=== PATIENT | male | born 1965 | race Two or more races ===

== ENCOUNTER 2020-02-07 15:23 | Inpatient (IN) | payer OTHER ==
[~2020-02-07] VITALS: Ht 185.4 cm; Wt 135.0 kg
[2020-02-07] MEDS ORDERED: PANTOPRAZOLE 40 MG/10 ML VIAL INJ IV STA (15:36)
[2020-02-07] MEDS ORDERED: SODIUM CHLORIDE 0.9% 1,000 ML IVB ONE (15:36)
[2020-02-07] MEDS ORDERED: MORPHINE SULFATE 4 MG/ML SYR/VIAL IV ONE (15:45)
[2020-02-07] MEDS ORDERED: ONDANSETRON HCL 4 MG/2 ML VIAL IV ONE (15:45)
[2020-02-07 16:23] LABS: Hemoglobin 13.2 g/dL (13.5-17.5)
[2020-02-07 16:24] LABS: Hematocrit 39.8 % (41.0-53.0); Mean Corpuscular Hemoglobin 28.8 pg (28.0-32.0); Mean Corpuscular Hgb Conc. 33.2 g/dL (32.0-36.0); Mean Corpuscular Volume 86.8 fL (80.0-100.0); Platelet Count (auto) 618 10^3/uL (140-450); Red Blood Cells 4.58 10^6/uL (4.5-5.90); Red Cell Distribution Width 13.7 % (11.8-14.3); White Blood Cell 12.8 10^3/uL (4.4-10.8)
[2020-02-07 16:29] LABS: Band Neutrophils % (manual) 0; Basophils % (manual) 0 (0.0-2.0); Blast Cells 0; Metamyelocytes % 0; Myelocytes % 0; Promyelocytes % 0; Reactive Lymphocytes 0
[2020-02-07 16:42] LABS: Albumin 3.1 g/dL (3.4-5.0); Calcium 8.8 mg/dL (8.5-10.1); Potassium 3.7 mmol/L (3.5-5.1)
[2020-02-07 16:46] LABS: BUN/Creatinine Ratio 12.2; Bilirubin, Total 0.8 mg/dL (0.2-1.0); Total Protein 7.7 g/dL (6.4-8.2)
[2020-02-07 17:28] LABS: Lymphocytes % (manual) 14 (10.0-50.0); Monocytes % (manual) 4 (0-12)
[2020-02-07 17:29] LABS: Eosinophils % (manual) 2 (0-7)
[2020-02-07] MEDS ORDERED: ALBUTEROL SULF 2.5 MG/0.5ML(0.5%) NEB SOLN NEB PRN (22:00)
[2020-02-07 22:23] VITALS: BP 117/78
[2020-02-07] MEDS: VANCOMYCIN 1GM/250ML 250 ML IV SCH (22:49)
--- NOTE | 2020-02-07 22:55 | NUR ---
MS admit from [facility] admitted to tele/MS. Patient oriented to JENNIFER SPARROW, primary RN, unit, room, bed, and unit policies regarding patient care and visiting hours. Patient accompanied to unit and room with two guards via wheelchair. Patient transferred from wheelchair to bed with strong and steady gait. Patient is alert and oriented x4. Patient denies shortness of breath or cough at this time. Patient placed on 1L NC, SPO2: 97%, no signs/symptoms of distress noted or verbalized at this time. Patient is complaining of non-radiating sharp pain to the left side of his abdomen (pain scale 7/10), will medicate patient as ordered by MD. Patient reports the onset of his pain began approximately 3 months ago. Patient denies nausea at this time. Instructed on plan of care and to call for assistance as needed, patient verbalized understanding. All questions and concerns addressed. Bed is locked in lowest position, side rails x 2 are up, call light is within reach, and guards are at the bedside.
[2020-02-07 23:00] VITALS: BP 112/82
[2020-02-07 23:40] VITALS: BP 112/82
[2020-02-07] MEDS: MORPHINE SULFATE 4 MG/ML SYR/VIAL IV PRN (23:45)
--- NOTE | 2020-02-07 23:45 | NUR ---
Abdominal Pain Patient is complaining of non-radiating sharp pain to the left side of his abdomen (pain scale 7/10). Patient has been medicated for pain as ordered by MD (see eMAR).
--- NOTE | 2020-02-08 00:15 | NUR ---
Pain Reassessment Patient is laying in bed with even and unlabored respirations. Patient rates his pain to the left side of his abdomen as a 4/10. No sign/symptoms of distress noted at this time.
[2020-02-08] MEDS ORDERED: ALBUAER3 IN (00:32)
[2020-02-08] MEDS ORDERED: TIOTCAP IN (00:32)
--- NOTE | 2020-02-08 00:45 | NUR ---
MRSA swab collected and sent to lab via bullet.
[2020-02-08] MEDS ORDERED: IPRATROPIUM BROM 0.5 MG/2.5ML INH SOL NEB PRN (02:00)
[2020-02-08 05:30] VITALS: BP 102/72
[2020-02-08] MEDS: ALBUTEROL SULF HFA 90MCG INH 200DOSE IN SCH ×2 (06:00→14:24)
--- NOTE | 2020-02-08 06:02 | NUR ---
Urinalysis Collected urine sample for urinalysis and sent to lab via bullet.
[2020-02-08 06:12] LABS: Urine Bacteria NONE SEEN /hpf (None Seen); Urine Blood Negative /uL (Negative); Urine Specific Gravity 1.006 (1.001-1.035); Urine WBC 3 /hpf (0 - 3)
--- NOTE | 2020-02-08 06:19 | NUR ---
NO INHALER AT BEDSIDE, MDI NOT GIVEN TO PT AT THIS TIME, PT ON 2L NC WITH SPO2 96%, HR 69, RR 15 WITH NO RESPIRATORY DISTRESS NOTED. GUARDS AT BEDSIDE. PT MADE AWARE TX WILL CONTINUE AT 1400.
[2020-02-08] MEDS: MORPHINE SULFATE 4 MG/ML SYR/VIAL IV PRN ×2 (06:36→14:36)
--- NOTE | 2020-02-08 07:19 | NUR ---
Closing Shift Note Endorsed patient care to Tata WONG.
--- NOTE | 2020-02-08 07:30 | NUR ---
Opening Shift Note Assumed care of patient, awake and alert. No S/S of distress/SOB or pain. Instructed on POC and to call for assist PRN, will continue to monitor for changes Q1hr and PRN. Fall precautions in place per safety protocol. Guards at bedside.
[2020-02-08 08:00] VITALS: BP 119/83
[2020-02-08] MEDS ORDERED: ENOXAPARIN SOD 40 MG/0.4 ML SYRINGE SC ONE (10:00)
[2020-02-08] MEDS: VANCOMYCIN 1GM/250ML 250 ML IV SCH ×2 (10:01→22:08)
[2020-02-08] MEDS: PANTOPRAZOLE 40 MG TAB PO SCH (10:01)
[2020-02-08 12:00] VITALS: BP 118/86
--- NOTE | 2020-02-08 12:54 | NUR ---
Covid Results Patient's covid results are negative. Patient will be transferred to room 293 A with MARVIN Bhatia. Report endorsed.
--- NOTE | 2020-02-08 13:21 | NUR ---
RECEIVED REPORT FROM MARVIN BAH. ASSUMED CARE OF PATIENT. NO S/S OF SOB/DISTRESS NOTED. BED SET TO LOWEST POSITION/LOCKED, BEDSIDE RAIL UP X2. CALL LIGHT WITHIN REACH. INSTRUCTED PATIENT TO CALL FOR ASSISTANCE. PATIENT VERBALIZED UNDERSTANDING. WILL CONTINUE TO MONITOR Q1HR AND PRN.
--- NOTE | 2020-02-08 13:24 | NUR ---
Patient transferred to room 293A. No distress, sob, or pain noted at time of departure.
--- NOTE | 2020-02-08 14:24 | NUR ---
INHALER GIVEN WITH NO ADVERSE RX, PT ON RA WITH SPO2 94%, HR 78, RR 15, WITH CLEAR DIMINISHED. WILL CONTINUE TO MONITOR PT. INHALER AT BEDSIDE.
[2020-02-08] MEDS ORDERED: IOHEXOL 300 MG/ML 100ML BOTTLE IJ ONE (16:50)
[2020-02-08 16:58] VITALS: BP 122/71
[2020-02-08] MEDS: Ensure HIGH Protein Chocolate 8oz Bottle PO SCH (18:00)
[2020-02-08 18:31] LABS: INR 1.13 (0.9-1.15); Partial Thromboplastin Time 28.2 sec (23.64-32.05)
[2020-02-08 22:00] VITALS: BP 123/84
[2020-02-08] MEDS ORDERED: ALBUTEROL SULF HFA 90MCG INH 200DOSE IN SCH (22:00)
[2020-02-08] MEDS: BUDESONIDE (INHALATION) 0.5 MG/2 ML NEB NEB SCH (22:35)
[2020-02-08] MEDS: ALBUTEROL SULF 2.5 MG/0.5ML(0.5%) NEB SOLN NEB SCH (22:35)
[2020-02-08] MEDS: IPRATROPIUM BROM 0.5 MG/2.5ML INH SOL NEB SCH (22:35)
[2020-02-08] MEDS: TEMAZEPAM 15 MG CAP PO PRN (23:50)
[2020-02-09 04:57] VITALS: BP 113/79
[2020-02-09] MEDS: MORPHINE SULFATE 4 MG/ML SYR/VIAL IV PRN ×3 (05:06→17:35)
[2020-02-09] MEDS: ALBUTEROL SULF 2.5 MG/0.5ML(0.5%) NEB SOLN NEB SCH ×3 (06:54→21:35)
[2020-02-09] MEDS: BUDESONIDE (INHALATION) 0.5 MG/2 ML NEB NEB SCH ×2 (06:54→21:35)
[2020-02-09] MEDS: IPRATROPIUM BROM 0.5 MG/2.5ML INH SOL NEB SCH ×3 (06:54→21:35)
[2020-02-09 07:34] LABS: Calcium 8.6 mg/dL (8.5-10.1); Potassium 3.8 mmol/L (3.5-5.1)
[2020-02-09 07:36] LABS: BUN/Creatinine Ratio 12.1
[2020-02-09] MEDS: Ensure HIGH Protein Chocolate 8oz Bottle PO SCH ×3 (08:11→17:34)
[2020-02-09 09:33] VITALS: BP 137/75
[2020-02-09] MEDS: VANCOMYCIN 1GM/250ML 250 ML IV SCH ×2 (09:58→17:34)
[2020-02-09] MEDS: PANTOPRAZOLE 40 MG TAB PO SCH (09:58)
[2020-02-09] MEDS: ONDANSETRON HCL 4 MG/2 ML VIAL IV PRN ×2 (11:25→17:35)
[2020-02-09 13:00] VITALS: BP 126/77
[2020-02-09 17:01] VITALS: BP 96/61
--- NOTE | 2020-02-09 19:35 | NUR ---
Opening Shift Note Assumed care of patient, awake and alert. No S/S of distress/SOB or pain. Instructed on POC and to call for assist PRN, will continue to monitor for changes Q1hr and PRN.
--- NOTE | 2020-02-09 21:35 | NUR ---
Respiratory note: SCHEDULED MED NEB TX GIVEN AND TOLERATED WELL. HR 102, RR 16, SPO2 87% ON ROOM AIR. PLACED PT ON 2L NC.
[2020-02-09 22:24] VITALS: BP 110/83
[2020-02-09] MEDS: HYDROcodone-ACET 10/325MG TAB PO PRN (22:24)
[2020-02-09] MEDS: TEMAZEPAM 15 MG CAP PO PRN (22:25)
[2020-02-10] MEDS: VANCOMYCIN 1GM/250ML 250 ML IV SCH ×3 (02:08→18:18)
[2020-02-10 05:00] VITALS: BP 111/69
[2020-02-10] MEDS: IPRATROPIUM BROM 0.5 MG/2.5ML INH SOL NEB SCH ×3 (05:57→22:26)
[2020-02-10] MEDS: ALBUTEROL SULF 2.5 MG/0.5ML(0.5%) NEB SOLN NEB SCH ×3 (05:57→22:26)
[2020-02-10] MEDS: BUDESONIDE (INHALATION) 0.5 MG/2 ML NEB NEB SCH ×2 (05:57→22:26)
[2020-02-10 06:27] LABS: Potassium 3.9 mmol/L (3.5-5.1)
[2020-02-10 06:34] LABS: BUN/Creatinine Ratio 13.4; Calcium 8.5 mg/dL (8.5-10.1)
[2020-02-10] MEDS: Ensure HIGH Protein Chocolate 8oz Bottle PO SCH ×3 (08:00→18:00)
[2020-02-10 08:59] VITALS: BP 107/70
[2020-02-10] MEDS ORDERED: GOLYTELY 4L KIT PO ONE (09:00)
[2020-02-10] MEDS: PANTOPRAZOLE 40 MG TAB PO SCH (09:40)
[2020-02-10] MEDS: HYDROcodone-ACET 10/325MG TAB PO PRN ×3 (09:41→22:26)
[2020-02-10 11:27] VITALS: BP 106/68
[2020-02-10 12:44] VITALS: BP 115/78
[2020-02-10 17:24] VITALS: BP 118/81
--- NOTE | 2020-02-10 19:00 | NUR ---
OPENING NOTE Patient is A&O X's 4 with no s/s of distress and reports no pain. Educated patient on POC and to use call light when in need of assistance. Patient verbalized understanding. Bed is in lowest/locked position with side rails up X's 2 and call light is within reach of patient. Guards are present at bedside. Will continue care.
[2020-02-10 22:19] VITALS: BP 118/77
[2020-02-10] MEDS: TEMAZEPAM 15 MG CAP PO PRN (22:26)
--- NOTE | 2020-02-10 23:26 | NUR ---
PAIN REASSESSMENT Patient is resting in bed with eyes closed. No s/s of distress or discomfort seen.
--- NOTE | 2020-02-11 | NUR ---
PATIENT NPO Patient is NPO for procedure. Patient aware and verbalized understanding.
[2020-02-11] MEDS: VANCOMYCIN 1GM/250ML 250 ML IV SCH ×3 (01:34→17:39)
[2020-02-11 05:20] VITALS: BP 109/84
[2020-02-11 05:21] VITALS: BP 109/84
[2020-02-11] MEDS ORDERED: GOLYTELY 4L KIT PO ONE ×3 (06:00→11:45)
[2020-02-11] MEDS: HYDROcodone-ACET 10/325MG TAB PO PRN (06:34)
--- NOTE | 2020-02-11 06:49 | NUR ---
golytely patient instructed on finishing the golytely solution. Patient verbalized understanding. Patient reporting that he is having many bowel movements this morning and that it is almost clear in color now. Will give report to day shift RN.
[2020-02-11 06:59] LABS: Basophils # (auto) 0.1 10 ^3/uL (0-0.2); Lymphocytes # (auto) 1.4 10 ^3/uL (0.4-5.4); Mean Corpuscular Volume 88.2 fL (80.0-100.0); White Blood Cell 11.3 10^3/uL (4.4-10.8)
[2020-02-11 07:01] LABS: Basophils % (auto) 0.9 % (0.0-2.0); Eosinophils # (auto) 0.6 10 ^3/uL (0-0.8); Eosinophils % (auto) 5.1 % (0.0-7.0); Hemoglobin 13.3 g/dL (13.5-17.5); Lymphocytes % (auto) 12.1 % (10.0-50.0); Mean Corpuscular Hemoglobin 28.5 pg (28.0-32.0); Mean Corpuscular Hgb Conc. 32.3 g/dL (32.0-36.0); Neutrophils # (auto) 8.3 10 ^3/uL (1.6-8.6); Neutrophils % (auto) 72.9 % (37.0-80.0); Nucleated Red Blood Cells % 0.2 %; Platelet Count (auto) 658 10^3/uL (140-450); Red Blood Cells 4.66 10^6/uL (4.5-5.90); Red Cell Distribution Width 14.3 % (11.8-14.3)
--- NOTE | 2020-02-11 07:15 | NUR ---
OPENING SHIFT NOTE Assumed care of patient from nightclub manager RN. Guards at bedside, cuffs noted to bilateral lower extremities, no signs of skin breakdown or circulatory issues. Patient is alert and oriented x4, patient complaining of abdominal pain. Pain medication already given, patient was offered heat/ice packs and patient refused. Abdomen is distended, firm, tenderness noted. Patient was updated on the plan of care and he verbalized understanding. Bed is locked, in the lowest position, side rails up x2 and call light is in reach. Patient was encouraged to call for assistance as needed.
[2020-02-11] MEDS: ALBUTEROL SULF 2.5 MG/0.5ML(0.5%) NEB SOLN NEB SCH ×4 (07:21→22:27)
[2020-02-11] MEDS: IPRATROPIUM BROM 0.5 MG/2.5ML INH SOL NEB SCH ×4 (07:21→22:27)
--- NOTE | 2020-02-11 07:35 | NUR ---
ALEX COMPLETED Patient reports his first bowel movement was this morning around 0600, solid.
[2020-02-11] MEDS: Ensure HIGH Protein Chocolate 8oz Bottle PO SCH ×3 (08:00→17:40)
--- NOTE | 2020-02-11 08:26 | NUR ---
PATIENT COMPLAINING OF N/V Patient and guard state that the patient vomited, unwitnessed by this RN, amount unknown. Patient complaining of nausea. Will give Zofran as ordered.
[2020-02-11] MEDS: ONDANSETRON HCL 4 MG/2 ML VIAL IV PRN (08:46)
[2020-02-11 09:00] VITALS: BP 117/78
[2020-02-11] MEDS: PANTOPRAZOLE 40 MG TAB PO SCH (09:44)
[2020-02-11] MEDS ORDERED: NALOXONE HCL 0.4 MG/ML VIAL ONE (10:09)
[2020-02-11] MEDS ORDERED: FLUMAZENIL 0.1 MG/ML INJ 10ML MDV IV ONE (10:09)
[2020-02-11] MEDS ORDERED: SODIUM CHLORIDE LOCK 0 ML ONE (10:09)
[2020-02-11] MEDS ORDERED: LIDOCAINE VISCOUS 2% 15ML UD ONE (10:09)
[2020-02-11] MEDS ORDERED: diphenhdrAMINE HCL 50 MG/1 ML VL ONE (10:10)
[2020-02-11] MEDS ORDERED: MIDAZOLAM HCL 5 MG/ML-1ML VIAL ONE (10:10)
[2020-02-11] MEDS ORDERED: fentaNYL CITRATE 100 MCG/2 ML VL ONE (10:10)
--- NOTE | 2020-02-11 10:32 | NUR ---
IV INFILTRATION Antibiotic infusion stopped. erythema noted to the right forearm. Pharmacy called, ice pack to affected area and IV removed per protocol, pressure dressing applied, patient tolerated well.
--- NOTE | 2020-02-11 11:30 | NUR ---
IV insertion IV access obtained, via clean sterile technique by inserting 22 gauge catheter at Left forearm after 4 attempts. IV secured properly. No trauma to site. Patient tolerated well.
[2020-02-11] MEDS ORDERED: MORPHINE SULFATE 4 MG/ML SYR/VIAL IV PRN (11:45)
--- NOTE | 2020-02-11 11:56 | NUR ---
AVERY PAGED Regarding patient needing another round of golytely. message left with service, awaiting call back.
[2020-02-11] MEDS: MORPHINE SULFATE 4 MG/ML SYR/VIAL IV PRN ×3 (11:58→22:24)
--- NOTE | 2020-02-11 12:06 | NUR ---
CALL FROM AVERY updated on patient status, per MD patient to drink golytely 3L during the day and 1L at night, reschedule procedure for tomorrow 02/12/20 at 0830. Will inform OR.
[2020-02-11 12:29] LABS: Hepatitis B Surface Antibody Negative
[2020-02-11 13:00] VITALS: BP 119/85
[2020-02-11] MEDS: BUDESONIDE (INHALATION) 0.5 MG/2 ML NEB NEB SCH ×2 (15:02→22:27)
[2020-02-11 17:00] VITALS: BP 125/78
[2020-02-11 17:37] LABS: Hepatitis B Surface Antigen Negative (Negative)
[2020-02-11 17:38] LABS: Hepatitis A Ab IgM Negative; Hepatitis C Antibody Negative (Negative)
[2020-02-11 17:40] LABS: Hepatitis B Core IgM Negative; Hepatitis B Core Total AB Negative
--- NOTE | 2020-02-11 19:00 | NUR ---
OPENING NOTE Received report from day shift RN. Patient is A&O X's 4 with no s/s of distress. Educated patient on POC and to use call light when in need of assistance. Patient verbalized understanding. Patient to be NPO at midnight for procedure in the morning. Educated patient that he needs to drink 1L of the golytely. Bed is in lowest/locked position with side rails up X's 2 and call light is within reach of patient. Guards are present at bedside. Will continue care. Patient took shower at this time and linen on bed was changed.
[2020-02-11 22:00] VITALS: BP 131/72
[2020-02-11] MEDS: TEMAZEPAM 15 MG CAP PO PRN (22:25)
--- NOTE | 2020-02-11 23:00 | NUR ---
PAIN REASSESSMENT patient resting in bed with no s/s of distress or discomfort. Will continue care.
[2020-02-12] MEDS: VANCOMYCIN 1GM/250ML 250 ML IV SCH ×3 (01:34→18:19)
[2020-02-12] MEDS: MORPHINE SULFATE 4 MG/ML SYR/VIAL IV PRN ×2 (04:32→22:14)
--- NOTE | 2020-02-12 04:43 | NUR ---
NURSING NOTE Patient reported having a few BM over the night. Patient reports that stool is still not clear. Encouraged patient to keep drinking the Golytely. Patient verbalized understanding and said "I have been trying to drink as much of it as I can. "I drank about 1L last night." Will continue care and patient aware of needing to have more BM in order to be able to have the colonoscopy done.
[2020-02-12 04:56] VITALS: BP 109/76
[2020-02-12] MEDS: ONDANSETRON HCL 4 MG/2 ML VIAL IV PRN (06:07)
--- NOTE | 2020-02-12 06:12 | NUR ---
NOTE Patient reports that his stools are not formed. Stools are like yellow liquid with very little particles in it. Patient reports "it is clear enough to see bottom of toilet." Patient has only a little bit of Golytely left, about 200 ml or less. Patient consumed almost all of it during the night as it was ordered. Encouraged patient to finish the rest. Patient is currently drinking it. Will continue care.
[2020-02-12 06:20] LABS: Potassium 3.8 mmol/L (3.5-5.1)
[2020-02-12 06:27] LABS: BUN/Creatinine Ratio 11.3; Calcium 8.7 mg/dL (8.5-10.1)
[2020-02-12] MEDS: BUDESONIDE (INHALATION) 0.5 MG/2 ML NEB NEB SCH ×2 (07:06→22:01)
[2020-02-12] MEDS: IPRATROPIUM BROM 0.5 MG/2.5ML INH SOL NEB SCH ×3 (07:06→22:02)
[2020-02-12] MEDS: ALBUTEROL SULF 2.5 MG/0.5ML(0.5%) NEB SOLN NEB SCH ×3 (07:06→22:02)
--- NOTE | 2020-02-12 07:13 | NUR ---
END OF SHIFT Golytely was completely finished early this morning, around 0630. Patient has had 3+ BM this morning. BM is liquid and yellow in color. Report given to day shift RN.
[2020-02-12 07:38] LABS: INR 1.14 (0.9-1.15)
[2020-02-12 08:00] VITALS: BP 115/72
[2020-02-12] MEDS: Ensure HIGH Protein Chocolate 8oz Bottle PO SCH ×3 (08:00→18:19)
[2020-02-12] MEDS ORDERED: NALOXONE HCL 0.4 MG/ML VIAL ONE (08:15)
[2020-02-12] MEDS ORDERED: SODIUM CHLORIDE LOCK 10 ML ONE (08:15)
[2020-02-12] MEDS ORDERED: diphenhdrAMINE HCL 50 MG/1 ML VL ONE (08:15)
[2020-02-12] MEDS ORDERED: FLUMAZENIL 0.1 MG/ML INJ 10ML MDV IV ONE (08:15)
[2020-02-12] MEDS: MIDAZOLAM HCL 5 MG/ML-1ML VIAL ONE ×4 (08:57→09:07)
[2020-02-12] MEDS: fentaNYL CITRATE 100 MCG/2 ML VL ONE ×3 (08:57→09:04)
[2020-02-12] MEDS ORDERED: MIDAZOLAM HCL 5 MG/ML-1ML VIAL ONE (09:14)
[2020-02-12] MEDS ORDERED: fentaNYL CITRATE 100 MCG/2 ML VL ONE (09:14)
[2020-02-12] MEDS: PANTOPRAZOLE 40 MG TAB PO SCH (10:28)
[2020-02-12] MEDS: HYDROcodone-ACET 10/325MG TAB PO PRN ×2 (10:29→18:20)
[2020-02-12 12:49] VITALS: BP 109/70
[2020-02-12 16:46] VITALS: BP 107/77
--- NOTE | 2020-02-12 19:00 | NUR ---
OPENING NOTE Received report from day shift RN. Patient is A&O X's 4 with no s/s of distress and reports no pain at this time. Educated patient on POC and to use call light when in need of assistance. Patient verbalized understanding. Patient is aware he is NPO at midnight for procedure in the morning. Bed is in lowest/locked position with side rails up X's 2 and call light is within reach of patient. Guards are present at bedside. Will continue care.
[2020-02-12 20:18] LABS: Hepatitis A Total Antibody Positive
[2020-02-12 22:00] VITALS: BP 105/72
[2020-02-12] MEDS: TEMAZEPAM 15 MG CAP PO PRN (22:14)
--- NOTE | 2020-02-12 22:49 | NUR ---
PAIN REASSESSMENT Patient laying in bed resting. No s/s of discomfort noted
[2020-02-13] VITALS (7 sets, daily range): BP systolic 100–143; BP diastolic 66–89
[2020-02-13] MEDS: VANCOMYCIN 1GM/250ML 250 ML IV SCH ×3 (02:25→18:14)
--- NOTE | 2020-02-13 02:26 | NUR ---
IV insertion IV access obtained, via clean sterile technique by inserting 22 gauge catheter at left forearm. IV secured properly. No trauma to site. Patient tolerated well.
--- NOTE | 2020-02-13 02:27 | NUR ---
IV removal 22G IV to left forearm DC'd with clean sterile technique, catheter fully intact. Pressure dressing applied to site. Patient tolerated well. Will insert new IV.
[2020-02-13] MEDS: Ensure HIGH Protein Chocolate 8oz Bottle PO SCH ×3 (07:16→18:00)
[2020-02-13] MEDS ORDERED: MIDAZOLAM HCL 1MG/1ML-2 ML VIAL IV ONE (07:45)
[2020-02-13] MEDS ORDERED: fentaNYL CITRATE 100 MCG/2 ML VL IV ONE (07:45)
[2020-02-13] MEDS: ALBUTEROL SULF 2.5 MG/0.5ML(0.5%) NEB SOLN NEB SCH ×3 (07:50→21:30)
[2020-02-13] MEDS: BUDESONIDE (INHALATION) 0.5 MG/2 ML NEB NEB SCH ×2 (07:50→21:30)
[2020-02-13] MEDS: IPRATROPIUM BROM 0.5 MG/2.5ML INH SOL NEB SCH ×3 (07:50→21:30)
[2020-02-13] MEDS: MORPHINE SULFATE 4 MG/ML SYR/VIAL IV PRN ×3 (08:22→21:13)
[2020-02-13] MEDS: ONDANSETRON HCL 4 MG/2 ML VIAL IV PRN ×3 (08:22→21:12)
[2020-02-13] MEDS: PANTOPRAZOLE 40 MG TAB PO SCH (10:00)
[2020-02-13] MEDS ORDERED: LIDOCAINE 2%HCL (LOCAL ANESTH.) INJ 20ML MDV ONE (12:45)
[2020-02-13] MEDS: HYDROcodone-ACET 10/325MG TAB PO PRN (18:15)
--- NOTE | 2020-02-13 19:05 | NUR ---
OPENING SHIFT NOTE: ASSUMED CARE OF PATIENT. PATIENT IS AWAKE, ALERT AND ORIENTED X 4. NO S/S OF DISTRESS OR SOB, RESPIRATIONS ARE EVEN AND UNLABORED, PATIENT COMPLAINS OF PAIN 7/10 IN UPPER RIGHT ABDOMEN, WILL MEDICATE FOR PAIN. BED IS LOW, LOCKED, TWO SIDE RAILS RAISED, AND CALL DIAL WITHIN REACH, GUARDS AT THE BEDSIDE FOR SAFETY. INSTRUCTED PATIENT ON POC AND ENCOURAGED HIM TO CALL FOR ASSISTANCE, PATIENT VERBALIZED UNDERSTANDING. WILL CONTINUE TO MONITOR FOR CHANGES Q 1HR AND PRN.
--- NOTE | 2020-02-13 19:15 | NUR ---
DR. YUEN AT THE BEDSIDE.
[2020-02-13] MEDS: TEMAZEPAM 15 MG CAP PO PRN (21:23)
--- NOTE | 2020-02-13 21:25 | NUR ---
PATIENT STATES HE NO LONGER WANTS ANY IV'S OR IV MEDICATIONS AND WOULD LIKE A BREAK FROM NEEDLES FOR THE NIGHT. PATIENT ALSO REQUESTED THAT HIS BREATHING TREATMENTS BE CANCELLED, WILL CALL RESPIRATORY AND WILL HOLD IV MEDICATIONS.
--- NOTE | 2020-02-13 21:27 | NUR ---
IV REMOVAL: RIGHT FOREARM IV REMOVED, CATHETER TIP INTACT AND PRESSURE DRESSING APPLIED. PATIENT TOLERATED WELL.
--- NOTE | 2020-02-13 21:30 | NUR ---
Respiratory note: SCHEDULED MED NEB TX NOT GIVEN PER PATIENT REQUEST. RN PAGED RT TO NOTIFY
[2020-02-13] MEDS: Ensure HIGH Protein Vanilla 8oz Bottle PO SCH (22:00)
[2020-02-14] MEDS: HYDROcodone-ACET 10/325MG TAB PO PRN (03:22)
--- NOTE | 2020-02-14 04:22 | NUR ---
PATIENT'S TEMP 101.3, COOLING MEASURES INITIATED, WILL RE-CHECK AND CONTINUE TO MONITOR FOR CHANGES.
[2020-02-14 04:30] VITALS: BP_SYST 126; BP_SYST 132; BP_DIAS 75; BP_DIAS 85
--- NOTE | 2020-02-14 05:39 | NUR ---
PATIENT'S TEMP IS NOW 99.1. WILL CONTINUE TO MONITOR.
[2020-02-14 05:59] LABS: Basophils # (auto) 0 10 ^3/uL (0-0.2); Eosinophils # (auto) 0.1 10 ^3/uL (0-0.8); Hemoglobin 11.6 g/dL (13.5-17.5); Lymphocytes # (auto) 0.8 10 ^3/uL (0.4-5.4); White Blood Cell 10.5 10^3/uL (4.4-10.8)
[2020-02-14 06:00] LABS: Basophils % (auto) 0.4 % (0.0-2.0); Eosinophils % (auto) 1.1 % (0.0-7.0); Hematocrit 34.8 % (41.0-53.0); Lymphocytes % (auto) 7.6 % (10.0-50.0); Mean Corpuscular Hemoglobin 28.9 pg (28.0-32.0); Mean Corpuscular Hgb Conc. 33.4 g/dL (32.0-36.0); Mean Corpuscular Volume 86.3 fL (80.0-100.0); Monocytes # (auto) 0.9 10 ^3/uL (0-1.3); Neutrophils # (auto) 8.6 10 ^3/uL (1.6-8.6); Neutrophils % (auto) 81.9 % (37.0-80.0); Platelet Count (auto) 566 10^3/uL (140-450); Red Blood Cells 4.03 10^6/uL (4.5-5.90); Red Cell Distribution Width 13.8 % (11.8-14.3)
[2020-02-14] MEDS: Ensure HIGH Protein Vanilla 8oz Bottle PO SCH ×4 (07:00→23:37)
[2020-02-14] MEDS: BUDESONIDE (INHALATION) 0.5 MG/2 ML NEB NEB SCH ×2 (07:24→22:31)
[2020-02-14] MEDS: ALBUTEROL SULF 2.5 MG/0.5ML(0.5%) NEB SOLN NEB SCH ×3 (07:24→22:31)
[2020-02-14] MEDS: IPRATROPIUM BROM 0.5 MG/2.5ML INH SOL NEB SCH ×3 (07:24→22:31)
[2020-02-14] MEDS ORDERED: IOHEXOL 300 MG/ML 100ML BOTTLE IJ ONE (07:38)
[2020-02-14] MEDS: Ensure HIGH Protein Chocolate 8oz Bottle PO SCH (08:00)
--- NOTE | 2020-02-14 08:00 | NUR ---
IV insertion IV access obtained, via clean sterile technique by inserting 20 gauge catheter at left wrist after 1 attempt. IV secured properly. No trauma to site. Patient tolerated well. NOTE:
[2020-02-14] MEDS: MORPHINE SULFATE 4 MG/ML SYR/VIAL IV PRN ×4 (08:08→21:41)
[2020-02-14] MEDS: ONDANSETRON HCL 4 MG/2 ML VIAL IV PRN ×4 (08:08→21:41)
--- NOTE | 2020-02-14 08:15 | NUR ---
Patient taken down for CT.
[2020-02-14 09:00] VITALS: BP 104/69
[2020-02-14] MEDS: PANTOPRAZOLE 40 MG TAB PO SCH (09:01)
--- NOTE | 2020-02-14 12:45 | NUR ---
MIDLINE REFUSED Explained to patient the need for midline placement. Pt states that he just had an IV placed to left arm and does not wished to be poked again unless his current IV "goes bad". Explained to patient the benefits and importance of IV access from Midline, and he states that if he needs another IV he will let his primary nurse know to call for midline.
[2020-02-14 13:00] VITALS: BP 101/66
[2020-02-14] MEDS ORDERED: TEMAZEPAM 15 MG CAP PO PRN (13:00)
[2020-02-14 17:19] VITALS: BP 101/60
--- NOTE | 2020-02-14 19:45 | NUR ---
Opening Shift Note Received report and assumed care of patient. Patient is awake and alert. No signs or symptoms of distress noted. Instructed patient on plan of care and to call for assistance as needed. Guards at bedside. Will continue to monitor.
--- NOTE | 2020-02-14 20:32 | NUR ---
Dr. Ervin, new orders Dr. Ervin called for orders to keep patient NPO after midnight. New order for IV fluids normal saline at 75ml/hr. Orders read back and verified. Will carry out and continue to monitor.
[2020-02-14] MEDS: SODIUM CHLORIDE 0.9% 1,000 ML IV SCH (21:51)
[2020-02-14 22:00] VITALS: BP 114/76
[2020-02-15 05:00] VITALS: BP 126/78
[2020-02-15] MEDS: HYDROcodone-ACET 10/325MG TAB PO PRN ×2 (05:20→20:47)
[2020-02-15] MEDS: Ensure HIGH Protein Vanilla 8oz Bottle PO SCH ×2 (06:00→12:00)
[2020-02-15] MEDS: IPRATROPIUM BROM 0.5 MG/2.5ML INH SOL NEB SCH ×3 (07:03→22:00)
[2020-02-15] MEDS: BUDESONIDE (INHALATION) 0.5 MG/2 ML NEB NEB SCH ×2 (07:03→22:00)
[2020-02-15] MEDS: ALBUTEROL SULF 2.5 MG/0.5ML(0.5%) NEB SOLN NEB SCH ×3 (07:03→22:00)
[2020-02-15] MEDS ORDERED: BUPIVACAINE 0.25% INJ 50ML VIAL ONE (07:09)
[2020-02-15] MEDS ORDERED: LIDOCAINE 1% HCL (LOCAL ANESTH.) INJ 20ML MDV ONE (07:09)
--- NOTE | 2020-02-15 08:21 | NUR ---
Patient left to OR.
[2020-02-15 08:58] VITALS: BP 107/70
[2020-02-15] MEDS ORDERED: fentaNYL CITRATE 100 MCG/2 ML VL ONE ×2 (09:53→12:16)
[2020-02-15] MEDS ORDERED: cefOXitin 2GM/100ML 100 ML IV ONE (09:53)
[2020-02-15] MEDS ORDERED: HYDROmorphone HCL 2 MG/ML VL ONE ×3 (09:53→14:52)
[2020-02-15] MEDS ORDERED: MIDAZOLAM HCL 1MG/1ML-2 ML VIAL ONE (09:54)
[2020-02-15] MEDS ORDERED: fentaNYL CITRATE 5 ML ONE (09:54)
[2020-02-15] MEDS: PANTOPRAZOLE 40 MG TAB PO SCH (10:00)
[2020-02-15] MEDS ORDERED: ROCURONIUM 10MG/ML 10ML VIAL IV ONE (10:19)
[2020-02-15] MEDS: SODIUM CHLORIDE 0.9% 1,000 ML IV SCH (10:20)
[2020-02-15] MEDS ORDERED: PHENYLEPHRINE HCL 10 MG/ML VL ONE (13:22)
[2020-02-15] MEDS ORDERED: ACETAMINOPHEN 325 MG TAB PO PRN (13:45)
--- NOTE | 2020-02-15 14:00 | NUR ---
Respiratory note: Unable to administered scheduled 1400 medneb tx, pt is in OR for procedure.
[2020-02-15] MEDS: HYDROmorphone HCL 2 MG/ML VL IV PRN ×2 (14:52→15:09)
[2020-02-15] MEDS ORDERED: KETOROLAC TROMETH 15 mg/ml 1ML VL IV ONE (15:00)
[2020-02-15] MEDS ORDERED: ONDANSETRON HCL 4 MG/2 ML VIAL IV PRN (15:00)
[2020-02-15] MEDS ORDERED: LABETALOL HCL 5 MG/ML 4ML SYRINGE IV PRN (15:00)
[2020-02-15] MEDS ORDERED: MORPHINE SULFATE 4 MG/ML SYR/VIAL IV PRN (15:00)
[2020-02-15] MEDS ORDERED: MIDAZOLAM HCL 1MG/1ML-2 ML VIAL IV PRN (15:00)
[2020-02-15] MEDS ORDERED: ePHEDrine SULFATE 50 MG/ML AMP IV PRN (15:00)
--- NOTE | 2020-02-15 16:29 | NUR ---
Patient came back to the floor. Patient has midline incision, dressing clean, dry intact. NG to the right nare connected to LIS. DOTTIE drain to the right side, draining properly with sanguineous. Colostomy on the left. Patient on Oxymizer 6 L,o2 sat 100 %, no respiratory distress noted. Pemberton in place draining clear yellow urine. Patient c/o of pain 8/10 , just received pain meds from OR. Placed a call light within reach. Will continue to monitor.
[2020-02-15] MEDS: D5W/SOD CHL 0.45%/KCL 20MEQ 1,000 ML IV SCH (16:36)
[2020-02-15 16:48] VITALS: BP 129/83
--- NOTE | 2020-02-15 17:06 | NUR ---
Verification of the order Dr. Carine colunga, spoke to Awaiting to call back. Addendum: 02/15/20 at 1822 by JANESSA ROQUE RN Edward PALOMINO
[2020-02-15] MEDS: MORPHINE SULF INJ 2 MG/ML SYRINGE 1ML IV PRN ×2 (17:22→21:34)
--- NOTE | 2020-02-15 18:14 | NUR ---
Verification of the order Dr. Carine colunga again, spoke to Awaiting to call back. Addendum: 02/15/20 at 1823 by JANESSA ROQUE RN Edward YOUNG
--- NOTE | 2020-02-15 18:23 | NUR ---
Verification of order Spoke Dr. Ervin , received a new order to remove NG and continue with clear liquid diet. Noted and carried it out.
--- NOTE | 2020-02-15 19:20 | NUR ---
Empty DOTTIE drain of 50 ml serosanguineous.
--- NOTE | 2020-02-15 19:50 | NUR ---
PATIENT IS AOX4 ON BEDREST. HE HAS A COLOSTOMY WITH BRIGHT RED STOMA AND A DOTTIE DRAIN BOTH CURRENTLY WITH NO DRAINAGE NOTED. PATIENT STATES 10/10 PAIN AND WILL MEDICATE APPROPRIATELY. HE IS ON A CONTINUOUS PULSE OXIMETRY ON 8L OXYMIZER SATTING AT 95%+. BED IS LOCKED IN LOWEST POSITION WITH SIDE RAILS UP X2. GUARDS ARE PRESENT BEDSIDE. WILL CONTINUE TO MONITOR.
[2020-02-15] MEDS: GABAPENTIN 300 MG CAP PO SCH (21:33)
[2020-02-15] MEDS: CELECOXIB 100 MG CAP PO SCH (21:34)
[2020-02-15 22:00] VITALS: BP 118/71
[2020-02-16] MEDS: HYDROcodone-ACET 10/325MG TAB PO PRN ×2 (00:21→05:13)
[2020-02-16] MEDS: MORPHINE SULF INJ 2 MG/ML SYRINGE 1ML IV PRN ×2 (01:24→06:44)
[2020-02-16] MEDS: D5W/SOD CHL 0.45%/KCL 20MEQ 1,000 ML IV SCH ×2 (04:20→16:25)
[2020-02-16 05:00] VITALS: BP 125/89
[2020-02-16 05:27] LABS: Basophils # (auto) 0.2 10 ^3/uL (0-0.2); Basophils % (auto) 1.4 % (0.0-2.0); Eosinophils # (auto) 0 10 ^3/uL (0-0.8); Hemoglobin 11.5 g/dL (13.5-17.5); Lymphocytes # (auto) 0.7 10 ^3/uL (0.4-5.4); Mean Corpuscular Hemoglobin 28.3 pg (28.0-32.0); Mean Corpuscular Hgb Conc. 32.3 g/dL (32.0-36.0); Monocytes # (auto) 1.1 10 ^3/uL (0-1.3); Neutrophils % (auto) 84.8 % (37.0-80.0)
[2020-02-16 05:30] LABS: Hematocrit 35.4 % (41.0-53.0); Mean Corpuscular Volume 87.6 fL (80.0-100.0); Monocytes % (auto) 8.8 % (0.0-12.0); Neutrophils # (auto) 11.1 10 ^3/uL (1.6-8.6); Platelet Count (auto) 660 10^3/uL (140-450); Red Blood Cells 4.04 10^6/uL (4.5-5.90); Red Cell Distribution Width 13.9 % (11.8-14.3); White Blood Cell 13.1 10^3/uL (4.4-10.8)
[2020-02-16 05:42] LABS: BUN/Creatinine Ratio 13.2; Calcium 8.7 mg/dL (8.5-10.1); Magnesium 1.8 mg/dL (1.6-2.6); Potassium 4.5 mmol/L (3.5-5.1)
[2020-02-16] MEDS: IPRATROPIUM BROM 0.5 MG/2.5ML INH SOL NEB SCH ×3 (05:54→22:35)
[2020-02-16] MEDS: ALBUTEROL SULF 2.5 MG/0.5ML(0.5%) NEB SOLN NEB SCH ×3 (05:54→22:35)
[2020-02-16] MEDS: BUDESONIDE (INHALATION) 0.5 MG/2 ML NEB NEB SCH ×2 (05:54→22:35)
[2020-02-16] MEDS ORDERED: IOHEXOL 300 MG/ML 100ML BOTTLE IJ ONE (08:16)
--- NOTE | 2020-02-16 08:25 | NUR ---
Dr. Walker at bedside exam patient and made aware of pt abdomen distended. Per Dr. Patton patient does not need CT right now , can do it later when patient feel comfortable.
[2020-02-16 08:49] VITALS: BP 117/79
[2020-02-16] MEDS: HYDROmorphone HCL 2 MG/ML VL IV PRN ×4 (08:57→17:19)
[2020-02-16] MEDS: ONDANSETRON HCL 4 MG/2 ML VIAL IV PRN (08:57)
[2020-02-16] MEDS: GABAPENTIN 300 MG CAP PO SCH ×2 (08:58→21:45)
[2020-02-16] MEDS: ENOXAPARIN SOD 40 MG/0.4 ML SYRINGE SC SCH (08:58)
[2020-02-16] MEDS: CELECOXIB 100 MG CAP PO SCH ×2 (08:58→21:45)
[2020-02-16] MEDS: PANTOPRAZOLE 40 MG/10 ML VIAL INJ IV SCH (08:58)
[2020-02-16] MEDS: chlorproMAZINE HCL 25 MG/1 ML AMP IM PRN ×2 (09:06→17:19)
--- NOTE | 2020-02-16 09:24 | NUR ---
Wasted 1 amp of Thorazine, pharmacist notified.
[2020-02-16 12:41] VITALS: BP 120/75
[2020-02-16 15:37] LABS: Magnesium 2.1 mg/dL (1.6-2.6); Phosphorus 3.8 mg/dL (2.5-4.90)
[2020-02-16 15:41] LABS: Pre Albumin 4.6 mg/dL (20.0-40.0)
[2020-02-16] MEDS ORDERED: PPN PER PHARMACY 0 ML IV SCH (16:00)
[2020-02-16 16:25] VITALS: BP 120/75
--- NOTE | 2020-02-16 16:52 | NUR ---
MIDLINE placement Patient/Patient significant other educated on need for MIDLINE placement. All risks and benefits explained and all questions and concerns addressed prior to procedure. Noted past medical history and allergies with no contraindications. INR and Plt counts within acceptable range. 4 fr MIDLINE inserted via left basilic vein using [employer] US and Tip Location System. Sterile technique with maximum barrier precautions utilized. Blood return obtained from the single lumen and it flushed easily with NS using proper technique. MIDLINE secured with Stat-lock; biodisc and occlusive dressing applied. Less than 5ml EBL noted during procedure. MIDLINE 20cm internally w/ 0cm externally. *Baseline Arm Circumference 28cm at 1cm above insertion site. MIDLINE lot # [id number]. Note:
--- NOTE | 2020-02-16 16:53 | NUR ---
OK to use MIDLINE Kassie Hinds notified now OK to use MIDLINE.
[2020-02-16 17:00] VITALS: BP 143/83
--- NOTE | 2020-02-16 18:26 | NUR ---
Empty DOTTIE drain of 200 ml serosanguineous.
--- NOTE | 2020-02-16 19:59 | NUR ---
IV insertion IV access obtained, via clean sterile technique by inserting 20 gauge catheter at left forearm after 1 attempt. IV secured properly. No trauma to site. Patient tolerated procedure well. 20 ml of serosanguineous fluid emptied from bennie drain.
[2020-02-16] MEDS ORDERED: AMINO ACID INFUSION IN D5W 1,000 ML IV ONE (20:00)
[2020-02-16 22:00] VITALS: BP 108/71
--- NOTE | 2020-02-16 23:20 | NUR ---
EMPTIED 200 ML OF SEROSANGUINEOUS FLUID FROM DOTTIE DRAIN. MILKED DOTTIE DRAIN TUBING AND REMOVED LARGE CLOT. WILL CONTINUE TO MONITOR.
[2020-02-17] MEDS: ACCU-CHEK COMFORT CURVE STRIP VI SCH ×4 (00:23→16:56)
[2020-02-17] MEDS: D5W/SOD CHL 0.45%/KCL 20MEQ 1,000 ML IV SCH ×2 (00:24→19:05)
[2020-02-17 04:18] VITALS: BP 124/79
--- NOTE | 2020-02-17 05:50 | NUR ---
EMPTIED 50 ML OF SEROSANGENOUS FLUID FROM DOTTIE DRAIN.
[2020-02-17] MEDS: InsuLIN REG 1unit/0.01ml Soln (100units/ml) SC SCH ×4 (06:00→16:56)
[2020-02-17 06:26] LABS: Albumin 2.1 g/dL (3.4-5.0); Calcium 8.2 mg/dL (8.5-10.1); Magnesium 1.7 mg/dL (1.6-2.6); Potassium 4.1 mmol/L (3.5-5.1)
[2020-02-17 06:28] LABS: Bilirubin, Total 0.4 mg/dL (0.2-1.0); Total Protein 6.4 g/dL (6.4-8.2)
--- NOTE | 2020-02-17 06:52 | NUR ---
NOTIFIED PHARMACY TO SEND FLAGYL SINCE THERE ARE NONE AVAILABLE ON THE UNIT.
[2020-02-17] MEDS: BUDESONIDE (INHALATION) 0.5 MG/2 ML NEB NEB SCH ×2 (06:58→22:28)
[2020-02-17] MEDS: ALBUTEROL SULF 2.5 MG/0.5ML(0.5%) NEB SOLN NEB SCH ×3 (06:58→22:28)
[2020-02-17] MEDS: IPRATROPIUM BROM 0.5 MG/2.5ML INH SOL NEB SCH ×3 (06:58→22:28)
[2020-02-17 09:00] VITALS: BP 114/80
[2020-02-17] MEDS: GABAPENTIN 300 MG CAP PO SCH ×2 (09:46→21:28)
[2020-02-17] MEDS: ENOXAPARIN SOD 40 MG/0.4 ML SYRINGE SC SCH (09:46)
[2020-02-17] MEDS: PANTOPRAZOLE 40 MG/10 ML VIAL INJ IV SCH (09:46)
[2020-02-17] MEDS: CELECOXIB 100 MG CAP PO SCH ×2 (09:46→21:28)
--- NOTE | 2020-02-17 10:30 | NUR ---
Attempted to insert NG, patient feel very uncomfortable and non cooperate well. Will try again later.
[2020-02-17] MEDS: ONDANSETRON HCL 4 MG/2 ML VIAL IV PRN (10:57)
[2020-02-17] MEDS: HYDROmorphone HCL 2 MG/ML VL IV PRN ×3 (10:57→20:51)
--- NOTE | 2020-02-17 12:05 | NUR ---
Attempted NG again with 18 Fr, patient cannot tolerated , Spoke to Dr. Ervin stated ok to use 16 Fr. Noted and carried it out.
[2020-02-17 13:00] VITALS: BP 129/87
--- NOTE | 2020-02-17 13:44 | NUR ---
Attempted NG again with 16 Fr, patient cannot tolerated. Will try later.
--- NOTE | 2020-02-17 14:12 | NUR ---
Dr. Ervin notified regarding patient cannot tolerated with NG, and refused at this time.
--- NOTE | 2020-02-17 14:58 | NUR ---
Nutrition Assessment Notes Please refer to link for full assessment notes. Est Energy needs: kcals (23-25 kcal/kgBW) Est Protein needs: 70-87 gms/day (0.8-1.0 gm/kgBW) Will continue to monitor and reassess prn. Addendum: 02/17/20 at [address] Amended: Links added.
[2020-02-17 17:00] VITALS: BP 153/88
--- NOTE | 2020-02-17 18:41 | NUR ---
Empty DOTTIE drain of 200 ml serosanguineous.
--- NOTE | 2020-02-17 19:33 | NUR ---
Spoke with patient regarding at a later time to tonight attempting to try an NG tube insertion. Patient adamantly refused. Educated patient on benefits of placement but still refused. Emptied 75ml from bennie drain.
[2020-02-17] MEDS ORDERED: PPN PER PHARMACY IV NR ×9 (20:00)
[2020-02-17 22:00] VITALS: BP 149/95
[2020-02-18] MEDS: HYDROmorphone HCL 2 MG/ML VL IV PRN ×7 (02:34→20:47)
[2020-02-18 05:00] VITALS: BP 118/84
[2020-02-18] MEDS: InsuLIN REG 1unit/0.01ml Soln (100units/ml) SC SCH ×5 (06:00→23:59)
[2020-02-18] MEDS: ACCU-CHEK COMFORT CURVE STRIP VI SCH ×5 (06:16→23:59)
[2020-02-18] MEDS: D5W/SOD CHL 0.45%/KCL 20MEQ 1,000 ML IV SCH (06:17)
[2020-02-18 06:25] LABS: Albumin 2.1 g/dL (3.4-5.0); Calcium 8.1 mg/dL (8.5-10.1); Magnesium 2.2 mg/dL (1.6-2.6); Potassium 4.1 mmol/L (3.5-5.1)
[2020-02-18 06:30] LABS: BUN/Creatinine Ratio 16.4; Bilirubin, Total 0.4 mg/dL (0.2-1.0); Phosphorus 3.1 mg/dL (2.5-4.90); Total Protein 6.7 g/dL (6.4-8.2)
[2020-02-18] MEDS: IPRATROPIUM BROM 0.5 MG/2.5ML INH SOL NEB SCH ×4 (06:33→22:24)
[2020-02-18] MEDS: BUDESONIDE (INHALATION) 0.5 MG/2 ML NEB NEB SCH ×3 (06:33→22:24)
[2020-02-18] MEDS: ALBUTEROL SULF 2.5 MG/0.5ML(0.5%) NEB SOLN NEB SCH ×4 (06:33→22:24)
[2020-02-18 06:45] LABS: Basophils # (auto) 0 10 ^3/uL (0-0.2); Basophils % (auto) 0.6 % (0.0-2.0); Eosinophils # (auto) 0.1 10 ^3/uL (0-0.8); Eosinophils % (auto) 0.6 % (0.0-7.0); Hematocrit 37.3 % (41.0-53.0); Hemoglobin 12.3 g/dL (13.5-17.5); Lymphocytes # (auto) 0.6 10 ^3/uL (0.4-5.4); Lymphocytes % (auto) 7.5 % (10.0-50.0); Mean Corpuscular Hemoglobin 28.3 pg (28.0-32.0); Mean Corpuscular Hgb Conc. 33.1 g/dL (32.0-36.0); Mean Corpuscular Volume 85.5 fL (80.0-100.0); Monocytes # (auto) 1.1 10 ^3/uL (0-1.3); Monocytes % (auto) 12.4 % (0.0-12.0); Neutrophils # (auto) 6.7 10 ^3/uL (1.6-8.6); Neutrophils % (auto) 78.9 % (37.0-80.0); Nucleated Red Blood Cells % 0.1 %; Platelet Count (auto) 560 10^3/uL (140-450); Red Blood Cells 4.37 10^6/uL (4.5-5.90); Red Cell Distribution Width 14.4 % (11.8-14.3); White Blood Cell 8.5 10^3/uL (4.4-10.8)
--- NOTE | 2020-02-18 07:43 | NUR ---
Opening Note Assumed pt care from LUIS ANTONIO RN. Pt is a/ox4 with no s/s of distress or SOB. Pt is currently sitting upright in bed with mild c/o abdominal pain 5/10; discussed next available pain medication. Discussed POC with pt; pending Portacath insertion; pt aware. No NG tube at this time; multiple previous attempts made and pt refusing at this time. DOTTIE drain is present to pt's R side, serous-sanguinous drainage noted. TPN is currently running at 56mL/hr. Pemberton is present and draining to gravity. Safety measures maintained with call light within reach, bed in lowest position, and side rails up. Will continue to monitor.
[2020-02-18 08:00] VITALS: BP 129/89
[2020-02-18] MEDS: CELECOXIB 100 MG CAP PO SCH (08:47)
[2020-02-18] MEDS: ONDANSETRON HCL 4 MG/2 ML VIAL IV PRN ×2 (08:47→17:45)
[2020-02-18] MEDS: GABAPENTIN 300 MG CAP PO SCH (08:47)
[2020-02-18] MEDS: PANTOPRAZOLE 40 MG/10 ML VIAL INJ IV SCH (08:47)
[2020-02-18] MEDS: ENOXAPARIN SOD 40 MG/0.4 ML SYRINGE SC SCH (08:48)
--- NOTE | 2020-02-18 10:00 | NUR ---
OR Update Called to inquire possible roselyn-cath placement. Per staff, pt is currently not on the scheduled. She stated she would call if anything changes. Will continue to monitor.
[2020-02-18 12:00] VITALS: BP 128/85
[2020-02-18] MEDS: chlorproMAZINE HCL 25 MG/1 ML AMP IM PRN ×2 (12:28→20:53)
--- NOTE | 2020-02-18 15:12 | NUR ---
DOTTIE Drain 95mL drained from DOTTIE drain. Serous-sanguinous drainage present.
[2020-02-18 17:00] VITALS: BP 119/82
--- NOTE | 2020-02-18 17:40 | NUR ---
PPN PPN has been d/c'ed. Will continue pt's PPN rate until existing bag is complete then d/c; per pharmacy protocol. Will endorse to NOC RN the POC.
--- NOTE | 2020-02-18 19:25 | NUR ---
Opening Shift Note Assumed care of patient, awake and alert x4. No S/S of distress/SOB. Complaints of pain to the abdomen, pain management options discussed. Colostomy to the LUQ, stoma is beefy red, bennie drain in place to the RUQ, incision to the medial abdomen is well approximated and the staple line is intact. Aspiration precautions are in place, HOB is greater than 30 degrees. Pemberton is in place and hung below the bladder draining light beckie/cloudy urine. Guards are bedside for safety. Call light is within reach, side rails up x2, fall precautions are in place. Instructed on POC and to call for assist PRN, will continue to monitor for changes Q1hr and PRN.
[2020-02-18] MEDS ORDERED: PPN PER PHARMACY IV NR ×9 (20:00)
--- NOTE | 2020-02-18 20:47 | NUR ---
PAIN AND NAUSEA/HICCUPS Patient complained of 8/0-10 pain to the lower left abdomen and nausea with dry heaving and hiccups. Dilaudid and Thorazine given as ordered. Will reassess.
--- NOTE | 2020-02-18 21:10 | NUR ---
60ml of serosanguineous removed from bennie drain.
--- NOTE | 2020-02-18 21:17 | NUR ---
PAIN AND NAUSEA REASSESSMENT Patient states his pain is now a 6/0-10. Pain level is tolerable between 5 and 6/0-10. The nausea has gone away for now. Patient states he is comfortable as can be, will continue to monitor.
[2020-02-18 22:00] VITALS: BP 124/86
[2020-02-19] MEDS: HYDROmorphone HCL 2 MG/ML VL IV PRN ×6 (00:56→22:40)
--- NOTE | 2020-02-19 01:35 | NUR ---
Respiratory note: PT REFUSED SCHEDULE [place] TX AT 2224. NO SOB OR DISTRESS NOTED.
[2020-02-19] MEDS: ONDANSETRON HCL 4 MG/2 ML VIAL IV PRN ×2 (04:10→15:54)
--- NOTE | 2020-02-19 04:10 | NUR ---
PAIN AND NAUSEA Patient complained of 9/0-10 pain to the lower left abdomen and nausea with dry heaving. Dilaudid and Zofran given as ordered. Will reassess.
--- NOTE | 2020-02-19 04:32 | NUR ---
Emptied 130 mL of serosanguineous fluid from the bennie drain.
--- NOTE | 2020-02-19 04:40 | NUR ---
PAIN AND NAUSEA REASSESSMENT Patient states his pain is now a 7/0-10. "The pain is okay, but when I can have it next, bring it, and the nausea has gone away for now." Patient states he is comfortable as can be, will continue to monitor.
[2020-02-19 05:00] VITALS: BP 99/68
[2020-02-19] MEDS: InsuLIN REG 1unit/0.01ml Soln (100units/ml) SC SCH ×3 (05:22→18:00)
[2020-02-19] MEDS: ACCU-CHEK COMFORT CURVE STRIP VI SCH ×3 (05:22→18:15)
--- NOTE | 2020-02-19 05:34 | NUR ---
PAIN Patient complained of pain to the abdomen that is 6/0-10 in nature, Dilaudid given as ordered. Will reassess.
--- NOTE | 2020-02-19 06:12 | NUR ---
Colostomy bag changed. Colostomy bag removed and the area cleaned with soap and warm water, the area prepped with skin prep, and a new colostomy bag placed over stoma and secured to site. Stoma was beefy red in appearance, minimal reddish/brown drainage noted in colostomy bag. Patient tolerated well.
[2020-02-19] MEDS: IPRATROPIUM BROM 0.5 MG/2.5ML INH SOL NEB SCH ×3 (06:21→22:38)
[2020-02-19] MEDS: BUDESONIDE (INHALATION) 0.5 MG/2 ML NEB NEB SCH ×2 (06:21→22:39)
[2020-02-19] MEDS: ALBUTEROL SULF 2.5 MG/0.5ML(0.5%) NEB SOLN NEB SCH ×3 (06:21→22:38)
--- NOTE | 2020-02-19 06:45 | NUR ---
Emptied 65 mL of serosanguineous fluid from the bennie drain.
--- NOTE | 2020-02-19 06:56 | NUR ---
Patient is resting in bed, states he is comfortable enough to try and sleep. No S/S of distress, SOB , or pain. Call light is within reach. Guards are at bedside for safety. Will endorse care to dayshift MARVIN Manuel.
--- NOTE | 2020-02-19 08:00 | NUR ---
RECEIVED PATIENT ALERT AND ORIENTED X4, NOT IN DISTRESS, WHEEZING LS IN BILATERAL LUNG LOBED, RR=18, SAT=96%, DEEP BREATHING AND COUGHING ENCOURAGED, DEMONSTRATED WELL, HEART R=100, DENIED CHEST PAIN OR SOB AT THIS MOMENT, KEEP NPO ORDERED, ABDOMEN DISTENDED WITH HYPO ACTIVE BS, LAST BM=02/16/20 REPORTED, MID ABDOMINAL INCISION STAPLED, DRY AND INTACT, LYNN CATH IN PLACE AND PATENT, DRAINING CLOUDY YELLOW URIN, SKIN INTACT WARM TO TOUCH, RADIAL AND PEDAL PULSES PALPABLE, CAP REFILL<3 SECONDS, RESTING ON BED, HEAD OF BED ELEVATED, BED ON LOW POSITION, RAILS UP X2, CALL LIGHT ON REACH, PENDING PORT CATH INSERTION ORDERED, WILL CONTINUE MONITORING.
[2020-02-19] MEDS ORDERED: LORazepam 2MG/ML-1ML VIAL IV PRN (09:00)
[2020-02-19] MEDS ORDERED: TPN PER PHARMACY 0 ML IV SCH (09:00)
[2020-02-19 09:07] VITALS: BP 112/74
[2020-02-19] MEDS: PANTOPRAZOLE 40 MG/10 ML VIAL INJ IV SCH ×3 (09:46→22:00)
[2020-02-19] MEDS: ENOXAPARIN SOD 40 MG/0.4 ML SYRINGE SC SCH (09:47)
--- NOTE | 2020-02-19 10:00 | NUR ---
NGT INSERTION EDUCATION PROVIDED, VERBALIZED UNDERSTANDING AND AGREED FOR NGT INSERTION, ATIVAN IV X1 WAS GIVEN ORDERED, ATTEMPTED TO INSERT NGT, REFUSED TO COOPERATE AND BECAME COMBATIVE, REFUSE THE NGT, RESTING ON BED, SECURITY AT BED SIDE, WILL CONTINUE MONITORING.
[2020-02-19 10:04] LABS: Albumin 2.2 g/dL (3.4-5.0); Calcium 8.9 mg/dL (8.5-10.1); Magnesium 2.3 mg/dL (1.6-2.6); Potassium 4.4 mmol/L (3.5-5.1)
[2020-02-19 10:08] LABS: BUN/Creatinine Ratio 30.3; Bilirubin, Total 0.5 mg/dL (0.2-1.0); Phosphorus 3.4 mg/dL (2.5-4.90); Total Protein 6.6 g/dL (6.4-8.2)
[2020-02-19 13:00] VITALS: BP 118/92
[2020-02-19 16:25] VITALS: BP 119/78
--- NOTE | 2020-02-19 19:05 | NUR ---
OPENING NOTE- NOC SHIFT PATIENT IS IN BED, BED IS LOCKED AT LOWEST POSITION, BED RAILS UP X2 AND HEAD OF BED IS UP >30 DEGREES. BEDSIDE TABLE WITHIN REACH, CALL LIGHT WITHIN REACH. PATIENT IS AN INMATE; TWO GUARDS AT BEDSIDE; SHACKLES TO BILATERAL ANKLES ANCHORED TO BED RAILS. NO REDNESS AT ANKLES. PROVIDED PATIENT WITH CLEAN GOWN AND CLEAN LINENS. WILL CONTINUE TO MONITOR Q1H AND PRN. PATIENT COMPLAINING OF ABDOMINAL PAIN AND NAUSEA; WILL PROVIDE MEDICATION PER MD ORDERS.
--- NOTE | 2020-02-19 19:30 | NUR ---
PATIENT IS REFUSING NG TUBE PLACEMENT PATIENT STATES THAT HE WANTS TO BE SEDATED BECAUSE HE CANNOT TOLERATE DISCOMFORT AND PAIN WHEN NG TUBE IS BEING PLACED. EXPLAINED TO PATIENT THAT THIS PROCEDURE DID NOT REQUIRE SEDATION AND INSISTS FOR SEDATION; WILL ENDORSE TO DAY SHIFT RN TO FOLLOW UP WITH MD IN THE MORNING. PATIENT HAS APPROX 80 MLS OF DARK GREEN EMESIS IN CUP. PATIENT REPORTS UNRELIEVED ABDOMINAL PAIN 9/10; WILL ADMINISTER PAIN MEDICATION PER MD ORDERS.
--- NOTE | 2020-02-19 19:30 | NUR ---
REEDUCATE THE IMPORTANCE OF NGT, CONTINUE TO REFUSE NGT INSERTION, RESTING ON BED, NOT IN DISTRESS, REPORT WAS GIVEN TO THE FORESTRY TECHNICIAN RN.
[2020-02-19] MEDS: PPN PER PHARMACY IV NR ×9 (20:06)
--- NOTE | 2020-02-19 20:27 | NUR ---
Emptied 85 mL of serosanguineous fluid from bennie drain.
[2020-02-19 22:00] VITALS: BP 123/85
--- NOTE | 2020-02-19 22:39 | NUR ---
Respiratory note: AT BEDSIDE FOR MED DEXTER LIU.
--- NOTE | 2020-02-19 22:52 | NUR ---
Respiratory note: POST MED NEB TX PT COMPLAINING HE FEELS LIKE HE IS CHOCKING. PT SPEAKING IN FULL SENTENCES. PT STATES ITS BECAUSE OF WHAT HE KEEPS COUGHING UP. PT COLLECTING WHAT LOOKS LIKE BILE THAT HE IS COUGHING OUT IN STYROFOAM CUP. PT EXPLAINED HE NEED THAT NG TUBE THAT HE KEEPS REFUSING, PER PT HE FEELS TRAUMATIZED DUE TO PREVIOUS RNS THAT HAVE ATTEMPTED TRIED ABOUT 7 TIMES AND MESSED UP HIS THROAT. HE ALSO STATED THAT DR. FERNANDEZ WAS ABLE TO DO IT WITH NO PROBLEM BEFORE.
--- NOTE | 2020-02-19 22:55 | NUR ---
Respiratory note: COMMUNICATED CONVERSATION I HAD WITH PT TO MARVIN LOYOLA.
--- NOTE | 2020-02-19 23:56 | NUR ---
PATIENT REPORTS THAT HE COUGHED AND FELT IF HIS ABDOMINAL SURGICAL SITE OPENED. AUDI ARE INTACT AND WILL APPROXIMATED. CLEANED SITE WITH WOUND HUMAN RESOURCES HR GENERALIST USING STERILE GAUZE AND PAT DRIED. USING CLEAR TEGADERM TO COVER SURGICAL SITE. WILL ENDORSE FOLLOW UP WITH MD TO DAY SHIFT RN.
--- NOTE | 2020-02-20 00:04 | NUR ---
PATIENT CONTINUES TO REFUSE NG TUBE. EDUCATION PROVIDED TO PATIENT REGARDING IMPORTANCE OF NG TUBE AND PATIENT IS AWARE THAT MD DE LUNA ORDERED THE NG TUBE.
[2020-02-20] MEDS: ACCU-CHEK COMFORT CURVE STRIP VI SCH ×4 (00:54→18:00)
[2020-02-20] MEDS: ONDANSETRON HCL 4 MG/2 ML VIAL IV PRN ×2 (00:55→13:18)
[2020-02-20] MEDS: HYDROmorphone HCL 2 MG/ML VL IV PRN ×7 (00:55→22:18)
[2020-02-20] MEDS: InsuLIN REG 1unit/0.01ml Soln (100units/ml) SC SCH ×4 (05:46→18:00)
[2020-02-20 06:00] VITALS: BP 136/96
[2020-02-20] MEDS: BUDESONIDE (INHALATION) 0.5 MG/2 ML NEB NEB SCH ×2 (06:41→22:49)
[2020-02-20] MEDS: IPRATROPIUM BROM 0.5 MG/2.5ML INH SOL NEB SCH ×3 (06:42→22:49)
[2020-02-20] MEDS: ALBUTEROL SULF 2.5 MG/0.5ML(0.5%) NEB SOLN NEB SCH ×3 (06:42→22:49)
[2020-02-20 07:09] LABS: Albumin 2.2 g/dL (3.4-5.0); Magnesium 2.2 mg/dL (1.6-2.6); Potassium 4.1 mmol/L (3.5-5.1)
[2020-02-20 07:16] LABS: BUN/Creatinine Ratio 39.1; Bilirubin, Total 0.6 mg/dL (0.2-1.0); Calcium 8.5 mg/dL (8.5-10.1); Phosphorus 3.5 mg/dL (2.5-4.90); Total Protein 6.6 g/dL (6.4-8.2)
--- NOTE | 2020-02-20 07:25 | NUR ---
CLOSING NOTE- NOC SHIFT ENDORSED PATIENT CARE TO DAY SHIFT NURSE EDINSON RN. PATIENT IS IN BED, COMPLAINS OF ABDOMINAL PAIN. PATIENT CONTINUES TO REFUSE NG TUBE; EDUCATED PROVIDED REGARDING RISKS; PATIENT STATES THAT HE UNDERSTANDS BUT THAT HE WANTS DR FERNANDEZ TO INSERT THE NGT. ENDORSED FOLLOW UP WITH DR FERNANDEZ TO DAY SHIFT RN. DR YUEN IS AWARE THAT PATIENT IS REFUSING NG TUBE PER DR YUEN'S NOTES. 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
[2020-02-20 08:00] VITALS: BP 131/68
--- NOTE | 2020-02-20 08:00 | NUR ---
RECEIVED PATIENT ALERT AND ORIENTED X4, NOT IN DISTRESS, WHEEZING LS IN BILATERAL LUNG LOBED, RR=18, SAT=95%, DEEP BREATHING AND COUGHING ENCOURAGED, verbalized understanding, HEART R=98, DENIED CHEST PAIN OR SOB AT THIS MOMENT, KEEP NPO ORDERED, ABDOMEN DISTENDED WITH HYPO ACTIVE BS, LAST BM=02/16/20 REPORTED, MID ABDOMINAL INCISION STAPLED, DRY AND INTACT, DOTTIE IN PLACE AND PATENT, DRAINING SEROSANGUINEOUS DRAIN AND 95 CC OUT PUT NOTED, LYNN CATH IN PLACE AND PATENT, DRAINING CLOUDY BLOOD TINGED YELLOW URINE, GENERAL SKIN INTACT WARM TO TOUCH, RADIAL AND PEDAL PULSES PALPABLE, CAP REFILL<3 SECONDS, RESTING ON BED, HEAD OF BED ELEVATED, BED ON LOW POSITION, RAILS UP X2, CALL LIGHT ON REACH, PENDING NGT INSERTION ORDERED, WILL CONTINUE MONITORING.
[2020-02-20] MEDS ORDERED: LORazepam 2MG/ML-1ML VIAL IV PRN (08:45)
[2020-02-20] MEDS: ENOXAPARIN SOD 40 MG/0.4 ML SYRINGE SC SCH (09:00)
[2020-02-20] MEDS: PANTOPRAZOLE 40 MG/10 ML VIAL INJ IV SCH ×2 (09:00→22:18)
--- NOTE | 2020-02-20 09:30 | NUR ---
14 FR NGT WAS INSERTED, TOLERATED WELL, PENDING CHEST X RAY FOR NGT PLACEMENT VERIFICATION, WILL CONTINUE MONITORING.
--- NOTE | 2020-02-20 11:37 | NUR ---
THICK CONSISTENT GREEN EMESIS OUT PUT FROM NGT SUCTION NOTED.
[2020-02-20 12:00] VITALS: BP 129/93
--- NOTE | 2020-02-20 12:30 | NUR ---
FULL BED BATH AND COMPLEAT BELKIS CHANGE WAS PROVIDED, OUT OF BED TO THE CHAIR AND BACK TO THE BED, TOLERATED WELL, 900 CC OF GREEN EMESIS NOTED, RESTING ON BED WILL CONTINUE MONITORING.
--- NOTE | 2020-02-20 14:00 | NUR ---
Respiratory note: PT REFUSED SCHEDULE [place] TX. PT DID NOT WANT TO WAKE UP. NO SOB OR DISTRESS NOTED. RN NOTIFY.
--- NOTE | 2020-02-20 15:26 | NUR ---
Nutrition Followup Notes (new PN) Wt: 86.6 kg Pt sleeping with guards by bedside. per records pt s/p colostomy. pt is currently on clear liq diet and initiated on PN support @ 54 ml/hr providing 748 kcals and 60 gm protein 508 NCP. pt with inadequate PN support as it meets 34-37% kcals and 68-85% proteins Est Energy needs: 1298-2535 kcals (23-25 kcal/kgBW),Est Protein needs: 70-87 gms/day (0.8-1.0 gm/kgBW). Will continue to monitor and reassess prn. LABS: BUN 25 H, ALB 2.2 L, PREALB 4.6 L, TG 173 H GI: pt has no BM reported constipated per RN doc BS: 19 low risk incision at site of sx per RN doc PES: Altered nutrition related lab values r/t current chronic medical condition aeb elev BUN severe hypoalb Comments Will continue to closely monitor pertinent labs, PO intake and skin status prn. Will followup in 3-5 days 1) ) advance PN support to meet > 75% of needs. 2) Gradually advance pt to oral diet when medically feasible and as tolerated 4) Continue current plan of care
[2020-02-20 16:53] VITALS: BP 142/75
--- NOTE | 2020-02-20 19:20 | NUR ---
OPENING NOTE- NOC SHIFT PATIENT IS INMATE, TWO GUARDS AT BEDSIDE. PATIENT IS IN BED, BED IS LOCKED AT LOWEST AND HEAD OF BED IS UP >45 DEGREES FOR SAFETY PRECAUTIONS. BEDSIDE TABLE WITHIN REACH. CALL LIGHT WITHIN REACH. PATIENT HAS NG TUBE DRAINING PROPERLY. PATIENT HAS DOTTIE DRAIN POST ABDOMINAL SURGERY, DOTTIE IS DRAINING SEROSANGUINEOUS FLUID. DISCUSSED POC WITH PATIENT AND INSTRUCTED PATIENT TO CALL PRN; PATIENT VERBALIZED UNDERSTANDING; WILL CONTINUE TO MONITOR Q1H AND PRN. SHACKLES TO BILATERAL ANKLES ANCHORED TO BED; NO REDNESS TO ANKLES.
--- NOTE | 2020-02-20 19:28 | NUR ---
DR YUEN CALLED. WAS UPDATED WITH PATIENT CONDITION.
--- NOTE | 2020-02-20 19:40 | NUR ---
RESTING ON BED, NGT SUCTION 2ND CANISTER FULL OF 900CC GREEN EMESIS NOTED, CANISTER REMOVED AND REPLACED WITH NEW, NOT IN DISTRESS, REPORT WAS GIVEN TO THE TOE SEWER RN.
[2020-02-20] MEDS ORDERED: PPN PER PHARMACY IV NR ×10 (20:00)
--- NOTE | 2020-02-20 20:30 | NUR ---
COMPLETE BED LINEN CHANGE AND GOWN CHANGE.
[2020-02-20 22:06] VITALS: BP 147/83
--- NOTE | 2020-02-20 22:30 | NUR ---
NG SUCTION CANISTER EMPTIED AT 750 MLS DARK GREEN FLUID
[2020-02-21] MEDS: ONDANSETRON HCL 4 MG/2 ML VIAL IV PRN ×2 (00:38→20:35)
[2020-02-21] MEDS: ACCU-CHEK COMFORT CURVE STRIP VI SCH ×5 (00:38→23:31)
[2020-02-21] MEDS: HYDROmorphone HCL 2 MG/ML VL IV PRN ×9 (00:38→23:33)
--- NOTE | 2020-02-21 04:52 | NUR ---
ROUNDS PATIENT COMPLAINS OF PAIN 4-6/10 PROVIDED EXTRA PILLOWS AND REPOSITIONED PATIENT
[2020-02-21 05:00] VITALS: BP 134/88
[2020-02-21] MEDS: InsuLIN REG 1unit/0.01ml Soln (100units/ml) SC SCH ×5 (05:13→23:31)
[2020-02-21 05:53] LABS: Albumin 2.1 g/dL (3.4-5.0); Calcium 8.2 mg/dL (8.5-10.1); Magnesium 2.1 mg/dL (1.6-2.6); Potassium 3.7 mmol/L (3.5-5.1)
[2020-02-21 05:57] LABS: Bilirubin, Total 0.5 mg/dL (0.2-1.0); Total Protein 6.5 g/dL (6.4-8.2)
--- NOTE | 2020-02-21 06:07 | NUR ---
NG CANISTER EMPTIED AT 600 MLS. DARK GREEN FLUID.
[2020-02-21] MEDS: ALBUTEROL SULF 2.5 MG/0.5ML(0.5%) NEB SOLN NEB SCH ×3 (07:07→22:50)
[2020-02-21] MEDS: BUDESONIDE (INHALATION) 0.5 MG/2 ML NEB NEB SCH ×2 (07:07→22:51)
[2020-02-21] MEDS: IPRATROPIUM BROM 0.5 MG/2.5ML INH SOL NEB SCH ×3 (07:07→22:50)
--- NOTE | 2020-02-21 07:18 | NUR ---
DOTTIE DRAIN EMPTIED 75 MLS OF CLEAR YELLOW FLUID, NO CLOTS.
[2020-02-21 08:00] VITALS: BP 126/85
--- NOTE | 2020-02-21 08:00 | NUR ---
Morning note Patient resting in bed with even and unlabored respirations, no distress noted. Instructed patient on POC, fall precautions and to call for assistance as needed. Patient verbalized understanding. Fall precautions in place with call light within reach. NGT present and connected to suction per MD order.
--- NOTE | 2020-02-21 08:30 | NUR ---
IV removed IV removed to the [facility] due to redness and leaking. IV removed with clean technique, catheter intact. Dressing applied. Patient tolerated well. No trauma to site.
[2020-02-21] MEDS: PPN PER PHARMACY IV NR ×9 (09:38)
[2020-02-21] MEDS: ENOXAPARIN SOD 40 MG/0.4 ML SYRINGE SC SCH (09:50)
[2020-02-21] MEDS: PANTOPRAZOLE 40 MG/10 ML VIAL INJ IV SCH ×2 (09:50→23:27)
--- NOTE | 2020-02-21 10:02 | NUR ---
DOTTIE drain output - 50 ml serosanguineous
[2020-02-21] MEDS: chlorproMAZINE HCL 25 MG/1 ML AMP IM PRN ×3 (11:04→23:32)
--- NOTE | 2020-02-21 11:05 | NUR ---
Patient has hiccups - Thorazine administered per MD order. patient tolerated well. No trauma noted to site.
--- NOTE | 2020-02-21 11:45 | NUR ---
IV started 20G IV started with clean technique to the RFA. IV secured and IV education provided. Patient verbalized understanding.
--- NOTE | 2020-02-21 11:48 | NUR ---
Partial bed bath performed; fournier catheter care performed Patient tolerated well. Z-guard applied to scrotum due to redness. Patient able to turn self independently. Bed returned to lowest locked position with call light within reach. security guard at bedside.
[2020-02-21 12:00] VITALS: BP 142/64
--- NOTE | 2020-02-21 14:01 | NUR ---
Discussed POC with Dr. Wilson Informed MD that patient has c/o ear aches in both ears and that patient's left outer ear is red. MD verbalized understanding. MD to review medications. Informed MD of patient's incision with redness noted. MD verbalized understanding. Continue to monitor.
[2020-02-21] MEDS: cefTRIAXone 1GM/50ML D5W 50 ML IV SCH (16:20)
--- NOTE | 2020-02-21 16:20 | NUR ---
Patient resting in bed with eyes closed respirations even and unlabored, no distress noted. Call light within reach.
[2020-02-21 16:43] VITALS: BP 119/78
--- NOTE | 2020-02-21 17:31 | NUR ---
DOTTIE drain output - 70 ml serosanguineous
--- NOTE | 2020-02-21 17:54 | NUR ---
Incision cleansed Dressing soiled and partially removed. Incision has 20 eliz present. Skin surrounding incision has mild redness noted. MD aware. Serosanguineous drainage emptied. No odor noted. Incision is approximated. Patient has a very distended abdomen that is adding stress to the eliz. [place] are intact. Incision cleansed with wound cleanser. Dressing applied. Will contact Dr. Ervin (surgeon) to notify MD of incision appearance.
--- NOTE | 2020-02-21 17:56 | NUR ---
Called Dr. Ervin's answering service to notify MD of incision appearance. Message left.
--- NOTE | 2020-02-21 18:15 | NUR ---
Patient has c/o hiccups - Thorazine IM administered per MD order Patient tolerated well.
--- NOTE | 2020-02-21 18:44 | NUR ---
Closing note Patient resting in bed with even and unlabored respirations, no distress noted. NGT to LIS per MD order; draining green bile. DOTTIE drain to suction. Dressing to abdomen is clean, dry and intact. Abdomen has moderate distention. Colostomy bag present. TPN being administered per MD order. Patient able to turn self independently in bed. Guards at bedside. Fall precautions in place with call light within reach.
--- NOTE | 2020-02-21 19:18 | NUR ---
POC discussed with Dr. Arcadio YOUNG aware of patient's incision status. NGT to be on LCS per MD.
--- NOTE | 2020-02-21 19:30 | NUR ---
Care endorsed to MARVIN Justice.
--- NOTE | 2020-02-21 19:30 | NUR ---
Opening Shift Note Assumed care of patient, awake and alert. No S/S of distress/SOB or pain. Instructed on POC and to call for assist PRN, will continue to monitor for changes Q1hr and PRN. NG tube in place attached to low continuous suction. DOTTIE drain in place. Colostomy in place. Pemberton catheter in place. Side rails up x2. Bed locked in lowest position. Call light within reach. Hand cuffs on left wrist and bilateral ankles. 2 guards at bedside.
[2020-02-21] MEDS ORDERED: PPN PER PHARMACY IV NR ×19 (20:00)
[2020-02-21 21:30] VITALS: BP 121/81
--- NOTE | 2020-02-21 22:48 | NUR ---
RT NOTE PT WAS SEEN BY RT FOR HHN TX. PT TOLERATES WELL VIA MASK. NO ADVERSE REACTION NOTED. PT IS ON BEDSIDE POX. CONT ORDERED Addendum: 02/21/20 at 2253 by Darlene Grant RT Amended: Links added.
[2020-02-22] VITALS (7 sets, daily range): BP systolic 115–121; BP diastolic 63–90
[2020-02-22] MEDS: HYDROmorphone HCL 2 MG/ML VL IV PRN ×6 (02:02→23:57)
[2020-02-22] MEDS: InsuLIN REG 1unit/0.01ml Soln (100units/ml) SC SCH ×3 (06:00→18:00)
[2020-02-22] MEDS: ALBUTEROL SULF 2.5 MG/0.5ML(0.5%) NEB SOLN NEB SCH ×3 (06:25→21:44)
[2020-02-22] MEDS: IPRATROPIUM BROM 0.5 MG/2.5ML INH SOL NEB SCH ×3 (06:25→21:44)
[2020-02-22] MEDS: BUDESONIDE (INHALATION) 0.5 MG/2 ML NEB NEB SCH ×2 (06:25→21:44)
[2020-02-22] MEDS: chlorproMAZINE HCL 25 MG/1 ML AMP IM PRN ×2 (06:41→23:58)
[2020-02-22] MEDS: ACCU-CHEK COMFORT CURVE STRIP VI SCH ×3 (06:41→18:08)
[2020-02-22 07:27] LABS: Magnesium 2.3 mg/dL (1.6-2.6); Potassium 3.9 mmol/L (3.5-5.1)
[2020-02-22 07:30] LABS: BUN/Creatinine Ratio 28.3; Bilirubin, Total 0.6 mg/dL (0.2-1.0); Phosphorus 3.2 mg/dL (2.5-4.90); Total Protein 6.4 g/dL (6.4-8.2)
--- NOTE | 2020-02-22 07:35 | NUR ---
Opening Shift Note Assumed care of patient, resting in bed with eyes closed. No S/S of distress/SOB or pain. Continuous pulse ox in place patient O2 sat is 97% on 2L/min NC. NG tube in place and is set to low continuous suction, DOTTIE drain noted to right lower abdomen, fournier is patent/draining hung below bladder. Guards are present at bedside, bed is set in lowest locked position with side rails up x 2 for safety and call light is within reach. Will continue to monitor for changes Q1hr and PRN.
[2020-02-22] MEDS ORDERED: OMNIPAQUE ORAL SOLN 500ml 12mg/ml PO ONE (07:44)
[2020-02-22] MEDS: cefTRIAXone 1GM/50ML D5W 50 ML IV SCH (09:11)
[2020-02-22] MEDS ORDERED: IOHEXOL 300 MG/ML 100ML BOTTLE IJ ONE (09:48)
--- NOTE | 2020-02-22 10:02 | NUR ---
Patient off unit Taken down to radiology for CT. IV sites flushed prior and are intact/patent. No distress noted upon departure.
--- NOTE | 2020-02-22 10:30 | NUR ---
Patient returned to unit Placed on low continuous suction to NG tube, continuous pulse ox in place patient O2 sat is 98% on 2L/min NC. Will continue to monitor.
[2020-02-22] MEDS: ENOXAPARIN SOD 40 MG/0.4 ML SYRINGE SC SCH (10:39)
[2020-02-22] MEDS: PANTOPRAZOLE 40 MG/10 ML VIAL INJ IV SCH ×2 (10:39→21:36)
[2020-02-22] MEDS: ONDANSETRON HCL 4 MG/2 ML VIAL IV PRN ×2 (12:41→21:36)
--- NOTE | 2020-02-22 14:01 | NUR ---
Patient off unit Taken down to pre-op for procedure, IV sites flushed prior to departure and are intact/patent. No distress noted upon departure. Care endorsed to MARVIN Mario.
[2020-02-22] MEDS ORDERED: SUCCINYLCHOLINE CHLORIDE 20 MG/ML 10ML VIAL IV ONE (14:04)
[2020-02-22 14:05] LABS: Eosinophils # (auto) 0.2 10 ^3/uL (0-0.8)
[2020-02-22 14:06] LABS: Basophils # (auto) 0.1 10 ^3/uL (0-0.2); Basophils % (auto) 1.1 % (0.0-2.0); Eosinophils % (auto) 1.5 % (0.0-7.0); Hematocrit 35.6 % (41.0-53.0); Hemoglobin 11.1 g/dL (13.5-17.5); Lymphocytes % (auto) 7.3 % (10.0-50.0); Mean Corpuscular Hgb Conc. 31.3 g/dL (32.0-36.0); Mean Corpuscular Volume 86.1 fL (80.0-100.0); Monocytes # (auto) 1.3 10 ^3/uL (0-1.3); Monocytes % (auto) 8.9 % (0.0-12.0); Neutrophils # (auto) 11.6 10 ^3/uL (1.6-8.6); Neutrophils % (auto) 81.2 % (37.0-80.0); Platelet Count (auto) 729 10^3/uL (140-450); Red Blood Cells 4.13 10^6/uL (4.5-5.90); Red Cell Distribution Width 13.9 % (11.8-14.3); White Blood Cell 14.2 10^3/uL (4.4-10.8)
[2020-02-22] MEDS ORDERED: cefOXitin 2GM/100ML 100 ML IV ONE (14:10)
[2020-02-22] MEDS ORDERED: MIDAZOLAM HCL 1MG/1ML-2 ML VIAL ONE (14:11)
[2020-02-22] MEDS ORDERED: SODIUM CHLORIDE LOCK 10 ML ONE (14:11)
[2020-02-22] MEDS ORDERED: ROCURONIUM 10MG/ML 10ML VIAL IV ONE (14:11)
[2020-02-22] MEDS ORDERED: fentaNYL CITRATE 100 MCG/2 ML VL ONE (14:11)
[2020-02-22] MEDS ORDERED: ONDANSETRON HCL 4 MG/2 ML VIAL ONE (14:11)
[2020-02-22] MEDS ORDERED: PROPOFOL 10 MG/ML 20 ML IV ONE (14:11)
[2020-02-22 14:20] LABS: INR 1.14 (0.9-1.15); Partial Thromboplastin Time 30.5 sec (23.64-32.05)
[2020-02-22] MEDS ORDERED: MEPERIDINE HCL (50 MG/ML) 1 ML VIAL ONE (14:24)
--- NOTE | 2020-02-22 14:30 | NUR ---
Respiratory note: SCHEDULED MED NEB TX NOT GIVEN. PT AT A PROCEDURE.
[2020-02-22] MEDS ORDERED: NEOSTIGMINE 1 MG/ML INJ (10mg/10ML VIAL) ONE (15:10)
[2020-02-22] MEDS ORDERED: GLYCOPYRROLATE 0.2 MG/ML 1ML VIAL ONE (15:20)
[2020-02-22] MEDS ORDERED: ePHEDrine SULFATE 50 MG/ML AMP IV PRN (16:15)
[2020-02-22] MEDS ORDERED: LABETALOL HCL 5 MG/ML 4ML SYRINGE IV PRN (16:15)
[2020-02-22] MEDS ORDERED: ONDANSETRON HCL 4 MG/2 ML VIAL IV PRN (16:15)
[2020-02-22] MEDS ORDERED: MORPHINE SULFATE 4 MG/ML SYR/VIAL IV PRN (16:15)
[2020-02-22] MEDS ORDERED: MIDAZOLAM HCL 1MG/1ML-2 ML VIAL IV PRN (16:15)
[2020-02-22] MEDS ORDERED: HYDROmorphone HCL 2 MG/ML VL IV PRN (16:15)
--- NOTE | 2020-02-22 17:13 | NUR ---
Patient returned to floor from PACU Patient is currently on 3L/min NC, continuous pulse ox monitor reads 93%. Patient is arousable and able to answer questions. Noted medial anterior abdominal incision covered with abdominal pad, pad has minimal pink drainage, colostomy in place. NG tube is currently on continuous suction. Patient's breaths are even and unlabored, will continue to monitor patient.
--- NOTE | 2020-02-22 17:20 | NUR ---
PT RETURNED FROM OR. ON CONT POX SAT 93% HR 103 CONT POX AT BEDSIDE.
--- NOTE | 2020-02-22 19:30 | NUR ---
Opening Shift Note Assumed care of patient, awake and alert x4. Patient denies pain or shortness of breath at this time. Patient is on continuous pulse ox, oxygen saturation at this time is 95% via 3LNC. No sign/symptoms of distress noted or verbalized at this time. Incentive spirometer noted at the bedside. Educated patient on how to use the incentive spirometer and frequency, patient verbalized understanding and returned demonstration. Patient able to raise marker to 1500ml, patient tolerated well. Instructed on plan of care and to call for assistance as needed, patient verbalized understanding. Bed is locked in lowest position, side rails x 2 are up, call light is within reach, and bed alarm is on.
--- NOTE | 2020-02-22 19:30 | NUR ---
Care endorsed to NOC RN
--- NOTE | 2020-02-22 19:37 | NUR ---
Urine culture sent to lab
[2020-02-22] MEDS ORDERED: PPN PER PHARMACY IV NR ×10 (20:00)
--- NOTE | 2020-02-22 20:50 | NUR ---
NG Tube Placement Upon assessment, NG tube was noted to be in the right nare at approximately 38-39 inches. Upon auscultating NG tube no air was heard over the stomach and no gastric contents were aspirated from the NG tube. This RN then advanced NG tube to 65 inches and upon auscultation, air was heard over the stomach and gastric contents were aspirated. Second RN Pal verified and confirmed placement via auscultation. NG tube attached to 100mm continuous HG suction as ordered by MD Ervin.
[2020-02-23] MEDS: ACCU-CHEK COMFORT CURVE STRIP VI SCH ×5 (00:13→23:25)
[2020-02-23] MEDS: InsuLIN REG 1unit/0.01ml Soln (100units/ml) SC SCH ×5 (00:14→23:25)
[2020-02-23] MEDS: HYDROmorphone HCL 2 MG/ML VL IV PRN ×7 (02:57→22:44)
--- NOTE | 2020-02-23 02:57 | NUR ---
Administered Dilaudid 0.5 mg IV to patient for pain 8 out of 10 in his general abdomen. I am covering RN for lunch break.
[2020-02-23 05:00] VITALS: BP 111/78
[2020-02-23] MEDS: ONDANSETRON HCL 4 MG/2 ML VIAL IV PRN ×2 (05:36→20:13)
[2020-02-23] MEDS: chlorproMAZINE HCL 25 MG/1 ML AMP IM PRN ×3 (05:48→21:28)
[2020-02-23] MEDS: ALBUTEROL SULF 2.5 MG/0.5ML(0.5%) NEB SOLN NEB SCH ×3 (06:03→22:29)
[2020-02-23] MEDS: BUDESONIDE (INHALATION) 0.5 MG/2 ML NEB NEB SCH ×2 (06:03→22:29)
[2020-02-23] MEDS: IPRATROPIUM BROM 0.5 MG/2.5ML INH SOL NEB SCH ×3 (06:03→22:29)
--- NOTE | 2020-02-23 06:58 | NUR ---
DOTTIE DRAIN OUTPUT DOTTIE drain output: 15ml of serosanguineous fluid.
--- NOTE | 2020-02-23 06:58 | NUR ---
NGT TUBE OUTPUT NGT tube output: 150ml of dark green/brownish fluid.
--- NOTE | 2020-02-23 06:59 | NUR ---
Colostomy Output No colostomy output noted.
--- NOTE | 2020-02-23 07:35 | NUR ---
CLOSING SHIFT NOTE Endorsed patient care to day shift RN.
--- NOTE | 2020-02-23 07:40 | NUR ---
IV removal IV DC'd to right forearm due to leaking. IV DC'D with clean sterile technique, catheter fully intact. Pressure dressing applied to site. Patient tolerated well.
[2020-02-23 09:17] LABS: Albumin 1.8 g/dL (3.4-5.0); BUN/Creatinine Ratio 27.4; Calcium 7.9 mg/dL (8.5-10.1); Magnesium 2.2 mg/dL (1.6-2.6); Potassium 4.3 mmol/L (3.5-5.1)
[2020-02-23 09:18] VITALS: BP 121/82
[2020-02-23 09:19] LABS: Bilirubin, Total 0.7 mg/dL (0.2-1.0); Phosphorus 2.9 mg/dL (2.5-4.90); Total Protein 6.2 g/dL (6.4-8.2)
--- NOTE | 2020-02-23 09:30 | NUR ---
was at bedside - Dr. Ervin POC discussed with this RN.
--- NOTE | 2020-02-23 09:31 | NUR ---
RE: increased suction Dr. Ervin increased LCS to 150.
[2020-02-23] MEDS: PANTOPRAZOLE 40 MG/10 ML VIAL INJ IV SCH ×2 (09:38→21:29)
[2020-02-23] MEDS: ENOXAPARIN SOD 40 MG/0.4 ML SYRINGE SC SCH (09:39)
--- NOTE | 2020-02-23 10:58 | NUR ---
at bedside - Dr. Wilson POC discussed with this RN. Antibiotic administration discussed with . to review POC and place orders as needed.
[2020-02-23 12:51] VITALS: BP 112/71
--- NOTE | 2020-02-23 15:33 | NUR ---
Patient resting in bed with eyes closed Respirations even and unlabored, no distress noted. Fall precautions in place with call light within reach.
--- NOTE | 2020-02-23 16:13 | NUR ---
Nutrition Followup Notes (new PN) Wt: 94.1 kg Pt awake with guards by bedside. per records pt s/p colostomy. pt is currently NPO and initiated on PN support @ 85 ml/hr providing 1172 kcals and 90 gm protein, 812 NCP. Pt with inadequate energy intake as it meets 54% to 59% est. caloric needs. Protein intake from PN support is adequate aeb 103% to 129% protein needs. Est Energy needs: 6194-4890 kcals (23-25 kcal/kgBW),Est Protein needs: 70-87 gms/day (0.8-1.0 gm/kgBW). Will continue to monitor and reassess prn. LABS: Gluc 130 H, Alb 1.8 L GI: pt with colostomy per RN doc BS: 20 low risk incision at site of sx per RN doc PES: Altered nutrition related lab values r/t current chronic medical condition aeb elev BUN severe hypoalb Comments Will continue to closely monitor pertinent labs, PO intake and skin status prn. Will followup in 3-5 days 1) ) advance PN support to meet > 75% of needs. 2) Gradually advance pt to oral diet when medically feasible and as tolerated 4) Continue current plan of care
[2020-02-23 16:34] VITALS: BP 110/69
--- NOTE | 2020-02-23 18:38 | NUR ---
Closing note Patient resting in bed with even and unlabored respirations, no distress noted. NGT to LCS per MD order; draining green bile. DOTTIE drain to suction. Dressing to abdomen is clean, dry and intact. No new drainage during this RN's shift. Colostomy bag present. No output noted. TPN being administered per MD order. Patient able to turn self independently in bed. Guards at bedside. Fall precautions in place with call light within reach.
--- NOTE | 2020-02-23 18:45 | NUR ---
DOTTIE drain output - 15ml serous; no output from colostomy
--- NOTE | 2020-02-23 18:56 | NUR ---
Care endorsed to MARVIN Martinez.
--- NOTE | 2020-02-23 19:40 | NUR ---
Opening Shift Note Assumed care of patient, awake and alert x4. Patient is complaining of pain to medial abdomen (pain scale 8/10), will medicate patient as ordered by MD. Patient denies shortness of breath at this time. Patient is on continuous pulse ox, oxygen saturation at this time is 98% via 3LNC. No sign/symptoms of distress noted or verbalized at this time. Incentive spirometer noted at the bedside. Educated patient on how to use the incentive spirometer and frequency, patient verbalized understanding and returned demonstration. Patient able to raise marker to 1500ml, patient tolerated well. Patient noted to have NGT tube to right nare at 63in, attached to 150mmHG continuous suction, as ordered by MD. Placement verified via auscultation, air heard over stomach and gastric contents were aspirated. Instructed on plan of care and to call for assistance as needed, patient verbalized understanding. Bed is locked in lowest position, side rails x 2 are up, head of the bed is greater than 45 degrees, call light is within reach, and bed alarm is on.
[2020-02-23] MEDS ORDERED: PPN PER PHARMACY IV NR ×11 (20:00)
[2020-02-23 22:00] VITALS: BP 102/69
[2020-02-24] MEDS: HYDROmorphone HCL 2 MG/ML VL IV PRN ×7 (00:44→23:30)
[2020-02-24] MEDS: chlorproMAZINE HCL 25 MG/1 ML AMP IM PRN (05:00)
[2020-02-24] MEDS: DEXTROSE (50%) 50ML SYRG IV SCH (05:10)
--- NOTE | 2020-02-24 05:10 | NUR ---
Low Blood Sugar Patient's blood sugar was found to be 47. Upon rechecking blood sugar a second time it was found to be 42. PPN was stopped at this time. Patient was alert and oriented x4. Patient denied headache or dizziness at this time. Patient was complaining of feeling cold. Patient was given dextrose 50% (see eMAR) and upon re-checking blood sugar at 0510 it was found to be 92. Patient is still alert and oriented x4. Patient denies headache or dizziness. Patient states he feels better.
--- NOTE | 2020-02-24 05:18 | NUR ---
Dr. Wilson Paged RE: Low Blood Sugar Dr. Wilson paged regarding low blood sugar. Awaiting call back.
[2020-02-24 05:34] VITALS: BP 118/80
[2020-02-24] MEDS: InsuLIN REG 1unit/0.01ml Soln (100units/ml) SC SCH ×4 (05:36→23:55)
[2020-02-24] MEDS: ACCU-CHEK COMFORT CURVE STRIP VI SCH ×4 (05:36→23:55)
[2020-02-24] MEDS: IPRATROPIUM BROM 0.5 MG/2.5ML INH SOL NEB SCH ×3 (06:01→22:20)
[2020-02-24] MEDS: ALBUTEROL SULF 2.5 MG/0.5ML(0.5%) NEB SOLN NEB SCH ×3 (06:01→22:20)
[2020-02-24] MEDS: BUDESONIDE (INHALATION) 0.5 MG/2 ML NEB NEB SCH ×2 (06:02→22:20)
--- NOTE | 2020-02-24 06:26 | NUR ---
Dr. Wilson Re-paged RE: Low Blood Sugar/Elevated Heart Rate Dr. Wilson re-paged regarding low blood sugar/elevated heart rate. Awaiting call back.
--- NOTE | 2020-02-24 06:30 | NUR ---
Dr. Wilson Returned Call Notified Dr. Wilson that patient's blood sugar was found to be 47 this morning and that this RN administered Dextrose 50% which raised patient's blood sugar to 92. Dr. Wilson was notified that this RN stopped the PPN at the time the blood sugar was found to be 47. Dr. Wilson was also made aware that patient's respiration rate this morning was noted to be 40, heart rate is in the 120s, and oxygen saturation in the low 90s. Orders received from Dr. Wilson to resume PPN and Dr. Wilson stated "I will check on him later." Will resume PPN as ordered by .
--- NOTE | 2020-02-24 07:00 | NUR ---
NGT TUBE OUTPUT NGT tube output: 150ml of dark green fluid.
--- NOTE | 2020-02-24 07:00 | NUR ---
Colostomy Output No colostomy output noted.
--- NOTE | 2020-02-24 07:00 | NUR ---
DOTTIE DRAIN OUTPUT DOTTIE drain output: 15ml of serous fluid.
--- NOTE | 2020-02-24 07:10 | NUR ---
CLOSING SHIFT NOTE Endorsed patient care to Dayanna WONG. Patient is sitting in high fowlers position, oxygen saturation at this time is 94% on 4L NC.
[2020-02-24 08:31] VITALS: BP 114/66
[2020-02-24 09:33] LABS: Albumin 1.9 g/dL (3.4-5.0); Magnesium 1.8 mg/dL (1.6-2.6); Potassium 4.2 mmol/L (3.5-5.1)
[2020-02-24 09:38] LABS: Bilirubin, Total 0.7 mg/dL (0.2-1.0); Phosphorus 2.6 mg/dL (2.5-4.90); Pre Albumin 7.5 mg/dL (20.0-40.0); Total Protein 6.6 g/dL (6.4-8.2)
--- NOTE | 2020-02-24 10:13 | NUR ---
MD was at bedside - Dr. Steve LOWE discussed with the patient and this RN. VS and antibiotic therapy discussed. MD to place orders.
--- NOTE | 2020-02-24 10:20 | NUR ---
was at bedside - Dr. Ervin
[2020-02-24] MEDS ORDERED: cefTRIAXone 1GM/50ML D5W 50 ML IV ONE (10:30)
[2020-02-24] MEDS: ENOXAPARIN SOD 40 MG/0.4 ML SYRINGE SC SCH (10:31)
[2020-02-24] MEDS: PANTOPRAZOLE 40 MG/10 ML VIAL INJ IV SCH ×2 (10:31→21:51)
--- NOTE | 2020-02-24 10:50 | NUR ---
IV started 20g IV started to the RFA with clean technique. IV secured and IV education provided. Patient verbalized understanding. Bed returned to lowest position and call light within reach.
--- NOTE | 2020-02-24 11:07 | NUR ---
Called pharmacy RE: TPN/POC glucose per request of Dr. Wilson Pharmacy verified that they review POC glucose results when dosing TPN.
[2020-02-24 13:00] VITALS: BP 107/69
--- NOTE | 2020-02-24 15:14 | NUR ---
Patient resting in bed with eyes closed Respirations even and unlabored, no distress noted. Call light within reach.
--- NOTE | 2020-02-24 15:52 | NUR ---
NGT re-secured Patient tolerated well.
--- NOTE | 2020-02-24 16:45 | NUR ---
Cleaned midline incision & DOTTIE drain incision Cleaned with wound cleanser and patted dry with sterile gauze. Redness noted around DOTTIE drain insertion point and midline incision. MD aware. Patient tolerated well.
[2020-02-24 17:00] VITALS: BP 111/75
--- NOTE | 2020-02-24 18:33 | NUR ---
DOTTIE drain output - 110 ml serosanguineous DOTTIE bulb closed suction.
--- NOTE | 2020-02-24 18:34 | NUR ---
No output from colostomy.
--- NOTE | 2020-02-24 18:44 | NUR ---
Closing note Patient resting in bed with even and unlabored respirations, no distress noted. NGT to LCS per MD order; draining green bile. DOTTIE drain to suction. Abdomen incision is clean, dry and intact. Colostomy bag present. No output noted. TPN being administered per MD order. Patient able to turn self independently in bed. Patient reports he has been turning and repositioning throughout the shift. Education provided throughout the shift on pressure ulcer prevention. Patient verbalized understanding. Patient has reported using the IS throughout the shift. IS education provided throughout the shift. Patient verbalized understanding. Guards at bedside. Fall precautions in place with call light within reach.
--- NOTE | 2020-02-24 19:27 | NUR ---
Care endorsed to MARVIN Blanca.
[2020-02-24] MEDS ORDERED: PPN PER PHARMACY IV NR ×10 (20:00)
--- NOTE | 2020-02-24 20:10 | NUR ---
open note assumed care of pt, upon entering room pt awake, alert and oriented x4. pt has guards at bedside. pt on 4L NC no distress noted or expressed. pt updated on plan of care. pt has fournier catheter in place, secured, below the waist, draining clear yellow. pt also has tpn via midline, DOTTIE drain that is empty at the moment and NGT to right nare connected to low intermittent suction. bed locked, low and 2x rails up. incentive spirometer at bedside, this nurse encouraged its hourly use. call light in reach, encouraged to call nurse as needed. this nurse to round q1hr and prn. Addendum: 02/24/20 at 2032 by LOW CANTU RN RN correction; suction is set to continuous at 150mmhg per MD order.
[2020-02-24 23:54] VITALS: BP 111/75
[2020-02-25] MEDS: ONDANSETRON HCL 4 MG/2 ML VIAL IV PRN (03:44)
[2020-02-25] MEDS: HYDROmorphone HCL 2 MG/ML VL IV PRN ×7 (03:44→20:22)
[2020-02-25 05:21] VITALS: BP 112/76
[2020-02-25] MEDS: InsuLIN REG 1unit/0.01ml Soln (100units/ml) SC SCH ×4 (06:30→23:25)
--- NOTE | 2020-02-25 06:34 | NUR ---
DOTTIE. NGT. 75ML serous fluid emptied from bulb. 150ml drained from this shift in suction canister.
[2020-02-25] MEDS: ACCU-CHEK COMFORT CURVE STRIP VI SCH ×4 (06:42→23:25)
[2020-02-25] MEDS: IPRATROPIUM BROM 0.5 MG/2.5ML INH SOL NEB SCH ×3 (07:05→22:13)
[2020-02-25] MEDS: BUDESONIDE (INHALATION) 0.5 MG/2 ML NEB NEB SCH ×2 (07:05→22:13)
[2020-02-25] MEDS: ALBUTEROL SULF 2.5 MG/0.5ML(0.5%) NEB SOLN NEB SCH ×3 (07:05→22:13)
--- NOTE | 2020-02-25 07:30 | NUR ---
Opening Shift Note Assuming care of patient at this time. Patient is awake and alert. Patient is complaining of pain 8/10 to his abdomen. Bed is locked and lowered with side rails up x2. Instructed patient on the plan of care for today and to call for assistance as needed. Call light within reach. Will continue to round hourly and as needed.
[2020-02-25 09:00] VITALS: BP 117/95
--- NOTE | 2020-02-25 09:28 | NUR ---
Pain Patient is complaining of pain 8/10 to his abdominal area. Will medicate with dilaudid according to doctor's orders.
--- NOTE | 2020-02-25 09:58 | NUR ---
Pain Reassessment Patient's pain is still 8/10. Patient resting in bed.
[2020-02-25] MEDS: cefTRIAXone 1GM/50ML D5W 50 ML IV SCH (10:49)
[2020-02-25] MEDS: PANTOPRAZOLE 40 MG/10 ML VIAL INJ IV SCH ×2 (10:49→21:13)
[2020-02-25] MEDS: ENOXAPARIN SOD 40 MG/0.4 ML SYRINGE SC SCH (10:50)
[2020-02-25 10:55] LABS: Albumin 1.9 g/dL (3.4-5.0); Magnesium 2.1 mg/dL (1.6-2.6); Potassium 3.9 mmol/L (3.5-5.1)
[2020-02-25 10:59] LABS: BUN/Creatinine Ratio 30.8; Bilirubin, Total 0.9 mg/dL (0.2-1.0); Phosphorus 3.3 mg/dL (2.5-4.90); Total Protein 6.7 g/dL (6.4-8.2)
--- NOTE | 2020-02-25 11:30 | NUR ---
IV removal IV DC'd with sterile technique after infiltration, catheter fully intact. Pressure dressing applied to site.
--- NOTE | 2020-02-25 12:28 | NUR ---
IV refusal Patient is refusing IV insertion at this time. Patient is "tired of being poked." Will continue to use midline access for PPN administration, however, IV antibiotics will not be able to be administered at this time.
--- NOTE | 2020-02-25 12:43 | NUR ---
Pain Patient is complaining of pain 8/10 to his abdominal area. Will medicate with dilaudid according to doctor's orders.
[2020-02-25 13:00] VITALS: BP 132/94
--- NOTE | 2020-02-25 13:03 | NUR ---
Pain Reassessment Patient's pain is still 8/10. Patient resting in bed.
--- NOTE | 2020-02-25 14:11 | NUR ---
Nutrition Followup Notes (new PN) Wt: 94.2 kg Pt with respiratory team, unable to speak with pt. Pt is on TPN at 91 mLs/hr which provides 1340 kcal, and 90g pro, 980 NCP. TPN provides 62-67% of estimated energy needs and 103-129% of protein needs. Est Energy needs: 4000-3185 kcals (23-25 kcal/kgBW),Est Protein needs: 70-87 gms/day (0.8-1.0 gm/kgBW). Will continue to monitor and reassess prn. LABS: Alb 1.9 L GI: pt with colostomy per RN doc BS: 18 moderate risk, incision at site of sx per RN doc PES: Partially resolved: Altered nutrition related lab values r/t current chronic medical condition aeb elev BUN severe hypoalb Comments Will continue to closely monitor pertinent labs, NPO status and skin status prn. Will followup in 3-5 days 1) ) advance PN support to meet > 75% of needs. 2) Gradually advance pt to oral diet when medically feasible and as tolerated 4) Continue current plan of care
--- NOTE | 2020-02-25 15:48 | NUR ---
Leaking of Incision Spoke with Dr. Ervin regarding patient's incision. Dr. Ervin made aware of patient's incision leaking. Per Dr. Ervin cover with gauze.
--- NOTE | 2020-02-25 15:56 | NUR ---
Patient's incision Covered patient's leaking incision at this time. Educated patient to inform RN if covering becomes saturated. No distress noted at this time.
--- NOTE | 2020-02-25 16:28 | NUR ---
Pain Patient is complaining of pain 8/10 to his abdominal area. Will medicate with dilaudid according to doctor's orders.
--- NOTE | 2020-02-25 16:58 | NUR ---
Pain Reassessment Patient's pain is still 8/10. Patient resting in bed.
[2020-02-25 17:00] VITALS: BP 111/74
[2020-02-25] MEDS: DEXTROSE (50%) 50ML SYRG IV SCH (17:32)
--- NOTE | 2020-02-25 18:27 | NUR ---
Opening Shift Note Assuming care of patient at this time. Patient is awake and alert. Patient is complaining of pain 05/26 to his abdomen. Bed is locked and lowered with side rails up x2. Instructed patient on the plan of care for today and to call for assistance as needed. Call light within reach. Will continue to round hourly and as needed. Addendum: 02/25/20 at 1954 by HOSSEIN MANNING RN RN note intended for [id number]
--- NOTE | 2020-02-25 18:30 | NUR ---
No output from colostomy.
--- NOTE | 2020-02-25 18:32 | NUR ---
DOTTIE Drainage 30 mL of serous fluid drained from DOTTIE drain at this time.
--- NOTE | 2020-02-25 18:32 | NUR ---
Suction Canister 75 mL in NG tube suction canister.
--- NOTE | 2020-02-25 18:40 | NUR ---
Pain Patient is complaining of pain 9/10 to his abdominal area. Will medicate with dilaudid according to doctor's orders.
--- NOTE | 2020-02-25 19:40 | NUR ---
Opening Shift Note Assumed care of patient, awake and alert. Fall and safety precautions in place. Call light within reach and able to use. No S/S of distress/SOB. Instructed on POC and to call for assist PRN, patient verbalized understanding and in agreement. Will continue to monitor for changes Q1hr and PRN.
--- NOTE | 2020-02-25 19:54 | NUR ---
Closing Shift Note Patient resting in bed. No distress noted. Report given. Will endorse care to the media aid RN.
[2020-02-25] MEDS ORDERED: PPN PER PHARMACY IV NR ×11 (20:00)
[2020-02-25] MEDS: chlorproMAZINE HCL 25 MG/1 ML AMP IM PRN (20:48)
[2020-02-25 21:47] VITALS: BP 111/74
--- NOTE | 2020-02-25 22:17 | NUR ---
Respiratory note: AT BEDSIDE FOR MED NEB TX BS ARE CLEAR T/O. POX [id number] ON 2LPM NC, HR IN 110S. GUARDS AT BEDSIDE. WILL CONTINUE TO MONITOR NEEDED.
[2020-02-26] MEDS: HYDROmorphone HCL 2 MG/ML VL IV PRN ×10 (02:09→22:19)
[2020-02-26 04:41] VITALS: BP 111/74
[2020-02-26 04:52] VITALS: BP 101/72
[2020-02-26] MEDS: InsuLIN REG 1unit/0.01ml Soln (100units/ml) SC SCH ×4 (06:00→23:24)
[2020-02-26] MEDS: ACCU-CHEK COMFORT CURVE STRIP VI SCH ×4 (06:02→23:24)
[2020-02-26] MEDS: ONDANSETRON HCL 4 MG/2 ML VIAL IV PRN (06:03)
[2020-02-26] MEDS: ALBUTEROL SULF 2.5 MG/0.5ML(0.5%) NEB SOLN NEB SCH ×3 (06:07→21:54)
[2020-02-26] MEDS: IPRATROPIUM BROM 0.5 MG/2.5ML INH SOL NEB SCH ×3 (06:07→21:54)
[2020-02-26] MEDS: BUDESONIDE (INHALATION) 0.5 MG/2 ML NEB NEB SCH ×2 (06:10→21:54)
--- NOTE | 2020-02-26 07:30 | NUR ---
Opening Shift Note Assuming care of patient at this time. Patient is awake and alert. Patient is complaining of pain 8/10 to his abdomen. Will medicate according to doctor's orders. Bed is locked and lowered with side rails up x2. Instructed patient on the plan of care for today and to call for assistance as needed. Call light within reach. Will continue to round hourly and as needed.
[2020-02-26 09:06] VITALS: BP 135/76
[2020-02-26] MEDS: PANTOPRAZOLE 40 MG/10 ML VIAL INJ IV SCH ×2 (09:16→22:18)
[2020-02-26] MEDS: ENOXAPARIN SOD 40 MG/0.4 ML SYRINGE SC SCH (09:17)
--- NOTE | 2020-02-26 09:17 | NUR ---
Pain Patient is complaining of pain 9/10 to his abdominal area. Will medicate with dilaudid according to doctor's orders.
--- NOTE | 2020-02-26 09:47 | NUR ---
Pain Reassessment Patient's pain is still 8/10. Patient resting in bed.
[2020-02-26 11:38] LABS: Calcium 8.2 mg/dL (8.5-10.1); Magnesium 2.1 mg/dL (1.6-2.6); Phosphorus 3.1 mg/dL (2.5-4.90); Potassium 4.4 mmol/L (3.5-5.1)
--- NOTE | 2020-02-26 11:39 | NUR ---
Pain Patient is complaining of pain 8/10 to his abdominal area. Will medicate with dilaudid according to doctor's orders.
[2020-02-26 11:46] LABS: BUN/Creatinine Ratio 30.6; Bilirubin, Total 1.1 mg/dL (0.2-1.0); Total Protein 6.7 g/dL (6.4-8.2)
--- NOTE | 2020-02-26 12:09 | NUR ---
Pain Reassessment Patient's pain is still 8/10. Patient resting in bed.
[2020-02-26] MEDS: cefTRIAXone 1GM/50ML D5W 50 ML IV SCH (12:43)
[2020-02-26 12:50] VITALS: BP 116/77
--- NOTE | 2020-02-26 13:40 | NUR ---
Dr. Steve Wilson at bedside. Dr. Wilson made aware of patient's leaking incision. Opened up dressing.
--- NOTE | 2020-02-26 14:23 | NUR ---
Pain Patient is complaining of pain 8/10 to his abdominal area. Will medicate with dilaudid according to doctor's orders.
--- NOTE | 2020-02-26 14:53 | NUR ---
Pain Reassessment Patient's pain is still 8/10. Patient resting in bed.
[2020-02-26 16:24] VITALS: BP 115/76
--- NOTE | 2020-02-26 17:29 | NUR ---
Pain Patient is complaining of pain 8/10 to his abdominal area. Will medicate with dilaudid according to doctor's orders.
--- NOTE | 2020-02-26 17:59 | NUR ---
Pain Reassessment Patient's pain is still 8/10. Patient resting in bed.
--- NOTE | 2020-02-26 19:15 | NUR ---
Closing Shift Note Patient resting in bed. Patient is complaining of pain 05/26. Pain medication not due at this time. Report given. Will endorse care to the material handler 2nd shift RN.
[2020-02-26] MEDS ORDERED: PPN PER PHARMACY IV NR ×11 (20:00)
--- NOTE | 2020-02-26 21:00 | NUR ---
ABDOMINAL INCISION HAS SOME YELLOW AND SEROUS DISCHARGES COMING OUT WITH MILD REDNESS ON THE SITE. MD IS AWARE PER AM RN.
[2020-02-26 21:55] VITALS: BP 122/78
--- NOTE | 2020-02-26 22:30 | NUR ---
DRESSING CHANGE DONE ON THE ABDOMEN, ASEPTICALLY. KEPT DRY AND INTACT
[2020-02-27] MEDS: HYDROmorphone HCL 2 MG/ML VL IV PRN ×6 (01:52→20:44)
[2020-02-27 05:30] VITALS: BP 135/78
[2020-02-27] MEDS: InsuLIN REG 1unit/0.01ml Soln (100units/ml) SC SCH ×3 (06:00→18:00)
[2020-02-27 06:03] LABS: Albumin 1.7 g/dL (3.4-5.0); Calcium 7.8 mg/dL (8.5-10.1); Magnesium 1.8 mg/dL (1.6-2.6); Potassium 4.2 mmol/L (3.5-5.1)
[2020-02-27 06:06] LABS: BUN/Creatinine Ratio 31.8; Phosphorus 2.8 mg/dL (2.5-4.90); Total Protein 6.1 g/dL (6.4-8.2)
[2020-02-27] MEDS: ACCU-CHEK COMFORT CURVE STRIP VI SCH ×3 (06:08→18:00)
[2020-02-27] MEDS: ALBUTEROL SULF 2.5 MG/0.5ML(0.5%) NEB SOLN NEB SCH ×3 (06:38→22:19)
[2020-02-27] MEDS: BUDESONIDE (INHALATION) 0.5 MG/2 ML NEB NEB SCH ×2 (06:38→22:19)
[2020-02-27] MEDS: IPRATROPIUM BROM 0.5 MG/2.5ML INH SOL NEB SCH ×3 (06:38→22:19)
--- NOTE | 2020-02-27 07:35 | NUR ---
RECEIVED PATIENT FROM OUTGOING NOC SHIFT RN, AWAKE, ALERT AND ORIENTED X4. REPORT 10/10 PAIN ON ABDOMEN, NO SOB OR S/S, APPEARS RESTLESS DUE TO PAIN. PLAN OF CARE DISCUSSED. BED IN LOWEST AND LOCKED POSITION. ENCOURAGED TO CALL FOR ASSISTANCE PRN. WILL CONTINUE TO MONITOR Q1HR AND PRN. DOTTIE DRAIN NOTED, COLOSTOMY BACK IN PLACE, WILL CHANGE DURING SHIFT. PPN RUNNING AT 101MLS/HR.
[2020-02-27 08:00] VITALS: BP 124/62
[2020-02-27] MEDS: cefTRIAXone 1GM/50ML D5W 50 ML IV SCH (08:03)
[2020-02-27] MEDS: ONDANSETRON HCL 4 MG/2 ML VIAL IV PRN ×2 (08:03→15:09)
[2020-02-27] MEDS ORDERED: KETOROLAC TROMETH 30 MG/ML 1ML VIAL IV ONE (08:15)
[2020-02-27 09:00] VITALS: BP 124/62
[2020-02-27] MEDS: PANTOPRAZOLE 40 MG/10 ML VIAL INJ IV SCH ×2 (09:30→22:22)
[2020-02-27] MEDS: ENOXAPARIN SOD 40 MG/0.4 ML SYRINGE SC SCH (09:31)
[2020-02-27 13:00] VITALS: BP 111/71
[2020-02-27] MEDS: PIPERACILLIN-TAZOB 3.375GM 100 ML IV SCH ×3 (13:13→23:52)
--- NOTE | 2020-02-27 14:48 | NUR ---
Nutrition Followup Notes Wt: 92.8 kg Pt with respiratory team, unable to speak with pt. Pt is on TPN at 101 mLs/hr which provides 1508 kcal, and 90g pro, 1148 NCP. TPN provides 69-75% of estimated energy needs and 103-129% of protein needs. Est Energy needs: 6539-5986 kcals (23-25 kcal/kgBW),Est Protein needs: 70-87 gms/day (0.8-1.0 gm/kgBW). Will continue to monitor and reassess prn. LABS: Alb 1.7 L, CA 7.8 L GI: pt with colostomy per RN doc BS: 16 moderate risk, incision at site of sx per RN doc PES: Partially resolved: Altered nutrition related lab values r/t current chronic medical condition aeb elev BUN severe hypoalb Comments Will continue to closely monitor pertinent labs, NPO status and skin status prn. Will followup in 3-5 days 1) ) advance PN support to meet > 75% of needs. 2) Gradually advance pt to oral diet when medically feasible and as tolerated 4) Continue current plan of car
[2020-02-27] MEDS: KETOROLAC TROMETH 30 MG/ML 1ML VIAL IV SCH ×3 (16:59→23:52)
[2020-02-27 17:00] VITALS: BP 124/77
--- NOTE | 2020-02-27 18:30 | NUR ---
BLOOD SUGAR WAS 59, PATIENT ON PPN. WILL CONTINUE TO MONITOR.
--- NOTE | 2020-02-27 18:55 | NUR ---
COLOSTOMY DRESSING CHANGE DONE.
[2020-02-27] MEDS ORDERED: PPN PER PHARMACY IV NR ×10 (20:00)
--- NOTE | 2020-02-27 20:44 | NUR ---
Pain Medication Administration Patient complaining of abdominal pain 06/26. Administered pain medication per MD order. Will reassess pain level and will continue to monitor.
--- NOTE | 2020-02-27 21:14 | NUR ---
Pain Level Reassessment Patient pain level reassessed to 9/10. Offered patient nonpharmacological interventions. Patient requested blanket. Explained pain medications to patient, will continue to monitor.
[2020-02-27 21:36] VITALS: BP 112/73
[2020-02-27] MEDS: LORazepam 2MG/ML-1ML VIAL IV PRN (22:22)
--- NOTE | 2020-02-27 23:52 | NUR ---
Patient complaining of abdominal pain 05/26. Educated patient regarding pain medication. Patient requesting administration of Toradol 15mg IV. Will administer pain medication and will continue to monitor.
[2020-02-28] MEDS: ACCU-CHEK COMFORT CURVE STRIP VI SCH ×4 (00:09→18:00)
--- NOTE | 2020-02-28 00:52 | NUR ---
Pain Level Reassessment Patient asleep at this time. No signs or symptoms of distress noted. Will continue to monitor.
[2020-02-28] MEDS: HYDROmorphone HCL 2 MG/ML VL IV PRN ×7 (03:54→22:21)
--- NOTE | 2020-02-28 04:30 | NUR ---
Paged Dr. Ervin Attempted to reach Dr. Ervin, no response. Will retry and will continue to monitor.
[2020-02-28 05:13] VITALS: BP 134/55
[2020-02-28] MEDS: KETOROLAC TROMETH 30 MG/ML 1ML VIAL IV SCH ×3 (05:33→18:00)
--- NOTE | 2020-02-28 05:33 | NUR ---
Pain Medication Administration Patient complaining of abdominal pain 06/26. Pain medication for severe pain level not due for administration. Reeducated patient regarding pain medications. Patient requesting at this time for Toradol 15mg IV to be administered. Will reassess pain level and will continue to monitor.
[2020-02-28] MEDS: PIPERACILLIN-TAZOB 3.375GM 100 ML IV SCH ×3 (05:51→17:59)
[2020-02-28] MEDS: InsuLIN REG 1unit/0.01ml Soln (100units/ml) SC SCH ×4 (05:52→18:00)
--- NOTE | 2020-02-28 06:00 | NUR ---
Paged Dr. Ervin Paged Dr. Ervin, unable to reach. Will continue to monitor.
[2020-02-28 06:25] LABS: Basophils # (auto) 0.1 10 ^3/uL (0-0.2); Basophils % (auto) 0.3 % (0.0-2.0); Eosinophils # (auto) 0.1 10 ^3/uL (0-0.8); Eosinophils % (auto) 0.8 % (0.0-7.0); Hematocrit 29.8 % (41.0-53.0); Hemoglobin 9.8 g/dL (13.5-17.5); Lymphocytes # (auto) 0.7 10 ^3/uL (0.4-5.4); Lymphocytes % (auto) 3.9 % (10.0-50.0); Mean Corpuscular Hemoglobin 27.8 pg (28.0-32.0); Mean Corpuscular Volume 84.1 fL (80.0-100.0); Monocytes % (auto) 6.1 % (0.0-12.0); Neutrophils # (auto) 15.3 10 ^3/uL (1.6-8.6); Neutrophils % (auto) 88.9 % (37.0-80.0); Platelet Count (auto) 617 10^3/uL (140-450); Red Blood Cells 3.54 10^6/uL (4.5-5.90); Red Cell Distribution Width 14.1 % (11.8-14.3); White Blood Cell 17.2 10^3/uL (4.4-10.8)
[2020-02-28] MEDS: BUDESONIDE (INHALATION) 0.5 MG/2 ML NEB NEB SCH ×2 (06:25→22:02)
[2020-02-28] MEDS: IPRATROPIUM BROM 0.5 MG/2.5ML INH SOL NEB SCH ×3 (06:25→22:01)
[2020-02-28] MEDS: ALBUTEROL SULF 2.5 MG/0.5ML(0.5%) NEB SOLN NEB SCH ×3 (06:25→22:01)
--- NOTE | 2020-02-28 06:33 | NUR ---
Pain Level Reassessment Patient pain level reassessed to 9/10. Offered patient nonpharmacological interventions. Pain requesting pain medication, will administer pain medication per MD order and will continue to monitor.
--- NOTE | 2020-02-28 06:34 | NUR ---
Pain Medication Administration Patient pain level 9/10. Will administer pain medication per MD order. Will continue to monitor.
[2020-02-28 06:45] LABS: Albumin 1.7 g/dL (3.4-5.0); Calcium 7.7 mg/dL (8.5-10.1); Potassium 4.1 mmol/L (3.5-5.1)
[2020-02-28 06:48] LABS: BUN/Creatinine Ratio 25.8; Bilirubin, Total 1.4 mg/dL (0.2-1.0); Phosphorus 3.1 mg/dL (2.5-4.90); Total Protein 6.1 g/dL (6.4-8.2)
--- NOTE | 2020-02-28 06:50 | NUR ---
DOTTIE Drain, Colostomy, NG Tube, Abdomen Patient abdomen still distended, incision site leaking minimal amounts of serosanguineous fluid. Patient NG tube output approximately 20ml. Placement verified by auscultation. DOTTIE drain output: 50ml serosanguineous fluid. No output for colostomy. Paged Dr. Ervin, unable to reach, will continue to monitor and endorse to AM nurse.
--- NOTE | 2020-02-28 07:45 | NUR ---
Opening Shift Note Assumed care of patient, asleep but easily aroused. No S/S of distress/SOB or pain. Right hand chained to bed and both ankles chained together. Midline incision to abdomen intact but small amount of serosanguineous drainage noted on bed linen, DOTTIE drain to right abdomen seen and colostomy bag to left abdomen. Will follow up with instructions on POC and to call for assist PRN, will continue to monitor for changes Q1hr and PRN. Guards at bedside for safety.
[2020-02-28 09:28] VITALS: BP 99/66
[2020-02-28] MEDS: PANTOPRAZOLE 40 MG/10 ML VIAL INJ IV SCH ×2 (10:15→21:44)
[2020-02-28] MEDS: ENOXAPARIN SOD 40 MG/0.4 ML SYRINGE SC SCH (10:15)
--- NOTE | 2020-02-28 10:15 | NUR ---
Pain Complaint Patient complaining of pain to abdomen at 9/10. Medicated as ordered with Dilaudid 0.5mg IV. Will reassess pain level as per protocol.
--- NOTE | 2020-02-28 12:07 | NUR ---
Pain Toradol 15mg administered to patient for pain level 6/10. Will reassess as per policy.
[2020-02-28 12:52] VITALS: BP 106/68
--- NOTE | 2020-02-28 14:14 | NUR ---
Pain Complaint Patient complaining of pain to midline incision site at 9/10. Medicated as ordered with Dilaudid 0.5mg IV. Will reassess pain level.
[2020-02-28 16:24] VITALS: BP 101/68
--- NOTE | 2020-02-28 16:55 | NUR ---
Pain Complaint Patient complaining of pain to abdomen at 9/10. Medicated as ordered with Dilaudid 0.5mg IV. Will reassess pain level as per protocol.
--- NOTE | 2020-02-28 18:00 | NUR ---
Pain Toradol 15mg IV administered as ordered for pain level 6/10.
[2020-02-28 18:02] VITALS: BP 101/68
--- NOTE | 2020-02-28 18:35 | NUR ---
NGT NGT on 150mm continuous suction. 30mls greenish looking drainage on shift.
--- NOTE | 2020-02-28 18:35 | NUR ---
DOTTEI Drain Emptied 20mls of serous drainage.
--- NOTE | 2020-02-28 19:30 | NUR ---
Opening shift note Assumed care of patient. Patient A&Ox4, respirations even and non-labored with no s/s of distress. Discussed POC with patient who verbalized understanding. Noted 300 ml of dark green fluid in suction canister which was set at 150 continuous suction. Pemberton patent and draining 200 mL of beckie colored urine. Brodie drain empty. Colostomy CDI. Bed lowered/locked with 2 side rails up. Patient in right wrist/ankle cuffs with 2 guards bedside. Call light within reach. Will continue to monitor.
[2020-02-28] MEDS ORDERED: PPN PER PHARMACY IV NR ×10 (20:00)
--- NOTE | 2020-02-28 20:00 | NUR ---
Pain Patient c/o 8/10 abdominal pain. Administered Dilauded 0.5 mg per EMAR. Will continue to monitor.
--- NOTE | 2020-02-28 20:35 | NUR ---
Pain reassessed Patient resting with eyes closed, respirations even and non-labored with no s/s of distress. Will continue to monitor.
--- NOTE | 2020-02-28 22:01 | NUR ---
RT NOTE PT WAS SEEN BY RT FOR HHN TX. PT TOLERATES WELL VIA MASK. NO ADVERSE REACTION NOTED. THERE ARE 2 GUARDS AT BEDSIDE NOTED. PT IS HANDCUFFED TO THE BED. CONT ORDERED Addendum: 02/28/20 at 2209 by Darlene Grant RT Amended: Links added.
--- NOTE | 2020-02-28 22:13 | NUR ---
MARVIN CHAMBERLAIN PT COMPLAINING OF PAIN AND REQUESTING MEDICATION. MARVIN GALVEZ NOTIFIED.
--- NOTE | 2020-02-28 22:25 | NUR ---
Pain Patient c/o abdominal pain 05/26. Administered 0.5 mg Dilaudid per EMAR. Will continue to monitor.
[2020-02-28 22:30] VITALS: BP 119/86
--- NOTE | 2020-02-28 22:51 | NUR ---
Pain reassessed Patient resting with eyes closed, no SOB or s/s of distress. Will continue to monitor.
--- NOTE | 2020-02-29 00:10 | NUR ---
Right upper IV infiltrated Removed infiltrated right upper arm IV. Attempted to place IV in left forearm twice unsuccessfully. Endorsed to day shift nurse.
[2020-02-29] MEDS: PIPERACILLIN-TAZOB 3.375GM 100 ML IV SCH ×4 (00:17→18:06)
[2020-02-29] MEDS: HYDROmorphone HCL 2 MG/ML VL IV PRN ×7 (00:26→20:41)
[2020-02-29] MEDS: ACCU-CHEK COMFORT CURVE STRIP VI SCH ×4 (00:36→17:41)
--- NOTE | 2020-02-29 02:36 | NUR ---
Pain Patient c/o 8/10 abdominal pain. Administered Dilaudid per EMAR. Will continue to monitor.
--- NOTE | 2020-02-29 03:10 | NUR ---
Pain reassessed Patient sleeping but restless. Patient in and out of sleep stating that he is having a hard time not feeling anxious. Will continue to monitor.
[2020-02-29] MEDS: LORazepam 2MG/ML-1ML VIAL IV PRN (04:13)
--- NOTE | 2020-02-29 04:15 | NUR ---
Pain/anxiety reassessed Patient c/o of agitation, 9/10 abdominal pain and anxiety. Administered Ativan 2 mg per EMAR. Will continue to monitor.
--- NOTE | 2020-02-29 04:20 | NUR ---
Patient temperature 100.9 Applied ice packs under arms and removed bed blanket. Will continue to monitor.
--- NOTE | 2020-02-29 04:20 | NUR ---
PICC line dressing changed PICC line dressing/statlock changed using sterile technique. Underlying skin pink with no signs of infection or drainage. Patient tolerated well.
[2020-02-29 05:27] VITALS: BP 135/81
--- NOTE | 2020-02-29 05:30 | NUR ---
Patient temperature 102 Will attempt to notify
[2020-02-29] MEDS: InsuLIN REG 1unit/0.01ml Soln (100units/ml) SC SCH ×4 (06:00→17:41)
--- NOTE | 2020-02-29 06:11 | NUR ---
Call placed to Dr. Wilson Call placed to Dr. Wilson regarding patient temperature. Call received by call service legal receptionist Julio Cesar.
[2020-02-29] MEDS: ALBUTEROL SULF 2.5 MG/0.5ML(0.5%) NEB SOLN NEB SCH ×3 (06:21→22:08)
[2020-02-29] MEDS: BUDESONIDE (INHALATION) 0.5 MG/2 ML NEB NEB SCH ×2 (06:21→22:08)
[2020-02-29] MEDS: IPRATROPIUM BROM 0.5 MG/2.5ML INH SOL NEB SCH ×3 (06:21→22:08)
--- NOTE | 2020-02-29 07:15 | NUR ---
Closing shift note Patient resting with eyes closed, no s/s of SOB or distress. Endorsed care to primary care MARVIN Caba.
[2020-02-29] MEDS ORDERED: HYDROmorphone HCL 2 MG/ML VL IV PRN (07:30)
--- NOTE | 2020-02-29 07:40 | NUR ---
Opening Shift Note: Assumed care of patient, awake and alert. No S/S of distress/SOB. Patient states pain 10/10 in abdomen. Bed in lowest locked position, side rails up x 2, call light within reach. Guards at bedside. Instructed on POC and to call for assist PRN, will continue to monitor for changes Q1hr and PRN.
--- NOTE | 2020-02-29 07:50 | NUR ---
Paged Dr. Shahid regarding temperature of 100.8, possible PICC placement, and pain medications. Awaiting call back.
--- NOTE | 2020-02-29 08:07 | NUR ---
Dr. Shahid called back. New orders received, read back and verified.
[2020-02-29 08:35] VITALS: BP 126/65
--- NOTE | 2020-02-29 09:00 | NUR ---
Temperature at this time is 100.8 cooling measures applied
[2020-02-29 09:01] LABS: Eosinophils # (auto) 0.1 10 ^3/uL (0-0.8); Hemoglobin 10.5 g/dL (13.5-17.5); Monocytes # (auto) 1.2 10 ^3/uL (0-1.3); White Blood Cell 15.5 10^3/uL (4.4-10.8)
[2020-02-29 09:02] LABS: Basophils # (auto) 0.1 10 ^3/uL (0-0.2); Basophils % (auto) 0.6 % (0.0-2.0); Eosinophils % (auto) 0.4 % (0.0-7.0); Hematocrit 32.7 % (41.0-53.0); Lymphocytes # (auto) 0.9 10 ^3/uL (0.4-5.4); Lymphocytes % (auto) 5.9 % (10.0-50.0); Mean Corpuscular Hemoglobin 27.2 pg (28.0-32.0); Mean Corpuscular Hgb Conc. 32.1 g/dL (32.0-36.0); Mean Corpuscular Volume 84.7 fL (80.0-100.0); Monocytes % (auto) 7.6 % (0.0-12.0); Neutrophils # (auto) 13.2 10 ^3/uL (1.6-8.6); Neutrophils % (auto) 85.5 % (37.0-80.0); Nucleated Red Blood Cells % 0.1 %; Platelet Count (auto) 586 10^3/uL (140-450); Red Blood Cells 3.86 10^6/uL (4.5-5.90); Red Cell Distribution Width 14.5 % (11.8-14.3)
[2020-02-29 09:16] LABS: Albumin 1.9 g/dL (3.4-5.0); Calcium 7.8 mg/dL (8.5-10.1); Magnesium 2.1 mg/dL (1.6-2.6); Potassium 4.3 mmol/L (3.5-5.1)
[2020-02-29 09:22] LABS: BUN/Creatinine Ratio 21.3; Bilirubin, Total 1.4 mg/dL (0.2-1.0); Pre Albumin 6.8 mg/dL (20.0-40.0)
[2020-02-29] MEDS: PANTOPRAZOLE 40 MG/10 ML VIAL INJ IV SCH ×2 (10:40→22:02)
[2020-02-29] MEDS: ENOXAPARIN SOD 40 MG/0.4 ML SYRINGE SC SCH (10:41)
[2020-02-29 10:54] LABS: INR 1.26 (0.9-1.15); Partial Thromboplastin Time 29.7 sec (23.64-32.05)
--- NOTE | 2020-02-29 11:00 | NUR ---
PICC LINE CONSENT SIGNED BY PATIENT AND DOCTOR.
[2020-02-29 13:00] VITALS: BP 138/71
--- NOTE | 2020-02-29 14:19 | NUR ---
Respiratory note: UNABLE TO ADMINISTER MEDNEB ALEXA RN AT BEDSIDE FOR PICC LINE INSERTION AT THIS TIME. PT DENIES SOB, NO S/S OF RESPIRATORY DISTRESS NOTED.
--- NOTE | 2020-02-29 14:54 | NUR ---
Nutrition Followup Notes Wt: 92.8 kg Pt sleeping with guards by bedside. Pt is on TPN at 100 mLs/hr which provides 1528 kcal, and 95g pro, 1148 NCP. TPN provides 70-76% of estimated energy needs and 103-129% of protein needs. Est Energy needs: 6613-7278 kcals (23-25 kcal/kgBW),Est Protein needs: 70-87 gms/day (0.8-1.0 gm/kgBW). Will continue to monitor and reassess prn. LABS: ALB 1.9 L, TG 154 H, CA 7.8 L, CYNTHIA 1.4 H GI: pt with colostomy per RN doc BS: 16 moderate risk, incision at site of sx per RN doc PES: Partially resolved: Altered nutrition related lab values r/t current chronic medical condition aeb elev BUN severe hypoalb Comments Will continue to closely monitor pertinent labs, NPO status and skin status prn. Will followup in 3-5 days 1) ) advance PN support to meet > 75% of needs. 2) Gradually advance pt to oral diet when medically feasible and as tolerated 4) Continue current plan of car
[2020-02-29] MEDS ORDERED: LIDOCAINE 1% (LOCAL ANESTH.) PF 5ml SDV ID ONE (15:30)
--- NOTE | 2020-02-29 15:32 | NUR ---
PICC line placement Patient educated on need for PICC line placement. All risks and benefits explained and all questions and concerns addressed prior to procedure. Noted past medical history and allergies with no contraindications. INR and Plt counts within acceptable range. 5fr PICC line inserted via R BASILIC vein using [employer] US and Tip Location System. Sterile technique with maximum barrier precautions utilized. Blood return obtained from each of the lumens and each flushed easily with NS using proper technique. PICC secured with Stat-lock; biodisc and occlusive dressing applied. Stat portable chest x-ray obtained for PICC tip placement. *Baseline Arm Circumference 32CM. EXTERNAL LENGTH 0CM. INTERNAL LENGTH 41CM. PICC lot # [id number]. Note:
--- NOTE | 2020-02-29 15:38 | NUR ---
OK to use PICC line Xray completed. OK to use PICC line. PRIMARY RN NOTIFIED.
--- NOTE | 2020-02-29 16:57 | NUR ---
Patient temp at this time is 101. Patient offered cooling measures and acetaminophen suppository at this time. Patient refused cooling measures and acetaminophen this time. Patient educated on risk. Patient accepted cooling measures at this time.
[2020-02-29 17:00] VITALS: BP 113/70
[2020-02-29] MEDS ORDERED: ALBUTEROL SULF 2.5 MG/0.5ML(0.5%) NEB SOLN NEB SCH (18:00)
[2020-02-29] MEDS: ACETAMINOPHEN 650 MG RECT SUPP PR PRN (18:07)
--- NOTE | 2020-02-29 18:07 | NUR ---
PATIENT EDUCATED ON NEED FOR ACETAMINOPHEN AT THIS TIME PATIENT AGREED. WILL CONTINUE TO MONITOR.
--- NOTE | 2020-02-29 19:23 | NUR ---
CLOSING NOTE: PATIENT RESTING IN BED. ENDORSED CARE TO NOC RN
--- NOTE | 2020-02-29 19:30 | NUR ---
Opening Shift Note Assumed care of patient, awake and alert. Patient has NGT to LCS as ordered by MD. NGT at 65 to right nares. Dressing to midline incision. DOTTIE X1. Pemberton flowing freely to gravity. Instructed on POC and to call for assist PRN, will continue to monitor for changes Q1hr and PRN.
[2020-02-29] MEDS ORDERED: PPN PER PHARMACY IV NR ×9 (20:00)
[2020-02-29 22:00] VITALS: BP 122/79
[2020-02-29] MEDS: SODIUM CHLOR 0.9% PF (SALINE LOCK) 10ML VIAL/SYR IV SCH (22:03)
--- NOTE | 2020-02-29 22:30 | NUR ---
Patient's heart rate sustaining at 180. Patient checked, vital signs taken Temp-98.0; FS=391/77 HR-180; RR=24;O2 sat=88%; Patient denies any symptoms. grease packer made aware. 12 lead EKG taken resulted to SVT 186. Accucheck taken, result is 88. Patient closely monitored. Crash cart taken to bedside.
--- NOTE | 2020-02-29 22:40 | NUR ---
Code assist called. Dr. Hein, supervisor inspection and testing Sheryl,RN, ICU drophammer operator Eleonora, and the rest of code assist team at bedside promptly. Dr. Wilson paged. Close monitoring continued.
[2020-02-29] MEDS ORDERED: METOPROLOL TARTRATE 1MG/1ML-5ML VIAL IV ONE (22:41)
[2020-02-29] MEDS ORDERED: HYDROmorphone HCL 2 MG/ML VL ONE (22:48)
--- NOTE | 2020-02-29 22:50 | NUR ---
Dr. Wilson called back, orders noted in addition to code assist team taking care of patient at bedside. Patient will be closely monitored.
[2020-02-29] MEDS ORDERED: HYDROmorphone HCL 2 MG/ML VL IV ONE (23:00)
[2020-02-29] MEDS ORDERED: METOPROLOL TARTRATE 1MG/1ML-5ML VIAL IV SCH ×2 (23:00)
[2020-03-01] MEDS: PIPERACILLIN-TAZOB 3.375GM 100 ML IV SCH ×5 (00:42→23:45)
[2020-03-01] MEDS: ACCU-CHEK COMFORT CURVE STRIP VI SCH ×5 (00:46→23:52)
[2020-03-01] MEDS: HYDROmorphone HCL 2 MG/ML VL IV PRN ×9 (00:54→20:05)
[2020-03-01 05:00] VITALS: BP 131/80
[2020-03-01] MEDS: METOPROLOL TARTRATE 1MG/1ML-5ML VIAL IV PRN (05:37)
[2020-03-01] MEDS: InsuLIN REG 1unit/0.01ml Soln (100units/ml) SC SCH ×5 (06:00→23:53)
[2020-03-01 06:04] LABS: Albumin 1.6 g/dL (3.4-5.0); Magnesium 2.2 mg/dL (1.6-2.6); Potassium 3.7 mmol/L (3.5-5.1)
[2020-03-01 06:08] LABS: BUN/Creatinine Ratio 28.1; Bilirubin, Total 0.9 mg/dL (0.2-1.0); Phosphorus 2.8 mg/dL (2.5-4.90); Total Protein 6.4 g/dL (6.4-8.2)
[2020-03-01] MEDS: IPRATROPIUM BROM 0.5 MG/2.5ML INH SOL NEB SCH ×3 (06:28→22:05)
[2020-03-01] MEDS: ALBUTEROL SULF 2.5 MG/0.5ML(0.5%) NEB SOLN NEB SCH ×3 (06:28→22:05)
[2020-03-01] MEDS: BUDESONIDE (INHALATION) 0.5 MG/2 ML NEB NEB SCH ×2 (06:28→22:05)
--- NOTE | 2020-03-01 07:30 | NUR ---
Patient had been closely monitored. Dressing to surgical incision changed, NGT still at continuous suction with 90cc output. DOTTIE drain output at 20 cc. Telemetry reading at sinus tachycardia 105. Patient verbalizing he is feeling better compared to the beginning of shift. Report given to MARVIN Villasenor.
--- NOTE | 2020-03-01 07:45 | NUR ---
Opening Shift Note Assumed care of patient, awake and alert. No S/S of distress or /SOB . Instructed on POC and to call for assist PRN, will continue to monitor for changes Q1hr and PRN. Instructed the patient on the plan of care for pain management.
[2020-03-01 08:00] VITALS: BP 119/68
[2020-03-01 09:00] VITALS: BP 119/68
[2020-03-01] MEDS: ENOXAPARIN SOD 40 MG/0.4 ML SYRINGE SC SCH (09:29)
[2020-03-01] MEDS: PANTOPRAZOLE 40 MG/10 ML VIAL INJ IV SCH ×2 (09:29→21:27)
--- NOTE | 2020-03-01 09:30 | NUR ---
RECEIVED A CALL FROM [facility], + BLOOD CULTURES ([facility]) REPORTED/ DR FERNANDEZ PAGED AND MESSAGE LEFT AT ANSWERING SERVICE.
[2020-03-01] MEDS: SODIUM CHLOR 0.9% PF (SALINE LOCK) 10ML VIAL/SYR IV SCH ×2 (10:00→22:00)
[2020-03-01 13:00] VITALS: BP 102/69
[2020-03-01 17:00] VITALS: BP 112/66
[2020-03-01] MEDS: FLUCONAZOLE 200MG/100ML 100 ML IV SCH (17:18)
--- NOTE | 2020-03-01 18:50 | NUR ---
PATIENT HAD 50 ML OF GREEN GASTRIC DRAINAGE. AND 5 ML OUT OF DOTTIE
[2020-03-01] MEDS ORDERED: TPN PER PHARMACY IV NR ×19 (20:00)
[2020-03-01] MEDS: LORazepam 2MG/ML-1ML VIAL IV PRN (21:27)
[2020-03-01] MEDS: ACETAMINOPHEN 650 MG RECT SUPP PR PRN (21:49)
[2020-03-01 21:51] VITALS: BP 124/67
[2020-03-02] MEDS: HYDROmorphone HCL 2 MG/ML VL IV PRN ×10 (01:42→22:06)
[2020-03-02 04:56] VITALS: BP 117/70
[2020-03-02] MEDS: PIPERACILLIN-TAZOB 3.375GM 100 ML IV SCH ×4 (05:47→23:20)
[2020-03-02] MEDS: InsuLIN REG 1unit/0.01ml Soln (100units/ml) SC SCH ×4 (06:00→23:30)
[2020-03-02] MEDS: ACCU-CHEK COMFORT CURVE STRIP VI SCH ×4 (06:00→23:32)
[2020-03-02 06:07] LABS: Albumin 1.6 g/dL (3.4-5.0); Calcium 7.3 mg/dL (8.5-10.1); Magnesium 2.1 mg/dL (1.6-2.6); Potassium 3.7 mmol/L (3.5-5.1)
[2020-03-02 06:09] LABS: BUN/Creatinine Ratio 23.1; Bilirubin, Total 0.9 mg/dL (0.2-1.0); Phosphorus 2.7 mg/dL (2.5-4.90)
[2020-03-02] MEDS: IPRATROPIUM BROM 0.5 MG/2.5ML INH SOL NEB SCH ×3 (06:47→22:21)
[2020-03-02] MEDS: BUDESONIDE (INHALATION) 0.5 MG/2 ML NEB NEB SCH ×2 (06:48→22:21)
[2020-03-02] MEDS: ALBUTEROL SULF 2.5 MG/0.5ML(0.5%) NEB SOLN NEB SCH ×3 (06:48→22:21)
--- NOTE | 2020-03-02 07:15 | NUR ---
Opening Shift Note: Assumed care of patient, awake and alert. No S/S of distress/SOB. Patient states pain level 8/10. Patient educated on pain medication and timing. Bed in lowest locked position, side rails up x 2, call light within reach. Guards at bedside. Patient instructed on POC and to call for assist PRN, will continue to monitor for changes Q1hr and PRN.
--- NOTE | 2020-03-02 07:28 | NUR ---
Drainage Output The patient had an output of 150ml green bile fluid from the NG tube suction and another 10ml serous fluid from the DOTTIE drain during the night. Will continue to monitor.
[2020-03-02 09:00] VITALS: BP 100/57
[2020-03-02] MEDS ORDERED: GASTROGRAFIN 120 ML SOL ONE (09:03)
[2020-03-02] MEDS: PANTOPRAZOLE 40 MG/10 ML VIAL INJ IV SCH ×2 (10:34→21:36)
[2020-03-02] MEDS: SODIUM CHLOR 0.9% PF (SALINE LOCK) 10ML VIAL/SYR IV SCH ×2 (10:34→21:36)
[2020-03-02] MEDS: FLUCONAZOLE 200MG/100ML 100 ML IV SCH (10:34)
[2020-03-02] MEDS: ENOXAPARIN SOD 40 MG/0.4 ML SYRINGE SC SCH (10:35)
--- NOTE | 2020-03-02 11:51 | NUR ---
Nutrition Followup Notes Wt: 90 kg Pt is alert and oriented during rounds. Reports wanting to be on po diet, advised when medically feasible per MD will advance diet. Pt is on TPN at 76 mls/hr which provides 1800 kcal and 95g of protein, 1420 NCP. This provides 90% of energy needs and >100% of protein needs Est Energy needs: 6320-9937 kcals (23-25 kcal/kgBW),Est Protein needs: 70-87 gms/day (0.8-1.0 gm/kgBW). Will continue to monitor and reassess prn. LABS: Creat 0.52L, Ca 7.3L, Alb 1.6L GI: pt with colostomy per RN doc, gastric drainage 250 ml 03/02 BS: 16 moderate risk, incision at site of sx per RN doc PES: Partially resolved: Altered nutrition related lab values r/t current chronic medical condition aeb elev BUN severe hypoalb Comments Will continue to closely monitor pertinent labs, NPO status and skin status prn. Will followup in 2-3 days 1) ) Continue PN support to meet > 75% of needs. 2) Gradually advance pt to oral diet when medically feasible and as tolerated 3) Continue current plan of care
[2020-03-02 13:18] VITALS: BP 128/79
--- NOTE | 2020-03-02 14:32 | NUR ---
PT EDUCATED ABOUT KEEPING HIS OXYGEN ON. PT CONTINUOUSLY TAKES OFF NASAL CANNULA AND FOUND SPO2 TO BE 84% ON ROOM AIR.
[2020-03-02 17:00] VITALS: BP 118/71
--- NOTE | 2020-03-02 17:34 | NUR ---
ORDERS RECEIVED FROM DR. YUEN TO REMOVE STAPES FROM ABDOMINAL INCISIONS. DUE TO SWELLING AND REDNESS AROUND INCISION, AND STATED PAIN FROM THE PATIENT, TWO AUDI WERE REMOVED. CHARGE NURSE NOTIFIED. HEAD WRESTLING COACH NOTIFIED AND ASSESSED INCISION WITH THIS NURSE. PER HEAD WRESTLING COACH ROGELIO "REMOVE TWO AT A TIME AND CONTINUE TO MONITOR." WILL NOTIFY DR. YUEN.
--- NOTE | 2020-03-02 18:01 | NUR ---
UNABLE TO REACH DR. YUEN AT THIS TIME. WILL CONTINUE TO MONITOR.
--- NOTE | 2020-03-02 18:27 | NUR ---
INCISION CLEANED, TWO MORE AUDI REMOVED AT THIS TIME. WILL CONTINUE TO MONITOR.
--- NOTE | 2020-03-02 18:32 | NUR ---
DRAIN OUTPUT NG TUBE OUT PUT OF 120ML DOTTIE DRAIN OUTPUT OF 60 ML YELLOW BILE.
--- NOTE | 2020-03-02 19:39 | NUR ---
CLOSING NOTE: ATTEMPTED TO REMOVE MORE AUDI BUT PATIENT STATED "STOP DOING THIS, JUST LEAVE IT AND LET IT ROT. I DON'T WANT YOU TO TAKE ANYMORE." EDUCATED PATIENT ON NEED TO REMOVE AUDI AND DOCTORS ORDERS. PATIENT STATED HE WOULD ALLOW MORE REMOVED AFTER PAIN MEDICATIONS. CARE ENDORSED TO NOC RN
--- NOTE | 2020-03-02 19:45 | NUR ---
ASSUMED CARE, PT. AWAKE, GUARDS AT BEDSIDE, NGT TO HIS FUNCTIONING WELL, NO SOB.
[2020-03-02] MEDS ORDERED: TPN PER PHARMACY IV NR ×9 (20:00)
[2020-03-02 21:35] VITALS: BP 111/79
--- NOTE | 2020-03-02 22:00 | NUR ---
PT. REFUSED TO REMOVED AUDI AT THIS TIME.
[2020-03-03] VITALS (7 sets, daily range): BP systolic 86–129; BP diastolic 40–80
[2020-03-03] MEDS: HYDROmorphone HCL 2 MG/ML VL IV PRN ×8 (00:08→17:31)
--- NOTE | 2020-03-03 03:22 | NUR ---
pt. c/o abdominal pain, 07/26, pain med given iv as ordered.
--- NOTE | 2020-03-03 03:52 | NUR ---
re- assessed pt. pain, pain relieved at this time.
--- NOTE | 2020-03-03 04:00 | NUR ---
pt. still refusing to remove eliz. dressing changed on abdominal incision.
[2020-03-03] MEDS: InsuLIN REG 1unit/0.01ml Soln (100units/ml) SC SCH ×4 (05:19→23:10)
[2020-03-03] MEDS: ACCU-CHEK COMFORT CURVE STRIP VI SCH ×4 (05:19→23:09)
[2020-03-03] MEDS: PIPERACILLIN-TAZOB 3.375GM 100 ML IV SCH ×4 (05:21→23:09)
[2020-03-03] MEDS: ALBUTEROL SULF 2.5 MG/0.5ML(0.5%) NEB SOLN NEB SCH ×3 (06:41→21:38)
[2020-03-03] MEDS: IPRATROPIUM BROM 0.5 MG/2.5ML INH SOL NEB SCH ×3 (06:41→21:38)
[2020-03-03] MEDS: BUDESONIDE (INHALATION) 0.5 MG/2 ML NEB NEB SCH ×2 (06:41→21:38)
--- NOTE | 2020-03-03 06:57 | NUR ---
Respiratory note: PATIENT FOUND WITH NASAL CANNULA REMOVED AND ON R/A WITH SPO2 AT 88%. HE WAS EDUCATED ON THE IMPORTANCE OF KEEPING HIS CANNULA IN AND EXPLAINED COMPLICATIONS IF HE CONTINUED TO REFUSE THERAPY. PATIENT CONTINUED TO REFUSE O2 THERAPY AT THIS TIME.
[2020-03-03 07:29] LABS: Albumin 1.7 g/dL (3.4-5.0); BUN/Creatinine Ratio 31.4; Calcium 7.7 mg/dL (8.5-10.1); Magnesium 2.2 mg/dL (1.6-2.6); Phosphorus 3.1 mg/dL (2.5-4.90); Total Protein 6.3 g/dL (6.4-8.2)
[2020-03-03] MEDS: PANTOPRAZOLE 40 MG/10 ML VIAL INJ IV SCH ×2 (09:53→21:18)
[2020-03-03] MEDS: FLUCONAZOLE 200MG/100ML 100 ML IV SCH (09:53)
[2020-03-03] MEDS: SODIUM CHLOR 0.9% PF (SALINE LOCK) 10ML VIAL/SYR IV SCH ×2 (09:53→21:19)
[2020-03-03] MEDS: ENOXAPARIN SOD 40 MG/0.4 ML SYRINGE SC SCH (09:54)
--- NOTE | 2020-03-03 12:42 | NUR ---
WOUND CARE: DONE, CLEANED INCISION SITE AND AROUND DOTTIE DRAIN. CHANGED NG TUBE CLAMP IT IS AT 30CM. DRAINING TO HIGH CONTINUOUS AT 150
--- NOTE | 2020-03-03 12:45 | NUR ---
PT REFUSING TO LET ME REMOVE AUDI AT THIS TIME. EDUCATED PATIENT OF THE IMPORTANCE OF REMOVING AUDI. PATIENT VERBALIZED UNDERSTANDING.
--- NOTE | 2020-03-03 12:46 | NUR ---
BOWEL SOUNDS REASSESSED BOWL SOUNDS. PATIENT HAS HYPOACTIVE BOWEL SOUNDS IN RUQ, LUQ, AND LLQ. RLQ PATIENT HAS NORMOL BOWEL SOUNDS.
--- NOTE | 2020-03-03 12:49 | NUR ---
WILL CONTINUE TO TRY TO GET AUDI OUT DUE TO REDNESS.
[2020-03-03] MEDS ORDERED: HYDROmorphone HCL 2 MG/ML VL IV PRN (13:15)
--- NOTE | 2020-03-03 13:30 | NUR ---
REMOVED 9 AUDI FROM PATIENTS ABDOMEN. 1 REMAINING STAPLE WILL REMOVE LATER.
[2020-03-03] MEDS ORDERED: MICAFUNGIN SODIUM 100 MG in SODIUM CHL 0.9% 100 ML IV ONE (15:00)
--- NOTE | 2020-03-03 17:35 | NUR ---
REMOVED LAST STAPLE REMAINING. PATIENT TOLERATED WELL NO SIGNS OF DISTRESS NOTED.
--- NOTE | 2020-03-03 18:20 | NUR ---
MEASURED PATIENTS ABDOMEN TO MONITOR FOR CHANGES. PATIENTS ABDOMEN AT TOP OF INCISION JUST BELOW UMBILICUS IS 41.5 INCHES
--- NOTE | 2020-03-03 19:08 | NUR ---
bennie drainage amount 40 ml
--- NOTE | 2020-03-03 19:09 | NUR ---
350 ml drainage from ng tube dark green bile
[2020-03-03] MEDS ORDERED: TPN PER PHARMACY IV NR ×9 (20:00)
[2020-03-03] MEDS: LORazepam 2MG/ML-1ML VIAL IV PRN (20:53)
--- NOTE | 2020-03-03 21:48 | NUR ---
Respiratory note: AT BEDSIDE FOR MED DEXTER LIU.
[2020-03-04] MEDS: HYDROmorphone HCL 2 MG/ML VL IV PRN ×7 (02:35→22:25)
[2020-03-04 05:00] VITALS: BP 119/40
[2020-03-04] MEDS: PIPERACILLIN-TAZOB 3.375GM 100 ML IV SCH ×3 (05:37→18:52)
[2020-03-04] MEDS: IPRATROPIUM BROM 0.5 MG/2.5ML INH SOL NEB SCH ×3 (05:40→22:05)
[2020-03-04] MEDS: BUDESONIDE (INHALATION) 0.5 MG/2 ML NEB NEB SCH ×2 (05:40→22:05)
[2020-03-04] MEDS: ALBUTEROL SULF 2.5 MG/0.5ML(0.5%) NEB SOLN NEB SCH ×3 (05:40→22:05)
[2020-03-04] MEDS: InsuLIN REG 1unit/0.01ml Soln (100units/ml) SC SCH ×3 (05:52→18:00)
[2020-03-04] MEDS: ACCU-CHEK COMFORT CURVE STRIP VI SCH ×3 (05:52→18:00)
--- NOTE | 2020-03-04 06:20 | NUR ---
25Ml of dark green fluid from NGT.
--- NOTE | 2020-03-04 06:23 | NUR ---
50ml of light green fluid drained from DOTTIE. Bulb recompressed and capped.
[2020-03-04 06:33] LABS: Basophils # (auto) 0.1 10 ^3/uL (0-0.2); Eosinophils # (auto) 0.3 10 ^3/uL (0-0.8); Mean Corpuscular Volume 84.9 fL (80.0-100.0); Neutrophils # (auto) 8.8 10 ^3/uL (1.6-8.6)
[2020-03-04 06:36] LABS: Eosinophils % (auto) 2.8 % (0.0-7.0); Hematocrit 26.5 % (41.0-53.0); Hemoglobin 8.4 g/dL (13.5-17.5); Lymphocytes # (auto) 1.3 10 ^3/uL (0.4-5.4); Lymphocytes % (auto) 11.2 % (10.0-50.0); Mean Corpuscular Hemoglobin 26.8 pg (28.0-32.0); Mean Corpuscular Hgb Conc. 31.6 g/dL (32.0-36.0); Monocytes # (auto) 1.2 10 ^3/uL (0-1.3); Monocytes % (auto) 10.2 % (0.0-12.0); Neutrophils % (auto) 74.8 % (37.0-80.0); Platelet Count (auto) 458 10^3/uL (140-450); Red Blood Cells 3.12 10^6/uL (4.5-5.90); Red Cell Distribution Width 14.3 % (11.8-14.3); White Blood Cell 11.8 10^3/uL (4.4-10.8)
[2020-03-04 07:10] LABS: Albumin 1.6 g/dL (3.4-5.0); BUN/Creatinine Ratio 24.5; Bilirubin, Total 1.2 mg/dL (0.2-1.0); Calcium 7.5 mg/dL (8.5-10.1); Magnesium 2.1 mg/dL (1.6-2.6); Phosphorus 2.7 mg/dL (2.5-4.90); Total Protein 6.1 g/dL (6.4-8.2)
--- NOTE | 2020-03-04 07:15 | NUR ---
Assumed care. Patient resting in bed AOx4. No s/s of distress noted at this time, Patient reports pain 10/10. Will medicate per doctors orders when patient is do. Patient updated on POC and to call for assistance as needed. Will continue care.
[2020-03-04 08:38] VITALS: BP 129/64
[2020-03-04] MEDS: SODIUM CHLOR 0.9% PF (SALINE LOCK) 10ML VIAL/SYR IV SCH ×2 (09:31→21:59)
[2020-03-04] MEDS: ENOXAPARIN SOD 40 MG/0.4 ML SYRINGE SC SCH (09:32)
[2020-03-04] MEDS: PANTOPRAZOLE 40 MG/10 ML VIAL INJ IV SCH ×2 (09:32→21:52)
[2020-03-04] MEDS: MICAFUNGIN SODIUM 100 MG in SODIUM CHL 0.9% 100 ML IV SCH (09:32)
--- NOTE | 2020-03-04 09:47 | NUR ---
Wound care Abdominal incision dressing removed after moderate serous drainage noted. Wound cleansed and new dressing applied. Patient tolerated well.
--- NOTE | 2020-03-04 12:36 | NUR ---
Nutrition Followup Notes Wt: 92.6 kg Pt resting with guards at bedside during rounds. Pt is on TPN at 89 mls/hr which provides 2280 kcal and 105g of protein, 1860 NCP. This provides 100% of energy needs and 100% of protein needs Est Energy needs: 7633-5322 kcals (23-25 kcal/kgBW), Est Protein needs: 74-93 gms/day (0.8-1.0 gm/kgBW). Will continue to monitor and reassess prn. LABS: Creat 0.49L, Ca 7.3L, Alb 1.6L, Gluc 11H GI: 03/04 RN doc reports 800 ml stool total BS: 16 moderate risk, incision at site of sx per RN doc PES: Partially resolved: Altered nutrition related lab values r/t current chronic medical condition aeb elev BUN severe hypoalb Comments Will continue to closely monitor pertinent labs, NPO status and skin status prn. Will followup in 2-3 days 1) ) Continue PN support to meet > 75% of needs. 2) Gradually advance pt to oral diet when medically feasible and as tolerated 3) Continue current plan of care
[2020-03-04 12:47] VITALS: BP 160/89
--- NOTE | 2020-03-04 15:00 | NUR ---
Wound care Abdominal incision dressing changed after patient removed. Wound was found to be opened to air and patient stated he removed it because it was "gross". Patient also stated that his dressing had not been changed in two days. Patient was reminded that wound care was performed in the am and a new dressing was applied. Wound was cleansed and new dressing applied. Patient tolerated well.
[2020-03-04 17:00] VITALS: BP 131/58
[2020-03-04] MEDS ORDERED: TPN PER PHARMACY IV NR ×10 (20:00)
[2020-03-04] MEDS ORDERED: DIGOXIN (250MCG/ML) 2 ML AMPULE IV ONE (21:15)
[2020-03-04] MEDS: LORazepam 2MG/ML-1ML VIAL IV PRN (21:59)
[2020-03-04 22:00] VITALS: BP 122/74
[2020-03-05] MEDS: PIPERACILLIN-TAZOB 3.375GM 100 ML IV SCH ×4 (00:46→18:20)
[2020-03-05] MEDS: HYDROmorphone HCL 2 MG/ML VL IV PRN ×9 (02:54→23:28)
[2020-03-05] MEDS: ACETAMINOPHEN 650 MG RECT SUPP PR PRN ×2 (04:47→07:54)
[2020-03-05 05:00] VITALS: BP 130/88
[2020-03-05] MEDS: InsuLIN REG 1unit/0.01ml Soln (100units/ml) SC SCH ×4 (06:00→18:00)
[2020-03-05] MEDS: ACCU-CHEK COMFORT CURVE STRIP VI SCH ×4 (06:05→18:20)
[2020-03-05] MEDS: ALBUTEROL SULF 2.5 MG/0.5ML(0.5%) NEB SOLN NEB SCH ×3 (06:35→22:08)
[2020-03-05] MEDS: BUDESONIDE (INHALATION) 0.5 MG/2 ML NEB NEB SCH ×2 (06:36→22:08)
[2020-03-05] MEDS: IPRATROPIUM BROM 0.5 MG/2.5ML INH SOL NEB SCH ×3 (06:36→22:08)
[2020-03-05 08:40] LABS: Hematocrit 28.6 % (41.0-53.0); White Blood Cell 11.2 10^3/uL (4.4-10.8)
[2020-03-05 08:42] LABS: Hemoglobin 9.2 g/dL (13.5-17.5); Mean Corpuscular Hemoglobin 27.2 pg (28.0-32.0); Mean Corpuscular Hgb Conc. 32.2 g/dL (32.0-36.0); Mean Corpuscular Volume 84.4 fL (80.0-100.0); Platelet Count (auto) 519 10^3/uL (140-450); Red Blood Cells 3.39 10^6/uL (4.5-5.90); Red Cell Distribution Width 14.8 % (11.8-14.3)
[2020-03-05 08:44] LABS: Band Neutrophils % (manual) 0; Basophils % (manual) 0 (0.0-2.0); Blast Cells 0; Metamyelocytes % 0; Myelocytes % 0; Promyelocytes % 0; Reactive Lymphocytes 0
[2020-03-05 09:00] VITALS: BP 121/65
[2020-03-05 09:06] LABS: Eosinophils % (manual) 1 (0-7); Lymphocytes % (manual) 12 (10.0-50.0); Monocytes % (manual) 6 (0-12)
[2020-03-05 09:13] LABS: Alanine Aminotransferase 36 U/L (16-61); Alkaline Phosphatase 187 U/L (45-117); Anion Gap 4 (5-15); Aspartate Aminotransferase 52 U/L (15-37); BUN/Creatinine Ratio 21.1; Blood Urea Nitrogen 12 mg/dL (7-18); Carbon Dioxide 27 mmol/L (21-32); Chloride 102 mmol/L (98-107); GFR African American 193 mL/min; GFR Non-African American 160 mL/min; Glucose 112 mg/dL (74-106); Sodium 133 mmol/L (136-145)
[2020-03-05 09:14] LABS: Albumin 1.7 g/dL (3.4-5.0); Bilirubin, Total 1.3 mg/dL (0.2-1.0); Calcium 8.1 mg/dL (8.5-10.1); Magnesium 2.1 mg/dL (1.6-2.6); Phosphorus 3.8 mg/dL (2.5-4.90); Total Protein 6.5 g/dL (6.4-8.2)
[2020-03-05] MEDS: DIGOXIN (250MCG/ML) 2 ML AMPULE IV SCH (09:19)
[2020-03-05] MEDS: PANTOPRAZOLE 40 MG/10 ML VIAL INJ IV SCH ×2 (09:19→21:38)
[2020-03-05] MEDS: MICAFUNGIN SODIUM 100 MG in SODIUM CHL 0.9% 100 ML IV SCH (09:20)
[2020-03-05] MEDS: ENOXAPARIN SOD 40 MG/0.4 ML SYRINGE SC SCH (09:20)
--- NOTE | 2020-03-05 09:30 | NUR ---
Wound care Abdominal incision dressing removed after moderate serous drainage noted. Wound cleansed and new dressing applied. DOTTIE drain surrounding cleansed and new dressing applied. Patient tolerated well.
[2020-03-05] MEDS: SODIUM CHLOR 0.9% PF (SALINE LOCK) 10ML VIAL/SYR IV SCH ×2 (10:00→21:39)
[2020-03-05 16:39] VITALS: BP 126/75
--- NOTE | 2020-03-05 19:19 | NUR ---
DOTTIE DRAIN 25 ML REMOVED
[2020-03-05 19:28] VITALS: BP 126/75
[2020-03-05] MEDS ORDERED: TPN PER PHARMACY IV NR ×9 (20:00)
[2020-03-05 22:00] VITALS: BP 118/74
--- NOTE | 2020-03-06 01:42 | NUR ---
Pt's HR increased to 130s, 140s, climbing to 150s rapidly. This RN responded to pt's room to find him breathing rapidly and pointing to his NG tube. Light green mucus coming from nose mouth area. Pt coughed and requesting 'rag'. Pt spitting into water container. Wash cloth obtained and given to pt. Pt able to talk and stated suddenly felt as if NG broke and scratched his throat. NG tube noted to have come out to 24. This ball holder NG to 28 as prev at change of shift and prev day. Unable to push air to check for placement. Now calling nylon winder For Dr. Wilson. Initially on hold, call now answered and being paged.
--- NOTE | 2020-03-06 01:55 | NUR ---
Pt stated, "It feels better now." Dilaudid now given for pain of 9/10 in abd and L perimeter of face.
[2020-03-06] MEDS: HYDROmorphone HCL 2 MG/ML VL IV PRN ×11 (02:00→23:41)
--- NOTE | 2020-03-06 04:19 | NUR ---
Pt resting with eyes shut but awake as HAND RIGGER just took VS. NG cont to drain opague green fluid. Abd cont distended. Pt states pain is still in same area and same type. Dilaudid given. BS cont active.
[2020-03-06 05:00] VITALS: BP 102/62
--- NOTE | 2020-03-06 05:21 | NUR ---
Paging Dr. Wilson as no return call received. Answering service to re-page Dr. Wilson. Called the office of Dr. Arline Ervin as directed by the combat systems operator mine warfare, left message for call back.
[2020-03-06] MEDS: ACCU-CHEK COMFORT CURVE STRIP VI SCH ×5 (06:00→23:53)
[2020-03-06] MEDS: InsuLIN REG 1unit/0.01ml Soln (100units/ml) SC SCH ×5 (06:00→23:54)
[2020-03-06 06:24] LABS: Albumin 1.7 g/dL (3.4-5.0); Calcium 8.1 mg/dL (8.5-10.1); Magnesium 2.1 mg/dL (1.6-2.6); Potassium 3.9 mmol/L (3.5-5.1)
[2020-03-06 06:28] LABS: Bilirubin, Total 1.2 mg/dL (0.2-1.0); Phosphorus 2.6 mg/dL (2.5-4.90); Pre Albumin 5.3 mg/dL (20.0-40.0); Total Protein 6.5 g/dL (6.4-8.2)
[2020-03-06] MEDS: IPRATROPIUM BROM 0.5 MG/2.5ML INH SOL NEB SCH ×4 (06:29→18:38)
[2020-03-06] MEDS: BUDESONIDE (INHALATION) 0.5 MG/2 ML NEB NEB SCH ×2 (06:29→18:38)
[2020-03-06] MEDS: ALBUTEROL SULF 2.5 MG/0.5ML(0.5%) NEB SOLN NEB SCH ×4 (06:29→18:38)
[2020-03-06] MEDS: PIPERACILLIN-TAZOB 3.375GM 100 ML IV SCH ×4 (06:46→20:00)
--- NOTE | 2020-03-06 07:05 | NUR ---
Chest, abd x-rays done; no answer from Dr. Ervin. Endorsing to day RN.
[2020-03-06 08:00] VITALS: BP 94/64
[2020-03-06] MEDS: ACETAMINOPHEN 650 MG RECT SUPP PR PRN (08:55)
[2020-03-06 08:59] VITALS: BP 94/64
[2020-03-06] MEDS: SODIUM CHLOR 0.9% PF (SALINE LOCK) 10ML VIAL/SYR IV SCH ×2 (10:00→22:11)
[2020-03-06] MEDS: DIGOXIN (250MCG/ML) 2 ML AMPULE IV SCH (10:30)
[2020-03-06] MEDS: ENOXAPARIN SOD 40 MG/0.4 ML SYRINGE SC SCH (10:30)
[2020-03-06] MEDS: PANTOPRAZOLE 40 MG/10 ML VIAL INJ IV SCH ×2 (10:30→21:34)
[2020-03-06] MEDS: MICAFUNGIN SODIUM 100 MG in SODIUM CHL 0.9% 100 ML IV SCH (10:31)
--- NOTE | 2020-03-06 10:46 | NUR ---
Nutrition Followup Notes Wt: 89.2 kg Pt has no new complaints. Pt reports would like to eat when he can. Pt is on TPN at 95 mls/hr which provides 2340 kcal and 120g of protein, 1860 NCP. This provides 100% of energy needs and 100% of protein needs Est Energy needs: 2242-1387 kcals (23-25 kcal/kgBW), Est Protein needs: 74-93 gms/day (0.8-1.0 gm/kgBW). Will continue to monitor and reassess prn. LABS: Creat 0.60L, Ca 8.1L, Alb 1.7L GI: 03/04 RN doc reports 800 ml stool total BS: 15 moderate risk, incision at site of sx per RN doc PES: Partially resolved: Altered nutrition related lab values r/t current chronic medical condition aeb elev BUN severe hypoalb Comments Will continue to closely monitor pertinent labs, NPO status and skin status prn. Will followup in 2-3 days 1) ) Continue PN support to meet > 75% of needs. 2) Gradually advance pt to oral diet when medically feasible and as tolerated 3) Continue current plan of care
--- NOTE | 2020-03-06 12:55 | NUR ---
NG Tube Displaced Received a call from Radiology this morning that the patient's NG Tube was in the wrong location. The CXR showed it to be in the thorax. Attempted several times today to re-adjust the NG tube but the patient refused, doesn't want me to touch it. I explained his situation and why he need to have the NG tube working properly. He still refused to have anyone touch his NG Tube. Will notify the doctor. Will continue to monitor.
[2020-03-06 13:00] VITALS: BP 111/67
--- NOTE | 2020-03-06 14:32 | NUR ---
PT REFUSED MED NEB AT THIS TIME, PT ON 2L NC WITH A SPO2 97%, HR 91, RR 22, WITH CLEAR BS. PT SAYS HE IS IN PAIN DUE TO NGT PLACEMENT AND WILL SKIP THIS MED NEB. NO DISTRESS NOTED. WILL CONTINUE TO MONITOR PT.
[2020-03-06 17:00] VITALS: BP 123/75
[2020-03-06] MEDS: VANCOMYCIN 1GM/250ML 250 ML IV SCH (18:10)
[2020-03-06] MEDS ORDERED: VANCOMYCIN PER PHARMACY 0 MG IV SCH (18:15)
[2020-03-06] MEDS ORDERED: ALBUTEROL SULF 2.5 MG/0.5ML(0.5%) NEB SOLN ONE (18:35)
[2020-03-06] MEDS ORDERED: BUDESONIDE (INHALATION) 0.5 MG/2 ML NEB ONE (18:35)
[2020-03-06] MEDS ORDERED: IPRATROPIUM BROM 0.5 MG/2.5ML INH SOL ONE (18:35)
--- NOTE | 2020-03-06 19:20 | NUR ---
Opening Shift Note Assumed care of patient after receiving report from MARVIN Tristan. Patient awake and alert with no S/S of distress/SOB or pain. Call light within reach with bed in lowest position x2 side rails. Instructed on POC and to call for assist PRN, will continue to monitor for changes Q1hr and PRN.
--- NOTE | 2020-03-06 19:45 | NUR ---
NG Tube Re-inserted The patient's NG Tube was re-inserted today around 1600hrs. The patient refused it several times today but after I explained to him Dr. Wilson said he can't refuse, he accepted it. NG Tube placed to 58cm, clamped and secured. Restarted wall suction at Low continuous suction at 80mm Hg. Will continue to monitor.
[2020-03-06] MEDS ORDERED: TPN PER PHARMACY IV NR ×9 (20:00)
[2020-03-06 22:00] VITALS: BP 120/86
[2020-03-06] MEDS: LORazepam 2MG/ML-1ML VIAL IV PRN (22:06)
[2020-03-07] MEDS: PIPERACILLIN-TAZOB 3.375GM 100 ML IV SCH ×4 (02:08→20:28)
[2020-03-07] MEDS: HYDROmorphone HCL 2 MG/ML VL IV PRN ×10 (02:09→22:59)
[2020-03-07 05:00] VITALS: BP 119/77
[2020-03-07 05:12] LABS: Basophils # (auto) 0.1 10 ^3/uL (0-0.2); Lymphocytes # (auto) 1.3 10 ^3/uL (0.4-5.4); Monocytes # (auto) 1.1 10 ^3/uL (0-1.3); Neutrophils # (auto) 7.3 10 ^3/uL (1.6-8.6)
[2020-03-07 05:13] LABS: Eosinophils # (auto) 0.4 10 ^3/uL (0-0.8); Eosinophils % (auto) 3.5 % (0.0-7.0); Hematocrit 27.7 % (41.0-53.0); Hemoglobin 8.8 g/dL (13.5-17.5); Lymphocytes % (auto) 12.6 % (10.0-50.0); Mean Corpuscular Hemoglobin 31.8 pg (28.0-32.0); Mean Corpuscular Hgb Conc. 31.7 g/dL (32.0-36.0); Mean Corpuscular Volume 100.4 fL (80.0-100.0); Monocytes % (auto) 10.7 % (0.0-12.0); Neutrophils % (auto) 72.2 % (37.0-80.0); Platelet Count (auto) 509 10^3/uL (140-450); Red Blood Cells 2.75 10^6/uL (4.5-5.90); Red Cell Distribution Width 15.9 % (11.8-14.3)
[2020-03-07] MEDS: InsuLIN REG 1unit/0.01ml Soln (100units/ml) SC SCH ×3 (06:00→18:00)
[2020-03-07] MEDS: VANCOMYCIN 1GM/250ML 250 ML IV SCH ×2 (06:11→18:27)
[2020-03-07] MEDS: ACCU-CHEK COMFORT CURVE STRIP VI SCH ×3 (06:11→18:27)
[2020-03-07] MEDS: ALBUTEROL SULF 2.5 MG/0.5ML(0.5%) NEB SOLN NEB SCH ×3 (07:15→22:00)
[2020-03-07] MEDS: IPRATROPIUM BROM 0.5 MG/2.5ML INH SOL NEB SCH ×3 (07:15→22:00)
[2020-03-07] MEDS: BUDESONIDE (INHALATION) 0.5 MG/2 ML NEB NEB SCH ×2 (07:16→22:00)
[2020-03-07 08:00] VITALS: BP 122/77
[2020-03-07 08:04] LABS: Blood Urea Nitrogen 11 mg/dL (7-18)
[2020-03-07 08:08] LABS: Alanine Aminotransferase 35 U/L (16-61); Aspartate Aminotransferase 58 U/L (15-37)
--- NOTE | 2020-03-07 08:10 | NUR ---
Opening Shift Note Assumed care of patient, awake and alert. No S/S of distress/SOB. Instructed on POC and to call for assist PRN, will continue to monitor for changes Q1hr and PRN. Bed locked in lowest position with two side rails up and call light in reach. NG tube to suction 400ml in canister. Patient medicated for pain 8/10 in abdominal area. DOTTIE drain no drainage noted to measure. Offered to reposition patient and patient refused.
[2020-03-07 08:11] LABS: Alkaline Phosphatase 189 U/L (45-117); Anion Gap 9 (5-15); BUN/Creatinine Ratio 18.3; Carbon Dioxide 24 mmol/L (21-32); Chloride 102 mmol/L (98-107); GFR African American 182 mL/min; GFR Non-African American 150 mL/min; Glucose 82 mg/dL (74-106); Potassium 3.8 mmol/L (3.5-5.1); Sodium 135 mmol/L (136-145)
[2020-03-07 08:12] LABS: Albumin 1.7 g/dL (3.4-5.0); Bilirubin, Total 1.3 mg/dL (0.2-1.0); Calcium 7.9 mg/dL (8.5-10.1); Magnesium 2.3 mg/dL (1.6-2.6); Phosphorus 2.8 mg/dL (2.5-4.90)
[2020-03-07 09:11] VITALS: BP 122/77
[2020-03-07] MEDS: SODIUM CHLOR 0.9% PF (SALINE LOCK) 10ML VIAL/SYR IV SCH ×2 (10:27→22:59)
[2020-03-07] MEDS: ENOXAPARIN SOD 40 MG/0.4 ML SYRINGE SC SCH (10:27)
[2020-03-07] MEDS: PANTOPRAZOLE 40 MG/10 ML VIAL INJ IV SCH ×2 (10:27→22:57)
[2020-03-07] MEDS: DIGOXIN (250MCG/ML) 2 ML AMPULE IV SCH (10:29)
[2020-03-07] MEDS: MICAFUNGIN SODIUM 100 MG in SODIUM CHL 0.9% 100 ML IV SCH (10:29)
[2020-03-07 13:00] VITALS: BP 126/77
--- NOTE | 2020-03-07 15:30 | NUR ---
PATIENT COMPLAINS OF NG TUBE MOVING AND TAPE COMING OFF. PER PROTOCOL CHEST X RAY TAKEN AND NG TUBE IN PLACE. NG TUBE RE TAPED AND SECURED, SUCTION ON.
[2020-03-07 16:47] VITALS: BP 121/58
--- NOTE | 2020-03-07 17:00 | NUR ---
DOTTIE DRAIN OUT PUT ONLY 5 ML TOTAL
--- NOTE | 2020-03-07 17:30 | NUR ---
DOTTIE DRAIN OUT PER PATIENT DOTTIE DRAIN JUST FELL OUT. CHARGE NURSE GINO AND MYSELF ASSESSED THE SITE NO DRAINAGE NOTED. DRESSED WITH TEGADERM AND GAUZE. DR FERNANDEZ AWARE.
[2020-03-07] MEDS ORDERED: TPN PER PHARMACY IV NR ×9 (20:00)
--- NOTE | 2020-03-07 20:26 | NUR ---
Opening Shift Note Assumed care of patient after receiving report from MARVIN Villasenor. Patient awake and alert. No S/S of distress/SOB or pain. Call light within reach, bed in lowest position, HOB >30 degrees, x2 side rails. Instructed on POC and to call for assist PRN, will continue to monitor for changes Q1hr and PRN.
[2020-03-07 22:00] VITALS: BP 131/86
--- NOTE | 2020-03-07 22:20 | NUR ---
Temp RN was notified that patient had an elevated temperature of 101. Cooling measures taken first with patients covers were removed with only thin sheet covering groin/thigh area for modesty and ice packs placed under arms and cool rag applied to forehead. Reassessed temperature now reading 98.7. Will continue to monitor.
--- NOTE | 2020-03-07 22:40 | NUR ---
Positive blood culture Received call from lab with positive blood culture anaerobic bottle, gram positive cocci in chains. Elsy Wilson MD, awaiting call back.
--- NOTE | 2020-03-07 23:09 | NUR ---
Paged Steve Wilson MD paged for abnormal blood culture: positive blood culture anaerobic bottle - Gram positive cocci in chains. Reviewed current antibiotics with MD, patient currently on Zosyn and Vancomycin. MD stated to continue with current medications/antibiotics, Vancomycin will cover it. Will continue to monitor.
--- NOTE | 2020-03-08 00:40 | NUR ---
Care endorsed to LUIS ANTONIO Piedra RN.
--- NOTE | 2020-03-08 00:50 | NUR ---
REPORT RECEIVED ON PATIENT FROM LEONARDO WONG AT [id number]
[2020-03-08] MEDS: PIPERACILLIN-TAZOB 3.375GM 100 ML IV SCH ×4 (01:31→20:00)
[2020-03-08] MEDS: LORazepam 2MG/ML-1ML VIAL IV PRN ×2 (01:31→22:59)
[2020-03-08] MEDS: HYDROmorphone HCL 2 MG/ML VL IV PRN ×10 (01:31→22:09)
[2020-03-08] MEDS: ONDANSETRON HCL 4 MG/2 ML VIAL IV PRN (04:36)
[2020-03-08 05:00] VITALS: BP 106/73
[2020-03-08 05:34] LABS: Eosinophils # (auto) 0.3 10 ^3/uL (0-0.8)
[2020-03-08 05:37] LABS: Basophils # (auto) 0.2 10 ^3/uL (0-0.2); Basophils % (auto) 1.4 % (0.0-2.0); Eosinophils % (auto) 2.7 % (0.0-7.0); Hematocrit 27.6 % (41.0-53.0); Hemoglobin 8.9 g/dL (13.5-17.5); Lymphocytes # (auto) 1.3 10 ^3/uL (0.4-5.4); Lymphocytes % (auto) 11.3 % (10.0-50.0); Mean Corpuscular Hemoglobin 27.2 pg (28.0-32.0); Mean Corpuscular Hgb Conc. 32.2 g/dL (32.0-36.0); Mean Corpuscular Volume 84.5 fL (80.0-100.0); Monocytes # (auto) 1.4 10 ^3/uL (0-1.3); Neutrophils # (auto) 8.4 10 ^3/uL (1.6-8.6); Neutrophils % (auto) 72.6 % (37.0-80.0); Nucleated Red Blood Cells % 0.1 %; Platelet Count (auto) 591 10^3/uL (140-450); Red Blood Cells 3.26 10^6/uL (4.5-5.90); Red Cell Distribution Width 14.7 % (11.8-14.3); White Blood Cell 11.6 10^3/uL (4.4-10.8)
[2020-03-08] MEDS: ACCU-CHEK COMFORT CURVE STRIP VI SCH ×4 (05:53→17:37)
[2020-03-08] MEDS: InsuLIN REG 1unit/0.01ml Soln (100units/ml) SC SCH ×4 (05:55→17:37)
[2020-03-08 05:56] LABS: Potassium 3.6 mmol/L (3.5-5.1)
[2020-03-08 06:02] LABS: Albumin 1.6 g/dL (3.4-5.0); Bilirubin, Total 1.2 mg/dL (0.2-1.0); Calcium 7.6 mg/dL (8.5-10.1); Magnesium 2.2 mg/dL (1.6-2.6); Phosphorus 2.9 mg/dL (2.5-4.90); Total Protein 6.6 g/dL (6.4-8.2)
[2020-03-08] MEDS: ALBUTEROL SULF 2.5 MG/0.5ML(0.5%) NEB SOLN NEB SCH ×3 (06:10→22:20)
[2020-03-08] MEDS: IPRATROPIUM BROM 0.5 MG/2.5ML INH SOL NEB SCH ×3 (06:10→22:20)
[2020-03-08] MEDS: BUDESONIDE (INHALATION) 0.5 MG/2 ML NEB NEB SCH ×2 (06:10→22:20)
[2020-03-08] MEDS: VANCOMYCIN 1GM/250ML 250 ML IV SCH (06:18)
--- NOTE | 2020-03-08 07:07 | NUR ---
COLOSTOMY BAG HAS MINIMAL OUTPUT. NGT DRAINAGE. 30ML GREENISH LIQUID.
--- NOTE | 2020-03-08 07:53 | NUR ---
OPENING SHIFT NOTE: PATIENT RESTING IN BED, A/OX4. RESPIRATIONS EVEN AND UNLABORED. NGT CONNECTED TO SUCTION, DRESSING ON NOSE REINFORCED. NGT SET AT 50CM. LYNN HUNG BELOW BLADDER, FREE OF KINKS, COLOSTOMY INTACT, MINIMAL OUTPUT. DRESSING TO ABDOMEN CDI. CALL LIGHT WITHIN REACH. GUARDS AT BEDSIDE. WILL CONTINUE TO MONITOR.
[2020-03-08 09:00] VITALS: BP 117/61
[2020-03-08] MEDS: MICAFUNGIN SODIUM 100 MG in SODIUM CHL 0.9% 100 ML IV SCH (10:45)
[2020-03-08] MEDS: DIGOXIN (250MCG/ML) 2 ML AMPULE IV SCH (10:45)
[2020-03-08] MEDS: PANTOPRAZOLE 40 MG/10 ML VIAL INJ IV SCH ×2 (10:46→22:09)
[2020-03-08] MEDS: ENOXAPARIN SOD 40 MG/0.4 ML SYRINGE SC SCH (10:46)
[2020-03-08] MEDS: SODIUM CHLOR 0.9% PF (SALINE LOCK) 10ML VIAL/SYR IV SCH ×2 (10:46→22:10)
[2020-03-08] MEDS ORDERED: VANCOMYCIN 1GM/250ML 250 ML IV SCH ×2 (11:15→18:00)
[2020-03-08] MEDS ORDERED: PIPERACILLIN-TAZOB 3.375GM 100 ML IV SCH (11:15)
--- NOTE | 2020-03-08 11:45 | NUR ---
DOTTIE DRAIN SITE: OPEN WOUND NOTED. PHOTO OBTAINED OF DOTTIE DRAIN SITE PER PATIENT "IT FELL OUT YESTERDAY." WOUND CLEANSED WITH NS, AND COVERED IN DRY GAUZE.
[2020-03-08 12:53] VITALS: BP 111/62
--- NOTE | 2020-03-08 13:10 | NUR ---
NG TUBE ADVANCED FROM 50 TO 56 PER RECOMMENDATION FROM ABDOMINAL X RAY.
[2020-03-08 17:00] VITALS: BP 126/69
--- NOTE | 2020-03-08 19:15 | NUR ---
CARE ENDORSED TO SHARMAINE WONG.
--- NOTE | 2020-03-08 19:20 | NUR ---
Opening Shift Note Assumed care of patient, awake and alert. No S/S of distress/SOB. The patient c/o 9/10 abdominal pain and requested pain medication. Will treat with PRN pain medication. Instructed on POC and to call for assist PRN, will continue to monitor for changes Q1hr and PRN.
[2020-03-08] MEDS ORDERED: TPN PER PHARMACY IV NR ×9 (20:00)
[2020-03-08 20:35] VITALS: BP 126/69
[2020-03-08 22:00] VITALS: BP 128/77
[2020-03-09] MEDS: PIPERACILLIN-TAZOB 3.375GM 100 ML IV SCH ×4 (02:00→20:00)
--- NOTE | 2020-03-09 02:00 | NUR ---
PICC LINE DRESSING CHANGED Patient tolerated dressing change well.
[2020-03-09] MEDS: HYDROmorphone HCL 2 MG/ML VL IV PRN ×12 (02:01→23:50)
[2020-03-09 05:00] VITALS: BP 109/60
[2020-03-09] MEDS: IPRATROPIUM BROM 0.5 MG/2.5ML INH SOL NEB SCH ×3 (05:40→22:18)
[2020-03-09] MEDS: ALBUTEROL SULF 2.5 MG/0.5ML(0.5%) NEB SOLN NEB SCH ×3 (05:40→22:18)
[2020-03-09] MEDS: BUDESONIDE (INHALATION) 0.5 MG/2 ML NEB NEB SCH ×2 (05:40→22:18)
[2020-03-09] MEDS: InsuLIN REG 1unit/0.01ml Soln (100units/ml) SC SCH ×4 (06:00→17:40)
[2020-03-09] MEDS: ACCU-CHEK COMFORT CURVE STRIP VI SCH ×4 (06:00→17:40)
[2020-03-09] MEDS: VANCOMYCIN 1GM/250ML 250 ML IV SCH (06:00)
[2020-03-09 06:33] LABS: Potassium 4.1 mmol/L (3.5-5.1)
[2020-03-09 06:47] LABS: Albumin 1.6 g/dL (3.4-5.0); Bilirubin, Total 1.2 mg/dL (0.2-1.0); Calcium 7.7 mg/dL (8.5-10.1); Magnesium 2.2 mg/dL (1.6-2.6); Phosphorus 3.1 mg/dL (2.5-4.90)
--- NOTE | 2020-03-09 07:20 | NUR ---
opening shift note Assumed care of patient from NOC MARVIN Valle. Patein is AOX4, no s/s of distress or sob noted. Bed is in lowest locked position, side rails up x2, and call light within reach, guard at bedside. Hand cuff noted on left hand and foot. Updated patient on plan of care, patient verbalized understanding. I will continue to monitor Q1HR and PRN.
[2020-03-09 08:33] VITALS: BP 99/70
[2020-03-09] MEDS ORDERED: MAGNESIUM CITRATE SOLUTION 300 ML BTL PO ONE (08:45)
[2020-03-09] MEDS: ENOXAPARIN SOD 40 MG/0.4 ML SYRINGE SC SCH (10:05)
[2020-03-09] MEDS: PANTOPRAZOLE 40 MG/10 ML VIAL INJ IV SCH ×2 (10:05→22:00)
[2020-03-09] MEDS: DIGOXIN (250MCG/ML) 2 ML AMPULE IV SCH (10:08)
[2020-03-09] MEDS: SODIUM CHLOR 0.9% PF (SALINE LOCK) 10ML VIAL/SYR IV SCH ×2 (10:09→22:00)
[2020-03-09] MEDS: MICAFUNGIN SODIUM 100 MG in SODIUM CHL 0.9% 100 ML IV SCH (11:47)
--- NOTE | 2020-03-09 11:47 | NUR ---
Nutrition Followup Notes Wt: 86.3 kg Pt allowed ice chips and gum for comfort. Pt is on TPN at 95 mls/hr which provides 2340 kcal and 120g of protein, 1860 NCP. This provides 100% of energy needs and 100% of protein needs Est Energy needs: 0247-0016 kcals (23-25 kcal/kgBW), Est Protein needs: 74-93 gms/day (0.8-1.0 gm/kgBW). Will continue to monitor and reassess prn. LABS: Creat 0.61L, Alb 1.6L, Ca 7.7L, Glu 137H GI: 03/07 RN doc reports 100 ml stool total BS: 18 moderate risk, incision at site of sx per RN doc PES: Partially resolved: Altered nutrition related lab values r/t current chronic medical condition aeb elev BUN severe hypoalb Comments Will continue to closely monitor pertinent labs, NPO status and skin status prn. Will followup in 2-3 days 1) ) Continue PN support to meet > 75% of needs. 2) Gradually advance pt to oral diet when medically feasible and as tolerated 3) Continue current plan of care
--- NOTE | 2020-03-09 12:40 | NUR ---
Cooling measures applied Patient noted to have a fever of 99.0. Ice packs applied bilaterally to axilla. I will continue to monitor Q1HR and PRN.
[2020-03-09 12:43] VITALS: BP 119/68
--- NOTE | 2020-03-09 16:00 | NUR ---
Midline Dressing Changed Midline dressing change done with a sterile technique. Cleansed with chloraprep. Stat lock, and bio-patch as available. Occlusive dressing applied. Patient tolerated procedure well.
[2020-03-09 16:38] VITALS: BP 110/66
[2020-03-09] MEDS: ONDANSETRON HCL 4 MG/2 ML VIAL IV PRN (16:48)
--- NOTE | 2020-03-09 19:00 | NUR ---
End of shift note Endorsed care to NOC MARVIN Valle. No s/s of distress noted at this time.
--- NOTE | 2020-03-09 19:15 | NUR ---
Opening Shift Note Assumed care of patient, awake and alert. No S/S of distress/SOB. Patient reports severe abdominal pain which he rates as a 9/10. Patient requested pain medication. Will treat with PRN Dilaudid. Guards are at bedside. Bed is locked in lowest position with the call light within reach. Instructed on POC and to call for assist PRN, will continue to monitor for changes Q1hr and PRN.
[2020-03-09] MEDS ORDERED: TPN PER PHARMACY IV NR ×8 (20:00)
[2020-03-09 22:00] VITALS: BP 111/69
[2020-03-10] MEDS: HYDROmorphone HCL 2 MG/ML VL IV PRN ×11 (01:15→23:46)
[2020-03-10] MEDS: PIPERACILLIN-TAZOB 3.375GM 100 ML IV SCH ×4 (02:00→20:28)
--- NOTE | 2020-03-10 04:05 | NUR ---
PATIENT"S HEART RATE ELEVATED TO THE 130s. MIGUELINA ADMINISTER PRN METOPROLOL AND REASSESS.
[2020-03-10] MEDS: METOPROLOL TARTRATE 1MG/1ML-5ML VIAL IV PRN (04:12)
[2020-03-10 05:00] VITALS: BP 107/67
--- NOTE | 2020-03-10 05:00 | NUR ---
REASSESSMENT The patient's heart rate has improved to the low 100s. Will continue to monitor the patient's status.
[2020-03-10] MEDS: ACCU-CHEK COMFORT CURVE STRIP VI SCH ×4 (06:00→18:13)
[2020-03-10] MEDS: InsuLIN REG 1unit/0.01ml Soln (100units/ml) SC SCH ×4 (06:00→18:00)
[2020-03-10] MEDS: IPRATROPIUM BROM 0.5 MG/2.5ML INH SOL NEB SCH ×3 (06:24→22:34)
[2020-03-10] MEDS: ALBUTEROL SULF 2.5 MG/0.5ML(0.5%) NEB SOLN NEB SCH ×3 (06:24→22:34)
[2020-03-10] MEDS: BUDESONIDE (INHALATION) 0.5 MG/2 ML NEB NEB SCH ×2 (06:25→22:34)
[2020-03-10 06:57] LABS: Basophils # (auto) 0.1 10 ^3/uL (0-0.2); Eosinophils # (auto) 0.2 10 ^3/uL (0-0.8); Hemoglobin 8.4 g/dL (13.5-17.5); Lymphocytes # (auto) 1.3 10 ^3/uL (0.4-5.4); Neutrophils # (auto) 7.5 10 ^3/uL (1.6-8.6); Nucleated Red Blood Cells % 0.1 %
[2020-03-10 07:02] LABS: Basophils % (auto) 0.6 % (0.0-2.0); Eosinophils % (auto) 1.6 % (0.0-7.0); Hematocrit 27.4 % (41.0-53.0); Lymphocytes % (auto) 12.4 % (10.0-50.0); Mean Corpuscular Hemoglobin 32.4 pg (28.0-32.0); Mean Corpuscular Hgb Conc. 30.8 g/dL (32.0-36.0); Mean Corpuscular Volume 105.3 fL (80.0-100.0); Monocytes # (auto) 1.1 10 ^3/uL (0-1.3); Monocytes % (auto) 10.7 % (0.0-12.0); Neutrophils % (auto) 74.7 % (37.0-80.0); Platelet Count (auto) 514 10^3/uL (140-450); White Blood Cell 10.1 10^3/uL (4.4-10.8)
[2020-03-10 07:52] VITALS: BP 128/75
[2020-03-10 08:00] VITALS: BP 128/75
--- NOTE | 2020-03-10 08:00 | NUR ---
Opening Shift Note Assumed care of patient, awake and alert. No S/S of distress/SOB or pain . Instructed on POC and to call for assist PRN. Bed at lowest locked position and call light within reach. Will continue to monitor for changes Q1hr and PRN. Addendum: 03/10/20 at 0913 by Kathryn Lira RN *guards at bedside, for safety.
--- NOTE | 2020-03-10 08:20 | NUR ---
Patient c/o pain, rates it 07/26, no s/s of distress/sob noted. Will medicate per MD orders. Addendum: 03/10/20 at 1422 by Kathryn Lira RN * patient is comfortably sleeping, no s/s of distress/sob noted/stated.
[2020-03-10] MEDS: ENOXAPARIN SOD 40 MG/0.4 ML SYRINGE SC SCH (08:38)
[2020-03-10] MEDS: PANTOPRAZOLE 40 MG/10 ML VIAL INJ IV SCH ×2 (08:38→21:40)
[2020-03-10] MEDS: DIGOXIN (250MCG/ML) 2 ML AMPULE IV SCH (08:39)
[2020-03-10] MEDS: SODIUM CHLOR 0.9% PF (SALINE LOCK) 10ML VIAL/SYR IV SCH ×2 (08:39→21:41)
[2020-03-10 10:11] LABS: Total Protein 7.3 g/dL (6.4-8.2)
[2020-03-10 10:22] LABS: Potassium 4.3 mmol/L (3.5-5.1)
[2020-03-10 10:23] LABS: Albumin 1.7 g/dL (3.4-5.0); Calcium 7.8 mg/dL (8.5-10.1); Magnesium 2.4 mg/dL (1.6-2.6); Phosphorus 2.8 mg/dL (2.5-4.90)
[2020-03-10] MEDS: ACETAMINOPHEN 650 MG RECT SUPP PR PRN (11:10)
[2020-03-10] MEDS: MICAFUNGIN SODIUM 100 MG in SODIUM CHL 0.9% 100 ML IV SCH (11:31)
[2020-03-10 13:57] VITALS: BP 127/67
--- NOTE | 2020-03-10 14:00 | NUR ---
Patient c/o abdominal pain, rates it 03/26. Medicated per MD order. Will continue to monitor PRN. Addendum: 03/10/20 at 1857 by Kathryn Lira RN *[phone], PATIENT COMFORTABLY RESTING IN BED.
--- NOTE | 2020-03-10 14:40 | NUR ---
NGT patients NG tube to the right nare is at 38cm, advanced it to 58cm. Patient tolerated well. chest X-ray ordered. Awaiting results. Addendum: 03/10/20 at 1640 by Kathryn Lira RN Chest X-ray recommends tube advancement by 5cm . NG tube advanced to 63cm.
[2020-03-10 17:05] VITALS: BP 107/52
--- NOTE | 2020-03-10 18:00 | NUR ---
DRESSING CHANGE TO MID-ABDOMEN. PATIENT TOLERATED WELL.
[2020-03-10] MEDS: VANCOMYCIN 1GM/250ML 250 ML IV SCH ×2 (18:53)
--- NOTE | 2020-03-10 18:55 | NUR ---
PATIENT C/O PAIN IN THE ABDOMEN, RATES IT 6/10, MEDICATED PER MD ORDERS.
--- NOTE | 2020-03-10 19:15 | NUR ---
PATIENT IS COMFORTABLY RESTING IN BED, NO S/S OF DISTRESS/SOB NOTED. NG TUBE TO RIGHT NARE INTACT AT 65CM. BED AT LOWEST LOCKED POSITION AND CALL LIGHT WITHIN REACH. GUARDS AT BEDSIDE. CARE ENDORSED TO LUIS ANTONIO PATTERSON RN.
--- NOTE | 2020-03-10 19:28 | NUR ---
Opening Shift Note Assumed care of patient after receiving report from MARVIN Millan. Patient awake and alert. No S/S of distress/SOB or pain. Call light within reach, bed in lowest position x2 side rails, and HOB >30 degrees. Instructed on POC and to call for assist PRN, will continue to monitor for changes Q1hr and PRN.
[2020-03-10] MEDS ORDERED: TPN PER PHARMACY IV NR ×10 (20:00)
[2020-03-10 22:20] VITALS: BP 132/86
[2020-03-11] MEDS: ACETAMINOPHEN 650 MG RECT SUPP PR PRN (00:14)
[2020-03-11] MEDS: ACCU-CHEK COMFORT CURVE STRIP VI SCH ×5 (00:29→23:59)
--- NOTE | 2020-03-11 00:35 | NUR ---
NGT Patient stated that he had fallen asleep and pulled on tubing and the NG tube came out some. NG tube was advanced and bowel sounds were verified with second RN. NG tube taped and in place at 52 cm. Will continue to monitor.
[2020-03-11] MEDS: PIPERACILLIN-TAZOB 3.375GM 100 ML IV SCH ×4 (02:00→20:29)
[2020-03-11] MEDS: HYDROmorphone HCL 2 MG/ML VL IV PRN ×9 (02:01→22:40)
[2020-03-11 05:32] VITALS: BP 119/76
[2020-03-11] MEDS: InsuLIN REG 1unit/0.01ml Soln (100units/ml) SC SCH ×5 (06:00→23:59)
[2020-03-11] MEDS: BUDESONIDE (INHALATION) 0.5 MG/2 ML NEB NEB SCH ×2 (06:02→22:26)
[2020-03-11] MEDS: IPRATROPIUM BROM 0.5 MG/2.5ML INH SOL NEB SCH ×3 (06:02→22:26)
[2020-03-11] MEDS: ALBUTEROL SULF 2.5 MG/0.5ML(0.5%) NEB SOLN NEB SCH ×3 (06:02→22:26)
[2020-03-11 06:44] LABS: Mean Corpuscular Hemoglobin 30.2 pg (28.0-32.0); Mean Corpuscular Hgb Conc. 29.8 g/dL (32.0-36.0); Mean Corpuscular Volume 101.3 fL (80.0-100.0); Platelet Count (auto) 543 10^3/uL (140-450); Red Blood Cells 2.66 10^6/uL (4.5-5.90); White Blood Cell 10.4 10^3/uL (4.4-10.8)
[2020-03-11 06:52] LABS: Basophils % (manual) 0 (0.0-2.0); Blast Cells 0; Metamyelocytes % 0; Myelocytes % 0; Promyelocytes % 0
--- NOTE | 2020-03-11 07:30 | NUR ---
Opening Shift Note Report received and assumed care of patient, asleep.awakened for verbal stimuli,No S/S of distress/SOB,no c/o pain. Guards at bedside. Bed is locked in lowest position with the call light within reach. Instructed on POC and to call for assist PRN, will continue to monitor for changes Q1hr and PRN.
[2020-03-11 09:00] VITALS: BP 127/86
--- NOTE | 2020-03-11 09:05 | NUR ---
MD VISIT DR. FERNANDEZ HERE TO SEE AND EXAMINED PATIENT,AWARE OF FEVER LAS NOC.RECEIVED ORDER O PROVIDE PATIENT WITH IS AND GAT OOB UP N CHAIR FOR LONGER TIME TOLERATED.
--- NOTE | 2020-03-11 09:15 | NUR ---
C/O PAIN SCALE OF 8/10,INCISIONAL PAIN,REQUEST FOR PAIN MEDICATION ,MEDICATED WITH DILAUDID 1 MG IV ,SEE eMAR
[2020-03-11 09:19] LABS: Band Neutrophils % (manual) 6; Eosinophils % (manual) 2 (0-7); Lymphocytes % (manual) 14 (10.0-50.0); Monocytes % (manual) 6 (0-12); Reactive Lymphocytes 1
[2020-03-11 09:34] LABS: Alkaline Phosphatase 218 U/L (45-117); Anion Gap 7 (5-15); BUN/Creatinine Ratio 22.6; Blood Urea Nitrogen 12 mg/dL (7-18); Carbon Dioxide 25 mmol/L (21-32); Chloride 103 mmol/L (98-107); GFR African American 210 mL/min; GFR Non-African American 174 mL/min; Glucose 117 mg/dL (74-106); Potassium 3.7 mmol/L (3.5-5.1); Sodium 135 mmol/L (136-145)
[2020-03-11 09:35] LABS: Alanine Aminotransferase 47 U/L (16-61); Albumin 1.5 g/dL (3.4-5.0); Aspartate Aminotransferase 73 U/L (15-37); Bilirubin, Total 0.8 mg/dL (0.2-1.0); Calcium 7.6 mg/dL (8.5-10.1); Magnesium 2.2 mg/dL (1.6-2.6); Phosphorus 2.3 mg/dL (2.5-4.90); Total Protein 6.5 g/dL (6.4-8.2)
[2020-03-11] MEDS ORDERED: SODIUM PHOSPHATES 20 MEQ in SODIUM CHL 0.9% 100 ML IV ONE (11:00)
[2020-03-11] MEDS: ENOXAPARIN SOD 40 MG/0.4 ML SYRINGE SC SCH (11:04)
[2020-03-11] MEDS: PANTOPRAZOLE 40 MG/10 ML VIAL INJ IV SCH ×2 (11:04→22:00)
[2020-03-11] MEDS: DIGOXIN (250MCG/ML) 2 ML AMPULE IV SCH (11:07)
[2020-03-11] MEDS: MICAFUNGIN SODIUM 100 MG in SODIUM CHL 0.9% 100 ML IV SCH ×2 (11:09→11:38)
[2020-03-11] MEDS: SODIUM CHLOR 0.9% PF (SALINE LOCK) 10ML VIAL/SYR IV SCH ×2 (11:16→22:00)
--- NOTE | 2020-03-11 11:37 | NUR ---
C/O INCISIONAL ABDOMINAL PAIN SCALE 9/10.MEDICATED WITH DILAUDID 0.5 MG IVP SEE eMAR FOR DETAILS
[2020-03-11 13:00] VITALS: BP 131/74
[2020-03-11] MEDS: VANCOMYCIN 1GM/250ML 250 ML IV SCH (13:00)
--- NOTE | 2020-03-11 14:03 | NUR ---
Nutrition Followup Notes Wt: 86.3 kg Pt allowed ice chips and gum for comfort. Pt is on TPN at 96 mls/hr which provides 2240 kcal and 120g of protein, 1760 NCP. This provides 95-103% of energy needs and 129-123% of protein needs Est Energy needs: 9855-3061 kcals (23-25 kcal/kgBW), Est Protein needs: 74-93 gms/day (0.8-1.0 gm/kgBW). Will continue to monitor and reassess prn. LABS: CA 7.8 L, ALB 1.7 L. GI: 03/07 RN doc reports 100 ml stool total BS: 17 moderate risk, incision at site of sx per RN doc PES: Partially resolved: Altered nutrition related lab values r/t current chronic medical condition aeb elev BUN severe hypoalb Comments Will continue to closely monitor pertinent labs, NPO status and skin status prn. Will followup in 2-3 days 1) ) Continue PN support to meet > 75% of needs. 2) Gradually advance pt to oral diet when medically feasible and as tolerated 3) Continue current plan of care
--- NOTE | 2020-03-11 14:50 | NUR ---
C/O INCISIONAL ABDOMINAL PAIN SCALE 9/10.MEDICATED WITH DILAUDID 1 MG IVP SEE eMAR FOR DETAILS
--- NOTE | 2020-03-11 14:54 | NUR ---
MD VISIT DR. Frankie YUEN HERE TO SEE AND EXAMINED PATIENT,RECEIVED ORDERS, SEE ORDERS WRITTEN
--- NOTE | 2020-03-11 14:55 | NUR ---
NGT CLAMPED PATIENT INSTRUCTED TO CALL RN IF FEELING ANY NAUSEA OR VOMITING,VERBALIZED UNDERSTANDING
[2020-03-11 17:00] VITALS: BP 124/72
--- NOTE | 2020-03-11 17:24 | NUR ---
C/O INCISIONAL ABDOMINAL PAIN SCALE 9/10.MEDICATED WITH DILAUDID 0.5 MG IVP SEE eMAR FOR DETAILS
--- NOTE | 2020-03-11 18:02 | NUR ---
COLOSTOMY BAG EMPTIED (SOFT PASTY STOOL)
--- NOTE | 2020-03-11 19:15 | NUR ---
STATUS UNCHANGED,NO DISTRESS NO DISCOMFORT,REPORT GIVEN TO INCOMING NOC SHIFT RN
[2020-03-11] MEDS ORDERED: TPN PER PHARMACY IV NR ×10 (20:00)
[2020-03-11 21:24] VITALS: BP 149/81
[2020-03-11] MEDS: LORazepam 2MG/ML-1ML VIAL IV PRN (22:40)
--- NOTE | 2020-03-11 23:31 | NUR ---
1900. REPORT OBTAINED FROM OUTGOING MARVIN ENFF. 1999. PATIENT ASSESSMENT DONE. PATIENT MET LYING SUPINE IN BED WITH HEAD ELEVATED TO 45 DEGREES.STATED HS PAIN WAS COMING BACK.RAPD HEART RATE NOTED. PATIENT WAS FEBRILE. CE PACK APPLED TO BOTH ARMPITA AND BENEATH THE NECK. ABDOMINAL DRESSNG CLEAR AND DRY. COLOSTOMY BAG IN PLACE WITH NO LEAKAGES. MINIMAL CONTENT.
[2020-03-12] MEDS: VANCOMYCIN 1GM/250ML 250 ML IV SCH ×2 (00:46→13:15)
[2020-03-12] MEDS: PIPERACILLIN-TAZOB 3.375GM 100 ML IV SCH ×4 (01:33→19:33)
[2020-03-12 01:59] VITALS: BP 149/81
[2020-03-12] MEDS: HYDROmorphone HCL 2 MG/ML VL IV PRN ×8 (04:19→21:43)
[2020-03-12 05:07] VITALS: BP 136/83
[2020-03-12] MEDS: InsuLIN REG 1unit/0.01ml Soln (100units/ml) SC SCH ×3 (05:57→18:00)
[2020-03-12] MEDS: ACCU-CHEK COMFORT CURVE STRIP VI SCH ×3 (05:58→18:32)
[2020-03-12 06:29] LABS: Albumin 1.7 g/dL (3.4-5.0); Magnesium 2.1 mg/dL (1.6-2.6); Potassium 3.9 mmol/L (3.5-5.1)
[2020-03-12 06:34] LABS: BUN/Creatinine Ratio 21.7; Bilirubin, Total 1.7 mg/dL (0.2-1.0); Phosphorus 2.4 mg/dL (2.5-4.90)
[2020-03-12] MEDS: BUDESONIDE (INHALATION) 0.5 MG/2 ML NEB NEB SCH ×2 (06:47→21:40)
[2020-03-12] MEDS: ALBUTEROL SULF 2.5 MG/0.5ML(0.5%) NEB SOLN NEB SCH ×3 (06:47→21:40)
[2020-03-12] MEDS: IPRATROPIUM BROM 0.5 MG/2.5ML INH SOL NEB SCH ×3 (06:47→21:40)
[2020-03-12] MEDS ORDERED: HYDROmorphone HCL 2 MG/ML VL IV STA (07:57)
--- NOTE | 2020-03-12 07:58 | NUR ---
OPENING SHIFT NOTE Assumed care of patient. PT is awake and alert. No S/S of distress/SOB. Guards at bedside. Bed is in low and locked position. Call light within reach. Instructed on POC and to call for assist PRN, will continue to monitor for changes Q1hr and PRN.
[2020-03-12 09:06] VITALS: BP 120/78
[2020-03-12] MEDS: ENOXAPARIN SOD 40 MG/0.4 ML SYRINGE SC SCH (09:34)
[2020-03-12] MEDS: PANTOPRAZOLE 40 MG/10 ML VIAL INJ IV SCH ×2 (09:34→21:43)
[2020-03-12] MEDS: DIGOXIN (250MCG/ML) 2 ML AMPULE IV SCH (09:36)
[2020-03-12] MEDS: SODIUM CHLOR 0.9% PF (SALINE LOCK) 10ML VIAL/SYR IV SCH ×2 (09:36→21:43)
[2020-03-12 13:00] VITALS: BP 127/79
[2020-03-12 16:42] VITALS: BP 128/86
--- NOTE | 2020-03-12 18:19 | NUR ---
WOUND CARE AND COLOSTOMY CARE PERFORMED. Addendum: 03/12/20 at 1906 by ALIDA CLARK RN AUDI REMOVED FROM ABDOMINAL INCISION X2. PT TOLERATED WELL.
[2020-03-12] MEDS ORDERED: TPN PER PHARMACY IV NR ×9 (20:00)
[2020-03-12] MEDS: LORazepam 2MG/ML-1ML VIAL IV PRN (21:43)
[2020-03-12 22:00] VITALS: BP 145/82
[2020-03-13] MEDS: VANCOMYCIN 1GM/250ML 250 ML IV SCH ×3 (00:40→21:00)
[2020-03-13] MEDS: PIPERACILLIN-TAZOB 3.375GM 100 ML IV SCH (01:57)
[2020-03-13] MEDS: HYDROmorphone HCL 2 MG/ML VL IV PRN ×8 (02:00→21:06)
--- NOTE | 2020-03-13 02:14 | NUR ---
0200. MEDICATED FOR PAIN.
[2020-03-13 05:00] VITALS: BP 154/90
[2020-03-13 05:48] LABS: Basophils # (auto) 0.1 10 ^3/uL (0-0.2); Basophils % (auto) 0.8 % (0.0-2.0); Eosinophils # (auto) 0.3 10 ^3/uL (0-0.8); Monocytes # (auto) 1.2 10 ^3/uL (0-1.3); Neutrophils # (auto) 10.2 10 ^3/uL (1.6-8.6); Nucleated Red Blood Cells % 0.1 %; Red Cell Distribution Width 14.9 % (11.8-14.3)
[2020-03-13 05:49] LABS: Eosinophils % (auto) 2.2 % (0.0-7.0); Hematocrit 28.3 % (41.0-53.0); Lymphocytes # (auto) 1.1 10 ^3/uL (0.4-5.4); Lymphocytes % (auto) 8.7 % (10.0-50.0); Mean Corpuscular Hemoglobin 26.4 pg (28.0-32.0); Mean Corpuscular Hgb Conc. 31.7 g/dL (32.0-36.0); Mean Corpuscular Volume 83.4 fL (80.0-100.0); Monocytes % (auto) 9.6 % (0.0-12.0); Neutrophils % (auto) 78.7 % (37.0-80.0); Platelet Count (auto) 721 10^3/uL (140-450); Red Blood Cells 3.39 10^6/uL (4.5-5.90)
[2020-03-13] MEDS: InsuLIN REG 1unit/0.01ml Soln (100units/ml) SC SCH ×4 (05:59→18:00)
[2020-03-13] MEDS: ACCU-CHEK COMFORT CURVE STRIP VI SCH ×4 (05:59→18:26)
[2020-03-13 06:11] LABS: Albumin 1.7 g/dL (3.4-5.0); BUN/Creatinine Ratio 20.3; Bilirubin, Total 2.2 mg/dL (0.2-1.0); Calcium 8.1 mg/dL (8.5-10.1); Magnesium 1.9 mg/dL (1.6-2.6); Phosphorus 2.9 mg/dL (2.5-4.90); Total Protein 7.4 g/dL (6.4-8.2)
[2020-03-13] MEDS: BUDESONIDE (INHALATION) 0.5 MG/2 ML NEB NEB SCH ×2 (07:19→21:51)
[2020-03-13] MEDS: IPRATROPIUM BROM 0.5 MG/2.5ML INH SOL NEB SCH ×3 (07:19→21:51)
[2020-03-13] MEDS: ALBUTEROL SULF 2.5 MG/0.5ML(0.5%) NEB SOLN NEB SCH ×3 (07:19→21:51)
--- NOTE | 2020-03-13 07:30 | NUR ---
Opening Shift Note Assumed care of patient, awake and alert and oriented x4. No S/S of distress/SOB, reports pain 6/10, will medicate as ordered. Instructed on POC and to call for assist PRN, call light within reach, able to demonstrate how to call for assistance, guards at bedside, PICC to BEHZAD, site patent and benign, infusing TPN as ordered, no swelling noted, ML to ANNA patent and benign, noted incentive spintometer at beside and encouraged patient to use Q1HR and WA, pt verbalized understanding, will continue to monitor for changes Q1hr and PRN.
[2020-03-13 08:00] VITALS: BP 124/80
--- NOTE | 2020-03-13 09:35 | NUR ---
SURGEON AT BEDSIDE DR YUEN AT BESIDE, DISCUSSING POC WITH PT, NG CURRENTLY CLAMPED, STATES TO CONT AND KEEP NG CLAMPED, UNTIL PT CAN TOLERATE DIET, CURRENTLY ON CLEAR LIQUID, NO C/O N/V, CONT CARE
[2020-03-13 09:45] VITALS: BP 124/80
[2020-03-13] MEDS: ENOXAPARIN SOD 40 MG/0.4 ML SYRINGE SC SCH (10:00)
[2020-03-13] MEDS: DIGOXIN (250MCG/ML) 2 ML AMPULE IV SCH (10:00)
[2020-03-13] MEDS: SODIUM CHLOR 0.9% PF (SALINE LOCK) 10ML VIAL/SYR IV SCH ×2 (10:00→22:00)
[2020-03-13] MEDS: FLUCONAZOLE 200MG/100ML 100 ML IV SCH ×2 (10:00→11:52)
[2020-03-13] MEDS: PANTOPRAZOLE 40 MG/10 ML VIAL INJ IV SCH ×2 (10:00→22:00)
--- NOTE | 2020-03-13 11:33 | NUR ---
Nutrition Followup Notes Wt: 88.6 kg Pt diet advanced to clear liquids. Pt po is inadequate per RN doc of 25%, 25% and 50% intakes of CL. Pt is still receiving nutrition through TPN at 96 mls/hr which provides 2240 kcal and 120g of protein, 1760 NCP. This provides 95-103% of energy needs and 129-123% of protein needs Est Energy needs: 9170-5247 kcals (23-25 kcal/kgBW), Est Protein needs: 74-93 gms/day (0.8-1.0 gm/kgBW). Will continue to monitor and reassess prn. LABS: Creat 0.59L, Ca 8.1L, Alb 1.7L, Gluc 129H GI: 03/07 RN doc reports 100 ml stool total BS: 20 low risk, incision at site of sx per RN doc PES: Partially resolved: Altered nutrition related lab values r/t current chronic medical condition aeb elev BUN severe hypoalb Comments Will continue to closely monitor pertinent labs, NPO status and skin status prn. Will followup in 2-3 days 1) ) Continue PN support to meet > 75% of needs while pt diet advances 2) Gradually advance pt to oral diet when medically feasible and as tolerated 3) Continue current plan of care
--- NOTE | 2020-03-13 11:45 | NUR ---
PHYSICAL THERAPY AT BEDSIDE
[2020-03-13 12:36] VITALS: BP 133/81
--- NOTE | 2020-03-13 14:20 | NUR ---
DRESSING CHANGE DRESSING REMOVED, NOTED PURULENT DRAINAGE TO UPPER INCISION SITE, SITE REDDENED, IRRIGATED WITH ND AND STERILE GAUZE, PT MEDICATED PRIOR, PT TOLERATED WELL, CONT CARE
[2020-03-13] MEDS: ONDANSETRON HCL 4 MG/2 ML VIAL IV PRN (14:25)
[2020-03-13 16:56] VITALS: BP 100/76
[2020-03-13] MEDS ORDERED: TPN PER PHARMACY IV NR ×9 (20:00)
--- NOTE | 2020-03-13 21:54 | NUR ---
RT NOTE PT WAS SEEN BY RT FOR HHN TX. PT TOLERATES WELL VIA MOUTHPIECE. NO ADVERSE REACTION NOTED. CONT ORDERED Addendum: 03/13/20 at 2155 by Darlene Grant RT Amended: Links added.
[2020-03-13 22:00] VITALS: BP 122/78
[2020-03-13] MEDS: LORazepam 2MG/ML-1ML VIAL IV PRN (23:01)
[2020-03-14] MEDS: HYDROmorphone HCL 2 MG/ML VL IV PRN ×10 (00:50→22:00)
[2020-03-14 05:00] VITALS: BP 137/79
[2020-03-14] MEDS: VANCOMYCIN 1GM/250ML 250 ML IV SCH ×3 (05:00→19:15)
[2020-03-14 05:43] LABS: Albumin 1.5 g/dL (3.4-5.0); Calcium 7.7 mg/dL (8.5-10.1); Magnesium 2.1 mg/dL (1.6-2.6)
[2020-03-14 05:47] LABS: Phosphorus 3.5 mg/dL (2.5-4.90); Total Protein 6.6 g/dL (6.4-8.2)
[2020-03-14] MEDS: InsuLIN REG 1unit/0.01ml Soln (100units/ml) SC SCH ×4 (05:54→18:00)
[2020-03-14] MEDS: ACCU-CHEK COMFORT CURVE STRIP VI SCH ×4 (05:54→18:14)
[2020-03-14] MEDS: BUDESONIDE (INHALATION) 0.5 MG/2 ML NEB NEB SCH ×2 (07:15→22:35)
[2020-03-14] MEDS: ALBUTEROL SULF 2.5 MG/0.5ML(0.5%) NEB SOLN NEB SCH ×3 (07:15→22:35)
[2020-03-14] MEDS: IPRATROPIUM BROM 0.5 MG/2.5ML INH SOL NEB SCH ×3 (07:15→22:34)
--- NOTE | 2020-03-14 07:25 | NUR ---
Opening Shift Note Assumed care of patient. No S/S of distress/SOB or pain reported at this time, currently sleeping, breathing even and unlabored, easily awakened via verbal stimuli. Instructed on POC and to call for assist PRN, call light within reach, able to demonstrate how to call for assistance, guards at bedside, PICC to BEHZAD, site patent and benign, infusing TPN as ordered, no swelling noted, ML to ANNA patent and benign, NG tube to right nare, currently clamped as ordered by Dr Ervin, noted incentive spintometer at beside and encouraged patient to use Q1HR and WA, pt verbalized understanding, will continue to monitor for changes Q1hr and PRN.
[2020-03-14 08:00] VITALS: BP 115/59
[2020-03-14 09:00] VITALS: BP 115/59
[2020-03-14] MEDS: SODIUM CHLOR 0.9% PF (SALINE LOCK) 10ML VIAL/SYR IV SCH ×2 (10:00→22:45)
[2020-03-14] MEDS: FLUCONAZOLE 200MG/100ML 100 ML IV SCH ×2 (10:42→12:19)
[2020-03-14] MEDS: PANTOPRAZOLE 40 MG/10 ML VIAL INJ IV SCH ×2 (10:42→22:00)
[2020-03-14] MEDS: DIGOXIN (250MCG/ML) 2 ML AMPULE IV SCH (10:42)
[2020-03-14] MEDS: ENOXAPARIN SOD 40 MG/0.4 ML SYRINGE SC SCH (10:43)
[2020-03-14 13:00] VITALS: BP 120/78
[2020-03-14] MEDS: ONDANSETRON HCL 4 MG/2 ML VIAL IV PRN (13:50)
--- NOTE | 2020-03-14 15:59 | NUR ---
PAGED DR FERNANDEZ PAGELinnette TO REMOVE LYNN CATHETER, PT ABLE TO DEMONSTRATE BLE STRENGTH AND USE OF A URINAL, CONT CARE
--- NOTE | 2020-03-14 16:34 | NUR ---
Fournier catheter dc'd Order to discontinue fournier catheter. Fournier dc'd with clean technique following deflation of balloon. Patient tolerated well with no complaints of pain. Continue care.
[2020-03-14 17:00] VITALS: BP 129/73
--- NOTE | 2020-03-14 17:05 | NUR ---
DC NG TUBE TO RIGHT NARE AFTER ORDER RECEIVED PT INFORMED PRIOR, PT TOLERATED WELL, HOB>30, ASPIRATION PRECAUTIONS AT ALL TIMES, CONT CARE
[2020-03-14] MEDS: chlorproMAZINE HCL 25 MG/1 ML AMP IM PRN (19:15)
[2020-03-14] MEDS ORDERED: TPN PER PHARMACY IV NR ×9 (20:00)
[2020-03-14] MEDS: METOPROLOL TARTRATE 1MG/1ML-5ML VIAL IV PRN (20:47)
[2020-03-14 22:00] VITALS: BP 104/73
[2020-03-14] MEDS: ACETAMINOPHEN 650 MG RECT SUPP PR PRN (22:00)
--- NOTE | 2020-03-14 22:00 | NUR ---
ELEVATED TEMPERATURE The patient has an elevated temp of 100.5 F. Will treat with cooling measures and PRN Tylenol.
--- NOTE | 2020-03-14 23:05 | NUR ---
TEMPERATURE REEVALUATION The patient's temperature has improved to 99.1 F. Will continue to monitor the patient's temperature.
--- NOTE | 2020-03-15 | NUR ---
PICC LINE DRESSING CHANGE The patient's PICC line dressing has been changed. Patient tolerated it well.
[2020-03-15] MEDS: ACCU-CHEK COMFORT CURVE STRIP VI SCH ×4 (00:38→17:50)
[2020-03-15 01:29] VITALS: BP 104/73
[2020-03-15] MEDS: VANCOMYCIN 1GM/250ML 250 ML IV SCH ×3 (02:00→16:56)
[2020-03-15] MEDS: HYDROmorphone HCL 2 MG/ML VL IV PRN ×6 (03:46→10:58)
[2020-03-15 05:30] VITALS: BP 120/67
[2020-03-15] MEDS: BUDESONIDE (INHALATION) 0.5 MG/2 ML NEB NEB SCH ×2 (05:57→22:43)
[2020-03-15] MEDS: IPRATROPIUM BROM 0.5 MG/2.5ML INH SOL NEB SCH ×3 (05:57→22:43)
[2020-03-15] MEDS: ALBUTEROL SULF 2.5 MG/0.5ML(0.5%) NEB SOLN NEB SCH ×3 (05:57→22:43)
[2020-03-15] MEDS: InsuLIN REG 1unit/0.01ml Soln (100units/ml) SC SCH ×4 (06:00→17:51)
[2020-03-15 07:05] LABS: Albumin 1.6 g/dL (3.4-5.0); Bilirubin, Total 0.9 mg/dL (0.2-1.0); Calcium 7.9 mg/dL (8.5-10.1); Magnesium 2.1 mg/dL (1.6-2.6); Phosphorus 3.1 mg/dL (2.5-4.90); Total Protein 7.1 g/dL (6.4-8.2)
--- NOTE | 2020-03-15 07:30 | NUR ---
Opening Shift Note Assuming care of patient at this time. Patient is awake and alert. Patient complains of pain, 06/26. Patient has recently been medicated for pain. Will medicate according to doctor's orders. Bed is locked and lowered with side rails up x2. Patient shows no signs or symptoms of distress or shortness of breath. Instructed patient on the plan of care for today and to call for assistance as needed. Call light within reach. Will continue to round hourly and as needed.
[2020-03-15 09:07] VITALS: BP 130/75
[2020-03-15] MEDS: PANTOPRAZOLE 40 MG/10 ML VIAL INJ IV SCH ×2 (10:57→22:03)
[2020-03-15] MEDS: ENOXAPARIN SOD 40 MG/0.4 ML SYRINGE SC SCH (10:58)
[2020-03-15] MEDS: DIGOXIN (250MCG/ML) 2 ML AMPULE IV SCH (10:59)
[2020-03-15] MEDS: FLUCONAZOLE 200MG/100ML 100 ML IV SCH ×2 (10:59→13:34)
[2020-03-15] MEDS: SODIUM CHLOR 0.9% PF (SALINE LOCK) 10ML VIAL/SYR IV SCH ×2 (11:05→22:11)
[2020-03-15] MEDS ORDERED: HYDROmorphone HCL 2 MG TAB PO PRN (11:30)
[2020-03-15] MEDS ORDERED: HYDROmorphone HCL 2 MG/ML VL IV PRN (11:30)
--- NOTE | 2020-03-15 11:34 | NUR ---
TPN Pharmacy Patient's TPN is to be discontinued per Dr. Ervin. Spoke with Balta in pharmacy. Will taper according to schedule given as follows: 70 ml/hr for 2 hours 50 ml/hr for 2 hours 25 ml/hr for 2 hours After the last schedule decrease. TPN will be stopped.
--- NOTE | 2020-03-15 11:37 | NUR ---
TPN tapered TPN tapered at this time to 70 mls/hr per pharmacist recommendation.
--- NOTE | 2020-03-15 12:04 | NUR ---
Patient refused PT. MARVIN Delgadillo was notified. Addendum: 03/15/20 at 1205 by SANDOR WINTERS PTT Amended: Links added.
[2020-03-15 12:49] VITALS: BP 122/87
[2020-03-15] MEDS: HYDROmorphone HCL 2 MG TAB PO PRN ×2 (13:34→17:51)
--- NOTE | 2020-03-15 13:40 | NUR ---
TPN tapered TPN tapered at this time to 50 mls/hr per pharmacist recommendation.
--- NOTE | 2020-03-15 14:41 | NUR ---
Nutrition Followup Notes Wt: 88.0 kg Pt diet advanced to regular diet tolerating well with fair PO of avg 65% x 4 per RN doc. Pt is still receiving nutrition through TPN at 96 mls/hr which provides 2240 kcal and 120g of protein, 1760 NCP. This provides 95-103% of energy needs and 129-123% of protein needs. per RN pt will be tapering off on PN support Est Energy needs: 9548-4330 kcals (23-25 kcal/kgBW), Est Protein needs: 74-93 gms/day (0.8-1.0 gm/kgBW). Will continue to monitor and reassess prn. LABS: GLU 108 H, CA 7.9 L, ALB 1.6 L. GI: 03/07 RN doc reports 100 ml stool total BS: 22 low risk, incision at site of sx per RN doc PES: Partially resolved: Altered nutrition related lab values r/t current chronic medical condition aeb elev BUN severe hypoalb Comments Will continue to closely monitor pertinent labs, NPO status and skin status prn. Will followup in 2-3 days 1) ) Taper off PN support as pt tolerates PO. 2) Continue current plan of care
--- NOTE | 2020-03-15 15:45 | NUR ---
TPN tapered TPN tapered at this time to 25 mls/hr per pharmacist recommendation.
[2020-03-15] MEDS ORDERED: VANCOMYCIN 1GM/250ML 250 ML IV SCH (17:07)
[2020-03-15 17:16] VITALS: BP 123/76
--- NOTE | 2020-03-15 17:45 | NUR ---
TPN tapered TPN tapered off at this time.
[2020-03-15] MEDS: LINEZOLID 600MG/300ML 300 ML IV SCH (18:15)
--- NOTE | 2020-03-15 19:35 | NUR ---
Closing Shift Note Patient resting in bed. No distress noted. Report given. Will endorse care to the hotel night auditor RN.
[2020-03-15] MEDS ORDERED: TPN PER PHARMACY IV NR ×8 (20:00)
[2020-03-15 22:00] VITALS: BP 131/78
[2020-03-15] MEDS: LORazepam 2MG/ML-1ML VIAL IV PRN (22:03)
[2020-03-15] MEDS: ACETAMINOPHEN 650 MG RECT SUPP PR PRN (23:38)
--- NOTE | 2020-03-16 01:22 | NUR ---
High Temperature The patient had a high temp this evening of 100.8. I reassessed the patient and his temperature was 101.1. Gave the patient a Tylenol suppository, recheck the temperature came down to 100.6. Will continue to ensure the temp is trending down.
--- NOTE | 2020-03-16 02:06 | NUR ---
Temperature Trending Down Assessed the patient's temperature again after receiving Tylenol for a temp of 101.1. The first recheck was 100.6 then an hour later the temp dropped to 99.3. Will continue to monitor.
[2020-03-16] MEDS: HYDROmorphone HCL 2 MG TAB PO PRN ×4 (04:27→20:45)
[2020-03-16 05:00] VITALS: BP 127/75
[2020-03-16] MEDS: LINEZOLID 600MG/300ML 300 ML IV SCH ×2 (05:43→18:18)
[2020-03-16] MEDS: ALBUTEROL SULF 2.5 MG/0.5ML(0.5%) NEB SOLN NEB SCH ×3 (06:23→23:04)
[2020-03-16] MEDS: IPRATROPIUM BROM 0.5 MG/2.5ML INH SOL NEB SCH ×3 (06:23→23:04)
[2020-03-16] MEDS: BUDESONIDE (INHALATION) 0.5 MG/2 ML NEB NEB SCH ×2 (06:23→23:04)
[2020-03-16 07:27] LABS: BUN/Creatinine Ratio 25.5
--- NOTE | 2020-03-16 07:30 | NUR ---
Opening Shift Note Assuming care of patient at this time. Patient is awake and alert. Patient states that pain has been better managed with the oral Dilaudid. Patient has recently been medicated for pain. Will medicate according to doctor's orders. Bed is locked and lowered with side rails up x2. Patient shows no signs or symptoms of distress or shortness of breath. Instructed patient on the plan of care for today and to call for assistance as needed. Call light within reach. Will continue to round hourly and as needed.
[2020-03-16 09:00] VITALS: BP 119/78
--- NOTE | 2020-03-16 09:45 | NUR ---
Dr. Ervin at bedside Dr. Ervin at bedside. wants patient to be ordered a gastrectomy diet, which would include small 6 meals a day will notify dietary.
--- NOTE | 2020-03-16 09:50 | NUR ---
Call to Dietary Call to dietary at this time. Left a message regarding patient getting 6 small meals a day.
[2020-03-16] MEDS: DIGOXIN 0.125 MG TAB PO SCH (10:01)
[2020-03-16] MEDS: ENOXAPARIN SOD 40 MG/0.4 ML SYRINGE SC SCH (10:02)
[2020-03-16] MEDS: FLUCONAZOLE 200MG/100ML 100 ML IV SCH ×2 (10:02→11:45)
[2020-03-16] MEDS: PANTOPRAZOLE 40 MG/10 ML VIAL INJ IV SCH ×2 (10:02→21:57)
[2020-03-16] MEDS: SODIUM CHLOR 0.9% PF (SALINE LOCK) 10ML VIAL/SYR IV SCH ×2 (10:05→22:02)
--- NOTE | 2020-03-16 10:59 | NUR ---
Spoke with Dietitian at [facility] Spoke with dietitian at this time, Jack. He is unaware if the kitchen still does 6 small meals. They will follow-up. However, if the kitchen is unable to accommodate the six small meals, then they will provide the 3 regular meals and 3 snacks in between meals.
--- NOTE | 2020-03-16 12:46 | NUR ---
PATIENT REFUSED PT. MARVIN CATALAN WAS NOTIFIED. Addendum: 03/16/20 at 1247 by SANDOR WINTERS PTT Amended: Links added.
[2020-03-16 14:22] VITALS: BP_SYST 124; BP_SYST 136; BP_DIAS 68; BP_DIAS 70
[2020-03-16] MEDS ORDERED: ACETAMINOPHEN 325 MG TAB PO PRN (16:00)
[2020-03-16 17:00] VITALS: BP 130/79
--- NOTE | 2020-03-16 19:26 | NUR ---
Closing Shift Note Patient resting in bed. No distress noted. Report given. Will endorse care to the mold shifter RN.
--- NOTE | 2020-03-16 19:35 | NUR ---
Opening Shift Note Assumed care of patient, awake and alert. Mid abdomen incision dry and intact. [employer] guards at bedside. Instructed on POC and to call for assist PRN, patient verbalized understanding. Safety precaution in place, call light within reach, will continue to monitor for changes Q1hr and PRN.
[2020-03-16] MEDS: LORazepam 2MG/ML-1ML VIAL IV PRN (21:57)
[2020-03-16 22:00] VITALS: BP 121/80
--- NOTE | 2020-03-16 23:04 | NUR ---
Respiratory note: AT BEDSIDE FOR MED DEXTER LIU.
[2020-03-17] MEDS: HYDROmorphone HCL 2 MG TAB PO PRN ×4 (02:12→20:32)
[2020-03-17 05:00] VITALS: BP 108/73
[2020-03-17] MEDS: LINEZOLID 600MG/300ML 300 ML IV SCH ×2 (05:48→18:03)
[2020-03-17] MEDS: HYDROmorphone HCL 2 MG/ML VL IV PRN (05:50)
[2020-03-17] MEDS: ALBUTEROL SULF 2.5 MG/0.5ML(0.5%) NEB SOLN NEB SCH ×3 (06:44→22:15)
[2020-03-17] MEDS: BUDESONIDE (INHALATION) 0.5 MG/2 ML NEB NEB SCH ×2 (06:44→22:15)
[2020-03-17] MEDS: IPRATROPIUM BROM 0.5 MG/2.5ML INH SOL NEB SCH ×3 (06:44→22:15)
[2020-03-17] MEDS: DIGOXIN 0.125 MG TAB PO SCH (09:06)
[2020-03-17] MEDS: ENOXAPARIN SOD 40 MG/0.4 ML SYRINGE SC SCH (09:06)
[2020-03-17] MEDS: FLUCONAZOLE 200MG/100ML 100 ML IV SCH ×2 (09:06→10:33)
[2020-03-17] MEDS: PANTOPRAZOLE 40 MG/10 ML VIAL INJ IV SCH ×2 (09:06→21:07)
[2020-03-17] MEDS: SODIUM CHLOR 0.9% PF (SALINE LOCK) 10ML VIAL/SYR IV SCH ×2 (09:07→21:07)
[2020-03-17 09:52] VITALS: BP 126/79
[2020-03-17 13:00] VITALS: BP 140/67
--- NOTE | 2020-03-17 15:48 | NUR ---
Nutrition Followup Notes Wt: 86.2 kg Pt with a regular diet tolerating well with fair PO of avg 69% x 4 per RN doc. Pt no longer receiving TPN nutrition support. Will continue to closely monitor pertinent labs, PO intake and skin status prn. Will followup in 3-5 days Est Energy needs: 3321-3060 kcals (23-25 kcal/kgBW), Est Protein needs: 74-93 gms/day (0.8-1.0 gm/kgBW). Will continue to monitor and reassess prn. LABS: NA 131 L, CL 97 L, POC GLU 107 H, CA 8.0 L, ALB 1.6 L, AST 93 H, ALT 68 H, ALK PHOS 355 H GI: Last BM noted on 03/16 per RN doc BS: 18 low risk, incision at site of sx per RN doc. Please refer to wound assessment report for full details. PES: Partially resolved: Altered nutrition related lab values r/t current chronic medical condition aeb elev BUN severe hypoalb Comments Will continue to closely monitor pertinent labs, NPO status and skin status prn. Will followup in -5 days 1) Taper off PN support as pt tolerates PO. (Resolved) 2) Continue current plan of care
[2020-03-17 16:56] VITALS: BP 116/66
--- NOTE | 2020-03-17 19:50 | NUR ---
Opening Shift Note Assumed care of patient, awake and alert. Mid abdomen incision dressing dry and intact. [employer] guards at bedside. Instructed on POC and to call for assist PRN, patient verbalized understanding. Safety precaution in place, call light within reach, will continue to monitor for changes Q1hr and PRN.
[2020-03-17] MEDS: LORazepam 2MG/ML-1ML VIAL IV PRN (21:07)
[2020-03-17 22:00] VITALS: BP 138/82
[2020-03-18] VITALS (7 sets, daily range): BP systolic 105–138; BP diastolic 56–82
[2020-03-18] MEDS: HYDROmorphone HCL 2 MG TAB PO PRN ×3 (01:43→18:02)
[2020-03-18] MEDS: BUDESONIDE (INHALATION) 0.5 MG/2 ML NEB NEB SCH ×2 (06:12→21:40)
[2020-03-18] MEDS: IPRATROPIUM BROM 0.5 MG/2.5ML INH SOL NEB SCH ×3 (06:12→21:40)
[2020-03-18] MEDS: ALBUTEROL SULF 2.5 MG/0.5ML(0.5%) NEB SOLN NEB SCH ×3 (06:12→21:40)
[2020-03-18] MEDS: LINEZOLID 600MG/300ML 300 ML IV SCH ×2 (06:42→18:01)
--- NOTE | 2020-03-18 08:34 | NUR ---
Patient resting in bed, when I asked the patient if he preferred his medications crushed up in apple sauce or just crushed to swallow (his previous preference) he stated "can't you just crush it up and put is through my IV",I told the patient "no we can't do that, that would possibly cause harm to you, you have to take it by mouth", patient was irritated but verbalized understanding and asked for medication to be put in applesauce after being crushed.
[2020-03-18] MEDS: FLUCONAZOLE 200MG/100ML 100 ML IV SCH ×2 (09:17→10:29)
[2020-03-18] MEDS: SODIUM CHLOR 0.9% PF (SALINE LOCK) 10ML VIAL/SYR IV SCH ×2 (09:18→21:28)
[2020-03-18] MEDS: ENOXAPARIN SOD 40 MG/0.4 ML SYRINGE SC SCH (09:18)
[2020-03-18] MEDS: PANTOPRAZOLE 40 MG/10 ML VIAL INJ IV SCH ×2 (09:18→21:27)
[2020-03-18] MEDS: DIGOXIN 0.125 MG TAB PO SCH (09:18)
--- NOTE | 2020-03-18 09:36 | NUR ---
patient had x1 episode thus far of coughing after trying to swallow scrambled eggs. Paged Steve for swallow eval.
--- NOTE | 2020-03-18 10:00 | NUR ---
Patient able to swallow medications after crushing and mixing with applesauce. After discussing the need for patient to eat small bites and the potential need for pureed or soft texture food patient expressed that he does not want his diet to change, and states if it is pureed then he will not eat it. Educated patient on taking small bites, using water in between bites, and chewing completely so that food will be easier to swallow. Patient states "my throat feels fine, there's nothing wrong with it".
--- NOTE | 2020-03-18 13:59 | NUR ---
Nutrition Followup Notes Wt: 84.5 kg Pt with a regular [employer] diet tolerating well, with fair appetite with ave PO intake of 56% over 4 meals per RN doc. Pt requested six small meals a day, with diet order submitted by MD for the same. Will continue to closely monitor pertinent labs, PO intake and skin status prn. NOTE: Will provide pt with dietary additions of a half sandwich rotation of turkey, roast beef or ham accompanied with applesauce, pudding and jello respectively to be served at 10 am, 2 pm and 8 pm. (These small meals will be provided in between the three regular meals provided daily. Will followup in 3-5 days Est Energy needs: 2747-1687 kcals (23-25 kcal/kgBW), Est Protein needs: 74-93 gms/day (0.8-1.0 gm/kgBW). Will continue to monitor and reassess prn. LABS: NA 131 L, CL 97 L, POC GLU 107 H, CA 8.0 L, ALB 1.6 L, AST 93 H, ALT 68 H, ALK PHOS 355 H GI: Pt wit colostomy, with last BM noted on 03/14 (200ml) per RN doc BS: 18 low risk, incision at site of sx per RN doc. Please refer to wound assessment report for full details. PES: Partially resolved: Altered nutrition related lab values r/t current chronic medical condition aeb elev BUN severe hypoalb Comments Will continue to closely monitor pertinent labs, NPO status and skin status prn. Will followup in 3-5 days 1) Taper off PN support as pt tolerates PO. (Resolved) 2) Provide pt with dietary additions of a half sandwich rotation of turkey, roast beef or ham accompanied with applesauce, pudding and jello respectively to be served at 10 am, 2 pm and 8 pm. (These small meals will be provided in between the three regular meals provided daily. 3) Continue current plan of care
--- NOTE | 2020-03-18 15:07 | NUR ---
Offered patient pain medications multiple times today, just offered to patient again, he states he is comfortable and declines medication.
--- NOTE | 2020-03-18 15:10 | NUR ---
PT at bedside to get patient up.
--- NOTE | 2020-03-18 15:17 | NUR ---
Patient was not able to ambulate with PT, he gave up after attempting to stand.
--- NOTE | 2020-03-18 15:38 | NUR ---
PATIENT ATTEMPTED TO DO PT BUT COULD NOT DO MORE THAN SIT AT EOB. PT STATED THAT THE PAIN WAS TOO BAD TO DO MORE THAN JUST SIT EOB. MARVIN TIAN WAS NOTIFIED. Addendum: 03/18/20 at 1539 by SANDOR WINTERS PTT Amended: Links added.
--- NOTE | 2020-03-18 18:11 | NUR ---
Patient medicated for pain, patient did not show s/s of distress or pain but verbalized 7/10 to abd. Patient stated the pain medication is doing a good job keeping him comfortable.
--- NOTE | 2020-03-18 18:13 | NUR ---
patient was able to swallow medications crushed in applesauce, no episodes of coughing since this AM.
[2020-03-18] MEDS: HYDROmorphone HCL 2 MG/ML VL IV PRN (23:15)
[2020-03-19 05:08] VITALS: BP 134/95
[2020-03-19] MEDS: LINEZOLID 600MG/300ML 300 ML IV SCH ×2 (05:16→17:41)
[2020-03-19] MEDS: HYDROmorphone HCL 2 MG/ML VL IV PRN ×3 (05:38→17:36)
--- NOTE | 2020-03-19 05:39 | NUR ---
PATIENT COMPLAINED OF ABDOMINAL PAIN 04/25. PREFERRED IV DILAUDID MORE THAN THE PO DILAUDID. EXPLAINED THAT IV DILAUDID IS ONLY FOR BREAKTHROUGH PAIN MED, BUT STILL INSISTED ON GETTING IV DILAUDID.
[2020-03-19 06:14] LABS: Hemoglobin 8.9 g/dL (13.5-17.5); Lymphocytes # (auto) 1.1 10 ^3/uL (0.4-5.4); Monocytes # (auto) 1.2 10 ^3/uL (0-1.3)
[2020-03-19 06:17] LABS: Basophils # (auto) 0.3 10 ^3/uL (0-0.2); Basophils % (auto) 1.5 % (0.0-2.0); Eosinophils # (auto) 0 10 ^3/uL (0-0.8); Eosinophils % (auto) 0.3 % (0.0-7.0); Hematocrit 27.9 % (41.0-53.0); Lymphocytes % (auto) 6.1 % (10.0-50.0); Mean Corpuscular Hemoglobin 26.9 pg (28.0-32.0); Mean Corpuscular Volume 84.1 fL (80.0-100.0); Monocytes % (auto) 6.4 % (0.0-12.0); Neutrophils # (auto) 15.4 10 ^3/uL (1.6-8.6); Neutrophils % (auto) 85.7 % (37.0-80.0); Platelet Count (auto) 723 10^3/uL (140-450); Red Blood Cells 3.32 10^6/uL (4.5-5.90); Red Cell Distribution Width 15.8 % (11.8-14.3); White Blood Cell 17.9 10^3/uL (4.4-10.8)
[2020-03-19] MEDS: IPRATROPIUM BROM 0.5 MG/2.5ML INH SOL NEB SCH ×3 (06:27→22:31)
[2020-03-19] MEDS: BUDESONIDE (INHALATION) 0.5 MG/2 ML NEB NEB SCH ×2 (06:27→22:31)
[2020-03-19] MEDS: ALBUTEROL SULF 2.5 MG/0.5ML(0.5%) NEB SOLN NEB SCH ×3 (06:27→22:31)
[2020-03-19 06:39] LABS: BUN/Creatinine Ratio 15.8; Calcium 7.8 mg/dL (8.5-10.1); Potassium 3.8 mmol/L (3.5-5.1)
--- NOTE | 2020-03-19 07:30 | NUR ---
OPENING NOTE RECEIVED REPORT FROM LUIS ANTONIO WONG. POC POSSIBLE IR/ THORACENTESIS R/T PLEURAL EFFUSION. Addendum: 03/19/20 at 1841 by YELITZA SANCHEZ RN RN STRIKE MESSAGE WRONG PATIENT.
--- NOTE | 2020-03-19 07:30 | NUR ---
OPENING NOTE RECEIVED REPORT FROM LUIS ANTONIO WONG. POC POSSIBLE PORT A CATH ON 03/24/2020.
[2020-03-19 08:00] VITALS: BP 113/84
[2020-03-19 09:10] VITALS: BP 113/84
--- NOTE | 2020-03-19 09:45 | NUR ---
CONSENTS CONSENTS SIGNED FOR IR THORACENTESIS. PATIENT AWARE AND EDUCATED FOR PROCEDURE. SPOKE WITH DANG IN IR. Addendum: 03/19/20 at 1839 by YELITZA SANCHEZ RN RN STRIKE THIS MESSAGE WRONG PATIENT.
[2020-03-19] MEDS: PANTOPRAZOLE 40 MG/10 ML VIAL INJ IV SCH ×2 (10:16→21:36)
[2020-03-19] MEDS: ENOXAPARIN SOD 40 MG/0.4 ML SYRINGE SC SCH (10:17)
[2020-03-19] MEDS: SODIUM CHLOR 0.9% PF (SALINE LOCK) 10ML VIAL/SYR IV SCH ×2 (10:18→21:36)
[2020-03-19] MEDS: DIGOXIN 0.125 MG TAB PO SCH (10:18)
[2020-03-19] MEDS: FLUCONAZOLE 200MG/100ML 100 ML IV SCH ×2 (10:19→12:14)
[2020-03-19] MEDS: HYDROmorphone HCL 2 MG TAB PO PRN ×2 (12:14→21:43)
[2020-03-19 13:00] VITALS: BP 132/92
[2020-03-19] MEDS: ONDANSETRON HCL 4 MG/2 ML VIAL IV PRN (13:00)
--- NOTE | 2020-03-19 14:50 | NUR ---
PAIN PATIENT HAS PAIN OF 8/10. NO PAIN MEDICATION ON BOARD. WILL CONTACT DR. FERNANDEZ FOR NEW ORDER.
--- NOTE | 2020-03-19 15:10 | NUR ---
PAIN MEDICATION DR JIM GUZMAN 10NORCO Q4HR/PRN FOR SEVERE PAIN. WILL CONTINUE TO MONITOR. Addendum: 03/19/20 at 1840 by YELITZA SANCHEZ RN RN STRIKE NOTE WRONG PATIENT. Addendum: 03/19/20 at 1840 by YELITZA SANCHEZ RN RN STRIKE MESSAGE WRONG PATIENT.
[2020-03-19 16:52] VITALS: BP 117/91
--- NOTE | 2020-03-19 19:30 | NUR ---
ASSUMED CARE, GUARDS AT BEDSIDE, NO C/ O PAIN, NO SOB.
[2020-03-19 22:00] VITALS: BP 133/94
[2020-03-20] VITALS (7 sets, daily range): BP systolic 101–130; BP diastolic 71–89
[2020-03-20] MEDS: HYDROmorphone HCL 2 MG/ML VL IV PRN ×6 (00:22→20:12)
[2020-03-20] MEDS: HYDROmorphone HCL 2 MG TAB PO PRN (04:36)
[2020-03-20] MEDS: LINEZOLID 600MG/300ML 300 ML IV SCH ×2 (05:00→17:50)
[2020-03-20] MEDS: IPRATROPIUM BROM 0.5 MG/2.5ML INH SOL NEB SCH ×3 (06:00→22:34)
[2020-03-20] MEDS: ALBUTEROL SULF 2.5 MG/0.5ML(0.5%) NEB SOLN NEB SCH ×3 (06:00→22:34)
--- NOTE | 2020-03-20 07:30 | NUR ---
OPENING NOTE RECEIVED REPORT FROM NOC RN. POC MONITOR PAIN MANAGEMENT, DIET, AND COMFORT MEASURES. WILL CONTINUE TO MONITOR.
[2020-03-20] MEDS: BUDESONIDE (INHALATION) 0.5 MG/2 ML NEB NEB SCH ×2 (09:35→22:34)
[2020-03-20] MEDS: FLUCONAZOLE 200MG/100ML 100 ML IV SCH ×2 (11:15→12:30)
[2020-03-20] MEDS: PANTOPRAZOLE 40 MG/10 ML VIAL INJ IV SCH (11:16)
[2020-03-20] MEDS: ENOXAPARIN SOD 40 MG/0.4 ML SYRINGE SC SCH (11:17)
[2020-03-20] MEDS: DIGOXIN 0.125 MG TAB PO SCH (11:17)
[2020-03-20] MEDS: SODIUM CHLOR 0.9% PF (SALINE LOCK) 10ML VIAL/SYR IV SCH ×2 (11:56→22:00)
--- NOTE | 2020-03-20 12:58 | NUR ---
COMMUNICATION SPOKE WITH DR. YUEN IN REGARDS TO WOUND CARE ORDERS. RECOMMENDED LEAVING OPEN TO AIR, IF NEEDED APPLY GAUZE FOR EXCESS DRAINAGE.
[2020-03-20] MEDS: ONDANSETRON HCL 4 MG/2 ML VIAL IV PRN ×2 (14:45→22:14)
--- NOTE | 2020-03-20 16:50 | NUR ---
SWALLOW EVALUATED. PATIENT HAS NATURAL TEETH, SOME MISSING. PATIENT ABLE TO FOLLOW DIRECTIONS. PATIENT ABLE TO TOLERATE PUREE DIET TEXTURE WITH THIN LIQUIDS WITH NO OVERT SIGNS OR SYMPTOMS OF ASPIRATION. PATIENT REPORTS FEELING LIKE THERE IS PHLEGM IN HIS THROAT AND THAT HE IS NOT HUNGRY BUT WANTS TO EAT. NURSING ADVISED AND ASKED TO CONSIDER AN APPETITE STIMULANT.
--- NOTE | 2020-03-20 20:00 | NUR ---
Opening Shift Note Assumed care of patient, awake and alert. No S/S of distress/SOB or pain. Instructed on POC and to call for assist PRN, will continue to monitor for changes Q1hr and PRN.Medial incision open to air, dry, no drainage noted, colostomy in the left side no output noted, patient said since 3 day.
--- NOTE | 2020-03-20 21:29 | NUR ---
Dr. Arcadio Joiner called and said he will place Portacath shannan. and NPO after midnight, and relayed the blood culture result.
[2020-03-20] MEDS ORDERED: MAGNESIUM CITRATE SOLUTION 300 ML BTL PO ONE (21:30)
--- NOTE | 2020-03-20 23:20 | NUR ---
Called charge nurse to made aware that patient is for portacath placement shannan.
[2020-03-21] MEDS: HYDROmorphone HCL 2 MG/ML VL IV PRN ×5 (00:14→16:25)
--- NOTE | 2020-03-21 02:00 | NUR ---
Left upper midline change the dressing.
[2020-03-21] MEDS: HYDROmorphone HCL 2 MG TAB PO PRN ×2 (02:45→20:10)
[2020-03-21 05:00] VITALS: BP 139/92
[2020-03-21] MEDS: LINEZOLID 600MG/300ML 300 ML IV SCH ×2 (05:31→18:00)
--- NOTE | 2020-03-21 06:48 | NUR ---
Vomited x 2 last night with greenish color after he drink the magnesium citrate at 2213, given the zofran 4mg.i.v.p. at 2214 before he drink the magnesium citrate .
[2020-03-21 07:28] LABS: INR 1.4 (0.9-1.15); Partial Thromboplastin Time 29.9 sec (23.64-32.05)
--- NOTE | 2020-03-21 07:28 | NUR ---
Report given to Mario Millan, patient is resting NPO maintained.
[2020-03-21] MEDS: IPRATROPIUM BROM 0.5 MG/2.5ML INH SOL NEB SCH ×3 (07:46→23:21)
[2020-03-21] MEDS: ALBUTEROL SULF 2.5 MG/0.5ML(0.5%) NEB SOLN NEB SCH ×3 (07:46→23:20)
[2020-03-21] MEDS: BUDESONIDE (INHALATION) 0.5 MG/2 ML NEB NEB SCH ×2 (07:47→23:21)
--- NOTE | 2020-03-21 07:50 | NUR ---
Opening Shift Note Assumed care of patient, awake and alert. No S/S of distress/SOB or pain. Instructed on POC and to call for assist PRN. Bed at lowest locked position and call light within reach. will continue to monitor for changes Q1hr and PRN. Guards at bedside for safety .
[2020-03-21 08:00] VITALS: BP 146/71
--- NOTE | 2020-03-21 08:35 | NUR ---
patient taken to pre-op. no s/s of distress noted/stated.
[2020-03-21] MEDS: SODIUM CHLOR 0.9% PF (SALINE LOCK) 10ML VIAL/SYR IV SCH ×2 (09:52→22:04)
[2020-03-21] MEDS: ENOXAPARIN SOD 40 MG/0.4 ML SYRINGE SC SCH (09:52)
[2020-03-21] MEDS: DIGOXIN 0.125 MG TAB PO SCH ×2 (10:00→11:37)
[2020-03-21] MEDS ORDERED: LIDOCAINE 1% HCL (LOCAL ANESTH.) INJ 20ML MDV ONE (10:50)
[2020-03-21] MEDS ORDERED: HEPARIN SODIUM (PORCINE) 5000 UNITS/ML 1ML VIAL ONE (10:50)
--- NOTE | 2020-03-21 11:08 | NUR ---
Patient back from Pre-op. Per Nida WONG, Dr. Ervin postponed the procedure.
[2020-03-21] MEDS: FLUCONAZOLE 200MG/100ML 100 ML IV SCH ×2 (11:36→13:01)
[2020-03-21 12:00] VITALS: BP 140/88
--- NOTE | 2020-03-21 12:14 | NUR ---
Nutrition Followup Notes Wt: 84.5 kg Pt was off the floor during rounds for procedure. Pt is also NPO for the procedure. Will adjust pt diet requirements once MD orders diet for pt Est Energy needs: 3222-1408 kcals (23-25 kcal/kgBW), Est Protein needs: 74-93 gms/day (0.8-1.0 gm/kgBW). Will continue to monitor and reassess prn. LABS: Creat 0.57L, Ca 7.8L, Alb 1.6L GI: 1 BM 6/ per RN doc BS: 15 mod risk, incision at site of sx per RN doc. Please refer to wound assessment report for full details. PES: Partially resolved: Altered nutrition related lab values r/t current chronic medical condition aeb elev BUN severe hypoalb Comments Will continue to closely monitor pertinent labs, NPO status and skin status prn. Will followup in 3-5 days 1) Taper off PN support as pt tolerates PO. (Resolved) 2) Depending on pt diet order will consider how to conduct pt meals 3) Continue current plan of care
[2020-03-21] MEDS: D5W/SOD CHL 0.45%/KCL 20MEQ 1,000 ML IV SCH ×2 (13:01→22:04)
--- NOTE | 2020-03-21 14:00 | NUR ---
Respiratory note: PT IS REFUSING [address]. HE HAS THE HICCUPS AND IS TIRED.
--- NOTE | 2020-03-21 14:58 | NUR ---
PATIENT REFUSED PT. MARVIN OLIVA WAS NOTIFIED. Addendum: 03/21/20 at 1459 by SANDOR WINTERS PTT Amended: Links added.
--- NOTE | 2020-03-21 16:07 | NUR ---
phoned Dr. Arcadio David regarding patients acute bowel series results. Awaiting call back.
--- NOTE | 2020-03-21 16:12 | NUR ---
paged Dr. Hartmann regarding pain medication. Awaiting call back.
[2020-03-21 16:47] VITALS: BP 123/74
--- NOTE | 2020-03-21 19:20 | NUR ---
opening note pt alert and oriented. respirations even nonlabored on room air. pt is inmate, and has [employer] guards at bedside. PICC line at right upper arm. colostomy to left abdomen. midline at upper left arm. bed in low locked position, call light within reach.
--- NOTE | 2020-03-21 19:22 | NUR ---
Care endorsed to NOC RN.
--- NOTE | 2020-03-21 19:50 | NUR ---
pain c/o abd pain, 07/26. pt will be medicated appropriately.
[2020-03-21 21:51] VITALS: BP 126/77
[2020-03-22] VITALS (7 sets, daily range): BP systolic 127–138; BP diastolic 59–84
--- NOTE | 2020-03-22 01:10 | NUR ---
pain c/o abd pain, 07/26. pt will be medicated appropriately.
[2020-03-22] MEDS: HYDROmorphone HCL 2 MG TAB PO PRN ×2 (01:23→06:03)
--- NOTE | 2020-03-22 05:54 | NUR ---
pain c/o abdominal pain, 07/26. pt will be medicated appropriately.
[2020-03-22] MEDS: ALBUTEROL SULF 2.5 MG/0.5ML(0.5%) NEB SOLN NEB SCH ×3 (06:00→22:13)
[2020-03-22] MEDS: IPRATROPIUM BROM 0.5 MG/2.5ML INH SOL NEB SCH ×3 (06:00→22:13)
[2020-03-22] MEDS: LINEZOLID 600MG/300ML 300 ML IV SCH ×2 (06:03→17:48)
--- NOTE | 2020-03-22 06:14 | NUR ---
Respiratory note: PT REFUSED MED NEB TX AND VITALS. PT IS VOMITING AT THIS TIME. NO RESPIRATORY DISTRESS NOTED. RN MADE AWARE OF PT REFUSAL.
[2020-03-22] MEDS: ONDANSETRON HCL 4 MG/2 ML VIAL IV PRN ×2 (06:15→20:38)
[2020-03-22] MEDS: D5W/SOD CHL 0.45%/KCL 20MEQ 1,000 ML IV SCH ×3 (07:15→20:00)
--- NOTE | 2020-03-22 07:38 | NUR ---
opening note Patient received from noc shift rn. Awake, alert and oriented x4. Respirations even, nonlabored on room air. PICC line at right upper arm and midline to Left upper arm. Colostomy to left abdomen, clean and intact. Bed in low and locked position, call light within reach. Patient is inmate, guards at bedside. Will continue to monitor q1hr and prn.
--- NOTE | 2020-03-22 07:40 | NUR ---
closing note pt resting in semi fowlers with HOB 30. respirations even and nonlabored on 2Lnc. bed in low locked position, call light within reach.
--- NOTE | 2020-03-22 07:45 | NUR ---
Patient currently off unit for CT. Will resume care upon return to unit
[2020-03-22] MEDS: HYDROmorphone HCL 2 MG/ML VL IV PRN ×5 (09:42→23:52)
[2020-03-22] MEDS: DIGOXIN 0.125 MG TAB PO SCH (09:43)
[2020-03-22] MEDS: SODIUM CHLOR 0.9% PF (SALINE LOCK) 10ML VIAL/SYR IV SCH ×2 (09:43→23:24)
[2020-03-22] MEDS: FLUCONAZOLE 200MG/100ML 100 ML IV SCH ×2 (09:43→11:41)
--- NOTE | 2020-03-22 10:20 | NUR ---
PATIENT REFUSED SCHEDULED DIGOXIN PO, PER PT. HE CANNOT TAKE PO MEDS DUE TO NAUSEA
[2020-03-22] MEDS ORDERED: LORazepam 2MG/ML-1ML VIAL IV PRN (11:30)
[2020-03-22] MEDS ORDERED: HYDROmorphone HCL 2 MG/ML VL IV PRN (11:30)
[2020-03-22] MEDS ORDERED: ACETAMINOPHEN 325 MG TAB PO PRN (11:45)
[2020-03-22] MEDS ORDERED: TPN PER PHARMACY 0 ML IV SCH (12:45)
[2020-03-22 13:31] LABS: Albumin 1.7 g/dL (3.4-5.0); Potassium 3.8 mmol/L (3.5-5.1)
[2020-03-22 13:34] LABS: Bilirubin, Total 0.9 mg/dL (0.2-1.0); Total Protein 6.5 g/dL (6.4-8.2)
[2020-03-22 13:43] LABS: Magnesium 1.9 mg/dL (1.6-2.6); Phosphorus 2.6 mg/dL (2.5-4.90)
[2020-03-22] MEDS ORDERED: D5W/SOD CHL 0.45%/KCL 20MEQ 1,000 ML IV SCH (16:00)
[2020-03-22] MEDS ORDERED: AMINO ACID INFUSION IN D5W 2,000 ML IV NR (20:00)
--- NOTE | 2020-03-22 22:00 | NUR ---
IV/PICC dressing Both dressings peeling during beginning of shift, both dressings changed by RN. C/D/I. Ports have brisk blood return, no s/s of infection at this time.
[2020-03-22] MEDS: BUDESONIDE (INHALATION) 0.5 MG/2 ML NEB NEB SCH (22:14)
--- NOTE | 2020-03-22 23:17 | NUR ---
Vomiting Pt nauseous and vomited during shift. Zofran given per dec. Pt continues to be nauseous and vomiting. Dr. Wilson paged. Per Dr. Wilson, give phenergan and if vomits again place NGT.
[2020-03-22] MEDS: PROMETHAZINE HCL 25 MG/ML 1ML IV PRN (23:52)
[2020-03-23] VITALS (8 sets, daily range): BP systolic 121–145; BP diastolic 67–85
[2020-03-23] MEDS: ACCU-CHEK COMFORT CURVE STRIP VI SCH ×4 (00:59→17:24)
--- NOTE | 2020-03-23 01:02 | NUR ---
low BS Pt's BS 57, Dr. Wilson notified. TPN running. Per Dr. Wilson monitor for now and adjust TPN tomorrow.
[2020-03-23] MEDS: HYDROmorphone HCL 2 MG/ML VL IV PRN ×5 (04:56→20:41)
[2020-03-23] MEDS: chlorproMAZINE HCL 25 MG/1 ML AMP IM PRN (04:57)
--- NOTE | 2020-03-23 05:17 | NUR ---
Emesis Pt had another emesis ~20cc. Dark green in color. Abdomen continues to be distended, firm, and tender. Thorazine given for n/v and hiccups. Per MD place NGT if pt vomits. Pt refused NGT. MD paged regarding situation.
[2020-03-23] MEDS: InsuLIN REG 1unit/0.01ml Soln (100units/ml) SC SCH ×4 (06:00→17:24)
[2020-03-23 06:28] LABS: Eosinophils # (auto) 0 10 ^3/uL (0-0.8); Eosinophils % (auto) 0.3 % (0.0-7.0); Hemoglobin 9.7 g/dL (13.5-17.5); Monocytes # (auto) 0.9 10 ^3/uL (0-1.3)
[2020-03-23 06:31] LABS: Basophils # (auto) 0.3 10 ^3/uL (0-0.2); Basophils % (auto) 1.5 % (0.0-2.0); Hematocrit 30.2 % (41.0-53.0); Lymphocytes % (auto) 5.6 % (10.0-50.0); Mean Corpuscular Hemoglobin 27.6 pg (28.0-32.0); Mean Corpuscular Hgb Conc. 32.3 g/dL (32.0-36.0); Mean Corpuscular Volume 85.6 fL (80.0-100.0); Neutrophils # (auto) 15.6 10 ^3/uL (1.6-8.6); Neutrophils % (auto) 87.6 % (37.0-80.0); Nucleated Red Blood Cells % 0.1 %; Platelet Count (auto) 637 10^3/uL (140-450); Red Blood Cells 3.53 10^6/uL (4.5-5.90); Red Cell Distribution Width 16.6 % (11.8-14.3); White Blood Cell 17.7 10^3/uL (4.4-10.8)
[2020-03-23] MEDS: ALBUTEROL SULF 2.5 MG/0.5ML(0.5%) NEB SOLN NEB SCH ×3 (06:39→21:35)
[2020-03-23] MEDS: IPRATROPIUM BROM 0.5 MG/2.5ML INH SOL NEB SCH ×3 (06:39→21:35)
[2020-03-23] MEDS: BUDESONIDE (INHALATION) 0.5 MG/2 ML NEB NEB SCH ×2 (06:39→21:35)
[2020-03-23] MEDS: LINEZOLID 600MG/300ML 300 ML IV SCH ×2 (06:39→17:23)
[2020-03-23 06:47] LABS: Albumin 1.7 g/dL (3.4-5.0); Calcium 8.1 mg/dL (8.5-10.1); Magnesium 1.9 mg/dL (1.6-2.6); Potassium 3.8 mmol/L (3.5-5.1)
[2020-03-23 06:54] LABS: BUN/Creatinine Ratio 19.7; Bilirubin, Total 0.9 mg/dL (0.2-1.0); Phosphorus 2.3 mg/dL (2.5-4.90); Pre Albumin 3.9 mg/dL (20.0-40.0); Total Protein 6.5 g/dL (6.4-8.2)
[2020-03-23] MEDS: D5W/SOD CHL 0.45%/KCL 20MEQ 1,000 ML IV SCH ×3 (07:07→20:00)
--- NOTE | 2020-03-23 07:22 | NUR ---
opening note Patient received from noc shift rn. Asleep at this time. Respirations even, nonlabored on room air. PICC line at right upper arm and midline to Left upper arm. Colostomy to left abdomen. Bed in low and locked position, call light within reach. Patient is inmate, guards at bedside. Will continue to monitor q1hr and prn.
[2020-03-23] MEDS: FLUCONAZOLE 200MG/100ML 100 ML IV SCH ×2 (10:32→11:53)
[2020-03-23] MEDS: PANTOPRAZOLE 40 MG/10 ML VIAL INJ IV SCH ×2 (10:33→23:12)
[2020-03-23] MEDS: SODIUM CHLOR 0.9% PF (SALINE LOCK) 10ML VIAL/SYR IV SCH ×2 (10:33→23:12)
--- NOTE | 2020-03-23 17:12 | NUR ---
PATIENT MEDICATED WITH DILAUDID 0.5MG PRN FOR 9/10 PAIN. WILL CONTINUE TO REASSESS AND PROVIDE COMFORT.
[2020-03-23] MEDS ORDERED: TPN PER PHARMACY IV NR ×8 (20:00)
--- NOTE | 2020-03-23 21:35 | NUR ---
Respiratory note: ALBUTEROL HELD DUE TO ELEVATED HR. MED NEB TX GIVEN WITH ATROVENT AND PULMICORT ONLY.
[2020-03-24] MEDS: HYDROmorphone HCL 2 MG/ML VL IV PRN ×7 (00:40→21:58)
[2020-03-24] MEDS: LINEZOLID 600MG/300ML 300 ML IV SCH ×2 (05:17→18:52)
[2020-03-24] MEDS: ACCU-CHEK COMFORT CURVE STRIP VI SCH ×4 (05:52→17:51)
[2020-03-24] MEDS: InsuLIN REG 1unit/0.01ml Soln (100units/ml) SC SCH ×4 (05:52→17:50)
[2020-03-24 06:22] LABS: Basophils # (auto) 0.1 10 ^3/uL (0-0.2); Basophils % (auto) 0.9 % (0.0-2.0); Eosinophils # (auto) 0.1 10 ^3/uL (0-0.8); Eosinophils % (auto) 0.4 % (0.0-7.0); Hemoglobin 9.7 g/dL (13.5-17.5); Lymphocytes # (auto) 1.3 10 ^3/uL (0.4-5.4); Lymphocytes % (auto) 8.7 % (10.0-50.0); Mean Corpuscular Hemoglobin 27.4 pg (28.0-32.0); Mean Corpuscular Hgb Conc. 31.4 g/dL (32.0-36.0); Monocytes # (auto) 0.9 10 ^3/uL (0-1.3); Monocytes % (auto) 6.1 % (0.0-12.0); Neutrophils # (auto) 12.8 10 ^3/uL (1.6-8.6); Neutrophils % (auto) 83.9 % (37.0-80.0); Platelet Count (auto) 678 10^3/uL (140-450); Red Blood Cells 3.56 10^6/uL (4.5-5.90); Red Cell Distribution Width 17.2 % (11.8-14.3); White Blood Cell 15.2 10^3/uL (4.4-10.8)
[2020-03-24 06:27] LABS: Albumin 1.7 g/dL (3.4-5.0); Calcium 8.1 mg/dL (8.5-10.1); Magnesium 1.8 mg/dL (1.6-2.6); Potassium 3.3 mmol/L (3.5-5.1)
[2020-03-24 06:31] LABS: BUN/Creatinine Ratio 15.9; Phosphorus 2.6 mg/dL (2.5-4.90); Total Protein 6.7 g/dL (6.4-8.2)
[2020-03-24] MEDS: ALBUTEROL SULF 2.5 MG/0.5ML(0.5%) NEB SOLN NEB SCH ×3 (06:41→22:43)
[2020-03-24] MEDS: BUDESONIDE (INHALATION) 0.5 MG/2 ML NEB NEB SCH ×2 (06:41→22:43)
[2020-03-24] MEDS: IPRATROPIUM BROM 0.5 MG/2.5ML INH SOL NEB SCH ×3 (06:41→22:43)
[2020-03-24 09:00] VITALS: BP 120/73
--- NOTE | 2020-03-24 09:00 | NUR ---
HR up to 200, patient has asymptomatic, denied any palpitation. Metoprolol 5 mg IV push given, HR down to 90- low 100s. Dr. Tano colunga. Spoke to Lalita. Awaiting to call back.
[2020-03-24] MEDS: PANTOPRAZOLE 40 MG/10 ML VIAL INJ IV SCH ×2 (09:07→22:10)
[2020-03-24] MEDS: METOPROLOL TARTRATE 1MG/1ML-5ML VIAL IV PRN (09:08)
[2020-03-24] MEDS: FLUCONAZOLE 200MG/100ML 100 ML IV SCH ×2 (09:10→11:49)
[2020-03-24] MEDS: SODIUM CHLOR 0.9% PF (SALINE LOCK) 10ML VIAL/SYR IV SCH ×2 (09:11→22:11)
[2020-03-24] MEDS: D5W/SOD CHL 0.45%/KCL 20MEQ 1,000 ML IV SCH (09:11)
--- NOTE | 2020-03-24 11:00 | NUR ---
Dr. Arboleda at bedside, made aware of HR up to 200.
[2020-03-24 13:00] VITALS: BP 162/71
[2020-03-24] MEDS: POTASSIUM CHL 20MEQ/100ML 100 ML IV SCH ×2 (13:38→16:44)
--- NOTE | 2020-03-24 14:41 | NUR ---
Nutrition Followup Notes Wt: 91.4 kg Pt was sleeping with guards by bedside. pt is currently NPO with PN support @ 62 ml/hr providing 1650 kcals and 70 gm [id number] NCP. pt with inadequate PN support as it meets 71-77% kcals and 74-94% proteins Est Energy needs: 0431-6866 kcals (23-25 kcal/kgBW), Est Protein needs: 74-93 gms/day (0.8-1.0 gm/kgBW). Will continue to monitor and reassess prn. LABS: CA 8.1 L, ALB 1.7 L, ANGY/LT 182/88 H GI: 1 BM 6/7 per RN doc BS: 14 mod risk, incision at site of sx per RN doc. Please refer to wound assessment report for full details. PES: Partially resolved: Altered nutrition related lab values r/t current chronic medical condition aeb elev BUN severe hypoalb Comments Will continue to closely monitor pertinent labs, NPO status, PN tolerance, and skin status prn. Will followup in 2-3 days 1) Advance PN support to meet > 75% of needs 2) advance diet as medically feasible 3) Continue current plan of care
[2020-03-24 17:00] VITALS: BP 144/77
[2020-03-24] MEDS: chlorproMAZINE HCL 25 MG/1 ML AMP IM PRN (18:17)
--- NOTE | 2020-03-24 19:25 | NUR ---
opening note inmate pt. A&Ox4. respirations even nonlabored on 2Lnc. POC discussed. two federal guards at bedside. bed in low locked position, call light within reach.
[2020-03-24] MEDS ORDERED: TPN PER PHARMACY IV NR ×9 (20:00)
--- NOTE | 2020-03-24 21:50 | NUR ---
pain c/o abdominal pain 10/10, will administer appropriate medication.
[2020-03-24 22:00] VITALS: BP 140/71
--- NOTE | 2020-03-25 | NUR ---
pain c/o abdominal pain 10/10, will administer appropriate medication.
[2020-03-25] MEDS: HYDROmorphone HCL 2 MG/ML VL IV PRN ×10 (00:07→22:48)
[2020-03-25] MEDS: ACCU-CHEK COMFORT CURVE STRIP VI SCH ×5 (00:13→23:12)
--- NOTE | 2020-03-25 02:10 | NUR ---
pain pain c/o abdominal pain 10/10, will administer appropriate medication.
--- NOTE | 2020-03-25 04:15 | NUR ---
pain pt c/o abdominal pain, 06/26. will administer ordered pain medication
[2020-03-25 05:00] VITALS: BP 139/78
[2020-03-25] MEDS: InsuLIN REG 1unit/0.01ml Soln (100units/ml) SC SCH ×5 (05:20→23:13)
[2020-03-25] MEDS: LINEZOLID 600MG/300ML 300 ML IV SCH ×2 (05:20→17:03)
[2020-03-25 06:15] LABS: Basophils # (auto) 0.1 10 ^3/uL (0-0.2); Basophils % (auto) 0.5 % (0.0-2.0); Eosinophils # (auto) 0.1 10 ^3/uL (0-0.8); Eosinophils % (auto) 0.8 % (0.0-7.0); Hematocrit 34.6 % (41.0-53.0); Hemoglobin 10.6 g/dL (13.5-17.5); Lymphocytes # (auto) 1.2 10 ^3/uL (0.4-5.4); Lymphocytes % (auto) 10.1 % (10.0-50.0); Mean Corpuscular Hemoglobin 27.7 pg (28.0-32.0); Mean Corpuscular Hgb Conc. 30.7 g/dL (32.0-36.0); Mean Corpuscular Volume 90.1 fL (80.0-100.0); Monocytes % (auto) 8.4 % (0.0-12.0); Neutrophils # (auto) 9.6 10 ^3/uL (1.6-8.6); Neutrophils % (auto) 80.2 % (37.0-80.0); Nucleated Red Blood Cells % 0.1 %; Platelet Count (auto) 458 10^3/uL (140-450); Red Blood Cells 3.84 10^6/uL (4.5-5.90)
[2020-03-25 06:28] LABS: Albumin 1.6 g/dL (3.4-5.0); Calcium 7.5 mg/dL (8.5-10.1); Magnesium 1.6 mg/dL (1.6-2.6); Potassium 3.8 mmol/L (3.5-5.1)
[2020-03-25 06:33] LABS: Phosphorus 2.4 mg/dL (2.5-4.90); Total Protein 6.5 g/dL (6.4-8.2)
[2020-03-25] MEDS: BUDESONIDE (INHALATION) 0.5 MG/2 ML NEB NEB SCH ×2 (06:40→22:46)
[2020-03-25] MEDS: ALBUTEROL SULF 2.5 MG/0.5ML(0.5%) NEB SOLN NEB SCH ×3 (06:40→22:46)
[2020-03-25] MEDS: IPRATROPIUM BROM 0.5 MG/2.5ML INH SOL NEB SCH ×3 (06:40→22:46)
--- NOTE | 2020-03-25 07:10 | NUR ---
closing note pt is A&Ox4, resting in semi fowlers with HOB at 30 degrees. respirations are even and nonlabored on 3Lnc. federal guards remain at bedside. bed in low locked position, call light within reach.
[2020-03-25] MEDS ORDERED: SODIUM PHOSPHATES 20 MEQ in SODIUM CHL 0.9% 100 ML IV ONE (08:30)
[2020-03-25 09:00] VITALS: BP_SYST 105; BP_SYST 133; BP_DIAS 66; BP_DIAS 70
[2020-03-25] MEDS: FLUCONAZOLE 200MG/100ML 100 ML IV SCH ×2 (10:54→12:09)
[2020-03-25] MEDS: PANTOPRAZOLE 40 MG/10 ML VIAL INJ IV SCH ×2 (10:54→22:47)
[2020-03-25] MEDS: SODIUM CHLOR 0.9% PF (SALINE LOCK) 10ML VIAL/SYR IV SCH ×2 (10:55→22:47)
--- NOTE | 2020-03-25 12:00 | NUR ---
Dr. Freedman at bedside stated patient can have 1 cup of ice per day.
[2020-03-25 13:00] VITALS: BP 150/82
[2020-03-25 17:00] VITALS: BP 112/75
--- NOTE | 2020-03-25 19:59 | NUR ---
pain c/o abdominal pain, 07/26. will administer ordered medication.
[2020-03-25] MEDS ORDERED: TPN PER PHARMACY IV NR ×9 (20:00)
--- NOTE | 2020-03-25 20:00 | NUR ---
pain pt c/o abdominal pain, 06/26. will administer ordered pain medication
[2020-03-25 22:02] VITALS: BP 120/79
--- NOTE | 2020-03-25 22:40 | NUR ---
pain pt c/o abdominal pain, 07/26. will administer ordered pain medication
--- NOTE | 2020-03-26 00:50 | NUR ---
pain pt c/o abdominal pain. will administer ordered pain medication
[2020-03-26] MEDS: HYDROmorphone HCL 2 MG/ML VL IV PRN ×8 (00:56→21:53)
--- NOTE | 2020-03-26 02:54 | NUR ---
pain pt c/o abdominal pain. will administer ordered pain medication
[2020-03-26 05:03] VITALS: BP 135/81
--- NOTE | 2020-03-26 05:18 | NUR ---
pain pt c/o abdominal pain, 06/26. will administer ordered pain medication
[2020-03-26] MEDS: LINEZOLID 600MG/300ML 300 ML IV SCH ×2 (05:24→18:41)
[2020-03-26] MEDS: InsuLIN REG 1unit/0.01ml Soln (100units/ml) SC SCH ×3 (06:00→18:00)
[2020-03-26 07:28] LABS: Albumin 1.5 g/dL (3.4-5.0); Calcium 7.3 mg/dL (8.5-10.1); Magnesium 1.6 mg/dL (1.6-2.6); Potassium 3.9 mmol/L (3.5-5.1)
[2020-03-26] MEDS: ACCU-CHEK COMFORT CURVE STRIP VI SCH ×3 (07:28→18:16)
[2020-03-26 07:31] LABS: BUN/Creatinine Ratio 17.8; Bilirubin, Total 0.8 mg/dL (0.2-1.0); Phosphorus 2.5 mg/dL (2.5-4.90); Total Protein 6.2 g/dL (6.4-8.2)
--- NOTE | 2020-03-26 07:35 | NUR ---
closing note pt resting in semi fowlers with HOB at 30 degrees. respirations even and nonlabored on 2lnc. bed in low locked position, call light within reach.
[2020-03-26] MEDS: IPRATROPIUM BROM 0.5 MG/2.5ML INH SOL NEB SCH ×3 (07:40→23:00)
[2020-03-26] MEDS: BUDESONIDE (INHALATION) 0.5 MG/2 ML NEB NEB SCH ×2 (07:40→23:01)
[2020-03-26] MEDS: ALBUTEROL SULF 2.5 MG/0.5ML(0.5%) NEB SOLN NEB SCH ×3 (07:40→23:01)
--- NOTE | 2020-03-26 07:40 | NUR ---
Opening Shift Note Assumed care of patient, awake and alert. No S/S of distress/SOB or pain. Instructed on POC and to call for assist PRN, will continue to monitor for changes Q1hr and PRN. Bed locked in lowest position with two side rails up and call light in reach.
[2020-03-26 08:00] VITALS: BP 146/63
[2020-03-26] MEDS ORDERED: GASTROGRAFIN 120 ML SOL ONE (08:15)
[2020-03-26 08:39] VITALS: BP 146/63
[2020-03-26] MEDS: SODIUM CHLOR 0.9% PF (SALINE LOCK) 10ML VIAL/SYR IV SCH ×2 (10:00→20:59)
[2020-03-26] MEDS ORDERED: SODIUM PHOSPHATES 20 MEQ in SODIUM CHL 0.9% 100 ML IV ONE (10:00)
[2020-03-26] MEDS: FLUCONAZOLE 200MG/100ML 100 ML IV SCH ×2 (10:47→12:13)
[2020-03-26] MEDS: PANTOPRAZOLE 40 MG/10 ML VIAL INJ IV SCH ×2 (10:47→20:59)
[2020-03-26] MEDS: PROMETHAZINE HCL 25 MG/ML 1ML IV PRN ×2 (10:58→18:42)
[2020-03-26 13:00] VITALS: BP 118/77
[2020-03-26] MEDS ORDERED: levoFLOXacin 750MG 150 ML IV ONE (15:00)
[2020-03-26 16:48] VITALS: BP 136/83
--- NOTE | 2020-03-26 16:50 | NUR ---
Nutrition Followup Notes Wt: 92.1 kg Pt was sleeping with guards by bedside. pt is currently NPO with PN support @ 73 ml/hr providing 1880 kcals and 80 gm protein, with 1560 NPCs. Pt with inadequate PN support as it meets 81-88% kcals of est energy needs PN support with adequate protein as it meets 86-108% of estimated protein needs. Est Energy needs: 4854-5243 kcals (23-25 kcal/kgBW), Est Protein needs: 74-93 gms/day (0.8-1.0 gm/kgBW). Will continue to monitor and reassess prn. LABS: CA 7.3 L, GLUC 116 H, ALB 1.5 L, AST/ALT 130/80 H GI: No BM noted today (03/26) per RN doc BS: 18 mod risk, incision at site of sx per RN doc. Please refer to wound assessment report for full details. PES: Partially resolved: Altered nutrition related lab values r/t current chronic medical condition aeb elev BUN severe hypoalb Comments Will continue to closely monitor pertinent labs, NPO status, PN tolerance, and skin status prn. Will followup in 2-3 days 1) Advance PN support to meet > 75% of needs 2) advance diet as medically feasible 3) Continue current plan of care
--- NOTE | 2020-03-26 19:00 | NUR ---
Opening Note Assumed care of patient, awake and alert. No S/S of distress/SOB or pain. Instructed on POC and to call for assist as needed, will continue to monitor
[2020-03-26] MEDS ORDERED: TPN PER PHARMACY IV NR ×11 (20:00)
--- NOTE | 2020-03-26 21:55 | NUR ---
Pain Patient complained of pain. Medication given as ordered.
[2020-03-26 22:00] VITALS: BP 130/79
--- NOTE | 2020-03-26 23:12 | NUR ---
Respiratory note: AT BEDSIDE FOR MED DEXTER LIU.
[2020-03-27] MEDS: ACCU-CHEK COMFORT CURVE STRIP VI SCH ×5 (00:41→23:55)
[2020-03-27] MEDS: HYDROmorphone HCL 2 MG/ML VL IV PRN ×8 (04:00→23:26)
[2020-03-27 05:00] VITALS: BP 127/88
[2020-03-27] MEDS: LINEZOLID 600MG/300ML 300 ML IV SCH ×2 (06:00→17:02)
[2020-03-27] MEDS: InsuLIN REG 1unit/0.01ml Soln (100units/ml) SC SCH ×5 (06:00→23:56)
[2020-03-27 06:17] LABS: Basophils # (auto) 0.1 10 ^3/uL (0-0.2); Basophils % (auto) 0.7 % (0.0-2.0); Eosinophils # (auto) 0.1 10 ^3/uL (0-0.8); Eosinophils % (auto) 0.6 % (0.0-7.0); Hematocrit 26.7 % (41.0-53.0); Hemoglobin 8.7 g/dL (13.5-17.5); Lymphocytes # (auto) 0.7 10 ^3/uL (0.4-5.4); Lymphocytes % (auto) 8.1 % (10.0-50.0); Mean Corpuscular Hemoglobin 28.2 pg (28.0-32.0); Mean Corpuscular Hgb Conc. 32.7 g/dL (32.0-36.0); Mean Corpuscular Volume 86.4 fL (80.0-100.0); Monocytes # (auto) 1.1 10 ^3/uL (0-1.3); Monocytes % (auto) 12.2 % (0.0-12.0); Neutrophils # (auto) 7.1 10 ^3/uL (1.6-8.6); Neutrophils % (auto) 78.4 % (37.0-80.0); Platelet Count (auto) 329 10^3/uL (140-450); Red Blood Cells 3.09 10^6/uL (4.5-5.90); White Blood Cell 9.1 10^3/uL (4.4-10.8)
[2020-03-27 06:42] LABS: Potassium 4.3 mmol/L (3.5-5.1)
[2020-03-27 06:51] LABS: Albumin 1.5 g/dL (3.4-5.0); Bilirubin, Total 0.9 mg/dL (0.2-1.0); Calcium 7.4 mg/dL (8.5-10.1); Magnesium 1.6 mg/dL (1.6-2.6); Phosphorus 2.7 mg/dL (2.5-4.90); Total Protein 6.2 g/dL (6.4-8.2)
[2020-03-27] MEDS: BUDESONIDE (INHALATION) 0.5 MG/2 ML NEB NEB SCH ×2 (07:34→22:35)
[2020-03-27] MEDS: ALBUTEROL SULF 2.5 MG/0.5ML(0.5%) NEB SOLN NEB SCH ×3 (07:34→22:35)
[2020-03-27] MEDS: IPRATROPIUM BROM 0.5 MG/2.5ML INH SOL NEB SCH ×3 (07:34→22:35)
[2020-03-27 08:00] VITALS: BP 139/81
[2020-03-27] MEDS: levoFLOXacin 750MG 150 ML IV SCH (08:37)
[2020-03-27 09:00] VITALS: BP 139/81
--- NOTE | 2020-03-27 09:40 | NUR ---
Pt declined PT tx. Addendum: 03/27/20 at 1528 by Garrett Hernandez PROPERTY INSURANCE AGENT Amended: Links added.
[2020-03-27] MEDS: FLUCONAZOLE 200MG/100ML 100 ML IV SCH ×2 (09:46→11:14)
[2020-03-27] MEDS: PANTOPRAZOLE 40 MG/10 ML VIAL INJ IV SCH ×2 (09:47→23:26)
[2020-03-27] MEDS: SODIUM CHLOR 0.9% PF (SALINE LOCK) 10ML VIAL/SYR IV SCH ×2 (10:22→23:26)
[2020-03-27 13:00] VITALS: BP 132/81
[2020-03-27] MEDS: ACETAMINOPHEN 325 MG TAB PO PRN (13:46)
[2020-03-27 17:13] VITALS: BP 125/75
[2020-03-27] MEDS ORDERED: TPN PER PHARMACY IV NR ×10 (20:00)
--- NOTE | 2020-03-27 20:45 | NUR ---
Pain Patient c/o 9/10 abdominal pain. Administered 0.5mg Dilaudid per EMAR. Will continue to monitor.
--- NOTE | 2020-03-27 21:15 | NUR ---
Pain reassessed Patient resting with eyes closed, no s/s of distress or SOB. Will continue to monitor.
[2020-03-27 22:28] VITALS: BP 149/80
--- NOTE | 2020-03-27 23:30 | NUR ---
Pain Patient c/o 9/10 abdominal pain. Administered 0.5 mg Dilaudid per EMAR. Will continue to monitor.
--- NOTE | 2020-03-28 00:15 | NUR ---
Pain reassessed Patient resting, no s/s of distress or SOB. Will continue to monitor.
--- NOTE | 2020-03-28 00:58 | NUR ---
Removed bilateral lower leg wraps per patient request Removed leg adhesive foam leg wrapping from both lower extremities per patient request, noted +3 pitting edema from assessment. Bilateral dorsal pulses +2. Patient tolerated well, stated that it felt "extremely better". Will continue to monitor.
[2020-03-28] MEDS: HYDROmorphone HCL 2 MG/ML VL IV PRN ×10 (01:45→22:44)
--- NOTE | 2020-03-28 02:45 | NUR ---
Telemetry called for elevated heart rate Patient HR 150 per telemetry. VS 143/96, HR 137, RR 30, T 98.1, 87%, pain 4/10. Increased Oxygen to 4L, saturation increased to 95%. Patient urinated 350 ml of clear beckie urine. Administered 5 mg Lopressor per EMAR for HR <120. HR decreased to 111. Will continue to monitor.
[2020-03-28] MEDS: METOPROLOL TARTRATE 1MG/1ML-5ML VIAL IV PRN (03:10)
--- NOTE | 2020-03-28 04:06 | NUR ---
Heart rate reassessed Patient resting with eyes closed, VS 93%, HR 109, BP 102/70, RR 24. Patient stated that he felt better and just wanted to go back to sleep. Will continue to monitor.
[2020-03-28] MEDS: ACETAMINOPHEN 325 MG TAB PO PRN (04:19)
--- NOTE | 2020-03-28 04:19 | NUR ---
Temperature 103.1 Administered Tylenol 650 mg per EMAR. Will continue to monitor.
--- NOTE | 2020-03-28 04:40 | NUR ---
Pain Patient c/o 05/26 pain. Administered Dilaudid 0.5 mg per EMAR. Will continue to monitor.
[2020-03-28 05:00] VITALS: BP 160/75
[2020-03-28 05:58] LABS: Basophils # (auto) 0 10 ^3/uL (0-0.2); Basophils % (auto) 0.5 % (0.0-2.0); Eosinophils # (auto) 0.1 10 ^3/uL (0-0.8); Hemoglobin 7.6 g/dL (13.5-17.5); Lymphocytes # (auto) 0.7 10 ^3/uL (0.4-5.4); Monocytes # (auto) 0.9 10 ^3/uL (0-1.3); Monocytes % (auto) 10.5 % (0.0-12.0); Neutrophils # (auto) 7.1 10 ^3/uL (1.6-8.6)
[2020-03-28] MEDS: InsuLIN REG 1unit/0.01ml Soln (100units/ml) SC SCH ×4 (06:00→20:16)
[2020-03-28 06:07] LABS: Eosinophils % (auto) 1.3 % (0.0-7.0); Hematocrit 24.9 % (41.0-53.0); Lymphocytes % (auto) 7.6 % (10.0-50.0); Mean Corpuscular Hemoglobin 28.4 pg (28.0-32.0); Mean Corpuscular Hgb Conc. 30.6 g/dL (32.0-36.0); Mean Corpuscular Volume 92.8 fL (80.0-100.0); Neutrophils % (auto) 80.1 % (37.0-80.0); Platelet Count (auto) 259 10^3/uL (140-450); Red Blood Cells 2.69 10^6/uL (4.5-5.90); White Blood Cell 8.8 10^3/uL (4.4-10.8)
[2020-03-28 06:38] LABS: Albumin 1.4 g/dL (3.4-5.0); BUN/Creatinine Ratio 19.2; Bilirubin, Total 0.8 mg/dL (0.2-1.0); Calcium 7.6 mg/dL (8.5-10.1); Phosphorus 2.6 mg/dL (2.5-4.90); Pre Albumin 3.4 mg/dL (20.0-40.0); Total Protein 6.5 g/dL (6.4-8.2)
[2020-03-28] MEDS: LINEZOLID 600MG/300ML 300 ML IV SCH ×2 (06:41→18:15)
[2020-03-28] MEDS: ACCU-CHEK COMFORT CURVE STRIP VI SCH ×4 (06:42→20:16)
[2020-03-28 06:56] LABS: Red Cell Distribution Width 21.4 % (11.8-14.3)
[2020-03-28] MEDS: ALBUTEROL SULF 2.5 MG/0.5ML(0.5%) NEB SOLN NEB SCH ×3 (07:00→22:08)
[2020-03-28] MEDS: BUDESONIDE (INHALATION) 0.5 MG/2 ML NEB NEB SCH ×2 (07:00→22:08)
[2020-03-28] MEDS: IPRATROPIUM BROM 0.5 MG/2.5ML INH SOL NEB SCH ×3 (07:00→22:08)
--- NOTE | 2020-03-28 07:17 | NUR ---
Opening Shift Note: Assumed care of patient, awake and alert. No S/S of distress/SOB. Bed in lowest locked position, side rails up x 2, call light within reach. Guards at bedside. Patient instructed on POC and to call for assist PRN, will continue to monitor for changes Q1hr and PRN.
[2020-03-28] MEDS: levoFLOXacin 750MG 150 ML IV SCH (08:26)
[2020-03-28 09:00] VITALS: BP 117/74
[2020-03-28] MEDS: FLUCONAZOLE 200MG/100ML 100 ML IV SCH ×2 (10:24→11:18)
[2020-03-28] MEDS: SODIUM CHLOR 0.9% PF (SALINE LOCK) 10ML VIAL/SYR IV SCH ×2 (10:25→22:00)
[2020-03-28] MEDS: PANTOPRAZOLE 40 MG/10 ML VIAL INJ IV SCH ×2 (10:25→20:02)
--- NOTE | 2020-03-28 10:26 | NUR ---
Patient out of bed with physical therapy.
[2020-03-28 12:44] VITALS: BP 119/89
--- NOTE | 2020-03-28 13:54 | NUR ---
DECREASED 02 TO 3LPM, SPO2 96%. Addendum: 03/28/20 at 1403 by Nanda Yee RT Amended: Links added.
--- NOTE | 2020-03-28 16:01 | NUR ---
Nutrition Followup Notes Wt: 89.7 kg Pt was being helped to his bed by medical personnel with guards by bedside. Pt is currently NPO with PN support @ 90 ml/hr providing 2300 kcals and 100 gm protein, with 1900 NPCs. Pt with adequate PN support as it meets 99-108% kcals of est energy needs PN support with adequate protein as it meets 108-135% of estimated protein needs. Pt with no distress per RN doc. Will continue to closely monitor pertinent labs, PO intake and skin status prn. Will followup in 2-3 days Est Energy needs: 6051-1293 kcals (23-25 kcal/kgBW), Est Protein needs: 74-93 gms/day (0.8-1.0 gm/kgBW). Will continue to monitor and reassess prn. LABS: NA 131 L, POC GLUC 114 H, ALB 1.4 L, AST/ALT 98/63 H GI: Pt with colostomy, BM noted on 03/28 per RN doc BS: 17 mod risk, incision at site of sx per RN doc. Please refer to wound assessment report for full details. PES: Partially resolved: Altered nutrition related lab values r/t current chronic medical condition aeb elev BUN severe hypoalb Comments Will continue to closely monitor pertinent labs, NPO status, PN tolerance, and skin status prn. Will followup in 2-3 days 1) Advance PN support to meet > 75% of needs 2) advance diet as medically feasible 3) Continue current plan of care
[2020-03-28 16:58] VITALS: BP 116/72
--- NOTE | 2020-03-28 18:45 | NUR ---
PICC LINE DRESSING CHANGED USING CLEAN STERILE TECHNIQUE. PATIENT TOLERATED WELL.
--- NOTE | 2020-03-28 18:52 | NUR ---
CLOSING NOTE: Patient resting in bed. No S/S of distress at this time. Care endorsed to NOC RN
--- NOTE | 2020-03-28 19:25 | NUR ---
Opening Shift Note Assumed care of patient. No S/S of distress/SOB or pain reported at this time, currently sleeping, breathing even and unlabored, easily awakened via verbal stimuli. Instructed on POC and to call for assist PRN, call light within reach, able to demonstrate how to call for assistance, guards at bedside, PICC to BEHZAD patent and benign, infusing TPN as ordered, no swelling noted, ML to ANNA patent and benign, noted incentive spintometer at beside and encouraged patient to use Q1HR and WA, pt verbalized understanding, currently on 3l via NC, will continue to monitor for changes Q1hr and PRN.
[2020-03-28 20:00] VITALS: BP 142/94
[2020-03-28] MEDS ORDERED: TPN PER PHARMACY IV NR ×10 (20:00)
[2020-03-28 21:00] VITALS: BP 142/94
[2020-03-29] VITALS (7 sets, daily range): BP systolic 114–140; BP diastolic 68–86
[2020-03-29] MEDS: HYDROmorphone HCL 2 MG/ML VL IV PRN ×9 (00:34→21:42)
--- NOTE | 2020-03-29 03:25 | NUR ---
PT CARE ENDORSED TO SYBIL WONG PT CURRENTLY AWAKE, AXOX4, NO DISTRESS NOTED AT THIS TIME, CALL LIGHT WITHIN REACH
--- NOTE | 2020-03-29 03:33 | NUR ---
Opening Shift Note: Assumed care of patient, awake and alert. No S/S of distress/SOB. Patient states pain in the abdomen. bed in lowest locked position, side rails up x 2, call light within reach. Guard at bedside. Patient instructed on POC and to call for assist PRN, will continue to monitor for changes Q1hr and PRN.
[2020-03-29] MEDS: InsuLIN REG 1unit/0.01ml Soln (100units/ml) SC SCH ×3 (06:00→17:40)
[2020-03-29] MEDS: ACCU-CHEK COMFORT CURVE STRIP VI SCH ×3 (06:00→17:40)
[2020-03-29] MEDS: LINEZOLID 600MG/300ML 300 ML IV SCH ×2 (06:43→17:32)
[2020-03-29] MEDS: BUDESONIDE (INHALATION) 0.5 MG/2 ML NEB NEB SCH ×2 (06:44→22:37)
[2020-03-29] MEDS: IPRATROPIUM BROM 0.5 MG/2.5ML INH SOL NEB SCH ×3 (06:44→22:37)
[2020-03-29] MEDS: ALBUTEROL SULF 2.5 MG/0.5ML(0.5%) NEB SOLN NEB SCH ×3 (06:44→22:37)
[2020-03-29] MEDS: levoFLOXacin 750MG 150 ML IV SCH (07:46)
[2020-03-29] MEDS: SODIUM CHLOR 0.9% PF (SALINE LOCK) 10ML VIAL/SYR IV SCH ×2 (10:02→23:26)
[2020-03-29] MEDS: PANTOPRAZOLE 40 MG/10 ML VIAL INJ IV SCH ×2 (10:02→21:41)
[2020-03-29] MEDS: FLUCONAZOLE 200MG/100ML 100 ML IV SCH ×2 (10:02→12:12)
[2020-03-29 10:07] LABS: Basophils # (auto) 0.1 10 ^3/uL (0-0.2); Eosinophils # (auto) 0.1 10 ^3/uL (0-0.8); Eosinophils % (auto) 1.3 % (0.0-7.0); Hematocrit 28.2 % (41.0-53.0); Hemoglobin 8.9 g/dL (13.5-17.5); Lymphocytes % (auto) 9.2 % (10.0-50.0); Mean Corpuscular Hemoglobin 27.8 pg (28.0-32.0); Mean Corpuscular Hgb Conc. 31.7 g/dL (32.0-36.0); Mean Corpuscular Volume 87.5 fL (80.0-100.0); Monocytes # (auto) 1.2 10 ^3/uL (0-1.3); Monocytes % (auto) 11.2 % (0.0-12.0); Neutrophils # (auto) 8.5 10 ^3/uL (1.6-8.6); Neutrophils % (auto) 77.3 % (37.0-80.0); Nucleated Red Blood Cells % 0.1 %; Platelet Count (auto) 330 10^3/uL (140-450); Red Blood Cells 3.22 10^6/uL (4.5-5.90); Red Cell Distribution Width 20.8 % (11.8-14.3)
[2020-03-29 10:29] LABS: Albumin 1.4 g/dL (3.4-5.0); Calcium 7.4 mg/dL (8.5-10.1)
[2020-03-29 10:34] LABS: BUN/Creatinine Ratio 20.5; Bilirubin, Total 0.7 mg/dL (0.2-1.0); Phosphorus 2.6 mg/dL (2.5-4.90); Total Protein 6.1 g/dL (6.4-8.2)
[2020-03-29] MEDS: PROMETHAZINE HCL 25 MG/ML 1ML IV PRN (17:53)
--- NOTE | 2020-03-29 18:52 | NUR ---
Closing note: Patient resting in bed. No S/S of distress or SOB at this time. Care endorsed to NOC RN.
--- NOTE | 2020-03-29 19:14 | NUR ---
Opening Shift Note: Assumed care of patient. Patient is awake, alert, and oriented X 4. No S/S of respiratory distress noted. No SOB reported. Respirations are regular and non-labored. Patient is on 3 LPM NC. PICC R Upper Arm is asymptomatic and patent running TPN. Bed in lowest locked position, side rails up x 2, call light within reach. Tele box matches to the monitor. Patient instructed on POC and to call for assistance as needed. Will continue to monitor for changes Q1hr and PRN.
[2020-03-29] MEDS ORDERED: TPN PER PHARMACY IV NR ×9 (20:00)
--- NOTE | 2020-03-29 20:05 | NUR ---
Blood glucose level was checked before starting TPN. 58 mg/Dl. Will recheck in 30 min after TPN starts running.
--- NOTE | 2020-03-29 20:45 | NUR ---
Blood glucose level rechecked. 78 mg/Dl. Will continue to monitor
[2020-03-30] MEDS: ACCU-CHEK COMFORT CURVE STRIP VI SCH ×4 (00:26→18:00)
[2020-03-30] MEDS: HYDROmorphone HCL 2 MG/ML VL IV PRN ×11 (00:26→22:46)
[2020-03-30 05:00] VITALS: BP 117/78
[2020-03-30] MEDS: LINEZOLID 600MG/300ML 300 ML IV SCH ×2 (05:48→18:41)
[2020-03-30] MEDS: InsuLIN REG 1unit/0.01ml Soln (100units/ml) SC SCH ×4 (05:55→18:00)
[2020-03-30] MEDS: IPRATROPIUM BROM 0.5 MG/2.5ML INH SOL NEB SCH ×3 (07:37→23:41)
[2020-03-30] MEDS: ALBUTEROL SULF 2.5 MG/0.5ML(0.5%) NEB SOLN NEB SCH ×3 (07:38→23:41)
[2020-03-30] MEDS: BUDESONIDE (INHALATION) 0.5 MG/2 ML NEB NEB SCH ×2 (07:38→23:41)
[2020-03-30] MEDS: levoFLOXacin 750MG 150 ML IV SCH (07:45)
[2020-03-30 08:52] VITALS: BP 137/81
[2020-03-30] MEDS: FLUCONAZOLE 200MG/100ML 100 ML IV SCH ×2 (10:07→12:00)
[2020-03-30] MEDS: PANTOPRAZOLE 40 MG/10 ML VIAL INJ IV SCH ×2 (10:07→21:46)
[2020-03-30] MEDS: SODIUM CHLOR 0.9% PF (SALINE LOCK) 10ML VIAL/SYR IV SCH ×2 (10:08→21:50)
[2020-03-30 11:39] LABS: Potassium 3.6 mmol/L (3.5-5.1)
[2020-03-30 11:48] LABS: Albumin 1.6 g/dL (3.4-5.0); Bilirubin, Total 0.8 mg/dL (0.2-1.0); Calcium 7.6 mg/dL (8.5-10.1); Magnesium 1.9 mg/dL (1.6-2.6); Phosphorus 2.9 mg/dL (2.5-4.90); Total Protein 6.7 g/dL (6.4-8.2)
[2020-03-30 13:28] VITALS: BP 135/88
--- NOTE | 2020-03-30 14:59 | NUR ---
Nutrition Followup Notes Wt: 90.2 kg Pt sleeping with guards by bedside. Pt is currently NPO with PN support @ 90 ml/hr providing 2300 kcals and 100 gm protein, with 1900 NPCs. Pt with adequate PN support as it meets 99-108% kcals of est energy needs PN support with adequate protein as it meets 108-135% of estimated protein needs. Pt with no distress per RN doc. Will continue to closely monitor pertinent labs, PO intake and skin status prn. Will followup in 2-3 days Est Energy needs: 4586-9340 kcals (23-25 kcal/kgBW), Est Protein needs: 74-93 gms/day (0.8-1.0 gm/kgBW). Will continue to monitor and reassess prn. LABS: CA 7.4 L, ALB 1.4 L GI: Pt with colostomy, BM noted on 03/28 per RN doc BS: 20 low risk, incision at site of sx per RN doc. Please refer to wound assessment report for full details. PES: Partially resolved: Altered nutrition related lab values r/t current chronic medical condition aeb elev BUN severe hypoalb Comments Will continue to closely monitor pertinent labs, NPO status, PN tolerance, and skin status prn. Will followup in 2-3 days 1) Advance PN support to meet > 75% of needs 2) advance diet as medically feasible 3) Continue current plan of care
--- NOTE | 2020-03-30 16:04 | NUR ---
PATIENT REFUSED PT. SAID HE ALREADY DID EXERCISES IN BED. Addendum: 03/30/20 at 1605 by SANDOR WINTERS PTT Amended: Links added.
[2020-03-30 17:21] VITALS: BP 125/73
--- NOTE | 2020-03-30 18:55 | NUR ---
CLOSING NOTE: Patient resting in bed. No S/S of SOB or distress at this time. Care endorsed to NOC RN.
--- NOTE | 2020-03-30 19:15 | NUR ---
Opening Shift Note: Assumed care of patient. Patient is awake, alert, and oriented X 4. No S/S of respiratory distress noted. No SOB reported. Respirations are regular and non-labored. PICC R Upper Arm is asymptomatic and patent running TPN and Zosyn. Colostomy bag intact. Bed in lowest locked position, side rails up x 2, call light within reach. Tele box matches to the monitor. Guards at bed side. Patient instructed on POC and to call for assistance as needed. Will continue to monitor for changes Q1hr and PRN.
[2020-03-30 20:00] VITALS: BP 138/92
[2020-03-30] MEDS ORDERED: TPN PER PHARMACY IV NR ×9 (20:00)
[2020-03-30 21:00] VITALS: BP 138/92
[2020-03-31] MEDS: HYDROmorphone HCL 2 MG/ML VL IV PRN ×11 (00:51→22:52)
[2020-03-31 05:00] VITALS: BP 134/79
[2020-03-31] MEDS: InsuLIN REG 1unit/0.01ml Soln (100units/ml) SC SCH ×4 (06:00→18:00)
[2020-03-31] MEDS: LINEZOLID 600MG/300ML 300 ML IV SCH ×2 (06:10→19:29)
[2020-03-31] MEDS: ACCU-CHEK COMFORT CURVE STRIP VI SCH ×4 (06:24→18:00)
[2020-03-31] MEDS: ALBUTEROL SULF 2.5 MG/0.5ML(0.5%) NEB SOLN NEB SCH ×3 (06:39→21:43)
[2020-03-31] MEDS: IPRATROPIUM BROM 0.5 MG/2.5ML INH SOL NEB SCH ×3 (06:40→21:43)
[2020-03-31 09:00] VITALS: BP 128/69
[2020-03-31] MEDS: levoFLOXacin 750MG 150 ML IV SCH (09:00)
--- NOTE | 2020-03-31 09:45 | NUR ---
Pt declined PT treatment, requested afternoon session. Will attempt again.
[2020-03-31 10:46] LABS: Basophils # (auto) 0.1 10 ^3/uL (0-0.2); Basophils % (auto) 1.2 % (0.0-2.0); Eosinophils # (auto) 0.1 10 ^3/uL (0-0.8); Eosinophils % (auto) 0.9 % (0.0-7.0); Hematocrit 28.4 % (41.0-53.0); Hemoglobin 9.1 g/dL (13.5-17.5); Lymphocytes # (auto) 0.8 10 ^3/uL (0.4-5.4); Lymphocytes % (auto) 8.2 % (10.0-50.0); Mean Corpuscular Hemoglobin 27.6 pg (28.0-32.0); Mean Corpuscular Volume 86.3 fL (80.0-100.0); Monocytes # (auto) 0.9 10 ^3/uL (0-1.3); Monocytes % (auto) 8.9 % (0.0-12.0); Neutrophils # (auto) 8.4 10 ^3/uL (1.6-8.6); Neutrophils % (auto) 80.8 % (37.0-80.0); Nucleated Red Blood Cells % 0.1 %; Platelet Count (auto) 441 10^3/uL (140-450); Red Blood Cells 3.29 10^6/uL (4.5-5.90); Red Cell Distribution Width 19.6 % (11.8-14.3); White Blood Cell 10.3 10^3/uL (4.4-10.8)
[2020-03-31 10:58] LABS: Albumin 1.6 g/dL (3.4-5.0); Calcium 7.5 mg/dL (8.5-10.1); Potassium 4.1 mmol/L (3.5-5.1)
[2020-03-31] MEDS: FLUCONAZOLE 200MG/100ML 100 ML IV SCH ×2 (11:08→12:51)
[2020-03-31] MEDS: PANTOPRAZOLE 40 MG/10 ML VIAL INJ IV SCH ×2 (11:08→20:05)
[2020-03-31 11:15] LABS: Bilirubin, Total 0.8 mg/dL (0.2-1.0); Phosphorus 2.7 mg/dL (2.5-4.90); Total Protein 6.8 g/dL (6.4-8.2)
[2020-03-31] MEDS: PROMETHAZINE HCL 25 MG/ML 1ML IV PRN ×2 (12:57→20:07)
[2020-03-31 13:00] VITALS: BP 143/90
[2020-03-31] MEDS: BUDESONIDE (INHALATION) 0.5 MG/2 ML NEB NEB SCH ×2 (14:31→21:43)
--- NOTE | 2020-03-31 14:58 | NUR ---
2nd attempt at PT treatment, pt refused.
[2020-03-31 16:46] VITALS: BP 124/80
[2020-03-31] MEDS ORDERED: TPN PER PHARMACY IV NR ×10 (20:00)
[2020-03-31 21:00] VITALS: BP 144/82
--- NOTE | 2020-03-31 22:05 | NUR ---
Called Dr. Cm Sidhu at this time. Notified that patients heart rate is 137 and sustaining. new orders received, read back and verified. Will carry out new orders.
[2020-03-31] MEDS ORDERED: METOPROLOL TARTRATE 1MG/1ML-5ML VIAL IV ONE (22:15)
[2020-03-31] MEDS ORDERED: METOPROLOL TARTRATE 1MG/1ML-5ML VIAL IV PRN (22:15)
[2020-03-31 23:13] LABS: Eosinophils # (auto) 0.2 10 ^3/uL (0-0.8); Monocytes # (auto) 1.2 10 ^3/uL (0-1.3); Nucleated Red Blood Cells % 0.1 %; Red Blood Cells 3.72 10^6/uL (4.5-5.90)
[2020-03-31 23:15] LABS: Basophils # (auto) 0.2 10 ^3/uL (0-0.2); Basophils % (auto) 1.3 % (0.0-2.0); Hematocrit 33.2 % (41.0-53.0); Hemoglobin 10.4 g/dL (13.5-17.5); Lymphocytes # (auto) 0.8 10 ^3/uL (0.4-5.4); Lymphocytes % (auto) 4.7 % (10.0-50.0); Mean Corpuscular Hemoglobin 27.8 pg (28.0-32.0); Mean Corpuscular Hgb Conc. 31.1 g/dL (32.0-36.0); Mean Corpuscular Volume 89.3 fL (80.0-100.0); Monocytes % (auto) 7.2 % (0.0-12.0); Neutrophils # (auto) 14.7 10 ^3/uL (1.6-8.6); Neutrophils % (auto) 85.8 % (37.0-80.0); Platelet Count (auto) 496 10^3/uL (140-450); White Blood Cell 17.2 10^3/uL (4.4-10.8)
[2020-04-01] MEDS: HYDROmorphone HCL 2 MG/ML VL IV PRN ×9 (00:59→21:13)
--- NOTE | 2020-04-01 03:23 | NUR ---
CLOSING NOTE: Patient resting in bed. No S/S of distress at this time. Care endorsed.
--- NOTE | 2020-04-01 04:00 | NUR ---
Opening Shift Note Assumed care of patient, asleep, even unlabored breaths. No S/S of distress/SOB or pain. Bed in lowest/locked position, bed rails up x2, call light within reach. Guards at bedside. Will continue to monitor for changes Q1hr and PRN.
[2020-04-01 04:30] VITALS: BP 114/72
[2020-04-01] MEDS: PROMETHAZINE HCL 25 MG/ML 1ML IV PRN ×2 (05:12→14:33)
[2020-04-01] MEDS: LINEZOLID 600MG/300ML 300 ML IV SCH ×2 (05:12→18:18)
[2020-04-01] MEDS: InsuLIN REG 1unit/0.01ml Soln (100units/ml) SC SCH ×4 (05:25→18:00)
[2020-04-01] MEDS: ACCU-CHEK COMFORT CURVE STRIP VI SCH ×4 (05:25→18:09)
[2020-04-01] MEDS: IPRATROPIUM BROM 0.5 MG/2.5ML INH SOL NEB SCH ×3 (06:40→22:14)
[2020-04-01] MEDS: BUDESONIDE (INHALATION) 0.5 MG/2 ML NEB NEB SCH ×2 (06:40→22:14)
[2020-04-01] MEDS: ALBUTEROL SULF 2.5 MG/0.5ML(0.5%) NEB SOLN NEB SCH ×3 (06:40→22:14)
[2020-04-01 06:50] LABS: Potassium 4.1 mmol/L (3.5-5.1)
[2020-04-01 07:02] LABS: Albumin 1.5 g/dL (3.4-5.0); BUN/Creatinine Ratio 26.1; Bilirubin, Total 0.8 mg/dL (0.2-1.0); Calcium 7.7 mg/dL (8.5-10.1); Magnesium 2.1 mg/dL (1.6-2.6); Phosphorus 2.7 mg/dL (2.5-4.90); Total Protein 6.3 g/dL (6.4-8.2)
[2020-04-01] MEDS: levoFLOXacin 750MG 150 ML IV SCH (07:44)
[2020-04-01 09:00] VITALS: BP 123/81
--- NOTE | 2020-04-01 10:00 | NUR ---
MD ROUNDS DR Cm CHAN AT BEDSIDE DISCUSSING POC WITH PATIENT. NEW ORDERS RECEIVED/ WILL CARRY OUT. WILL CONTINUE TO MONITOR
[2020-04-01] MEDS: FLUCONAZOLE 200MG/100ML 100 ML IV SCH ×2 (10:13→11:00)
[2020-04-01] MEDS: PANTOPRAZOLE 40 MG/10 ML VIAL INJ IV SCH ×2 (10:13→21:13)
[2020-04-01 12:56] VITALS: BP 122/80
[2020-04-01] MEDS: MEROPENEM 1GM IVPB 100 ML IV SCH ×2 (13:45→21:39)
--- NOTE | 2020-04-01 14:00 | NUR ---
PHYSICAL THERAPY PHYSICAL THERAPY WALKING PATIENT. PATIENT TOLERATED WELL HOWEVER C/O PAIN. WILL MEDICATE PER MD ORDERS
[2020-04-01 14:37] LABS: INR 1.41 (0.9-1.15)
[2020-04-01 17:00] VITALS: BP 117/84
--- NOTE | 2020-04-01 18:10 | NUR ---
LAB MIDLINE TIP SENT TO LAB PER MD ORDERS
[2020-04-01] MEDS ORDERED: LIDOCAINE 1% (LOCAL ANESTH.) PF 5ml SDV ID ONE (18:45)
--- NOTE | 2020-04-01 19:03 | NUR ---
PICC line placement Patient educated on need for PICC line placement. All risks and benefits explained and all questions and concerns addressed prior to procedure. Noted past medical history and allergies with no contraindications. INR and Plt counts within acceptable range. fr PICC line inserted via left brachial vein using [employer] US and Tip Location System. Sterile technique with maximum barrier precautions utilized. Blood return obtained from each of three lumens and each flushed easily with NS using proper technique. PICC secured with Stat-lock; biodisc and occlusive dressing applied. Stat portable chest x-ray obtained for PICC tip placement. *Baseline Arm Circumference 27cm. Internal length 37cm. External length 0cm. PICC lot #[id number].
--- NOTE | 2020-04-01 19:04 | NUR ---
Okay to use PICC line per Chuy CHIANG Xray completedand reviewed. Okay to use PICC line and primary RN notified.
--- NOTE | 2020-04-01 19:49 | NUR ---
Right upper arm picc line discontinued aseptic technique and send the picc line tip to lab. for C/S, patient tolerated well, put dry gauze and tape it.
[2020-04-01] MEDS: TPN PER PHARMACY IV NR ×9 (19:59)
[2020-04-01 20:43] VITALS: BP 117/84
[2020-04-01] MEDS: SODIUM CHLOR 0.9% PF (SALINE LOCK) 10ML VIAL/SYR IV SCH (21:13)
[2020-04-01 21:32] VITALS: BP 123/88
[2020-04-02] MEDS: HYDROmorphone HCL 2 MG/ML VL IV PRN ×7 (00:11→21:01)
[2020-04-02] MEDS: ACCU-CHEK COMFORT CURVE STRIP VI SCH ×4 (00:12→18:00)
[2020-04-02] MEDS: ACETAMINOPHEN 325 MG TAB PO PRN (03:55)
[2020-04-02 05:00] VITALS: BP 116/91
[2020-04-02] MEDS: MEROPENEM 1GM IVPB 100 ML IV SCH ×3 (05:13→21:00)
[2020-04-02] MEDS: InsuLIN REG 1unit/0.01ml Soln (100units/ml) SC SCH ×4 (05:21→18:00)
[2020-04-02] MEDS: LINEZOLID 600MG/300ML 300 ML IV SCH ×2 (05:41→18:09)
[2020-04-02] MEDS: IPRATROPIUM BROM 0.5 MG/2.5ML INH SOL NEB SCH ×3 (07:01→21:50)
[2020-04-02] MEDS: BUDESONIDE (INHALATION) 0.5 MG/2 ML NEB NEB SCH ×2 (07:01→21:50)
[2020-04-02] MEDS: ALBUTEROL SULF 2.5 MG/0.5ML(0.5%) NEB SOLN NEB SCH ×3 (07:01→21:50)
--- NOTE | 2020-04-02 07:21 | NUR ---
Report given to Mario Castro, patient is resting no distress.
--- NOTE | 2020-04-02 07:34 | NUR ---
DOCTOR GURVINDER AT BEDSIDE.
[2020-04-02 08:00] LABS: Potassium 3.4 mmol/L (3.5-5.1)
[2020-04-02 08:08] LABS: Albumin 1.5 g/dL (3.4-5.0); BUN/Creatinine Ratio 29.7; Bilirubin, Total 0.7 mg/dL (0.2-1.0); Calcium 7.5 mg/dL (8.5-10.1); Magnesium 2.2 mg/dL (1.6-2.6); Phosphorus 2.6 mg/dL (2.5-4.90); Total Protein 6.2 g/dL (6.4-8.2)
[2020-04-02 09:00] VITALS: BP 120/77
[2020-04-02] MEDS: SODIUM CHLOR 0.9% PF (SALINE LOCK) 10ML VIAL/SYR IV SCH ×2 (10:00→21:00)
[2020-04-02] MEDS: FLUCONAZOLE 200MG/100ML 100 ML IV SCH ×2 (10:11→11:32)
[2020-04-02] MEDS: PANTOPRAZOLE 40 MG/10 ML VIAL INJ IV SCH ×2 (10:11→21:00)
[2020-04-02] MEDS ORDERED: POTASSIUM CHL 20MEQ/100ML 100 ML IV ONE (11:30)
--- NOTE | 2020-04-02 11:31 | NUR ---
Assessment Patient is a 59-year old male who is alert and oriented. Informed patient he has the right to speak to a rn social services regarding medical conditions and concerns regarding his stay. Patient verbalize understanding. Addendum: 04/02/20 at 1132 by CHARLY LAURENT wrong age
--- NOTE | 2020-04-02 11:32 | NUR ---
Assessment Patient is a 54-year old male who is alert and oriented. Informed patient he has the right to speak to a geriatric social work professor regarding medical conditions and concerns regarding his stay.
[2020-04-02 12:45] VITALS: BP 136/67
--- NOTE | 2020-04-02 14:50 | NUR ---
PATIENT REFUSED PT. MARVIN ABEL WAS NOTIFIED. Addendum: 04/02/20 at 1450 by SANDOR WINTERS PTT Amended: Links added.
[2020-04-02 15:07] LABS: Basophils # (auto) 0.1 10 ^3/uL (0-0.2); Basophils % (auto) 0.6 % (0.0-2.0); Eosinophils # (auto) 0.2 10 ^3/uL (0-0.8); Eosinophils % (auto) 1.8 % (0.0-7.0); Hemoglobin 8.6 g/dL (13.5-17.5); Lymphocytes # (auto) 0.8 10 ^3/uL (0.4-5.4); Lymphocytes % (auto) 7.1 % (10.0-50.0); Mean Corpuscular Hemoglobin 27.5 pg (28.0-32.0); Mean Corpuscular Hgb Conc. 31.8 g/dL (32.0-36.0); Mean Corpuscular Volume 86.5 fL (80.0-100.0); Monocytes % (auto) 8.8 % (0.0-12.0); Neutrophils # (auto) 8.9 10 ^3/uL (1.6-8.6); Neutrophils % (auto) 81.7 % (37.0-80.0); Platelet Count (auto) 421 10^3/uL (140-450); Red Blood Cells 3.12 10^6/uL (4.5-5.90); White Blood Cell 10.9 10^3/uL (4.4-10.8)
[2020-04-02 15:10] LABS: Red Cell Distribution Width 21.2 % (11.8-14.3)
--- NOTE | 2020-04-02 15:14 | NUR ---
Nutrition Followup Notes Wt: 89.5 kg Pt sleeping with guards by bedside. Pt is currently NPO with PN support @ 92 ml/hr providing 2300 kcals and 100 gm protein, with 1900 NPCs. Pt with adequate PN support as it meets 99-108% kcals of est energy needs PN support with adequate protein as it meets 108-135% of estimated protein needs. Pt also with a Clear Liquid diet, appetite is good aeb 75% PO intake per RN doc. Pt with no distress per RN doc. Will continue to closely monitor pertinent labs, PO intake and skin status prn. Will followup in 3-5 days Est Energy needs: 5073-1544 kcals (23-25 kcal/kgBW), Est Protein needs: 74-93 gms/day (0.8-1.0 gm/kgBW). Will continue to monitor and reassess prn. LABS: CA 7.4 L, ALB 1.4 L GI: Pt with colostomy, BM noted on 03/28 per RN doc BS: 20 low risk, incision at site of sx per RN doc. Please refer to wound assessment report for full details. PES: Partially resolved: Altered nutrition related lab values r/t current chronic medical condition aeb elev BUN severe hypoalb Comments Will continue to closely monitor pertinent labs, NPO status, PN tolerance, and skin status prn. Will followup in 3-5 days 1) Advance PN support to meet > 75% of needs 2) advance diet as medically feasible 3) Continue current plan of care
--- NOTE | 2020-04-02 15:17 | NUR ---
Note New Lab values for 04/02 Followup: NA 133 L, POT 3.4 L, CA 7.5 L, ALB 1.5 L
--- NOTE | 2020-04-02 15:48 | NUR ---
Orders Spoke with Doctor Arcadio regarding patient requesting pain medication. New orders received,see emr for orders.
[2020-04-02 17:00] VITALS: BP 122/79
[2020-04-02] MEDS: PROMETHAZINE HCL 25 MG/ML 1ML IV PRN (17:00)
--- NOTE | 2020-04-02 19:20 | NUR ---
Opening Note Assumed care of patient, awake and alert. No S/S of distress/SOB. TPN bag was empty at the time of report, New bag was hanged, all procedures explained to patient. Instructed on POC and to call for assist as needed, will continue to monitor.
[2020-04-02] MEDS: TPN PER PHARMACY IV NR ×18 (19:53→20:11)
[2020-04-02 22:00] VITALS: BP 135/80
[2020-04-03] MEDS: ACCU-CHEK COMFORT CURVE STRIP VI SCH ×4 (00:25→18:00)
[2020-04-03] MEDS: HYDROmorphone HCL 2 MG/ML VL IV PRN ×6 (02:19→22:13)
[2020-04-03 05:00] VITALS: BP 127/83
[2020-04-03] MEDS: InsuLIN REG 1unit/0.01ml Soln (100units/ml) SC SCH ×4 (05:44→18:00)
[2020-04-03] MEDS: MEROPENEM 1GM IVPB 100 ML IV SCH ×3 (05:45→21:26)
[2020-04-03 05:59] LABS: Basophils # (auto) 0.1 10 ^3/uL (0-0.2); Eosinophils # (auto) 0.2 10 ^3/uL (0-0.8); Lymphocytes # (auto) 1.3 10 ^3/uL (0.4-5.4); Nucleated Red Blood Cells % 0.1 %
[2020-04-03 06:02] LABS: Basophils % (auto) 1.1 % (0.0-2.0); Eosinophils % (auto) 1.5 % (0.0-7.0); Hematocrit 27.6 % (41.0-53.0); Hemoglobin 8.7 g/dL (13.5-17.5); Lymphocytes % (auto) 10.9 % (10.0-50.0); Mean Corpuscular Hemoglobin 27.2 pg (28.0-32.0); Mean Corpuscular Hgb Conc. 31.4 g/dL (32.0-36.0); Mean Corpuscular Volume 86.6 fL (80.0-100.0); Monocytes # (auto) 1.1 10 ^3/uL (0-1.3); Monocytes % (auto) 8.8 % (0.0-12.0); Neutrophils # (auto) 9.4 10 ^3/uL (1.6-8.6); Neutrophils % (auto) 77.7 % (37.0-80.0); Platelet Count (auto) 512 10^3/uL (140-450); Red Blood Cells 3.19 10^6/uL (4.5-5.90); White Blood Cell 12.1 10^3/uL (4.4-10.8)
[2020-04-03] MEDS: IPRATROPIUM BROM 0.5 MG/2.5ML INH SOL NEB SCH ×3 (06:11→22:07)
[2020-04-03] MEDS: ALBUTEROL SULF 2.5 MG/0.5ML(0.5%) NEB SOLN NEB SCH ×3 (06:11→22:07)
[2020-04-03] MEDS: BUDESONIDE (INHALATION) 0.5 MG/2 ML NEB NEB SCH ×2 (06:11→22:07)
[2020-04-03 06:16] LABS: BUN/Creatinine Ratio 26.5; Calcium 7.5 mg/dL (8.5-10.1); Potassium 4.2 mmol/L (3.5-5.1)
[2020-04-03] MEDS: PROMETHAZINE HCL 25 MG/ML 1ML IV PRN ×2 (06:17→14:31)
[2020-04-03 06:23] LABS: Red Cell Distribution Width 20.8 % (11.8-14.3)
--- NOTE | 2020-04-03 06:54 | NUR ---
Patient resting in bed, unlabored breathing, was medicated for pain and nausea. Will cont to monitor.
--- NOTE | 2020-04-03 08:00 | NUR ---
Received pt resting in bed, call light within reach, pt reports abdominal pain 05/26, pt was given pain medication per nightclub manager nurse, will medicate pt as order,
--- NOTE | 2020-04-03 08:10 | NUR ---
Dr. Gilles Sidhu at bed side to see pt, doctor discussed the plan of care with pt.
[2020-04-03 09:00] VITALS: BP 123/71
[2020-04-03 10:11] LABS: Albumin 1.5 g/dL (3.4-5.0); Phosphorus 2.5 mg/dL (2.5-4.90)
[2020-04-03] MEDS: PANTOPRAZOLE 40 MG/10 ML VIAL INJ IV SCH ×2 (10:23→21:27)
--- NOTE | 2020-04-03 10:24 | NUR ---
Pain Pt reported general abdominal pain 06/26, pt requested pain medication, will administer pain medication as order, will continue to monitor pt.
[2020-04-03] MEDS: SODIUM CHLOR 0.9% PF (SALINE LOCK) 10ML VIAL/SYR IV SCH ×2 (10:25→21:27)
[2020-04-03] MEDS: FLUCONAZOLE 200MG/100ML 100 ML IV SCH ×2 (10:25→11:45)
--- NOTE | 2020-04-03 14:13 | NUR ---
Pain Pt reported general abdominal pain 06/26, pt requested pain medication, will administer pain medication as order, will continue to monitor pt.
--- NOTE | 2020-04-03 14:30 | NUR ---
PATIENT REFUSED PT. Addendum: 04/03/20 at 1431 by SANDOR WINTERS PTT Amended: Links added.
[2020-04-03 16:58] VITALS: BP 118/83
[2020-04-03] MEDS: ACETAMINOPHEN 325 MG TAB PO PRN (17:54)
--- NOTE | 2020-04-03 19:00 | NUR ---
Opening Note Assumed care of patient, awake and alert. No S/S of distress/SOB. Patient asked for pain medication, patient received pain med at 1800, patient was reminded of the time. Instructed on POC and to call for assist as needed, will continue to monitor.
--- NOTE | 2020-04-03 19:30 | NUR ---
Dr Ervin at bed side.
[2020-04-03] MEDS: TPN PER PHARMACY IV NR ×9 (19:56)
[2020-04-03] MEDS ORDERED: TPN PER PHARMACY IV NR ×9 (20:00)
[2020-04-03 22:00] VITALS: BP 121/91
[2020-04-04] MEDS: ACCU-CHEK COMFORT CURVE STRIP VI SCH ×4 (01:43→18:17)
[2020-04-04] MEDS: HYDROmorphone HCL 2 MG/ML VL IV PRN ×6 (02:39→21:23)
[2020-04-04 05:00] VITALS: BP 128/87
[2020-04-04] MEDS: MEROPENEM 1GM IVPB 100 ML IV SCH ×3 (05:35→21:23)
[2020-04-04] MEDS: InsuLIN REG 1unit/0.01ml Soln (100units/ml) SC SCH ×4 (05:36→18:00)
[2020-04-04 05:53] LABS: Albumin 1.5 g/dL (3.4-5.0); BUN/Creatinine Ratio 30.3; Bilirubin, Total 0.7 mg/dL (0.2-1.0); Calcium 7.6 mg/dL (8.5-10.1); Magnesium 1.9 mg/dL (1.6-2.6); Phosphorus 2.9 mg/dL (2.5-4.90); Total Protein 6.3 g/dL (6.4-8.2)
[2020-04-04] MEDS: ALBUTEROL SULF 2.5 MG/0.5ML(0.5%) NEB SOLN NEB SCH (07:02)
[2020-04-04] MEDS: IPRATROPIUM BROM 0.5 MG/2.5ML INH SOL NEB SCH (07:02)
[2020-04-04] MEDS: BUDESONIDE (INHALATION) 0.5 MG/2 ML NEB NEB SCH (07:02)
--- NOTE | 2020-04-04 07:30 | NUR ---
Opening Shift Note Assumed care of patient, awake and alert. No S/S of distress/SOB. Instructed on POC and to call for assist PRN, will continue to monitor for changes Q1hr and PRN. Guards present at bedside. Bed is set in lowest locked position with side rails up x 2 for safety and call light is within reach.
--- NOTE | 2020-04-04 08:45 | NUR ---
Elevated temperature Patient's temperature is 101.2. Cooling measures implemented, and patient medicated per orders. (see eMar). Will re-assess temperature and continue to monitor patient.
[2020-04-04] MEDS: ACETAMINOPHEN 325 MG TAB PO PRN (08:47)
[2020-04-04 09:00] VITALS: BP 122/83
[2020-04-04] MEDS: PANTOPRAZOLE 40 MG/10 ML VIAL INJ IV SCH ×2 (09:10→21:23)
[2020-04-04] MEDS: FLUCONAZOLE 200MG/100ML 100 ML IV SCH ×2 (09:11→11:24)
--- NOTE | 2020-04-04 09:47 | NUR ---
Temperature reassessment Patient temperature is now 98.7, cooling measures still in place. Will continue to monitor patient.
[2020-04-04] MEDS: SODIUM CHLOR 0.9% PF (SALINE LOCK) 10ML VIAL/SYR IV SCH ×2 (09:48→21:24)
[2020-04-04 13:00] VITALS: BP 125/94
[2020-04-04 17:00] VITALS: BP 134/87
[2020-04-04] MEDS: PROMETHAZINE HCL 25 MG/ML 1ML IV PRN (19:38)
[2020-04-04] MEDS ORDERED: TPN PER PHARMACY IV NR ×9 (20:00)
--- NOTE | 2020-04-04 20:00 | NUR ---
Opening note Patient resting in bed with even and unlabored respirations on 3 LPM NC, no distress noted. Instructed patient on POC, fall precautions, pressure injury prevention, and to call for assistance as needed. Patient verbalized understanding. Fall precautions in place with call light within reach. Handcuffs to the BLE and left wrist. Skin is intact under handcuffs. patient able to reposition self independently. IS at bedside. Instructed patient on MD's order for IS. Patient verbalized understanding. Guards at bedside.
[2020-04-04 22:07] VITALS: BP 132/88
[2020-04-05] VITALS (7 sets, daily range): BP systolic 119–143; BP diastolic 76–99
[2020-04-05] MEDS: ACCU-CHEK COMFORT CURVE STRIP VI SCH ×4 (01:24→18:05)
[2020-04-05] MEDS: InsuLIN REG 1unit/0.01ml Soln (100units/ml) SC SCH ×4 (01:29→18:00)
[2020-04-05] MEDS: HYDROmorphone HCL 2 MG/ML VL IV PRN ×6 (01:56→22:33)
--- NOTE | 2020-04-05 02:05 | NUR ---
RE: Ativan/Anxiety Patient reporting anxiety s/s. Patient states "I just find it hard to catch my breath. I'm feeling anxious. All I got on my mind is pending ." Patient requested anti-anxiety medication. Medication administered per MD order. Respirations are shallow, even and increased rate. Patient on 3 LPM NC. Call light within reach.
--- NOTE | 2020-04-05 03:53 | NUR ---
Patient resting in bed with eyes closed respirations even and unlabored, no distress noted. Call light within reach.
--- NOTE | 2020-04-05 04:44 | NUR ---
RE: temperature 100.1 Cooling measures applied.
[2020-04-05] MEDS: PROMETHAZINE HCL 25 MG/ML 1ML IV PRN (05:32)
[2020-04-05] MEDS: MEROPENEM 1GM IVPB 100 ML IV SCH ×3 (05:33→22:33)
--- NOTE | 2020-04-05 06:22 | NUR ---
Closing note Patient resting in bed with eyes closed; respirations even and unlabored, no distress noted. Fall precautions in place with call light within reach.
[2020-04-05 07:07] LABS: Albumin 1.5 g/dL (3.4-5.0); Calcium 7.3 mg/dL (8.5-10.1); Magnesium 1.8 mg/dL (1.6-2.6); Potassium 3.8 mmol/L (3.5-5.1)
[2020-04-05 07:09] LABS: BUN/Creatinine Ratio 27.8
[2020-04-05 07:12] LABS: Bilirubin, Total 0.7 mg/dL (0.2-1.0); Phosphorus 2.2 mg/dL (2.5-4.90); Total Protein 6.4 g/dL (6.4-8.2)
--- NOTE | 2020-04-05 07:22 | NUR ---
CARE ENDORSED TO COLTEN WONG
[2020-04-05] MEDS: PANTOPRAZOLE 40 MG/10 ML VIAL INJ IV SCH ×2 (09:23→22:33)
[2020-04-05] MEDS: FLUCONAZOLE 200MG/100ML 100 ML IV SCH ×2 (09:23→10:37)
[2020-04-05] MEDS: SODIUM CHLOR 0.9% PF (SALINE LOCK) 10ML VIAL/SYR IV SCH ×2 (10:00→22:23)
[2020-04-05] MEDS ORDERED: MAGNESIUM SULFATE 1GM/100ML 100 ML IV ONE (10:00)
[2020-04-05] MEDS ORDERED: SODIUM PHOSPHATES 20 MEQ in SODIUM CHL 0.9% 100 ML IV ONE (10:30)
[2020-04-05] MEDS ORDERED: PROMETHAZINE HCL 25 MG/ML 1ML IV PRN (11:00)
[2020-04-05] MEDS ORDERED: MAGNESIUM CITRATE SOLUTION 300 ML BTL PO ONE (11:15)
--- NOTE | 2020-04-05 11:40 | NUR ---
Nutrition Followup Notes Wt: 89.5 kg Pt sleeping with guards by bedside. Pt is currently NPO with PN support @ 91 ml/hr providing 2300 kcals and 100 gm protein, with 1900 NPCs. Pt with adequate PN support as it meets 99-108% kcals of est energy needs PN support with adequate protein as it meets 108-135% of estimated protein needs. Pt also with a Clear Liquid diet, pt po intake poor per RN doc aeb multiple 25% po intakes per MD note pt with no distress, pt refusing CLD d/t pt believes sugar is feeding cancer. Est Energy needs: 3999-8365 kcals (23-25 kcal/kgBW), Est Protein needs: 74-93 gms/day (0.8-1.0 gm/kgBW). Will continue to monitor and reassess prn. LABS: Creat 0.36L, Ca 7.3L, Alb 1.5L GI: Pt with colostomy, BM noted on 03/28 per RN doc BS: 18 low risk, incision at site of sx per RN doc. Please refer to wound assessment report for full details. PES: Partially resolved: Altered nutrition related lab values r/t current chronic medical condition aeb elev BUN severe hypoalb Comments Will continue to closely monitor pertinent labs, NPO status, PN tolerance, and skin status prn. Will followup in 3-5 days 1) Continue PN support to meet > 75% of needs 2) advance diet as medically feasible 3) Continue current plan of care
[2020-04-05] MEDS: ONDANSETRON HCL 4 MG/2 ML VIAL IV PRN (14:00)
[2020-04-05] MEDS ORDERED: LEVALBUTEROL HCL 1.25 MG/3 ML NEB NEB ONE (14:45)
[2020-04-05] MEDS: chlorproMAZINE HCL 25 MG/1 ML AMP IM PRN (18:29)
[2020-04-05 18:41] LABS: Pre Albumin 3.8 mg/dL (20.0-40.0)
[2020-04-05] MEDS: LEVALBUTEROL HCL 1.25 MG/3 ML NEB NEB SCH (19:15)
--- NOTE | 2020-04-05 19:30 | NUR ---
OPENING SHIFT NOTE Assumed care of patient who is A&O x4. currently on 3L NC with no s/s of distress. Reports 6/10 abdominal pain. Pain management options discussed. PICC in left upper arm is intact and patent. Unused lumens flushed with 10ml NS. Colostomy present in LLQ. Midline abdominal surgical scar noted. Patient is shackled to bed at left wrist and bilateral ankles. Guards are present at the bedside for supervision. Bed is in low locked position with side rails up x2. Call light is within reach and patient encouraged to call for assistance when needed.
[2020-04-05] MEDS ORDERED: TPN PER PHARMACY IV NR ×9 (20:00)
--- NOTE | 2020-04-05 21:30 | NUR ---
TEMPERATURE Oral temperature is 99.6. Cooling measures applied.
--- NOTE | 2020-04-05 22:30 | NUR ---
EDEMA 2+ pitting edema noted to left forearm. Patient denies pain to the area. Pulse is present and patient is able to move his arm/hand without difficulty. Patient has a triple lumen PICC in left upper arm currently infusing TPN. Dr. Sidhu notified. Awaiting call back.
[2020-04-05] MEDS: SERTRALINE HCL 50 MG TAB PO SCH (22:33)
--- NOTE | 2020-04-05 23:23 | NUR ---
received call from Dr. Sidhu, new orders received; read back and verified.
--- NOTE | 2020-04-05 23:24 | NUR ---
RADIOLOGY Contacted radiology regarding STAT order for venous doppler of LUE.
--- NOTE | 2020-04-05 23:28 | NUR ---
ULTRA SOUND Received call from ultrasound stating she will be up to perform the venous doppler in approximately 5 minutes. Patient made aware.
[2020-04-06] MEDS ORDERED: HEPARIN SODIUM (PORCINE) 5000 UNITS/ML 1ML VIAL IV ONE
--- NOTE | 2020-04-06 | NUR ---
LAB Contact lab to notify of STAT PT/PTT and CBC orders.
--- NOTE | 2020-04-06 00:07 | NUR ---
ULTRASOUND Notified by US that doppler study is positive for DVT in the Brachial and axillary veins. Heparin protocol orders initiated per Dr. Sidhu's orders.
[2020-04-06] MEDS: ACCU-CHEK COMFORT CURVE STRIP VI SCH ×4 (00:31→17:37)
[2020-04-06] MEDS: LEVALBUTEROL HCL 1.25 MG/3 ML NEB NEB SCH ×4 (00:44→18:46)
--- NOTE | 2020-04-06 01:00 | NUR ---
LAB Contacted lab regarding results. Was informed that blood had been drawn and results are pending.
--- NOTE | 2020-04-06 01:45 | NUR ---
LAB contact lab to inquire about lab values. Requested they be given over the phone, as PT/PTT and CBC has not yet populated. Was told someone will call me back.
--- NOTE | 2020-04-06 01:50 | NUR ---
LAB Lab in room to draw STAT PT/PTT and CBC.
--- NOTE | 2020-04-06 01:52 | NUR ---
LAB Received call from lab stating there was a "mix up with the pt/ptt" and another patient was drawn. Informed that print binding and finishing worker will be in to draw now. Machine Molder visualized in room at 0150.
[2020-04-06 02:06] LABS: Basophils % (auto) 1.1 % (0.0-2.0); Eosinophils # (auto) 0.1 10 ^3/uL (0-0.8); Hemoglobin 9.2 g/dL (13.5-17.5); Lymphocytes # (auto) 1.3 10 ^3/uL (0.4-5.4)
[2020-04-06 02:08] LABS: Basophils # (auto) 0.1 10 ^3/uL (0-0.2); Eosinophils % (auto) 0.5 % (0.0-7.0); Hematocrit 28.6 % (41.0-53.0); Lymphocytes % (auto) 9.8 % (10.0-50.0); Mean Corpuscular Hemoglobin 27.6 pg (28.0-32.0); Mean Corpuscular Hgb Conc. 32.2 g/dL (32.0-36.0); Mean Corpuscular Volume 85.9 fL (80.0-100.0); Monocytes # (auto) 1.3 10 ^3/uL (0-1.3); Monocytes % (auto) 9.7 % (0.0-12.0); Neutrophils # (auto) 10.5 10 ^3/uL (1.6-8.6); Neutrophils % (auto) 78.9 % (37.0-80.0); Nucleated Red Blood Cells % 0.1 %; Platelet Count (auto) 671 10^3/uL (140-450); Red Blood Cells 3.33 10^6/uL (4.5-5.90); White Blood Cell 13.3 10^3/uL (4.4-10.8)
[2020-04-06 02:09] LABS: Red Cell Distribution Width 21.3 % (11.8-14.3)
[2020-04-06] MEDS: METOPROLOL TARTRATE 1MG/1ML-5ML VIAL IV PRN (02:09)
[2020-04-06] MEDS: HYDROmorphone HCL 2 MG/ML VL IV PRN ×6 (02:15→21:55)
[2020-04-06] MEDS: HEPARIN DRIP/D5W 100UNITS/ML 250 ML IV SCH ×2 (02:16→10:48)
[2020-04-06 02:22] LABS: INR 1.32 (0.9-1.15); Partial Thromboplastin Time 47.6 sec (23.64-32.05)
[2020-04-06] MEDS: ONDANSETRON HCL 4 MG/2 ML VIAL IV PRN ×2 (04:20→15:29)
[2020-04-06 05:29] VITALS: BP 130/83
[2020-04-06] MEDS: InsuLIN REG 1unit/0.01ml Soln (100units/ml) SC SCH ×4 (06:00→17:37)
[2020-04-06] MEDS: MEROPENEM 1GM IVPB 100 ML IV SCH ×3 (06:36→21:54)
[2020-04-06 09:00] VITALS: BP 130/81
--- NOTE | 2020-04-06 09:00 | NUR ---
INFORMED DOCTOR ALPA PATIENTS LEFT ARM IS POSITIVE FOR DVT. PER MD YUEN D/C PATIENTS PICC LINE ONCE PATIENT RECEIVES NEW PICC LIKE IN RIGHT ARM.
[2020-04-06] MEDS ORDERED: OMNIPAQUE ORAL SOLN 500ml 12mg/ml PO ONE (09:24)
[2020-04-06] MEDS: PANTOPRAZOLE 40 MG/10 ML VIAL INJ IV SCH ×2 (09:37→21:54)
[2020-04-06] MEDS: FLUCONAZOLE 200MG/100ML 100 ML IV SCH ×2 (09:37→11:25)
[2020-04-06] MEDS: PROMETHAZINE HCL 25 MG/ML 1ML IV PRN ×2 (09:37→19:57)
[2020-04-06] MEDS: SERTRALINE HCL 50 MG TAB PO SCH ×2 (09:38→21:54)
[2020-04-06] MEDS: SODIUM CHLOR 0.9% PF (SALINE LOCK) 10ML VIAL/SYR IV SCH ×2 (09:38→21:54)
[2020-04-06 10:01] LABS: Albumin 1.5 g/dL (3.4-5.0); BUN/Creatinine Ratio 33.3; Calcium 7.5 mg/dL (8.5-10.1); Magnesium 1.9 mg/dL (1.6-2.6); Potassium 3.8 mmol/L (3.5-5.1)
[2020-04-06 10:02] LABS: INR 1.35 (0.9-1.15); Partial Thromboplastin Time 44.8 sec (23.64-32.05)
[2020-04-06 10:09] LABS: Bilirubin, Total 1.1 mg/dL (0.2-1.0); Phosphorus 2.4 mg/dL (2.5-4.90); Total Protein 6.5 g/dL (6.4-8.2)
[2020-04-06] MEDS ORDERED: IOHEXOL 300 MG/ML 100ML BOTTLE IJ ONE (12:55)
[2020-04-06 13:00] VITALS: BP 130/90
[2020-04-06] MEDS ORDERED: SODIUM PHOSPHATES 20 MEQ in SODIUM CHL 0.9% 100 ML IV ONE (13:00)
[2020-04-06 17:00] VITALS: BP 112/79
[2020-04-06 18:13] LABS: INR 1.4 (0.9-1.15); Partial Thromboplastin Time 50.3 sec (23.64-32.05)
--- NOTE | 2020-04-06 18:48 | NUR ---
Respiratory note: AT BEDSIDE FOR MED NEB TX. PT REFUSED TX. POX 94-95%, HR 120S. NO S/S OF DISTRESS NOTED WILL CONTINUE TO MONITOR.
--- NOTE | 2020-04-06 18:56 | NUR ---
Patients ptt is 50.3 no change per protocol. New labs ordered for 0055.
--- NOTE | 2020-04-06 19:25 | NUR ---
OPENING SHIFT NOTE Assumed care of patient who is A&O x4. Currently on 3L NC with no s/s of distress. Reports 10/10 abdominal pain as well as nausea. Pain management options discussed. Triple lumen PICC line in left upper arm is intact and patent. Previous imaging indicated DVT in this extremity; left forearm continues to have 1+ pitting edema. Patient denies pain to this area. Heparin drip continues at 2000 units/hr according to protocol. TPN also infusing as ordered. POC discussed and patient verbalizes understanding. Bilateral ankles and right wrist are shackled to the bed and guards are present x2 at the bedside. Bed is in low locked position with side rails up x2. Call light is within reach and patient encouraged to call for assistance when needed. Will continue to monitor for changes PRN.
[2020-04-06 20:00] VITALS: BP 149/81
[2020-04-06] MEDS ORDERED: TPN PER PHARMACY IV NR ×9 (20:00)
[2020-04-06 22:00] VITALS: BP 146/68
[2020-04-07] MEDS: LEVALBUTEROL HCL 1.25 MG/3 ML NEB NEB SCH ×4 (00:18→18:36)
--- NOTE | 2020-04-07 00:18 | NUR ---
Respiratory note: AT BEDSIDE FOR MED NEB TX PT FOUND ON RA POX IN LOW 80S, HR120, STRONGLY ENCOURAGED PT TO TAKE MED NEB TX AND BE PLACED BACK ON 3LPM NC POST TX. PT BEING COMPLIANT.
[2020-04-07] MEDS: ACCU-CHEK COMFORT CURVE STRIP VI SCH ×4 (00:36→18:11)
[2020-04-07 01:39] LABS: INR 1.41 (0.9-1.15); Partial Thromboplastin Time 51.3 sec (23.64-32.05)
[2020-04-07] MEDS: HYDROmorphone HCL 2 MG/ML VL IV PRN ×7 (01:55→22:10)
--- NOTE | 2020-04-07 02:08 | NUR ---
PTT Ptt is 51.3 No changes to Heparin drip. Next aPTT scheduled for 0700.
--- NOTE | 2020-04-07 05:38 | NUR ---
TEMPERATURE Oral temperature is 101.1. Cooling measures applied. Tylenol to be administered as ordered.
[2020-04-07] MEDS: InsuLIN REG 1unit/0.01ml Soln (100units/ml) SC SCH ×4 (06:00→18:00)
[2020-04-07] MEDS: MEROPENEM 1GM IVPB 100 ML IV SCH ×3 (06:06→22:15)
[2020-04-07] MEDS: ACETAMINOPHEN 325 MG TAB PO PRN ×2 (06:15→16:20)
[2020-04-07 06:20] LABS: INR 1.36 (0.9-1.15); Partial Thromboplastin Time 53.1 sec (23.64-32.05)
[2020-04-07 06:28] LABS: Chloride 101 mmol/L (98-107); Potassium 3.9 mmol/L (3.5-5.1); Sodium 135 mmol/L (136-145)
[2020-04-07 06:47] LABS: Alanine Aminotransferase 49 U/L (16-61); Albumin 1.5 g/dL (3.4-5.0); Alkaline Phosphatase 463 U/L (45-117); Anion Gap 8 (5-15); Aspartate Aminotransferase 158 U/L (15-37); Bilirubin, Total 0.8 mg/dL (0.2-1.0); Blood Urea Nitrogen 13 mg/dL (7-18); Calcium 7.4 mg/dL (8.5-10.1); Carbon Dioxide 26 mmol/L (21-32); GFR African American 275 mL/min; GFR Non-African American 227 mL/min; Glucose 129 mg/dL (74-106); Phosphorus 2.1 mg/dL (2.5-4.90); Pre Albumin < 3.0 mg/dL (20.0-40.0); Total Protein 6.4 g/dL (6.4-8.2); Triglycerides 104 mg/dL (< 150)
--- NOTE | 2020-04-07 07:30 | NUR ---
RECEIVED REPORT FROM NIGHT NURSE. PATIENT RESTING IN BED, 2 GUARDS AT BEDSIDE. SHACKLES TO BILATERAL ANKLES, SLIGHT REDNESS NOTED. HANDCUFF TO LEFT WRIST, NO SKIN BREAKDOWN NOTED. PATIENT COMPLAINING OF PAIN THAT NEVER STOPS, AND NAUSEA UPON DRINKING/ EATING. WILL CONTINUE TO MONITOR.
--- NOTE | 2020-04-07 07:30 | NUR ---
TEMPERATURE RECHECK 99.1
[2020-04-07] MEDS ORDERED: SENNA 8.6 MG TAB PO ONE (08:00)
--- NOTE | 2020-04-07 08:00 | NUR ---
PTT 53.1, NO CHANGE TO HEPARIN DOSE PER PROTOCOL. WILL CONTINUE TO RUN AT 20 ML/HR
[2020-04-07] MEDS: PROMETHAZINE HCL 25 MG/ML 1ML IV PRN ×2 (08:40→18:12)
[2020-04-07 09:00] VITALS: BP 126/81
--- NOTE | 2020-04-07 09:00 | NUR ---
PAGED DOCTOR ALPA PATIENT STATED THAT DOCTOR YUEN TOLD HIM HE WOULD ORDER A FENTANYL PATCH. NO NEW ORDERS. PAGED DOCTOR YUEN FOR CLARIFICATION ON ORDERS.
[2020-04-07] MEDS: MILK OF MAGNESIA 30ML SUSP PO SCH (10:00)
[2020-04-07] MEDS: LACTULOSE 20Gm/30ML SOLN PO SCH (10:00)
--- NOTE | 2020-04-07 10:00 | NUR ---
REFUSED MEDICATIONS PATIENT REFUSED ORAL LACTULOSE AND MILK OF MAGNESIA, STATES THAT HE WILL JUST THROW IT UP. WILL CONTINUE TO MONITOR.
[2020-04-07] MEDS: PANTOPRAZOLE 40 MG/10 ML VIAL INJ IV SCH ×2 (10:09→22:15)
[2020-04-07] MEDS: FLUCONAZOLE 200MG/100ML 100 ML IV SCH ×2 (10:10→11:11)
[2020-04-07] MEDS: SODIUM CHLOR 0.9% PF (SALINE LOCK) 10ML VIAL/SYR IV SCH ×2 (10:10→22:15)
[2020-04-07] MEDS: SERTRALINE HCL 50 MG TAB PO SCH ×2 (12:09→22:15)
[2020-04-07 13:00] VITALS: BP 139/90
--- NOTE | 2020-04-07 13:00 | NUR ---
TEMPERATURE TEMP 100.2, COOLING MEASURE INITIATED. BLANKETS REMOVED, ICE PACKS GIVEN. WILL CONTINUE TO MONITOR.
[2020-04-07] MEDS: DOCUSATE ORAL LIQUID 100 MG/10 ML UD GT SCH ×2 (14:00→22:14)
--- NOTE | 2020-04-07 14:00 | NUR ---
REFUSED MEDICATIONS PATIENT REFUSED ORAL COLACE, STATES THAT HE WILL THROW IT UP. WILL CONTINUE TO MONITOR.
[2020-04-07] MEDS: ONDANSETRON HCL 4 MG/2 ML VIAL IV PRN (14:47)
--- NOTE | 2020-04-07 16:20 | NUR ---
TEMPERATURE 103.0, TYLENOL GIVEN PER ORDERS. ICE PACKS PLACED ON PATIENT, BLANKETS REMOVED, ROOM COOLED.
[2020-04-07 17:00] VITALS: BP 142/84
--- NOTE | 2020-04-07 17:19 | NUR ---
TEMPERATURE RECHECK 98.4
[2020-04-07 20:00] VITALS: BP 122/75
[2020-04-07] MEDS ORDERED: TPN PER PHARMACY IV NR ×9 (20:00)
--- NOTE | 2020-04-07 20:03 | NUR ---
OPENING SHIFT NOTE Assumed care of patient who is A&O x4. Currently on 3L NC with no s/s of distress. Reports 9/10 abdominal pain. Pain management options discussed with patient. Triple lumen PICC in left upper arm present and patent. Currently infusing TPN and Heparin as ordered. Edema to left forearm noted related to current DVT. Patient is shackled to bed at left wrist and bilateral ankles. Guards are present at the bedside for supervision. POC discussed and all questions answered. Telemetry box battery changed. Bed is in low locked position with side rails up x2. Call light is within reach and call light is within reach. Will continue to monitor for changes PRN.
[2020-04-07] MEDS: CIPROFLOXACIN 400MG/200ML 200 ML IV SCH (20:25)
[2020-04-07 22:00] VITALS: BP 122/75
[2020-04-08] MEDS: ACCU-CHEK COMFORT CURVE STRIP VI SCH ×5 (00:25→23:43)
[2020-04-08] MEDS: LEVALBUTEROL HCL 1.25 MG/3 ML NEB NEB SCH ×4 (00:44→19:25)
[2020-04-08] MEDS: PROMETHAZINE HCL 25 MG/ML 1ML IV PRN ×3 (01:02→16:14)
[2020-04-08] MEDS: HYDROmorphone HCL 2 MG/ML VL IV PRN ×6 (02:13→21:58)
[2020-04-08] MEDS: CIPROFLOXACIN 400MG/200ML 200 ML IV SCH ×3 (04:00→20:26)
[2020-04-08 05:00] VITALS: BP 141/87
[2020-04-08] MEDS: ONDANSETRON HCL 4 MG/2 ML VIAL IV PRN ×4 (05:02→20:50)
[2020-04-08] MEDS: InsuLIN REG 1unit/0.01ml Soln (100units/ml) SC SCH ×5 (06:00→23:43)
[2020-04-08] MEDS: DOCUSATE ORAL LIQUID 100 MG/10 ML UD GT SCH ×3 (06:00→21:57)
[2020-04-08] MEDS: MEROPENEM 1GM IVPB 100 ML IV SCH ×3 (06:10→21:57)
--- NOTE | 2020-04-08 08:20 | NUR ---
PATIENT HAVING SVT SUSTAINING AT 218, DIAPHORETIC ALTHOUGH THIS HAS BEENS PATIENTS BASELINE, NO OTHER SYMPTOMS AT THIS TIME. HAS PATIENT BEAR DOWN, HEART RATE DECREASED TO 190'S. GAVE METOPROLOL 5 MR PATIENT HR NOW 170-188. Cm HANDY. Addendum: 04/08/20 at 1819 by Tamera Huerta RN Gave metoprolol 5 MG.
[2020-04-08] MEDS: METOPROLOL TARTRATE 1MG/1ML-5ML VIAL IV PRN ×2 (08:31→13:07)
[2020-04-08 08:56] LABS: Lymphocytes # (auto) 0.9 10 ^3/uL (0.4-5.4); Lymphocytes % (auto) 6.1 % (10.0-50.0); Mean Corpuscular Volume 86.3 fL (80.0-100.0); Monocytes # (auto) 1.6 10 ^3/uL (0-1.3)
[2020-04-08 08:58] LABS: Basophils # (auto) 0.2 10 ^3/uL (0-0.2); Basophils % (auto) 1.1 % (0.0-2.0); Eosinophils # (auto) 0 10 ^3/uL (0-0.8); Eosinophils % (auto) 0.2 % (0.0-7.0); Hematocrit 25.6 % (41.0-53.0); Hemoglobin 8.1 g/dL (13.5-17.5); Mean Corpuscular Hemoglobin 27.2 pg (28.0-32.0); Mean Corpuscular Hgb Conc. 31.5 g/dL (32.0-36.0); Monocytes % (auto) 11.3 % (0.0-12.0); Neutrophils # (auto) 11.7 10 ^3/uL (1.6-8.6); Neutrophils % (auto) 81.3 % (37.0-80.0); Platelet Count (auto) 585 10^3/uL (140-450); Red Blood Cells 2.97 10^6/uL (4.5-5.90); White Blood Cell 14.4 10^3/uL (4.4-10.8)
[2020-04-08 09:00] VITALS: BP 109/76
--- NOTE | 2020-04-08 09:08 | NUR ---
PAGED MPATEL AGAIN RE PATIENTS CURRENT CONDITION
[2020-04-08 09:11] LABS: INR 1.37 (0.9-1.15); Partial Thromboplastin Time 57.2 sec (23.64-32.05)
[2020-04-08 09:17] LABS: Albumin 1.5 g/dL (3.4-5.0); Calcium 7.6 mg/dL (8.5-10.1); Potassium 3.5 mmol/L (3.5-5.1)
[2020-04-08 09:22] LABS: Bilirubin, Total 0.8 mg/dL (0.2-1.0); Phosphorus 1.7 mg/dL (2.5-4.90); Total Protein 6.1 g/dL (6.4-8.2)
[2020-04-08] MEDS: MILK OF MAGNESIA 30ML SUSP PO SCH (10:00)
[2020-04-08] MEDS: LACTULOSE 20Gm/30ML SOLN PO SCH (10:00)
--- NOTE | 2020-04-08 10:00 | NUR ---
Charge nurse notified of patients current condition. Patient stable at this time, alert and orientedx4, RR 20, HR is still high 195. Cm marcano has not called back
--- NOTE | 2020-04-08 10:39 | NUR ---
mpatel paged again
[2020-04-08] MEDS ORDERED: SODIUM PHOSP 40 MEQ in D5W 5% 250 ML IV ONE (11:00)
[2020-04-08] MEDS ORDERED: POTASSIUM CHL 20MEQ/100ML 100 ML IV ONE (11:00)
--- NOTE | 2020-04-08 11:09 | NUR ---
Hold PT today due to elevated HR.
[2020-04-08] MEDS: FLUCONAZOLE 200MG/100ML 100 ML IV SCH ×2 (11:30→12:58)
[2020-04-08] MEDS: SERTRALINE HCL 50 MG TAB PO SCH ×2 (11:30→21:58)
[2020-04-08] MEDS: PANTOPRAZOLE 40 MG/10 ML VIAL INJ IV SCH ×2 (11:30→21:58)
--- NOTE | 2020-04-08 11:42 | NUR ---
Nutrition Followup Notes Wt: 91.0 kg Pt alert and oriented. Pt reports not consuming CLD d/t the sweet foods being too sweet and the salty foods being too salty. Pt with in adequate oral intake aeb pt with 25% or refusal of CLD per RN doc. Pt is currently NPO with PN support @ 91 ml/hr providing 2300 kcals and 100 gm protein, with 1900 NPCs. Pt with adequate PN support as it meets 99-108% kcals of est energy needs PN support with adequate protein as it meets 108-135% of estimated protein needs. Est Energy needs: 3167-7902 kcals (23-25 kcal/kgBW), Est Protein needs: 74-93 gms/day (0.8-1.0 gm/kgBW). Will continue to monitor and reassess prn. LABS: GLUC 128H, Creat 0.42L, Ca 7.4L, Alb 1.5L GI: Pt with colostomy, BM noted on 03/28 per RN doc BS: 15 mod risk, incision at site of sx per RN doc. Please refer to wound assessment report for full details. PES: Partially resolved: Altered nutrition related lab values r/t current chronic medical condition aeb elev BUN severe hypoalb Comments Will continue to closely monitor pertinent labs, NPO status, PN tolerance, and skin status prn. Will followup in 3-5 days 1) Continue PN support to meet > 75% of needs 2) advance diet as medically feasible 3) Continue current plan of care
[2020-04-08] MEDS: SODIUM CHLOR 0.9% PF (SALINE LOCK) 10ML VIAL/SYR IV SCH ×2 (12:13→21:58)
[2020-04-08] MEDS: HEPARIN DRIP/D5W 100UNITS/ML 250 ML IV SCH (12:34)
[2020-04-08 13:00] VITALS: BP 107/76
--- NOTE | 2020-04-08 13:00 | NUR ---
MPATEL AT BEDSIDE HR IS BACK TO NORMAL AFTER SECOND PUSH OF METOPROLOL. BP STABLE WELL 104/73. PATIENT ALERT AND ORIENTED.
[2020-04-08 16:44] VITALS: BP 118/87
--- NOTE | 2020-04-08 17:00 | NUR ---
Dr Ervin at bedside, Dr Ervin does not wish to sign consent for PICC because it is not a procedure that he is doing. Would like us to have Gilles Sidhu or PICC nurse sign it, as it has a spot to sign that states "Certified RN".
[2020-04-08 19:26] VITALS: BP 118/87
--- NOTE | 2020-04-08 19:40 | NUR ---
Opening Shift Note Assumed care of patient, awake and alert. No S/S of distress/SOB or pain. Instructed on POC and to call for assist PRN. Bed in lowest locked position, call light within reach, side rails up x2, fall precautions in place. Will continue to monitor for changes Q1hr and PRN.
[2020-04-08] MEDS ORDERED: TPN PER PHARMACY IV NR ×9 (20:00)
[2020-04-08 22:00] VITALS: BP 98/74
[2020-04-09] MEDS: HYDROmorphone HCL 2 MG/ML VL IV PRN ×7 (00:08→22:41)
[2020-04-09] MEDS: LEVALBUTEROL HCL 1.25 MG/3 ML NEB NEB SCH ×5 (00:14→23:35)
[2020-04-09] MEDS: PROMETHAZINE HCL 25 MG/ML 1ML IV PRN ×4 (02:07→22:40)
[2020-04-09] MEDS: CIPROFLOXACIN 400MG/200ML 200 ML IV SCH ×3 (03:42→20:10)
[2020-04-09 05:16] VITALS: BP 145/85
[2020-04-09] MEDS: InsuLIN REG 1unit/0.01ml Soln (100units/ml) SC SCH ×4 (06:00→23:53)
[2020-04-09] MEDS: DOCUSATE ORAL LIQUID 100 MG/10 ML UD GT SCH ×3 (06:00→22:00)
[2020-04-09 06:25] LABS: INR 1.23 (0.9-1.15); Partial Thromboplastin Time 42.5 sec (23.64-32.05)
[2020-04-09] MEDS: ACCU-CHEK COMFORT CURVE STRIP VI SCH ×4 (06:27→23:53)
[2020-04-09] MEDS: MEROPENEM 1GM IVPB 100 ML IV SCH ×3 (06:27→22:23)
[2020-04-09 06:35] LABS: Potassium 3.9 mmol/L (3.5-5.1)
[2020-04-09 06:51] LABS: Albumin 1.4 g/dL (3.4-5.0); BUN/Creatinine Ratio 32.5; Bilirubin, Total 0.7 mg/dL (0.2-1.0); Calcium 7.4 mg/dL (8.5-10.1); Magnesium 1.9 mg/dL (1.6-2.6); Phosphorus 2.3 mg/dL (2.5-4.90); Total Protein 6.4 g/dL (6.4-8.2)
[2020-04-09] MEDS: METOPROLOL TARTRATE 1MG/1ML-5ML VIAL IV PRN (06:57)
[2020-04-09] MEDS: HYDROmorphone HCL 2 MG TAB PO PRN ×2 (08:17→14:18)
[2020-04-09 09:00] VITALS: BP 131/86
[2020-04-09] MEDS: SODIUM CHLOR 0.9% PF (SALINE LOCK) 10ML VIAL/SYR IV SCH ×3 (09:20→22:23)
[2020-04-09] MEDS: PANTOPRAZOLE 40 MG/10 ML VIAL INJ IV SCH ×2 (09:20→22:23)
[2020-04-09] MEDS: FLUCONAZOLE 200MG/100ML 100 ML IV SCH ×2 (09:20→10:35)
[2020-04-09] MEDS: SERTRALINE HCL 50 MG TAB PO SCH ×2 (09:21→22:23)
[2020-04-09] MEDS: MILK OF MAGNESIA 30ML SUSP PO SCH (09:21)
[2020-04-09] MEDS: LACTULOSE 20Gm/30ML SOLN PO SCH (09:21)
--- NOTE | 2020-04-09 09:21 | NUR ---
Patient again refused MOM, Lactulose states "no way, i'm not drinking that", when I asked what his concerns were with drinking the medication he stated "no, ill just throw it up", patient also stated "the nausea medicine wont help either", I explained that Dr Ervin really would like him to take the medications to help with his abdomen distention, he stated "nope, no thanks".
--- NOTE | 2020-04-09 10:42 | NUR ---
per pharmacy ok to run phosphates when patients antibiotics complete this evening around 5pm.
[2020-04-09] MEDS ORDERED: TPN PER PHARMACY IV NR ×18 (10:45→20:00)
[2020-04-09] MEDS ORDERED: SODIUM PHOSP 40 MEQ in D5W 5% 250 ML IV ONE (11:00)
[2020-04-09] MEDS: ONDANSETRON HCL 4 MG/2 ML VIAL IV PRN (11:25)
[2020-04-09 13:00] VITALS: BP 129/84
[2020-04-09] MEDS: HEPARIN DRIP/D5W 100UNITS/ML 250 ML IV SCH (15:03)
--- NOTE | 2020-04-09 15:55 | NUR ---
PICC line placement Patient educated on need for PICC line placement. All risks and benefits explained and all questions and concerns addressed prior to procedure. Noted past medical history and allergies with no contraindications. INR and Plt counts within acceptable range. 5 fr PICC line inserted via right brachial vein using [employer] US and Tip Location System. Sterile technique with maximum barrier precautions utilized. Blood return obtained from each of the 2 lumens and each flushed easily with NS using proper technique. PICC secured with Stat-lock; biodisc and occlusive dressing applied. Stat portable chest x-ray obtained for PICC tip placement. *Baseline Arm Circumference 29 cm. Internal length 37 cm. External length 0. PICC lot #[id number]
[2020-04-09] MEDS ORDERED: LIDOCAINE 1% (LOCAL ANESTH.) PF 5ml SDV ID ONE (16:00)
--- NOTE | 2020-04-09 16:25 | NUR ---
Okay to use PICC line Xray completed. Okay to use PICC line. Tamera WONG notified.
[2020-04-09 17:00] VITALS: BP 136/84
--- NOTE | 2020-04-09 21:00 | NUR ---
Heparin PTT at 57.5. Per protocol no change on Heparin rate. Rate remains at 22 ml/hr. Continue care.
[2020-04-09 21:06] VITALS: BP 127/87
[2020-04-09 21:13] LABS: INR 1.3 (0.9-1.15); Partial Thromboplastin Time 57.5 sec (23.64-32.05)
--- NOTE | 2020-04-09 23:35 | NUR ---
Respiratory note: SCHEDULED MED NEB TX NOT GIVEN. PT WAS ASLEEP , NO RESP DISTRESS NOTED. PT WOKE UP AND STATED HE WOULD TAKE TX IN THE AM. HR 114, RR 20, SPO2 92% ON 3L N/C.
[2020-04-10] MEDS: HEPARIN DRIP/D5W 100UNITS/ML 250 ML IV SCH ×2 (02:32→14:34)
[2020-04-10] MEDS: ONDANSETRON HCL 4 MG/2 ML VIAL IV PRN ×2 (02:42→20:45)
[2020-04-10] MEDS: HYDROmorphone HCL 2 MG/ML VL IV PRN ×6 (02:42→21:41)
--- NOTE | 2020-04-10 03:30 | NUR ---
Heparin PTT at 58.8. Per protocol no change on Heparin rate. Rate remains at 22 ml/hr. Continue care.
[2020-04-10 03:39] LABS: Basophils # (auto) 0.1 10 ^3/uL (0-0.2); Eosinophils # (auto) 0.2 10 ^3/uL (0-0.8); Lymphocytes # (auto) 1.3 10 ^3/uL (0.4-5.4); Lymphocytes % (auto) 9.9 % (10.0-50.0); Neutrophils # (auto) 9.8 10 ^3/uL (1.6-8.6)
[2020-04-10 03:41] LABS: Basophils % (auto) 1.1 % (0.0-2.0); Eosinophils % (auto) 1.3 % (0.0-7.0); Mean Corpuscular Hemoglobin 27.5 pg (28.0-32.0); Mean Corpuscular Hgb Conc. 32.1 g/dL (32.0-36.0); Mean Corpuscular Volume 85.6 fL (80.0-100.0); Monocytes # (auto) 1.4 10 ^3/uL (0-1.3); Neutrophils % (auto) 76.7 % (37.0-80.0); Platelet Count (auto) 661 10^3/uL (140-450); Red Blood Cells 2.92 10^6/uL (4.5-5.90); White Blood Cell 12.8 10^3/uL (4.4-10.8)
[2020-04-10 04:00] LABS: INR 1.25 (0.9-1.15); Partial Thromboplastin Time 58.8 sec (23.64-32.05)
[2020-04-10] MEDS: CIPROFLOXACIN 400MG/200ML 200 ML IV SCH ×3 (04:05→20:19)
[2020-04-10 04:10] LABS: Albumin 1.5 g/dL (3.4-5.0); Calcium 7.5 mg/dL (8.5-10.1); Magnesium 1.8 mg/dL (1.6-2.6); Potassium 3.9 mmol/L (3.5-5.1)
[2020-04-10 04:12] LABS: BUN/Creatinine Ratio 37.8; Bilirubin, Total 0.7 mg/dL (0.2-1.0); Phosphorus 2.6 mg/dL (2.5-4.90); Total Protein 6.5 g/dL (6.4-8.2)
[2020-04-10] MEDS: PROMETHAZINE HCL 25 MG/ML 1ML IV PRN (04:57)
[2020-04-10 05:00] VITALS: BP 144/103
--- NOTE | 2020-04-10 05:00 | NUR ---
Temperature Elevated at 101.0. Patient refusing Tylenol PRJazmin stating "it makes me sick, it makes me throw up." Cooling measures initiated. Will continue to monitor. Addendum: 04/10/20 at 0656 by NAZARIO CALLES OCA, RN [id number] Temp recheck at 98.5
[2020-04-10] MEDS: InsuLIN REG 1unit/0.01ml Soln (100units/ml) SC SCH ×4 (06:00→23:50)
[2020-04-10] MEDS: DOCUSATE ORAL LIQUID 100 MG/10 ML UD GT SCH (06:00)
[2020-04-10] MEDS: ACCU-CHEK COMFORT CURVE STRIP VI SCH ×4 (06:22→23:50)
[2020-04-10] MEDS: MEROPENEM 1GM IVPB 100 ML IV SCH ×3 (06:22→22:00)
[2020-04-10] MEDS: LEVALBUTEROL HCL 1.25 MG/3 ML NEB NEB SCH ×3 (06:33→17:55)
--- NOTE | 2020-04-10 07:30 | NUR ---
Opening Shift Note Assumed care of patient, awake and alert. No S/S of distress/SOB. Patient has chronic pain 06/26. Patient was not due for next dose of pain medication. Instructed on POC and to call for assist PRN, will continue to monitor for changes Q1hr and PRN. Bed locked and in lowest position. Call light within reach.
[2020-04-10 08:00] VITALS: BP 155/83
[2020-04-10] MEDS: LACTULOSE 20Gm/30ML SOLN PO SCH (09:12)
[2020-04-10] MEDS: PANTOPRAZOLE 40 MG/10 ML VIAL INJ IV SCH ×2 (09:12→22:00)
[2020-04-10] MEDS: SERTRALINE HCL 50 MG TAB PO SCH ×2 (09:13→22:00)
[2020-04-10] MEDS: MILK OF MAGNESIA 30ML SUSP PO SCH (09:13)
[2020-04-10 09:16] LABS: INR 1.32 (0.9-1.15); Partial Thromboplastin Time 62.6 sec (23.64-32.05)
[2020-04-10] MEDS: SODIUM CHLOR 0.9% PF (SALINE LOCK) 10ML VIAL/SYR IV SCH ×4 (10:00→22:00)
--- NOTE | 2020-04-10 11:00 | NUR ---
PICC LINE REMOVED PICC LINE REMOVED FROM LEFT UPPER ARM. PATIENT TOLERATED WELL, NO SIGNS OF DISTRESS OR PAIN. USING CLEAN TECHNIQUE LINE REMOVED, CATHETER INTACT, NO SIGNS OF INFECTION. NO SIGNS OF MAJOR BLEEDING. GAUZE AND TEGADERM PLACED.
[2020-04-10 12:00] VITALS: BP 152/87
--- NOTE | 2020-04-10 13:00 | NUR ---
Colostomy Output Patient had approximately 10 mL of liquid output with gas from his colostomy bag.
[2020-04-10] MEDS: DOCUSATE ORAL LIQUID 100 MG/10 ML UD PO SCH ×2 (14:00→22:00)
[2020-04-10 16:48] VITALS: BP 157/80
--- NOTE | 2020-04-10 19:10 | NUR ---
Opening Shift Note Assumed care of patient, awake and alert. No S/S of distress/SOB but states that he is in pain. States that his pain is 9/10 in severity. Patient received pain medication at 1900. Will reassess the patient's pain . Bed is locked in lowest position with call light within reach. Instructed on POC and to call for assistance PRN, will continue to monitor for changes Q1hr and PRN.
--- NOTE | 2020-04-10 19:20 | NUR ---
Closing Shift Note Patient resting in bed. No distress noted. Report given. Will endorse care to the attorney at law RN.
[2020-04-10] MEDS ORDERED: TPN PER PHARMACY IV NR ×10 (20:00)
[2020-04-10 21:45] VITALS: BP 133/79
[2020-04-11] MEDS: HYDROmorphone HCL 2 MG/ML VL IV PRN ×6 (00:11→20:06)
[2020-04-11] MEDS: HEPARIN DRIP/D5W 100UNITS/ML 250 ML IV SCH ×3 (00:59→23:35)
[2020-04-11] MEDS: CIPROFLOXACIN 400MG/200ML 200 ML IV SCH ×3 (04:00→20:06)
[2020-04-11 05:00] VITALS: BP 150/99
[2020-04-11] MEDS: ACCU-CHEK COMFORT CURVE STRIP VI SCH ×3 (06:00→17:32)
[2020-04-11] MEDS: MEROPENEM 1GM IVPB 100 ML IV SCH ×3 (06:00→22:00)
[2020-04-11] MEDS: DOCUSATE ORAL LIQUID 100 MG/10 ML UD PO SCH ×3 (06:00→22:00)
[2020-04-11] MEDS: InsuLIN REG 1unit/0.01ml Soln (100units/ml) SC SCH ×3 (06:00→17:34)
[2020-04-11 06:05] LABS: Potassium 4.1 mmol/L (3.5-5.1)
[2020-04-11 06:06] LABS: INR 1.3 (0.9-1.15)
[2020-04-11 06:12] LABS: Albumin 1.5 g/dL (3.4-5.0); BUN/Creatinine Ratio 28.2; Bilirubin, Total 0.7 mg/dL (0.2-1.0); Calcium 7.5 mg/dL (8.5-10.1); Magnesium 1.8 mg/dL (1.6-2.6); Phosphorus 2.5 mg/dL (2.5-4.90); Total Protein 6.2 g/dL (6.4-8.2)
[2020-04-11] MEDS: LEVALBUTEROL HCL 1.25 MG/3 ML NEB NEB SCH ×4 (06:40→18:51)
--- NOTE | 2020-04-11 07:30 | NUR ---
Opening Shift Note Assumed care of patient. No S/S of distress/SOB or pain. Instructed on POC and to call for assist PRN, will continue to monitor for changes Q1hr and PRN.
[2020-04-11] MEDS: PANTOPRAZOLE 40 MG/10 ML VIAL INJ IV SCH ×2 (08:40→22:00)
[2020-04-11] MEDS: PROMETHAZINE HCL 25 MG/ML 1ML IV PRN (08:42)
[2020-04-11] MEDS: SODIUM CHLOR 0.9% PF (SALINE LOCK) 10ML VIAL/SYR IV SCH ×4 (08:48→22:00)
[2020-04-11] MEDS: SERTRALINE HCL 50 MG TAB PO SCH ×2 (08:48→22:00)
[2020-04-11 09:00] VITALS: BP 137/91
--- NOTE | 2020-04-11 09:00 | NUR ---
PT NOTES PT AWAKE, ALERT, ORIENTED X 4. LINEN CHANGED, PT REPOSITIONED. PT GIVEN A WET WASHCLOTH AND ENCOURAGED TO WIPE DOWN HIS FACE AND UPPER BODY. PT ABLE TO TOLERATE ACTIVITY WELL. PT VERBALIZED UNDERSTANDING. 2 GUARDS AT BEDSIDE.
[2020-04-11] MEDS: LACTULOSE 20Gm/30ML SOLN PO SCH (09:12)
[2020-04-11] MEDS: MILK OF MAGNESIA 30ML SUSP PO SCH (09:13)
--- NOTE | 2020-04-11 10:30 | NUR ---
ANXIETY PT VERBALIZED HAVING A LOT OF ANXIETY FOR UNKNOWN REASON AND IS SOMETIMES ISN'T SURE IF HE'S ACTUALLY IN PAIN OR JUST ANXIOUS. I INFORMED PT THAT I WILL LET THE DOCTOR KNOW AND WILL ASK FOR ANXIETY MEDICATION.
[2020-04-11] MEDS: HYDROmorphone HCL 2 MG TAB PO PRN (11:35)
--- NOTE | 2020-04-11 11:51 | NUR ---
Nutrition Followup Notes Wt: 91.0 kg Pt alert and oriented. Pt diet advanced to regular 04/08. Pt with poor po intake aeb pt with all 0% intake except 1 intake of 75% since 04/08 per Rn doc. Pt is receiving nutrition through TPN. Pt is currently NPO with PN support @ 91 ml/hr providing 2300 kcals and 100 gm protein, with 1900 NPCs. Pt with adequate PN support as it meets 99-108% kcals of est energy needs PN support with adequate protein as it meets 108-135% of estimated protein needs. Est Energy needs: 3018-1713 kcals (23-25 kcal/kgBW), Est Protein needs: 74-93 gms/day (0.8-1.0 gm/kgBW). Will continue to monitor and reassess prn. LABS: Creat 0.39L, Alb 1.5L, Ca 7.5L GI: Pt with colostomy, BM noted on 03/28 per RN doc BS: 16 mod risk, incision at site of sx per RN doc. Please refer to wound assessment report for full details. PES: Partially resolved: Altered nutrition related lab values r/t current chronic medical condition aeb elev BUN severe hypoalb Comments Will continue to closely monitor pertinent labs, NPO status, PN tolerance, and skin status prn. Will followup in 3-5 days 1) Continue PN support to meet > 75% of needs 2) advance diet as medically feasible 3) Continue current plan of care
[2020-04-11 12:33] VITALS: BP 132/88
[2020-04-11 13:31] LABS: INR 1.32 (0.9-1.15); Partial Thromboplastin Time 55.7 sec (23.64-32.05)
--- NOTE | 2020-04-11 13:35 | NUR ---
INFORMED MD OF PT'S ANXIETY. NEW ORDERS RECEIVED AND CARRIED OUT.
--- NOTE | 2020-04-11 14:05 | NUR ---
Rounds Patient aSLEEP, AROUSABLE. No S/S of distress/SOB or pain. Will continue to monitor changes q1hr and PRN.
[2020-04-11 17:02] VITALS: BP 115/73
[2020-04-11] MEDS: LORazepam 2MG/ML-1ML VIAL IV PRN ×2 (17:32→22:20)
--- NOTE | 2020-04-11 19:25 | NUR ---
Opening Shift Note Assumed care of patient, awake and alert. No S/S of distress/SOB but complains of severe abdominal pain which he reports as a 9/10. Patient is resting in bed. Guards are at bed side. Bed is locked in the lowest position with the call light within reach. Instructed on POC and to call for assist PRN, will continue to monitor for changes Q1hr and PRN.
--- NOTE | 2020-04-11 19:31 | NUR ---
REPORT GIVEN TO LUIS ANTONIO RN. PT RESTING IN BED, EYES CLOSED. NO DISTRESS NOTED AT THIS TIME. GUARDS AT BEDSIDE.
[2020-04-11] MEDS ORDERED: TPN PER PHARMACY IV NR ×9 (20:00)
[2020-04-11 22:00] VITALS: BP 165/115
--- NOTE | 2020-04-11 22:45 | NUR ---
ASSESSMENT The patient seems to be slightly more restless after the administration of the 1 mg Ativan. Will continue to monitor the patient's status.
[2020-04-12] MEDS: HYDROmorphone HCL 2 MG/ML VL IV PRN ×2 (00:10→07:08)
[2020-04-12] MEDS: LEVALBUTEROL HCL 1.25 MG/3 ML NEB NEB SCH ×4 (00:29→19:09)
[2020-04-12 02:22] VITALS: BP 165/115
[2020-04-12] MEDS: METOPROLOL TARTRATE 1MG/1ML-5ML VIAL IV PRN (03:12)
[2020-04-12] MEDS: HYDROmorphone HCL 2 MG TAB PO PRN ×3 (03:13→19:07)
[2020-04-12] MEDS: CIPROFLOXACIN 400MG/200ML 200 ML IV SCH ×3 (04:00→19:57)
[2020-04-12] MEDS: LORazepam 2MG/ML-1ML VIAL IV PRN (04:06)
--- NOTE | 2020-04-12 04:45 | NUR ---
IV removal IV removed by patient accidently. Catheter fully intact. Pressure dressing applied to site. Patient tolerated well.
[2020-04-12 05:00] VITALS: BP 149/107
--- NOTE | 2020-04-12 05:00 | NUR ---
IV insertion IV access obtained, via clean sterile technique by inserting gauge catheter at right wrist after 2 attempt(s). IV secured properly. No trauma to site. Patient tolerated well.
[2020-04-12] MEDS: DOCUSATE ORAL LIQUID 100 MG/10 ML UD PO SCH ×3 (06:00→22:00)
[2020-04-12] MEDS: InsuLIN REG 1unit/0.01ml Soln (100units/ml) SC SCH ×4 (06:00→17:57)
[2020-04-12] MEDS: ACCU-CHEK COMFORT CURVE STRIP VI SCH ×4 (06:00→17:57)
[2020-04-12] MEDS: MEROPENEM 1GM IVPB 100 ML IV SCH ×3 (06:00→22:58)
--- NOTE | 2020-04-12 06:49 | NUR ---
RT NOTE: PT HAS AUDIBLE I/E WHEEZING AND SOB. PT IS LABORED AND TACHYPNEIC. GUARD IS BEDSIDE AND STATED THAT HE FEELS LIKE PT IS MORE CONFUSED AND LETHARGIC THAN USUAL. RN ALSO CAME BEDSIDE AND IS AWARE OF CONCERNS. WILL CONTINUE TO MONITOR.
[2020-04-12 09:17] VITALS: BP 139/97
--- NOTE | 2020-04-12 09:46 | NUR ---
TELE CALLED, THEY REPORT PT HR IS IN 120'S, AND PT IS GOING IN AND OUT OF A FLUTTER. PT BASELINE IS 120'S. CALLED AND LEFT MESSAGE FOR DR CHAN, NOTIFYING OF HR AND A FLUTTER, AWAITING CALL BACK. ASSESSED PT, PT RESTING IN BED AND REPORTS 9/10 ABDOMINAL PAIN, PRN PAIN MED ALREADY GIVEN. PT REPORTS NO CHEST PAIN OR SOB. WILL CONTINUE TO MONITOR.
[2020-04-12] MEDS: LACTULOSE 20Gm/30ML SOLN PO SCH (10:00)
[2020-04-12] MEDS: MILK OF MAGNESIA 30ML SUSP PO SCH (10:00)
[2020-04-12 10:19] LABS: Albumin 1.5 g/dL (3.4-5.0); Calcium 7.5 mg/dL (8.5-10.1); Potassium 4.5 mmol/L (3.5-5.1)
[2020-04-12 10:23] LABS: BUN/Creatinine Ratio 32.5; Bilirubin, Total 0.7 mg/dL (0.2-1.0); INR 1.28 (0.9-1.15); Partial Thromboplastin Time 42.3 sec (23.64-32.05); Phosphorus 2.7 mg/dL (2.5-4.90); Total Protein 6.5 g/dL (6.4-8.2)
--- NOTE | 2020-04-12 10:45 | NUR ---
RT NOTE: CALLED TO BEDSIDE FOR STAT TX. BREATHING TX GIVEN 15MIN EARLY. PT IS CLEARLY IN DISTRESS DUE TO ABDOMINAL DISTENSION. PT STATES THAT IT IS 10/10 PAIN. RN IS SPEAKING WITH MD ABOUT WHAT TO DO. TX DID NOTHING TO HELP WITH PTS CONDITION. ABDOMEN IS VERY HARD TO THE TOUCH. WILL CONTINUE TO MONITOR.
--- NOTE | 2020-04-12 10:58 | NUR ---
CHARGE REPORTS PT SOB AND DISPLAYS HEAVY BREATHING, ASSESSED PT. LOUD INSPIRATORY AND EXPIRATORY WHEEZES PRESENT. CHARGE AT BEDSIDE. 02 93% ON 3L. SPOKE WITH RT IN HALLWAY AND REQUESTED STAT BREATHING TX. RT REPORTS THEY WILL GIVE TX NOW. PT TACHYPNEIC. NOTIFIED DR. FERNANDEZ OF PT DETERIORATION. MD AWARE, NO NEW ORDERS.
--- NOTE | 2020-04-12 11:05 | NUR ---
DR FERNANDEZ SAW PATIENT, HE REPORTS PT STILL WANTS TO BE FULL CODE. NOTIFIED MD PT HR IN 120'S AND IS GOING IN AND OUT OF A FLUTTER. MD AWARE, NO NEW ORDERS. NOTIFIED MD WILL HOLD DILAUDID BASED ON BREATHING. REPORTS, "THAT'S FINE." HE REPORTS DR ARCE WILL BE IN TO SEE PT TODAY FOR PAIN MANAGEMENT.
[2020-04-12] MEDS: SODIUM CHLOR 0.9% PF (SALINE LOCK) 10ML VIAL/SYR IV SCH ×2 (12:19→22:53)
[2020-04-12] MEDS: PANTOPRAZOLE 40 MG/10 ML VIAL INJ IV SCH ×2 (12:19→22:56)
[2020-04-12] MEDS: SERTRALINE HCL 50 MG TAB PO SCH ×2 (12:21→22:53)
[2020-04-12] MEDS: HEPARIN DRIP/D5W 100UNITS/ML 250 ML IV SCH ×2 (12:43→22:56)
[2020-04-12 13:00] VITALS: BP 147/101
--- NOTE | 2020-04-12 14:27 | NUR ---
CALLED DR ARCE FOR PAIN MANAGEMENT CONSULT. REPORTS HE IS IN [place] TODAY BUT CAN SEE PATIENT TOMORROW.
--- NOTE | 2020-04-12 14:43 | NUR ---
PT REPORTS HE IS IN 9/10 PAIN IN ABDOMEN. ASSESSED PT O2, O2 93% ON 3L, RR 17. WILL GIVE DILAUDID.
--- NOTE | 2020-04-12 16:32 | NUR ---
NO NEW APTT DRAWN. CALLED LAB AND REQUESTED STAT ORDER. LAST DRAWN AT 0900 AND IS Q6 HOURS.
[2020-04-12 16:53] VITALS: BP 134/86
[2020-04-12 17:07] LABS: INR 1.34 (0.9-1.15); Partial Thromboplastin Time 67.5 sec (23.64-32.05)
--- NOTE | 2020-04-12 17:51 | NUR ---
New APTT 67.5, no bolus, no change.
[2020-04-12] MEDS: ACETAMINOPHEN 325 MG TAB PO PRN (18:57)
--- NOTE | 2020-04-12 19:07 | NUR ---
PT REPORTS 9/10 PAIN IN ABDOMEN. ASSESSED PT RR, RR 16, O2 SAT 92% ON 3L. WILL GIVE PAIN MED.
--- NOTE | 2020-04-12 19:11 | NUR ---
RT NOTE PT WAS SEEN BY RT FOR HHN TX PT TOLERATES WELL VIA MASK. NO ADVERSE REACTION NOTED. PT LUNG SOUNDS ARE CLEAR/DIMINISHED. PT DOES HAVE AN AUDIBLE UPPER AIRWAY WHEEZE NOTED. PT IS SLEEPING WITHOUT S/S SOB OR DISTRESS. CONT ORDERED Addendum: 04/12/20 at 1912 by Darlene Grant RT Amended: Links added.
[2020-04-12] MEDS ORDERED: TPN PER PHARMACY IV NR ×8 (20:00)
--- NOTE | 2020-04-12 21:05 | NUR ---
Patient ripped out IV incidentally. Catheter tip still intact. IV insertion IV access obtained, via clean sterile technique by inserting 22 gauge catheter at right wrist. IV secured properly. No trauma to site. Patient tolerated procedure well.
[2020-04-12 22:00] VITALS: BP 125/73
[2020-04-13] MEDS: ACCU-CHEK COMFORT CURVE STRIP VI SCH ×4 (00:07→18:10)
[2020-04-13] MEDS: HYDROmorphone HCL 2 MG TAB PO PRN ×3 (00:08→20:25)
[2020-04-13] MEDS: LEVALBUTEROL HCL 1.25 MG/3 ML NEB NEB SCH ×4 (00:14→18:15)
--- NOTE | 2020-04-13 00:22 | NUR ---
RT NOTE PT WAS SEEN BY RT FOR HHN TX PT TOLERATES WELL VIA MASK. NO ADVERSE REACTION NOTED. PT BS ARE DIMINISHED WITH SLIGHT CRACKLES BUT PT HAS A NOTED AUDIBLE EXPIRATORY UPPER AIRWAY WHEEZE. BUBBLE HUMIDIFIER WAS CHANGED AT THIS TIME WITHOUT INCIDENT. CONT ORDERED Addendum: 04/13/20 at 0023 by Darlene Grant RT Amended: Links added.
[2020-04-13] MEDS: CIPROFLOXACIN 400MG/200ML 200 ML IV SCH ×3 (04:34→20:25)
--- NOTE | 2020-04-13 04:45 | NUR ---
PTT is 66.3. Per protocol current rate of 24 ml/hr will be maintained. Will continue to monitor.
[2020-04-13 05:00] VITALS: BP 103/68
[2020-04-13 05:15] LABS: INR 1.48 (0.9-1.15); Partial Thromboplastin Time 66.3 sec (23.64-32.05)
[2020-04-13 05:18] LABS: BUN/Creatinine Ratio 36.4; Potassium 4.5 mmol/L (3.5-5.1)
[2020-04-13 05:19] LABS: Albumin 1.5 g/dL (3.4-5.0); Calcium 7.5 mg/dL (8.5-10.1); Magnesium 2.3 mg/dL (1.6-2.6)
[2020-04-13 05:21] LABS: Bilirubin, Total 0.8 mg/dL (0.2-1.0); Phosphorus 4.1 mg/dL (2.5-4.90); Total Protein 6.5 g/dL (6.4-8.2)
[2020-04-13] MEDS: DOCUSATE ORAL LIQUID 100 MG/10 ML UD PO SCH ×3 (06:00→22:00)
[2020-04-13] MEDS: MEROPENEM 1GM IVPB 100 ML IV SCH ×3 (06:33→22:45)
[2020-04-13] MEDS: InsuLIN REG 1unit/0.01ml Soln (100units/ml) SC SCH ×4 (06:40→18:00)
--- NOTE | 2020-04-13 07:30 | NUR ---
Opening shift Note Assuming care of patient at this time. Patient is awake and alert. Patient complains of pain 9/10. Patient has some audible wheezes and is having labored breathing. Bed is locked and lowered with side rails up x2. Instructed patient on the plan of care for today and to call for assistance as needed. Call light within reach.
[2020-04-13] MEDS: PANTOPRAZOLE 40 MG/10 ML VIAL INJ IV SCH ×2 (08:57→22:06)
[2020-04-13] MEDS: SERTRALINE HCL 50 MG TAB PO SCH ×2 (08:57→22:06)
[2020-04-13] MEDS: MILK OF MAGNESIA 30ML SUSP PO SCH (08:58)
[2020-04-13] MEDS: LACTULOSE 20Gm/30ML SOLN PO SCH (08:58)
[2020-04-13] MEDS: SODIUM CHLOR 0.9% PF (SALINE LOCK) 10ML VIAL/SYR IV SCH ×2 (08:58→22:06)
[2020-04-13 09:00] VITALS: BP 141/79
[2020-04-13] MEDS: HYDROmorphone HCL 2 MG/ML VL IV PRN ×4 (09:00→23:07)
[2020-04-13] MEDS: HEPARIN DRIP/D5W 100UNITS/ML 250 ML IV SCH ×3 (09:53→19:24)
[2020-04-13 12:31] LABS: INR 1.4 (0.9-1.15); Partial Thromboplastin Time 44.7 sec (23.64-32.05)
[2020-04-13 13:00] VITALS: BP_SYST 128; BP_SYST 141; BP_DIAS 79; BP_DIAS 84
--- NOTE | 2020-04-13 15:27 | NUR ---
Spoke with patient. He does not want physical therapy anymore and states he is able to walk. Pt has not been treated since 04/01/20. Pt was instructed to inform nursing or physician for new order for physical therapy if he changes his mind. Will discharge from PT caseload at this time.
[2020-04-13] MEDS: ONDANSETRON HCL 4 MG/2 ML VIAL IV PRN (16:15)
--- NOTE | 2020-04-13 16:32 | NUR ---
IV insertion IV insertion IV access obtained, via clean sterile technique by inserting 22 gauge catheter at left shoulder. IV secured properly. No trauma to site. Patient tolerated well. Aware that patient has DVT to l. arm, Dr. Sidhu notified and aware. builder operator aware.
[2020-04-13 17:00] VITALS: BP 135/79
--- NOTE | 2020-04-13 19:30 | NUR ---
Closing Shift Note Patient resting in bed. Patient does not appear comfortable. Patient has been medicated for pain. Report given. Will endorse care to the cook night RN.
[2020-04-13] MEDS ORDERED: TPN PER PHARMACY IV NR ×8 (20:00)
[2020-04-13 22:00] VITALS: BP 122/77
--- NOTE | 2020-04-13 22:05 | NUR ---
IV insertion IV access obtained, via clean sterile technique by inserting 18 gauge catheter at right forearm after 1 attempt. IV secured properly. No trauma to site. Patient tolerated procedure well.
[2020-04-14] MEDS: LEVALBUTEROL HCL 1.25 MG/3 ML NEB NEB SCH ×5 (00:19→23:40)
--- NOTE | 2020-04-14 03:10 | NUR ---
BEHZAD PICC dressing changed.
[2020-04-14] MEDS: CIPROFLOXACIN 400MG/200ML 200 ML IV SCH ×3 (04:07→20:14)
[2020-04-14 05:00] VITALS: BP 134/95
[2020-04-14] MEDS: HYDROmorphone HCL 2 MG TAB PO PRN (05:39)
[2020-04-14] MEDS: HEPARIN DRIP/D5W 100UNITS/ML 250 ML IV SCH (05:43)
[2020-04-14 05:55] LABS: Chloride 102 mmol/L (98-107); Potassium 4.2 mmol/L (3.5-5.1); Sodium 136 mmol/L (136-145)
[2020-04-14 06:00] LABS: INR 1.4 (0.9-1.15); Partial Thromboplastin Time 56.1 sec (23.64-32.05)
[2020-04-14] MEDS: DOCUSATE ORAL LIQUID 100 MG/10 ML UD PO SCH ×3 (06:00→22:00)
[2020-04-14 06:04] LABS: Alanine Aminotransferase 100 U/L (16-61); Albumin 1.5 g/dL (3.4-5.0); Alkaline Phosphatase 376 U/L (45-117); Anion Gap 6 (5-15); Aspartate Aminotransferase 284 U/L (15-37); Bilirubin, Total 0.6 mg/dL (0.2-1.0); Blood Urea Nitrogen 18 mg/dL (7-18); Calcium 7.8 mg/dL (8.5-10.1); Carbon Dioxide 28 mmol/L (21-32); GFR African American 225 mL/min; GFR Non-African American 186 mL/min; Glucose 141 mg/dL (74-106); Magnesium 1.8 mg/dL (1.6-2.6); Pre Albumin < 3.0 mg/dL (20.0-40.0); Triglycerides 176 mg/dL (< 150)
[2020-04-14] MEDS: MEROPENEM 1GM IVPB 100 ML IV SCH ×3 (06:39→23:05)
[2020-04-14] MEDS: ACCU-CHEK COMFORT CURVE STRIP VI SCH ×4 (06:39→18:00)
[2020-04-14] MEDS: InsuLIN REG 1unit/0.01ml Soln (100units/ml) SC SCH ×4 (06:54→18:00)
--- NOTE | 2020-04-14 07:03 | NUR ---
Latest APTT is 56.1. Per heparin protocol I will keep the current rate of 26 ml/hr with no change.
--- NOTE | 2020-04-14 07:30 | NUR ---
Opening Shift Note Assumed care of patient, awake and alert. No S/S of distress/SOB. Patient stated 8 chronic pain. Patient is not due for pain medication until 0900 AM. Instructed on POC and to call for assist PRN, will continue to monitor for changes Q1hr and PRN. Bed is locked and in lowest position. Call light within reach.
[2020-04-14 08:00] VITALS: BP 127/75
[2020-04-14] MEDS ORDERED: SODIUM PHOSPHATES 24 MEQ in SODIUM CHL 0.9% 100 ML IV ONE (08:30)
[2020-04-14 08:51] VITALS: BP 127/75
[2020-04-14] MEDS: MILK OF MAGNESIA 30ML SUSP PO SCH (10:00)
[2020-04-14] MEDS: LACTULOSE 20Gm/30ML SOLN PO SCH (10:00)
[2020-04-14] MEDS: SODIUM CHLOR 0.9% PF (SALINE LOCK) 10ML VIAL/SYR IV SCH ×2 (10:00→23:08)
[2020-04-14] MEDS: PANTOPRAZOLE 40 MG/10 ML VIAL INJ IV SCH ×2 (10:13→23:05)
[2020-04-14] MEDS: SERTRALINE HCL 50 MG TAB PO SCH ×2 (10:14→23:05)
[2020-04-14] MEDS: HYDROmorphone HCL 2 MG/ML VL IV PRN ×2 (10:15→16:37)
[2020-04-14 12:59] VITALS: BP 130/75
[2020-04-14 13:22] LABS: INR 1.36 (0.9-1.15); Partial Thromboplastin Time 66.6 sec (23.64-32.05)
--- NOTE | 2020-04-14 13:29 | NUR ---
HEPARIN DRIP NO CHANGES TO DOSAGE BASED ON LAB VALUES APTT 66.6 WITHIN NORMAL RANGE OF 50-75.
--- NOTE | 2020-04-14 13:59 | NUR ---
Nutrition Followup Notes Wt: 91.0 kg Pt walking with PT in hallway. Pt diet advanced to regular 04/08. Pt with poor po intake aeb pt with all 0% intake per Rn doc. Pt is receiving nutrition through TPN @ 89 ml/hr providing 2200 kcals and 100 gm protein, with 1800 NPCs. Pt with adequate PN support as it meets 95-103% kcals of est energy needs PN support with adequate protein as it meets 108-135% of estimated protein needs. Est Energy needs: 6192-2590 kcals (23-25 kcal/kgBW), Est Protein needs: 74-93 gms/day (0.8-1.0 gm/kgBW). Will continue to monitor and reassess prn. LABS: GLU 141 H, CA 7.8 L, ALB 1.5 L, PREALB <3.0 L, TG 176 H GI: Pt with colostomy, BM noted on 04/11 per RN doc BS: 17 mod risk, incision at site of sx per RN doc. Please refer to wound assessment report for full details. PES: Partially resolved: Altered nutrition related lab values r/t current chronic medical condition aeb elev BUN severe hypoalb Comments Will continue to closely monitor pertinent labs, NPO status, PN tolerance, and skin status prn. Will followup in 3-5 days 1) Continue PN support to meet > 75% of needs 2) advance diet as medically feasible 3) Continue current plan of care
[2020-04-14] MEDS: LORazepam 2MG/ML-1ML VIAL IV PRN (14:55)
[2020-04-14 16:36] VITALS: BP 137/78
[2020-04-14] MEDS: PROMETHAZINE HCL 25 MG/ML 1ML IV PRN (16:37)
--- NOTE | 2020-04-14 16:45 | NUR ---
RT paged FOR BREATHING TREATMENT
--- NOTE | 2020-04-14 19:30 | NUR ---
Latest PTT result is 51.8, per protocol no bolus to be given and no change in rate. Rate remains at 26ml/hr. Next PTT draw is after 24hrs since it has been therapeutic for 3 consecutive draws. MD already ordered the next PTT at 1700 tomorrow.
[2020-04-14 19:39] LABS: INR 1.33 (0.9-1.15); Partial Thromboplastin Time 51.8 sec (23.64-32.05)
[2020-04-14] MEDS ORDERED: TPN PER PHARMACY IV NR ×9 (20:00)
[2020-04-14 22:00] VITALS: BP 110/80
[2020-04-15] MEDS: ACCU-CHEK COMFORT CURVE STRIP VI SCH ×4 (00:26→18:03)
--- NOTE | 2020-04-15 01:56 | NUR ---
OPENING SHIFT NOTES RESUMED CARE OF PT ,PT IS AWAKE AND ALERT NO SIGNS AND SYMPTOMS OF DISTRESS OR SOB NOTED. BED IS IN THE LOWEST LOCKED POSITION, SIDE RAILS UP X 2. CALL LIGHT WITH IN REACH.UPDATED PT ON PLAN OF CARE AND PT VERBALIZED UNDERSTANDING WILL CONTINUE TO MONITOR Q1HR AN PRN
[2020-04-15] MEDS: HYDROmorphone HCL 2 MG/ML VL IV PRN ×4 (02:12→18:43)
[2020-04-15 02:55] VITALS: BP 110/80
[2020-04-15] MEDS: HEPARIN DRIP/D5W 100UNITS/ML 250 ML IV SCH ×2 (03:48→18:04)
[2020-04-15] MEDS: CIPROFLOXACIN 400MG/200ML 200 ML IV SCH ×3 (03:55→19:58)
[2020-04-15 05:00] VITALS: BP 121/77
[2020-04-15 05:38] LABS: Albumin 1.4 g/dL (3.4-5.0); Calcium 7.9 mg/dL (8.5-10.1); Magnesium 1.9 mg/dL (1.6-2.6)
[2020-04-15 05:41] LABS: BUN/Creatinine Ratio 51.4; Bilirubin, Total 0.6 mg/dL (0.2-1.0); Phosphorus 2.2 mg/dL (2.5-4.90)
[2020-04-15] MEDS: LORazepam 2MG/ML-1ML VIAL IV PRN (05:41)
[2020-04-15] MEDS: DOCUSATE ORAL LIQUID 100 MG/10 ML UD PO SCH ×3 (05:46→22:00)
[2020-04-15] MEDS: InsuLIN REG 1unit/0.01ml Soln (100units/ml) SC SCH ×4 (05:46→18:00)
[2020-04-15] MEDS: MEROPENEM 1GM IVPB 100 ML IV SCH ×3 (06:03→22:06)
[2020-04-15] MEDS: LEVALBUTEROL HCL 1.25 MG/3 ML NEB NEB SCH ×3 (06:52→18:53)
[2020-04-15] MEDS: ONDANSETRON HCL 4 MG/2 ML VIAL IV PRN ×2 (08:25→18:43)
[2020-04-15 08:49] VITALS: BP 120/73
[2020-04-15] MEDS: SODIUM CHLOR 0.9% PF (SALINE LOCK) 10ML VIAL/SYR IV SCH ×2 (10:00→22:13)
[2020-04-15] MEDS: MILK OF MAGNESIA 30ML SUSP PO SCH (10:00)
[2020-04-15] MEDS: PANTOPRAZOLE 40 MG/10 ML VIAL INJ IV SCH ×2 (10:00→22:06)
[2020-04-15] MEDS: SERTRALINE HCL 50 MG TAB PO SCH ×2 (10:00→22:06)
[2020-04-15] MEDS ORDERED: SODIUM PHOSPHATES 40 MEQ in D5W 5% 250 ML IV ONE (10:00)
[2020-04-15] MEDS: LACTULOSE 20Gm/30ML SOLN PO SCH (10:00)
--- NOTE | 2020-04-15 10:00 | NUR ---
PATIENT REFUSED ALL PO MEDICATIONS
--- NOTE | 2020-04-15 11:18 | NUR ---
UPDATED DOCTOR ON CHANGE OF CONDITION SPOKE WITH DR. GONZALEZ PATIENT HAD AN ELEVATED TEMP 100.6 F AXILLARY, HEART RATE 139, SPO2 88 % ON 4L NC. PATIENT HAD CHANGE IN MENTATION WITH HALLUCINATIONS. DOCTOR ORDERED BLOOD CULTURES, URINE CULTURE AND URINE DRUG SCREEN. COOLING MEASURES STARTED TO MANAGE ELEVATED TEMP. WILL CONTINUE TO MONITOR.
[2020-04-15 12:39] VITALS: BP 110/71
--- NOTE | 2020-04-15 15:13 | NUR ---
Fournier catheter insertion Patient assessed and determined to be in need of fournier catheter. Order obtained from MD. Patient educated on catheter and reason for insertion. All questions answered. Fournier catheter 16 guage Armenian inserted with clean sterile technique. Patient tolerated well.
--- NOTE | 2020-04-15 15:13 | NUR ---
URINE CULTURE AND DRUG SCREEN SENT TO LAB.
--- NOTE | 2020-04-15 15:14 | NUR ---
IV INFILTRATED TO RIGHT FOREARM IV removal IV DC'd with clean sterile technique, catheter fully intact. Pressure dressing applied to site. Patient tolerated well.
--- NOTE | 2020-04-15 15:15 | NUR ---
IV TO LEFT SHOULDER REMOVED IV removal IV DC'd with clean sterile technique, catheter fully intact. Pressure dressing applied to site. Patient tolerated well.
[2020-04-15 15:30] LABS: Alcohol, Urine < 3.0 mg/dL (0-10); Amphetamine Screen, Urine NEGATIVE (NEGATIVE); Barbiturate Scree,Urine NEGATIVE (NEGATIVE); Benzodiazephine Screen, Urine NEGATIVE (NEGATIVE); Cannabinoid Screen, Urine NEGATIVE (NEGATIVE); Cocaine Screen, Urine NEGATIVE (NEGATIVE); Opiate Scree,Urine POSITIVE (NEGATIVE); Phencyclidine Screen, Urine NEGATIVE (NEGATIVE)
[2020-04-15 15:56] LABS: INR 1.31 (0.9-1.15); Partial Thromboplastin Time 34.9 sec (23.64-32.05)
[2020-04-15 17:08] VITALS: BP 112/67
--- NOTE | 2020-04-15 18:00 | NUR ---
Latest PTT result is 34.9, per protocol IV bolus 5000 units to be given and rate changed to 29ml. Per protocol Next PTT draw is after in 6 hrs will be at 0000.
[2020-04-15] MEDS ORDERED: HEPARIN SODIUM (PORCINE) 5000 UNITS/ML 1ML VIAL IV ONE (18:15)
--- NOTE | 2020-04-15 19:21 | NUR ---
endorsed care to night MARVIN Meza.
[2020-04-15] MEDS ORDERED: TPN PER PHARMACY IV NR ×8 (20:00)
[2020-04-15 22:00] VITALS: BP 123/74
[2020-04-15] MEDS: HYDROmorphone HCL 2 MG TAB PO PRN (22:24)
--- NOTE | 2020-04-16 00:06 | NUR ---
Call to laboratory to follow up PTT draw. Per atmospheric technician it wasn't drawn yet. I informed her that patient is on Heparin drip and that PTT should be drawn on time. She said she will send somebody to draw the blood.
[2020-04-16] MEDS: ACCU-CHEK COMFORT CURVE STRIP VI SCH ×4 (00:21→18:00)
[2020-04-16] MEDS: LEVALBUTEROL HCL 1.25 MG/3 ML NEB NEB SCH ×4 (00:35→18:50)
--- NOTE | 2020-04-16 01:30 | NUR ---
PTT was drawn at 0045, called laboratory to follow up result, chip tester states 5 more minutes for the result and will give me a call.
[2020-04-16 01:32] LABS: INR 1.35 (0.9-1.15); Partial Thromboplastin Time 59.2 sec (23.64-32.05)
--- NOTE | 2020-04-16 01:37 | NUR ---
Latest APTT is 59.2. Per heparin protocol no bolus and will keep the current rate of 29 ml/hr with no change.
[2020-04-16] MEDS: ACETAMINOPHEN 325 MG TAB PO PRN ×2 (04:11→17:12)
[2020-04-16] MEDS: HYDROmorphone HCL 2 MG TAB PO PRN (04:16)
[2020-04-16] MEDS: CIPROFLOXACIN 400MG/200ML 200 ML IV SCH ×3 (04:33→20:55)
[2020-04-16] MEDS: HEPARIN DRIP/D5W 100UNITS/ML 250 ML IV SCH ×3 (04:45→23:11)
[2020-04-16 05:00] VITALS: BP 146/83
--- NOTE | 2020-04-16 05:00 | NUR ---
temperature pt temperature is 101.7 give Tylenol po will reassess
[2020-04-16] MEDS: InsuLIN REG 1unit/0.01ml Soln (100units/ml) SC SCH ×4 (06:00→18:00)
[2020-04-16] MEDS: DOCUSATE ORAL LIQUID 100 MG/10 ML UD PO SCH ×3 (06:00→21:15)
--- NOTE | 2020-04-16 06:34 | NUR ---
latest temperature pt temperature is 100.8 medication not due.applied cooling measures
[2020-04-16] MEDS: MEROPENEM 1GM IVPB 100 ML IV SCH ×3 (06:40→23:03)
[2020-04-16 07:14] LABS: INR 1.37 (0.9-1.15); Partial Thromboplastin Time 42.9 sec (23.64-32.05)
--- NOTE | 2020-04-16 07:15 | NUR ---
OPEN SHIFT NOTE ASSUMED CARE OF PATIENT RECEIVED REPORT FROM NIGHT RN NACHO. PATIENT ASLEEP AROUSABLE TO NAME OPENS EYES AND TRACKS, ABLE TO STATE FULL NAME, UNABLE TO RECALL WHY OR WHERE HE IS. LUNG WHEEZING UPON INHALATION AND EXHALATION,DENIED CHEST PAIN, NO DISTRESS NOTED TACHYPNIC WITH RESPIRATIONS @ 24 BREATHING TREATMENT GIVEN THIS AM PATIENT TOLERATED WELL PER GUARD AT BEDSIDE. ABDOMEN ROUND LARGE AND HARD, TENDER TO PALPATION, REPORTED ABDOMINAL PAIN /10 PAIN MANAGEMENT HAS BEEN EFFECTIVE. HR 113, PER REPORT HR INCREASES TO 150 WHEN IN PAIN. FEVER RESOLVED FROM SEWING DEPARTMENT SUPERVISOR WITH COOLOING MEASURES AND TYLENOL TEMP 98.7. BLE NON PITTING EDEMA, LEGS ELEVATED WITH PILLOWS PRESSURE RELIEVING DRESSING TO BILATERAL ANKLES PLACED UNDER CUFFS; LEFT ARM NON PITTING EDEMA, ELEVATED WITH PILLOW. UPDATED PATIENT ON POC. BED IN LOWEST POSITION, WITH WHEELS , LOCKED, CALL LIGHT WITHIN REACH. PATIENT FELL ASLEEP BEFORE THIS RN LEFT THE ROOM, RESTING COMFORTABLE, NO DISTRESS. WILL CONTINUE TO MONITOR.
[2020-04-16 07:19] LABS: Albumin 1.3 g/dL (3.4-5.0); Potassium 3.7 mmol/L (3.5-5.1)
[2020-04-16 07:27] LABS: BUN/Creatinine Ratio 53.8; Bilirubin, Total 0.8 mg/dL (0.2-1.0); Calcium 7.6 mg/dL (8.5-10.1); Magnesium 1.7 mg/dL (1.6-2.6); Phosphorus 2.6 mg/dL (2.5-4.90); Total Protein 5.9 g/dL (6.4-8.2)
--- NOTE | 2020-04-16 08:15 | NUR ---
RE-POSITION THIS RN AND BEBETO RN REPOSITIONED PATIENT ON LEFT SIDE, PILLOW UNDER ALL EXTREMITIES. PATIENT TOLERATED WELL, PAIN 4/10 TOLERABLE PER PATIENT. WILL CONTINUE TO MONITOR.
--- NOTE | 2020-04-16 08:30 | NUR ---
Latest APTT is 42.9 Per heparin protocol no bolus and rate will change to 31 ml/hr. will continue to monitor.
--- NOTE | 2020-04-16 08:30 | NUR ---
TEMP RE-ASSESSMENT 98.6 WILL CONTINUE TO MONITOR.
[2020-04-16 09:00] VITALS: BP 111/75
[2020-04-16] MEDS: SERTRALINE HCL 50 MG TAB PO SCH ×2 (10:00→21:16)
[2020-04-16] MEDS: LACTULOSE 20Gm/30ML SOLN PO SCH (10:00)
[2020-04-16] MEDS: PANTOPRAZOLE 40 MG/10 ML VIAL INJ IV SCH ×2 (10:00→21:15)
[2020-04-16] MEDS: SODIUM CHLOR 0.9% PF (SALINE LOCK) 10ML VIAL/SYR IV SCH ×2 (10:00→21:15)
[2020-04-16] MEDS: MILK OF MAGNESIA 30ML SUSP PO SCH (10:00)
--- NOTE | 2020-04-16 11:50 | NUR ---
LOW GLUCOSE 54 DEXTROSE GIVEN ORDERED.
[2020-04-16] MEDS: HYDROmorphone HCL 2 MG/ML VL IV PRN ×3 (12:04→21:43)
[2020-04-16] MEDS: ONDANSETRON HCL 4 MG/2 ML VIAL IV PRN (12:05)
[2020-04-16] MEDS: DEXTROSE (50%) 50ML SYRG IV SCH (12:07)
--- NOTE | 2020-04-16 12:21 | NUR ---
RE-ASSESS GLUCOSE @ 68 GAVE APPLE JUICE, PATIENT ASYMPTOMATIC. WILL CONTINUE TO MONITOR.
--- NOTE | 2020-04-16 12:53 | NUR ---
UPDATE FROM NURSING HOME S.S. CARRY PER S.S. PATIENTS SIBLINGS WILL BE PERMITTED TO VISIT PATIENT THURS 3-5 PM AND FRI 9-1 PM. PATIENT HAS 3 BROTHERS AND A SISTER. CARRY S.S WILL CONFIRM WITH FAMILY TODAY.
[2020-04-16 13:00] VITALS: BP 123/85
--- NOTE | 2020-04-16 13:05 | NUR ---
VISITOR UPDATE [facility], DR FERNANDEZ AND IMPLANT POLISHER YAQUELIN UPDATED PATIENT WILL HAVE VISITORS; WAS ALREADY AWARE.
--- NOTE | 2020-04-16 14:34 | NUR ---
Nutrition Followup Notes Wt: 91.0 kg Pt sleeping with guards at bedside. Pt diet advanced to regular 04/08. Pt with poor PO intake aeb pt with all 0% intake per Rn doc. Pt is receiving nutrition through TPN @ 89 ml/hr providing 2200 kcals and 100 gm protein, with 1800 NPCs. Pt with adequate PN support as it meets 95-103% kcals of est energy needs PN support with adequate protein as it meets 108-135% of estimated protein needs. Est Energy needs: 3434-5390 kcals (23-25 kcal/kgBW), Est Protein needs: 74-93 gms/day (0.8-1.0 gm/kgBW). Will continue to monitor and reassess prn. LABS: BUN 21 H, CA 7.6 L, ALB 1.3 L. GI: Pt with colostomy, BM noted on 04/11 per RN doc BS: 12 high risk, incision at site of sx per RN doc. Please refer to wound assessment report for full details. PES: Partially resolved: Altered nutrition related lab values r/t current chronic medical condition aeb elev BUN severe hypoalb Comments Will continue to closely monitor pertinent labs, NPO status, PN tolerance, and skin status prn. Will followup in 2-3 days 1) Continue PN support to meet > 75% of needs 2) Continue current plan of care
[2020-04-16 16:23] LABS: INR 1.47 (0.9-1.15); Partial Thromboplastin Time 38.9 sec (23.64-32.05)
--- NOTE | 2020-04-16 17:00 | NUR ---
ELEVATED TEMP 101.[address] TYLENOL GIVEN ORDERED. WILL CONTINUE TO MONITOR.
[2020-04-16] MEDS: PROMETHAZINE HCL 25 MG/ML 1ML IV PRN (17:13)
--- NOTE | 2020-04-16 18:00 | NUR ---
RE-ASSESS TEMP @ 99.0 COOLING MEASURE REMAIN IN PLACE WILL CONTINUE TO MONITOR.
--- NOTE | 2020-04-16 18:46 | NUR ---
DR FERNANDEZ PAGED REGUARDING PTT OF 38.9. PER PROTOCOL INCREASE OF 2ML IS IN ORDER, HOWEVER PATIENT HAS BEEN DISCONNECTED SEVERAL TIMES THROUGHOUT THE SHIFT TO REPOSITION AND PROVIDE BED BATH. AWAITING CALL BACK
--- NOTE | 2020-04-16 18:58 | NUR ---
ENDORSED CARE TO NIGHT RN
--- NOTE | 2020-04-16 19:45 | NUR ---
Opening Shift Note Assumed care of patient, asleep at this time. Custodial guards at bedside. No S/S of distress/SOB or. Instructed to call for assist PRN, patient verbalized understanding. Safety precaution in place, call light within reach, will continue to monitor for changes Q1hr and PRN.
[2020-04-16] MEDS ORDERED: TPN PER PHARMACY IV NR ×9 (20:00)
[2020-04-16 21:52] LABS: INR 1.51 (0.9-1.15)
[2020-04-16 21:56] LABS: Partial Thromboplastin Time 110.2 sec (23.64-32.05)
[2020-04-16 22:00] VITALS: BP 102/66
--- NOTE | 2020-04-16 22:00 | NUR ---
Latest APTT is 110.2. Stopped heparin for an hour per protocol
--- NOTE | 2020-04-16 23:00 | NUR ---
Resumed heparin drip per protocol and decreased rate from 31 to 28 ml, will continue to monitor
[2020-04-17] VITALS (7 sets, daily range): BP systolic 132–145; BP diastolic 71–87
[2020-04-17] MEDS: LEVALBUTEROL HCL 1.25 MG/3 ML NEB NEB SCH ×4 (00:34→18:00)
[2020-04-17] MEDS: ACCU-CHEK COMFORT CURVE STRIP VI SCH ×3 (00:35→13:06)
[2020-04-17] MEDS: HEPARIN DRIP/D5W 100UNITS/ML 250 ML IV SCH ×4 (01:53→21:15)
[2020-04-17] MEDS: HYDROmorphone HCL 2 MG/ML VL IV PRN ×5 (03:03→22:35)
--- NOTE | 2020-04-17 04:15 | NUR ---
APTT is 41.9. Increased heparin drip to 30ml/hr per protocol
[2020-04-17] MEDS: CIPROFLOXACIN 400MG/200ML 200 ML IV SCH ×3 (04:36→20:16)
[2020-04-17 04:53] LABS: INR 1.38 (0.9-1.15); Partial Thromboplastin Time 41.9 sec (23.64-32.05)
[2020-04-17 04:54] LABS: Albumin 1.4 g/dL (3.4-5.0); Calcium 7.8 mg/dL (8.5-10.1); Magnesium 1.9 mg/dL (1.6-2.6)
[2020-04-17 04:58] LABS: BUN/Creatinine Ratio 46.3; Bilirubin, Total 0.8 mg/dL (0.2-1.0); Phosphorus 2.6 mg/dL (2.5-4.90); Total Protein 6.4 g/dL (6.4-8.2)
[2020-04-17] MEDS: MEROPENEM 1GM IVPB 100 ML IV SCH ×3 (05:42→22:33)
[2020-04-17] MEDS: DOCUSATE ORAL LIQUID 100 MG/10 ML UD PO SCH ×4 (05:43→22:33)
[2020-04-17] MEDS: InsuLIN REG 1unit/0.01ml Soln (100units/ml) SC SCH ×3 (05:59→12:00)
[2020-04-17] MEDS: SODIUM CHLOR 0.9% PF (SALINE LOCK) 10ML VIAL/SYR IV SCH ×2 (10:00→22:34)
[2020-04-17] MEDS: SERTRALINE HCL 50 MG TAB PO SCH ×4 (10:00→22:34)
[2020-04-17] MEDS: MILK OF MAGNESIA 30ML SUSP PO SCH (10:00)
[2020-04-17] MEDS: LACTULOSE 20Gm/30ML SOLN PO SCH ×2 (10:00→10:12)
--- NOTE | 2020-04-17 10:00 | NUR ---
Heparin started, no change in rate. Will continue to monitor. APTT 72.8.
[2020-04-17 10:03] LABS: INR 1.47 (0.9-1.15)
[2020-04-17 10:06] LABS: Partial Thromboplastin Time 72.8 sec (23.64-32.05)
[2020-04-17] MEDS: PANTOPRAZOLE 40 MG/10 ML VIAL INJ IV SCH ×2 (10:12→22:34)
--- NOTE | 2020-04-17 10:15 | NUR ---
Pain Patint c/o abdominal pain. Pain medications given per MD orders.
--- NOTE | 2020-04-17 12:00 | NUR ---
WOUND CARE NOTE: IN TO SEE PATIENT AT THIS TIME FOR SKIN INTEGRITY MONITORING D/T LOW GEE SCORE OF 12. PATIENT ADMITTED IN JANUARY 2020- WITH DIAGNOSIS OF ABDOMINAL PAIN, LIVER ABSCESS. CURRENT GEE SCORE IS 12. PATIENT IS MAX ASSIST FOR ALL OF HIS ADL'S, INCLUDING TURNING/REPOSITIONING. PATIENT TURNED TO RIGHT SIDE. HE IS NOTED TO HAVE INTACT LINEAR DTI'S TO THE LEFT SACRUM. SKIN IS INTACT, COLOR RANGES FROM BRIGHT RED TO PURPLE. APPLIED OPTIFOAM GENTLE SACRAL DRESSING TO COVER AND PROTECT. SPECIALTY AIR BED ORDERED AT THIS TIME. PATIENT TO BE PLACED, PENDING DELIVERY BY DAVID BURRIS. ADVISED PATIENT'S BEDSIDE NURSE TO PROVIDE SIDE TO SIDE POSITIONING, AVOIDING SUPINE POSITION. RECOMMEND: FREQUENT TURN SCHEDULE Q 2 HOURS,PRN CONDITION PERMITS, WITH PRESSURE REDISTRIBUTION USING PILLOWS/WEDGES, BID/PRN APPLICATION WITH MOISTURE BARRIER CREAM, OPTIFOAM GENTLE SACRAL DRESSING, SPECIALTY AIR BED, DIETARY CONSULT, SKIN/WOUND CARE PLAN, CONTINUED MONITORING BY WOUND CARE TEAM. Addendum: 04/17/20 at 1702 by Carmen Dudley RN Amended: Links added.
--- NOTE | 2020-04-17 13:25 | NUR ---
Pain Patint c/o abdominal pain, rates it 06/26 Pain medications given per MD orders. Addendum: 04/17/20 at 1326 by Kathryn Lira RN *patient
[2020-04-17] MEDS: HYDROmorphone HCL 2 MG TAB PO PRN ×2 (16:39)
--- NOTE | 2020-04-17 19:00 | NUR ---
PT REFUSED MED NEB TX AT THIS TIME. PT DENIES ANY RESPIRATORY DISTRESS. NO SHORTNESS OF BREATH NOTED. SPO2 97% ON 6L NC, HR 117. WILL CONTINUE WITH NEXT SCHEDULED TX.
--- NOTE | 2020-04-17 19:35 | NUR ---
Opening Shift Note Assumed care of patient, asleep at this time. [employer] guards at bedside. No S/S of distress/SOB. Instructed to call for assist PRN, patient verbalized understanding. Safety precaution in place, turned to his side, call light within reach, will continue to monitor for changes Q1hr and PRN.
--- NOTE | 2020-04-17 19:42 | NUR ---
closing note Patient is comfortably resting, no c/o pain. Bed at lowest locked position and call light within reach. Guards at bedside for safety.
[2020-04-17 19:47] LABS: INR 1.47 (0.9-1.15)
[2020-04-17] MEDS ORDERED: TPN PER PHARMACY IV NR ×9 (20:00)
[2020-04-18] MEDS: ACCU-CHEK COMFORT CURVE STRIP VI SCH ×5 (00:26→18:49)
[2020-04-18] MEDS: LEVALBUTEROL HCL 1.25 MG/3 ML NEB NEB SCH ×4 (00:33→19:12)
[2020-04-18] MEDS: HYDROmorphone HCL 2 MG/ML VL IV PRN ×4 (02:45→22:42)
--- NOTE | 2020-04-18 03:05 | NUR ---
Transferred patient to specialty mattress, turned to his side, patient tolerated well
[2020-04-18] MEDS: LORazepam 2MG/ML-1ML VIAL IV PRN (03:50)
[2020-04-18 04:18] LABS: INR 1.4 (0.9-1.15); Partial Thromboplastin Time 54.8 sec (23.64-32.05)
[2020-04-18] MEDS: CIPROFLOXACIN 400MG/200ML 200 ML IV SCH ×3 (04:49→20:56)
[2020-04-18 05:00] VITALS: BP 137/77
[2020-04-18] MEDS: InsuLIN REG 1unit/0.01ml Soln (100units/ml) SC SCH ×4 (06:00→18:00)
[2020-04-18] MEDS: DOCUSATE ORAL LIQUID 100 MG/10 ML UD PO SCH ×3 (06:03→22:00)
[2020-04-18] MEDS: MEROPENEM 1GM IVPB 100 ML IV SCH ×3 (06:03→22:43)
[2020-04-18] MEDS: HEPARIN DRIP/D5W 100UNITS/ML 250 ML IV SCH ×2 (06:07→17:31)
[2020-04-18 08:00] VITALS: BP 132/81
[2020-04-18] MEDS: ONDANSETRON HCL 4 MG/2 ML VIAL IV PRN (09:45)
[2020-04-18] MEDS: PANTOPRAZOLE 40 MG/10 ML VIAL INJ IV SCH ×2 (09:45→22:43)
[2020-04-18] MEDS: HYDROmorphone HCL 2 MG TAB PO PRN ×2 (09:46→17:32)
[2020-04-18 09:49] VITALS: BP 132/81
[2020-04-18] MEDS: LACTULOSE 20Gm/30ML SOLN PO SCH (10:00)
[2020-04-18] MEDS: MILK OF MAGNESIA 30ML SUSP PO SCH (10:00)
[2020-04-18] MEDS: SODIUM CHLOR 0.9% PF (SALINE LOCK) 10ML VIAL/SYR IV SCH ×2 (10:00→22:42)
[2020-04-18] MEDS: SERTRALINE HCL 50 MG TAB PO SCH ×2 (10:00→22:00)
[2020-04-18 10:23] LABS: Eosinophils # (auto) 0.5 10 ^3/uL (0-0.8); Hemoglobin 8.2 g/dL (13.5-17.5); Lymphocytes # (auto) 1.8 10 ^3/uL (0.4-5.4)
[2020-04-18 10:26] LABS: Basophils # (auto) 0.4 10 ^3/uL (0-0.2); Basophils % (auto) 2.2 % (0.0-2.0); Eosinophils % (auto) 2.8 % (0.0-7.0); Hematocrit 26.8 % (41.0-53.0); Mean Corpuscular Hemoglobin 25.9 pg (28.0-32.0); Mean Corpuscular Hgb Conc. 30.5 g/dL (32.0-36.0); Mean Corpuscular Volume 84.9 fL (80.0-100.0); Monocytes # (auto) 1.8 10 ^3/uL (0-1.3); Monocytes % (auto) 10.2 % (0.0-12.0); Neutrophils # (auto) 13.4 10 ^3/uL (1.6-8.6); Neutrophils % (auto) 74.8 % (37.0-80.0); Platelet Count (auto) 678 10^3/uL (140-450); Red Blood Cells 3.16 10^6/uL (4.5-5.90); Red Cell Distribution Width 19.8 % (11.8-14.3)
[2020-04-18 10:38] LABS: INR 1.38 (0.9-1.15); Partial Thromboplastin Time 63.3 sec (23.64-32.05)
[2020-04-18 10:39] LABS: Albumin 1.2 g/dL (3.4-5.0); Calcium 7.5 mg/dL (8.5-10.1); Magnesium 1.7 mg/dL (1.6-2.6); Potassium 3.5 mmol/L (3.5-5.1)
[2020-04-18 10:43] LABS: BUN/Creatinine Ratio 39.5; Bilirubin, Total 0.6 mg/dL (0.2-1.0); Phosphorus 2.7 mg/dL (2.5-4.90); Total Protein 5.8 g/dL (6.4-8.2)
[2020-04-18 13:00] VITALS: BP 170/102
--- NOTE | 2020-04-18 13:09 | NUR ---
paged for Dr. Wilson, family members requesting information.
[2020-04-18] MEDS: METOPROLOL TARTRATE 1MG/1ML-5ML VIAL IV PRN (13:47)
--- NOTE | 2020-04-18 13:50 | NUR ---
High blood pressure Bp, 170/102, HR110, RR24, Spo2 97%. Patient is resting in bed, no s/s of distress/sob . Will medicate per orders. Addendum: 04/18/20 at 1650 by Kathryn Lira RN 1500* BP reassessment 160/129, HR 108. Paged Dr. Wilson for orders. Patient is resting in bed.
[2020-04-18 16:57] VITALS: BP 161/129
--- NOTE | 2020-04-18 17:50 | NUR ---
Heparin drip APTT level is 34.4, per protocol increase by 3mls/hr. New heparin rate 31mls/hr. Addendum: 04/18/20 at 1833 by Kathryn Lira RN 1750* Bolus heparin by 5,000units per protocol and increase by 3units new rate 31mls/hr, pharmacy aware.
[2020-04-18 17:56] LABS: INR 1.31 (0.9-1.15); Partial Thromboplastin Time 34.4 sec (23.64-32.05)
[2020-04-18] MEDS: PROMETHAZINE HCL 25 MG/ML 1ML IV PRN (18:03)
--- NOTE | 2020-04-18 19:04 | NUR ---
closing note Patient is comfortably resting, no c/o pain. Bed at lowest locked position and call light within reach. Guards at bedside for safety.
--- NOTE | 2020-04-18 19:30 | NUR ---
Opening Shift Note Assumed care of patient, appears weak, oriented, appropriate. Patient on heparin drip, TPN, and IV antibiotics. No complains of pain. Patient on O2 at 5 LPM via nasal cannula. Patient an inmate, guards at bedside. Instructed on POC and to call for assist PRN, will continue to monitor for changes Q1hr and PRN.
[2020-04-18] MEDS ORDERED: TPN PER PHARMACY IV NR ×10 (20:00)
[2020-04-18 22:00] VITALS: BP 136/80
--- NOTE | 2020-04-19 | NUR ---
Communications Engineering Technician at bedside for blood draw.
[2020-04-19] MEDS: ACCU-CHEK COMFORT CURVE STRIP VI SCH ×4 (00:01→18:00)
[2020-04-19 00:17] LABS: INR 1.33 (0.9-1.15); Partial Thromboplastin Time 31.4 sec (23.64-32.05)
--- NOTE | 2020-04-19 00:30 | NUR ---
Ptt resulted. Concerns with result. Verified with lithopone charger. Advised to zero bed to be able to get more accurate result of patient's weight. Care continued.
[2020-04-19] MEDS: LEVALBUTEROL HCL 1.25 MG/3 ML NEB NEB SCH ×5 (00:40→23:52)
--- NOTE | 2020-04-19 01:20 | NUR ---
Patient transferred to chair, bed zeroed, patient re-weighed. Patient's weight at 89 kg. Care continued.
[2020-04-19] MEDS: HYDROmorphone HCL 2 MG/ML VL IV PRN ×6 (01:30→17:57)
--- NOTE | 2020-04-19 01:45 | NUR ---
Advised by charger to call outside pharmacy to verify heparin drip orders, ptt results and new updated patient's weight. Care continued.
--- NOTE | 2020-04-19 01:55 | NUR ---
talked to Sharath of "off hours outside pharmacy". Sharath will call back. Care continued.
--- NOTE | 2020-04-19 02:10 | NUR ---
Call back received from Sharath, outside pharmacy 5,000 units heparin bolus ordered, heparin drip will be re-started at 1800 units per hour or 18 ml/hr. Orders will be carried out and verified with another RN. Care continued.
[2020-04-19] MEDS ORDERED: HEPARIN SODIUM (PORCINE) 5000 UNITS/ML 1ML VIAL IV SCH ×2 (02:15→02:45)
[2020-04-19] MEDS: HEPARIN DRIP/D5W 100UNITS/ML 250 ML IV SCH ×4 (02:46→16:34)
[2020-04-19] MEDS: CIPROFLOXACIN 400MG/200ML 200 ML IV SCH ×3 (04:03→20:12)
[2020-04-19 05:00] VITALS: BP 189/70
[2020-04-19 05:59] VITALS: BP 133/92
[2020-04-19] MEDS: DOCUSATE ORAL LIQUID 100 MG/10 ML UD PO SCH ×3 (06:00→22:00)
[2020-04-19] MEDS: InsuLIN REG 1unit/0.01ml Soln (100units/ml) SC SCH ×4 (06:00→18:00)
[2020-04-19] MEDS: MEROPENEM 1GM IVPB 100 ML IV SCH ×3 (06:02→22:11)
[2020-04-19] MEDS: LORazepam 2MG/ML-1ML VIAL IV PRN ×2 (06:33→22:12)
--- NOTE | 2020-04-19 07:30 | NUR ---
Patient rounded. Report given to oncoming RN.
[2020-04-19 08:53] LABS: Albumin 1.2 g/dL (3.4-5.0); Calcium 6.9 mg/dL (8.5-10.1); Magnesium 1.6 mg/dL (1.6-2.6); Potassium 3.2 mmol/L (3.5-5.1)
[2020-04-19 08:54] LABS: INR 1.35 (0.9-1.15); Partial Thromboplastin Time 37.2 sec (23.64-32.05)
[2020-04-19 08:59] LABS: BUN/Creatinine Ratio 42.9; Bilirubin, Total 0.6 mg/dL (0.2-1.0); Phosphorus 2.9 mg/dL (2.5-4.90); Total Protein 5.6 g/dL (6.4-8.2)
[2020-04-19 09:25] VITALS: BP 136/80
[2020-04-19] MEDS ORDERED: MAGNESIUM SULFATE 1GM/100ML 100 ML IV ONE (09:30)
--- NOTE | 2020-04-19 09:35 | NUR ---
DR. FERNANDEZ AT BEDSIDE TO DISCUSS PLAN OF CARE WITH PATIENT.
[2020-04-19] MEDS: LACTULOSE 20Gm/30ML SOLN PO SCH (10:00)
[2020-04-19] MEDS: MILK OF MAGNESIA 30ML SUSP PO SCH (10:00)
[2020-04-19] MEDS: SERTRALINE HCL 50 MG TAB PO SCH ×2 (10:00→22:27)
[2020-04-19] MEDS: PANTOPRAZOLE 40 MG/10 ML VIAL INJ IV SCH ×2 (10:58→22:11)
[2020-04-19] MEDS: SODIUM CHLOR 0.9% PF (SALINE LOCK) 10ML VIAL/SYR IV SCH ×2 (10:58→22:11)
--- NOTE | 2020-04-19 10:59 | NUR ---
CALLED PHARMACY TO VERIFY IF POTASSIUM RIDER AND MG RIDER ARE COMPATIBLE WITH TPN. PHARMACIST VERIFIED THEY ARE COMPATIBLE AND ARE ABLE TO RUN TOGETHER.
[2020-04-19] MEDS: POTASSIUM CHL 20MEQ/100ML 100 ML IV SCH ×2 (12:32→13:49)
[2020-04-19 14:13] VITALS: BP 183/81
--- NOTE | 2020-04-19 14:22 | NUR ---
Nutrition Followup Notes Wt: 98.0 kg Pt awake, weak RN attending pt with guards at bedside. Pt diet advanced to regular 04/08. Pt with poor PO intake aeb pt with 0% intake per RN doc. Pt is receiving nutrition through TPN @ 88 ml/hr providing 2200 kcals and 100 gm protein, with 1800 NPCs. Pt with adequate PN support as it meets 95-103% kcals of est energy needs PN support with adequate protein as it meets 108-135% of estimated protein needs. Noted pt is also receiving MVI in TPN order. Noted MD note that pt has metastatic cancer. Recommendation: Consider Prostat 1 pkt BID with 500mg VitC BID Est Energy needs: 4514-1704 kcals (23-25 kcal/kgBW), Est Protein needs: 74-93 gms/day (0.8-1.0 gm/kgBW). Will continue to monitor and reassess prn. LABS: GLUC 110 H, POT 3.2 L, CA 6.9 L, ALB 1.2 L. GI: Pt with colostomy per RN doc BS: 12 high risk, incision at site of sx per RN doc. Please refer to wound assessment report for full details. PES: Partially resolved: Altered nutrition related lab values r/t current chronic medical condition aeb elev BUN severe hypoalb Comments Will continue to closely monitor pertinent labs, NPO status, PN tolerance, and skin status prn. Will followup in 2-3 days 1) Continue PN support to meet > 75% of needs 2) Continue current plan of care
[2020-04-19 16:28] LABS: INR 1.35 (0.9-1.15); Partial Thromboplastin Time 43.1 sec (23.64-32.05)
[2020-04-19 16:37] VITALS: BP 166/88
[2020-04-19] MEDS ORDERED: TPN PER PHARMACY IV NR ×11 (20:00)
[2020-04-19] MEDS: HYDROmorphone HCL 2 MG TAB PO PRN (20:12)
[2020-04-19 22:00] VITALS: BP 182/81
[2020-04-19] MEDS: METOPROLOL TARTRATE 1MG/1ML-5ML VIAL IV PRN (22:12)
--- NOTE | 2020-04-19 22:20 | NUR ---
Heparin PTT at 57.2. Per protocol no change on Heparin rate. Rate remains at 22 ml/hr. Continue care.
[2020-04-19 22:36] LABS: INR 1.36 (0.9-1.15); Partial Thromboplastin Time 57.2 sec (23.64-32.05)
[2020-04-20] MEDS: ACCU-CHEK COMFORT CURVE STRIP VI SCH ×4 (00:12→17:52)
[2020-04-20] MEDS: HYDROmorphone HCL 2 MG TAB PO PRN ×4 (00:13→20:15)
[2020-04-20] MEDS: CIPROFLOXACIN 400MG/200ML 200 ML IV SCH ×3 (03:49→19:44)
--- NOTE | 2020-04-20 04:45 | NUR ---
Heparin aPTT at 56.5. Per protocol no change on Heparin rate. Rate remains at 22 ml/hr.
[2020-04-20 04:56] LABS: Eosinophils # (auto) 0.4 10 ^3/uL (0-0.8); Hematocrit 25.9 % (41.0-53.0); Mean Corpuscular Hgb Conc. 31.9 g/dL (32.0-36.0); Monocytes # (auto) 1.7 10 ^3/uL (0-1.3)
[2020-04-20 04:58] LABS: Basophils # (auto) 0.3 10 ^3/uL (0-0.2); Basophils % (auto) 1.7 % (0.0-2.0); Eosinophils % (auto) 2.6 % (0.0-7.0); Hemoglobin 8.2 g/dL (13.5-17.5); Lymphocytes # (auto) 2.1 10 ^3/uL (0.4-5.4); Lymphocytes % (auto) 13.1 % (10.0-50.0); Mean Corpuscular Hemoglobin 26.2 pg (28.0-32.0); Mean Corpuscular Volume 82.1 fL (80.0-100.0); Neutrophils # (auto) 11.4 10 ^3/uL (1.6-8.6); Neutrophils % (auto) 71.6 % (37.0-80.0); Platelet Count (auto) 637 10^3/uL (140-450); Red Blood Cells 3.15 10^6/uL (4.5-5.90)
[2020-04-20 05:00] VITALS: BP 189/88
[2020-04-20 05:08] LABS: Albumin 1.3 g/dL (3.4-5.0); Anion Gap 7 (5-15); Blood Urea Nitrogen 11 mg/dL (7-18); Calcium 7.2 mg/dL (8.5-10.1); Carbon Dioxide 28 mmol/L (21-32); Chloride 102 mmol/L (98-107); Glucose 112 mg/dL (74-106); Magnesium 1.7 mg/dL (1.6-2.6); Potassium 4.1 mmol/L (3.5-5.1); Sodium 137 mmol/L (136-145)
[2020-04-20 05:10] LABS: Alanine Aminotransferase 50 U/L (16-61); Aspartate Aminotransferase 116 U/L (15-37); BUN/Creatinine Ratio 37.9; GFR African American 421 mL/min; GFR Non-African American 348 mL/min; Triglycerides 162 mg/dL (< 150)
[2020-04-20 05:12] LABS: Alkaline Phosphatase 508 U/L (45-117); Bilirubin, Total 0.7 mg/dL (0.2-1.0); Phosphorus 2.3 mg/dL (2.5-4.90); Total Protein 6.1 g/dL (6.4-8.2)
[2020-04-20 05:15] LABS: INR 1.3 (0.9-1.15); Partial Thromboplastin Time 56.5 sec (23.64-32.05)
[2020-04-20] MEDS: METOPROLOL TARTRATE 1MG/1ML-5ML VIAL IV PRN (05:37)
[2020-04-20] MEDS: MEROPENEM 1GM IVPB 100 ML IV SCH ×3 (05:38→22:23)
[2020-04-20] MEDS: HEPARIN DRIP/D5W 100UNITS/ML 250 ML IV SCH (05:50)
[2020-04-20] MEDS: InsuLIN REG 1unit/0.01ml Soln (100units/ml) SC SCH ×4 (05:50→17:52)
[2020-04-20] MEDS: DOCUSATE ORAL LIQUID 100 MG/10 ML UD PO SCH ×3 (05:50→22:00)
[2020-04-20 06:42] LABS: Pre Albumin < 3.0 mg/dL (20.0-40.0)
[2020-04-20] MEDS: LEVALBUTEROL HCL 1.25 MG/3 ML NEB NEB SCH ×3 (07:20→18:36)
[2020-04-20 09:04] VITALS: BP 155/81
[2020-04-20] MEDS: PANTOPRAZOLE 40 MG/10 ML VIAL INJ IV SCH ×2 (09:45→22:23)
[2020-04-20] MEDS: LACTULOSE 20Gm/30ML SOLN PO SCH (09:52)
[2020-04-20] MEDS: SODIUM CHLOR 0.9% PF (SALINE LOCK) 10ML VIAL/SYR IV SCH ×2 (09:52→22:23)
[2020-04-20] MEDS: MILK OF MAGNESIA 30ML SUSP PO SCH (09:53)
[2020-04-20] MEDS: SERTRALINE HCL 50 MG TAB PO SCH ×2 (09:53→22:23)
[2020-04-20] MEDS: HYDROmorphone HCL 2 MG/ML VL IV PRN ×2 (09:55→17:04)
[2020-04-20 10:37] LABS: INR 1.3 (0.9-1.15); Partial Thromboplastin Time 47.8 sec (23.64-32.05)
--- NOTE | 2020-04-20 11:14 | NUR ---
IV insertion IV access obtained, via clean sterile technique by inserting 20 gauge catheter at right AC after 1 attempt. IV secured properly. No trauma to site. Patient tolerated well.
[2020-04-20] MEDS ORDERED: SODIUM PHOSPHATES 20 MEQ in SODIUM CHL 0.9% 100 ML IV ONE (12:00)
[2020-04-20] MEDS: APIXABAN 5 MG TAB PO SCH ×2 (12:50→22:23)
[2020-04-20 13:36] VITALS: BP 157/84
[2020-04-20 14:39] VITALS: BP 147/84
[2020-04-20] MEDS: LABETALOL HCL 5 MG/ML 4ML SYRINGE IV PRN (17:03)
--- NOTE | 2020-04-20 18:13 | NUR ---
Placed patient on 5 liters Oxymizer to maintain oxygen saturation of 92%.
[2020-04-20] MEDS ORDERED: TPN PER PHARMACY IV NR ×10 (20:00)
[2020-04-20 21:38] VITALS: BP 133/85
[2020-04-20 22:00] VITALS: BP 151/86
[2020-04-20] MEDS: LORazepam 2MG/ML-1ML VIAL IV PRN (22:24)
[2020-04-21] MEDS: LEVALBUTEROL HCL 1.25 MG/3 ML NEB NEB SCH ×4 (00:22→18:25)
[2020-04-21] MEDS: ACCU-CHEK COMFORT CURVE STRIP VI SCH ×4 (00:26→16:57)
[2020-04-21] MEDS: HYDROmorphone HCL 2 MG TAB PO PRN ×5 (00:26→19:27)
[2020-04-21] MEDS: CIPROFLOXACIN 400MG/200ML 200 ML IV SCH ×2 (04:28→11:10)
[2020-04-21 05:00] VITALS: BP 164/86
[2020-04-21] MEDS: MEROPENEM 1GM IVPB 100 ML IV SCH ×3 (05:58→21:42)
[2020-04-21] MEDS: InsuLIN REG 1unit/0.01ml Soln (100units/ml) SC SCH ×4 (05:59→16:56)
[2020-04-21] MEDS: DOCUSATE ORAL LIQUID 100 MG/10 ML UD PO SCH ×3 (05:59→22:05)
[2020-04-21] MEDS: LABETALOL HCL 5 MG/ML 4ML SYRINGE IV PRN (06:00)
--- NOTE | 2020-04-21 07:30 | NUR ---
Opening Shift Note Assumed care of patient, awake and alert. Patient is alert to name, will fall back to sleep when spoken to. Patient rated pain 9/10, medication administered for pain. Insructed on POC and to call for assist PRN, will continue to monitor for changes Q1hr and PRN. Bed is locked and in lowest position. Call light within reach.
[2020-04-21 09:00] VITALS: BP 140/84
[2020-04-21] MEDS: LACTULOSE 20Gm/30ML SOLN PO SCH (10:00)
[2020-04-21] MEDS: SERTRALINE HCL 50 MG TAB PO SCH ×3 (10:00→21:41)
[2020-04-21] MEDS: MILK OF MAGNESIA 30ML SUSP PO SCH (10:00)
[2020-04-21] MEDS: APIXABAN 5 MG TAB PO SCH ×3 (10:00→21:41)
[2020-04-21] MEDS: PANTOPRAZOLE 40 MG/10 ML VIAL INJ IV SCH ×3 (10:00→21:42)
[2020-04-21] MEDS: SODIUM CHLOR 0.9% PF (SALINE LOCK) 10ML VIAL/SYR IV SCH ×2 (10:00→21:43)
--- NOTE | 2020-04-21 10:00 | NUR ---
REFUSED MEDS PATIENT REFUSED 1000 MEDS ELIQUIS, ZOLOFT AND PROTONIX. PATIENT GIVEN EXPLANATION OF IMPORTANCE OF MEDS. PATIENT REFUSED MEDS X 3.
--- NOTE | 2020-04-21 11:37 | NUR ---
Respiratory note: PT HAD SOME LABOR BREATHING AND AUDIBLE WHEEZING. WHEEZING SUBSIDED SOME AFTER MED NEB TX. PLACED PT ON 10L VIA OXYMIZER. SPO2 99%. RN MADE AWARE OF FINDINGS AND AT BEDSIDE. GUARDS AT BEDSIDE. WILL CONTINUE TO MONITOR.
--- NOTE | 2020-04-21 11:45 | NUR ---
JIM BEDSIDE UPDATED MD PATIENT HAD AN EPISODE OF LABORED BREATHING WHILE RECEIVING BREATHING TREATMENT. PATIENT CURRENTLY NO SIGNS OF DISTRESS OXYMIZER @10 LITERS SAT 93%. NO NEW ORDERS. WILL CONTINUE TO MONITOR.
[2020-04-21 13:00] VITALS: BP 130/78
[2020-04-21 17:00] VITALS: BP 139/91
[2020-04-21] MEDS ORDERED: TPN PER PHARMACY IV NR ×10 (20:00)
[2020-04-21] MEDS: HYDROmorphone HCL 2 MG/ML VL IV PRN (21:43)
[2020-04-21 22:00] VITALS: BP 134/85
[2020-04-22] MEDS: LEVALBUTEROL HCL 1.25 MG/3 ML NEB NEB SCH ×4 (00:03→18:40)
[2020-04-22] MEDS: ACCU-CHEK COMFORT CURVE STRIP VI SCH ×4 (00:18→18:00)
[2020-04-22] MEDS: CIPROFLOXACIN 400MG/200ML 200 ML IV SCH ×3 (00:19→12:00)
--- NOTE | 2020-04-22 04:03 | NUR ---
patient has been sleeping , irregular breathing pattern.
[2020-04-22] MEDS: DOCUSATE ORAL LIQUID 100 MG/10 ML UD PO SCH ×3 (04:29→22:00)
[2020-04-22] MEDS: MEROPENEM 1GM IVPB 100 ML IV SCH ×3 (04:29→22:50)
[2020-04-22 05:00] VITALS: BP 155/91
[2020-04-22] MEDS: LABETALOL HCL 5 MG/ML 4ML SYRINGE IV PRN (05:03)
--- NOTE | 2020-04-22 05:03 | NUR ---
blood pressure 155/91 PRN medication given per protocol
[2020-04-22] MEDS: InsuLIN REG 1unit/0.01ml Soln (100units/ml) SC SCH ×4 (05:19→18:00)
[2020-04-22 07:05] LABS: Potassium 4.9 mmol/L (3.5-5.1)
--- NOTE | 2020-04-22 07:15 | NUR ---
Opening Shift Note Assumed care of patient, awake and alert, receiving breathing treatment. Patient is alert to name, this RN and situation. Patient rated pain 7/10, medication administered for pain.Colostomy bag clean, dry and intact. Instructed on POC and to call for assist PRN, will continue to monitor for changes Q1hr and PRN. Bed is locked and in lowest position. Call light within reach.
[2020-04-22 07:32] LABS: Albumin 1.3 g/dL (3.4-5.0); BUN/Creatinine Ratio 36.4; Bilirubin, Total 0.8 mg/dL (0.2-1.0); Calcium 7.4 mg/dL (8.5-10.1); Magnesium 1.9 mg/dL (1.6-2.6); Phosphorus 2.7 mg/dL (2.5-4.90); Total Protein 6.1 g/dL (6.4-8.2)
[2020-04-22 08:30] VITALS: BP 155/89
[2020-04-22] MEDS: LORazepam 2MG/ML-1ML VIAL IV PRN ×2 (08:31→22:52)
[2020-04-22] MEDS: PANTOPRAZOLE 40 MG/10 ML VIAL INJ IV SCH ×2 (10:00→22:50)
[2020-04-22] MEDS: LACTULOSE 20Gm/30ML SOLN PO SCH (10:00)
[2020-04-22] MEDS: SODIUM CHLOR 0.9% PF (SALINE LOCK) 10ML VIAL/SYR IV SCH ×2 (10:00→22:51)
[2020-04-22] MEDS: MILK OF MAGNESIA 30ML SUSP PO SCH (10:00)
[2020-04-22] MEDS: SERTRALINE HCL 50 MG TAB PO SCH ×2 (10:00→22:52)
[2020-04-22] MEDS: APIXABAN 5 MG TAB PO SCH ×2 (10:00→22:51)
--- NOTE | 2020-04-22 10:00 | NUR ---
REFUSED AM PO MEDICATIONS.
[2020-04-22] MEDS: HYDROmorphone HCL 2 MG TAB PO PRN ×2 (12:06→22:53)
[2020-04-22 12:42] VITALS: BP 150/93
--- NOTE | 2020-04-22 14:53 | NUR ---
Nutrition Followup Notes Wt: 98.0 kg Pt awake, weak RN attending pt with guards at bedside. Pt diet advanced to regular 04/08. Pt with poor PO intake aeb pt with 0% intake per RN doc. Pt is receiving nutrition through TPN @ 89 ml/hr providing 2200 kcals and 100 gm protein, with 1800 NPCs. Pt with adequate PN support as it meets 95-103% kcals of est energy needs PN support with adequate protein as it meets 108-135% of estimated protein needs. Noted pt is also receiving MVI in TPN order. Noted MD note that pt has metastatic cancer. Recommendation: Consider Prostat 1 pkt BID with 500mg VitC BID Est Energy needs: 3631-1760 kcals (23-25 kcal/kgBW), Est Protein needs: 74-93 gms/day (0.8-1.0 gm/kgBW). Will continue to monitor and reassess prn. LABS: GLU 114 H, ALB 1.3 L, CA 7.4 L GI: Pt with colostomy per RN doc BS: 12 high risk, incision at site of sx per RN doc. Please refer to wound assessment report for full details. PES: Partially resolved: Altered nutrition related lab values r/t current chronic medical condition aeb elev BUN severe hypoalb Comments Will continue to closely monitor pertinent labs, NPO status, PN tolerance, and skin status prn. Will followup in 2-3 days 1) Continue PN support to meet > 75% of needs 2) Continue current plan of care
[2020-04-22 16:48] VITALS: BP 145/90
--- NOTE | 2020-04-22 18:40 | NUR ---
Respiratory note: AT BEDSIDE FOR MED NEB TX. PT WAS ON ROOM AIR QVE40-97%, PLACED PT ON MED NEB TX. WILL PLACE BACK ON 10LPM SIMPLE MASK POST TX.
--- NOTE | 2020-04-22 19:00 | NUR ---
Opening shift note Assumed care. patient awake, alert, C/O tooth ache, also saying that he feels his teeth are loose. Patient received breathing treatment. Colostomy bag had clear liquid and gas. POC explained to patient, bed on lowest position, call light with in reach, instructed patient to call for help as needed.
--- NOTE | 2020-04-22 19:21 | NUR ---
ENDORSED CARE TO NIGHT RN.
[2020-04-22] MEDS ORDERED: TPN PER PHARMACY IV NR ×7 (20:00)
[2020-04-22 22:00] VITALS: BP 163/114
--- NOTE | 2020-04-22 22:00 | NUR ---
Patient is using accessory muscles while breathing, Patient needs constant reminder to wear O2 mask at all times.
[2020-04-23] VITALS (7 sets, daily range): BP systolic 131–182; BP diastolic 82–132
[2020-04-23] MEDS: CIPROFLOXACIN 400MG/200ML 200 ML IV SCH ×4 (00:11→20:22)
[2020-04-23] MEDS: LEVALBUTEROL HCL 1.25 MG/3 ML NEB NEB SCH ×4 (00:11→18:55)
--- NOTE | 2020-04-23 01:02 | NUR ---
Patient resting, Labored breathing, RT performed treatment
--- NOTE | 2020-04-23 02:50 | NUR ---
OPENING SHIFT NOTE Assumed care of patient who is A&O x3. Currently on 10L Oxymizer with shallow rapid breathing. Reports 06/26 abdominal pain. Pain management options discussed. Double lumen PICC line in right upper arm is intact and patent. Both Lumens flushed with 10ml NS. Edema in all four extremities and scrotum noted. 4+ pitting in BLE. Colostomy present in LLQ. Gas released. Patient is restrained to bed at bilateral ankles and left wrist. Armed correctional officers x2 at the bedside for supervision. Bed is in low locked position with side rails up x2. Call light is within reach and patient encourage to call for assistance when needed. Will continue to monitor for changes PRN. Addendum: 04/24/20 at 0255 by MADNONA BABCOCK RN RN incorrect time. Correct time is 1929.
[2020-04-23] MEDS: MEROPENEM 1GM IVPB 100 ML IV SCH ×3 (05:21→23:07)
[2020-04-23] MEDS: LABETALOL HCL 5 MG/ML 4ML SYRINGE IV PRN (05:22)
[2020-04-23] MEDS: InsuLIN REG 1unit/0.01ml Soln (100units/ml) SC SCH ×4 (05:47→18:00)
[2020-04-23] MEDS: DOCUSATE ORAL LIQUID 100 MG/10 ML UD PO SCH ×3 (05:47→22:00)
[2020-04-23] MEDS: ACCU-CHEK COMFORT CURVE STRIP VI SCH ×4 (05:48→18:00)
--- NOTE | 2020-04-23 07:15 | NUR ---
Opening Shift Note Assumed care of patient, awake and alert, receiving breathing treatment. Patient is alert to name, this RN and situation. Patient pain 6/ refused pain medication. Colostomy bag clean, dry and intact. Instructed on POC and to call for assist PRN, will continue to monitor for changes Q1hr and PRN. Bed is locked and in lowest position. Call light within reach. Addendum: 04/23/20 at 1100 by DEVON CORMIER RN scrotum remains swollen non pitting.
[2020-04-23 09:29] LABS: Albumin 1.3 g/dL (3.4-5.0); Calcium 7.9 mg/dL (8.5-10.1); Magnesium 2.3 mg/dL (1.6-2.6); Potassium 4.8 mmol/L (3.5-5.1)
[2020-04-23 09:34] LABS: Bilirubin, Total 0.9 mg/dL (0.2-1.0); Phosphorus 3.3 mg/dL (2.5-4.90); Total Protein 6.2 g/dL (6.4-8.2)
[2020-04-23] MEDS: APIXABAN 5 MG TAB PO SCH ×2 (10:00→22:00)
[2020-04-23] MEDS: SERTRALINE HCL 50 MG TAB PO SCH ×2 (10:00→22:00)
[2020-04-23] MEDS: MILK OF MAGNESIA 30ML SUSP PO SCH (10:00)
[2020-04-23] MEDS: PANTOPRAZOLE 40 MG/10 ML VIAL INJ IV SCH ×2 (10:00→23:08)
[2020-04-23] MEDS: SODIUM CHLOR 0.9% PF (SALINE LOCK) 10ML VIAL/SYR IV SCH ×2 (10:00→23:08)
[2020-04-23] MEDS: LACTULOSE 20Gm/30ML SOLN PO SCH (10:00)
--- NOTE | 2020-04-23 10:00 | NUR ---
PATIENT REFUSED ALL AM PO MEDICATIONS.
--- NOTE | 2020-04-23 10:42 | NUR ---
Patient resting,awoke to name; using accessory muscles to breath , R 18 o2 sat 98% on 10L face mask. left leg dangling off bed. Left leg repositioned with 2 pillows, patient stated "stop i want my leg there" then moved it back. Will continue to monitor; this RN and guards will continue to remind patient to keep oxygen on his face.
[2020-04-23] MEDS: HYDROmorphone HCL 2 MG TAB PO PRN (14:07)
--- NOTE | 2020-04-23 15:00 | NUR ---
HYGIENE PROVIDED TO PATIENT WITH THIS RN AND BARIATRIC PROGRAM COORDINATOR FULL BED BATH COMPLETE LINEN CHANGE ORAL CARE, BRUSHED PATIENTS TEETH AND MOUTH WASHED; PATIENT ABLE TO HOLD BASIN TO SPIT OUT MOUTH WASH. PATIENT TOLERATED WELL.
--- NOTE | 2020-04-23 17:03 | NUR ---
DRAINED 100CC OF CLEAR LIQUID FROM OSTOMY BAG, PATIENT TOLERATED WELL.
--- NOTE | 2020-04-23 18:55 | NUR ---
CHARTING ERROR. TX WAS STARTED AT 1855 Addendum: 04/23/20 at 1920 by Feliz Gomez, RT Amended: Links added.
--- NOTE | 2020-04-23 18:57 | NUR ---
ENDORSED CARE TO NIGHT MARVIN NEFF
[2020-04-23] MEDS ORDERED: TPN PER PHARMACY IV NR ×8 (20:00)
[2020-04-23] MEDS: HYDROmorphone HCL 2 MG/ML VL IV PRN (21:19)
--- NOTE | 2020-04-23 22:30 | NUR ---
Medication refusal Patient refused all scheduled oral medications.
--- NOTE | 2020-04-23 23:00 | NUR ---
Patient turned onto left side to offset pressure from sacrum. Optifoam present on sacrum is intact.
--- NOTE | 2020-04-23 23:35 | NUR ---
Temperature oral temperature is 100.3. Patient uncovered, fan on in room and ice packs placed under arms.
[2020-04-24] MEDS: LEVALBUTEROL HCL 1.25 MG/3 ML NEB NEB SCH ×4 (00:09→18:47)
--- NOTE | 2020-04-24 00:57 | NUR ---
REASSESSMENT Temperature reassessed and is 98.0 orally. Cooling measures removed.
[2020-04-24] MEDS: LABETALOL HCL 5 MG/ML 4ML SYRINGE IV PRN ×2 (01:42→04:52)
[2020-04-24] MEDS: CIPROFLOXACIN 400MG/200ML 200 ML IV SCH ×3 (04:14→20:25)
--- NOTE | 2020-04-24 05:00 | NUR ---
Blood pressure Blood pressure is 163/72. Labetalol 5mg administered per orders. Will reassess.
--- NOTE | 2020-04-24 05:00 | NUR ---
TEMPERATURE Oral temp is 100.5. Cooling measures applied.
[2020-04-24 05:20] VITALS: BP 163/72
[2020-04-24] MEDS: HYDROmorphone HCL 2 MG/ML VL IV PRN ×4 (05:26→18:02)
[2020-04-24] MEDS: DOCUSATE ORAL LIQUID 100 MG/10 ML UD PO SCH ×3 (05:52→22:00)
[2020-04-24] MEDS: InsuLIN REG 1unit/0.01ml Soln (100units/ml) SC SCH ×4 (06:00→17:48)
--- NOTE | 2020-04-24 06:00 | NUR ---
Reassessment Blood pressure is 158/78, HR: 101 at this time. Will continue to monitor.
--- NOTE | 2020-04-24 06:00 | NUR ---
Reassessment Temperature is now 99.4
[2020-04-24] MEDS: MEROPENEM 1GM IVPB 100 ML IV SCH ×3 (06:04→22:46)
[2020-04-24] MEDS: ACCU-CHEK COMFORT CURVE STRIP VI SCH ×4 (06:05→17:48)
--- NOTE | 2020-04-24 08:00 | NUR ---
OPENING SHIFT NOTE Assumed care of patient. PT is awake and alert. No S/S of distress/SOB or pain. Guards at bedside. Instructed on POC and to call for assist PRN. Bed in lowest locked position, call light within reach, side rails up x2, fall precautions in place. Will continue to monitor for changes Q1hr and PRN.
[2020-04-24 08:18] LABS: Potassium 4.5 mmol/L (3.5-5.1)
[2020-04-24 08:26] LABS: Albumin 1.2 g/dL (3.4-5.0); Bilirubin, Total 1.3 mg/dL (0.2-1.0); Calcium 7.7 mg/dL (8.5-10.1); Phosphorus 2.8 mg/dL (2.5-4.90); Total Protein 6.3 g/dL (6.4-8.2)
[2020-04-24 08:48] VITALS: BP 153/97
[2020-04-24] MEDS: LACTULOSE 20Gm/30ML SOLN PO SCH (10:00)
[2020-04-24] MEDS: MILK OF MAGNESIA 30ML SUSP PO SCH (10:00)
[2020-04-24] MEDS: PANTOPRAZOLE 40 MG/10 ML VIAL INJ IV SCH ×2 (10:24→22:46)
[2020-04-24] MEDS: SODIUM CHLOR 0.9% PF (SALINE LOCK) 10ML VIAL/SYR IV SCH ×2 (10:24→22:46)
[2020-04-24] MEDS: SERTRALINE HCL 50 MG TAB PO SCH ×2 (11:27→22:48)
[2020-04-24] MEDS: APIXABAN 5 MG TAB PO SCH ×2 (11:27→22:47)
[2020-04-24] MEDS: HYDROmorphone HCL 2 MG TAB PO PRN (11:28)
--- NOTE | 2020-04-24 11:59 | NUR ---
WOUND CARE NOTE: Wound care in to see patient for reevaluation of wound and skin integrity monitoring. Patient continue resting on air mattress in Rm. 286A. Patient is awake, alert, follow simple direction. He needs assistance in turning and repositioning and his Thierry score is 15. Skin assessment done with the assistance of patient's nurse, MARVIN Garcia. Mild pain noted upon turning using [place] Faces Pain Scale. Intact pink scar tissue noted to abdominal area. L lower abdomen has intact colostomy bag. L sacral DTI looks improving,measuring 2x0.8cm, light brown in color, non-blanchable but non-boggy to touch. Patient is edematous and more prominent edema noted to his BLE. He developed DTI (deep tissue injury) to proximal R posterior thigh measuring 0.5x2.5cm. Margarita care given and applied Z Guard cream as ordered. Applied stockinette to bilateral lower leg to protect skin from plastic shackles. New photograph of wounds are taken for reference. Repositioned patient for comfort facing his Rt. side, redistributed pressure points with pillows. Patient tolerated well. Guards at bedside. RECOMMENDATION: Continuation of all wound care orders prescribed by MD, continue with skin/wound plan of care, continue monitoring by wound care while patient is hospitalized. Addendum: 04/24/20 at 1702 by Nella Ryan RN Amended: Links added.
[2020-04-24 13:00] VITALS: BP 126/91
--- NOTE | 2020-04-24 13:24 | NUR ---
PT CONTINUES TO KNOCK OFF OXYMIZER IN HIS SLEEP. MITTEN PLACED ON PTS RIGHT HAND. GUARDS AT BEDSIDE. WILL CONTINUE TO MONITOR.
[2020-04-24 16:46] VITALS: BP 126/80
--- NOTE | 2020-04-24 19:20 | NUR ---
OPENING SHIFT NOTE Assumed care of patient who is lethargic, but temporarily arouses to name. Currently on 10L via Oxymizer. Breathing is rapid and shallow. Double lumen PICC line in right upper arm present. TPN infusing as ordered. Severe generalized edema noted. Colostomy bag present in LLQ with minimal clear yellow fluid present in bag. Pemberton catheter in place and patent. Tubing is free from kinks and collection bag is hung below the level of the bladder. Urine is light beckie in color. Bed is in low locked position with side rails up x2. Call light is within reach. Patient is restrained to the bed at left wrist and bilateral ankles. Armed correctional officers x2 are at the bedside for security. Patient encouraged to call for assistance when needed. Will continue to monitor for changes PRN.
[2020-04-24 20:00] VITALS: BP 141/93
[2020-04-24] MEDS ORDERED: TPN PER PHARMACY IV NR ×7 (20:00)
[2020-04-24 22:00] VITALS: BP 141/93
--- NOTE | 2020-04-24 22:00 | NUR ---
PATIENT REFUSED SCHEDULED DOSE OF COLACE 100MG
[2020-04-25] MEDS: LEVALBUTEROL HCL 1.25 MG/3 ML NEB NEB SCH ×5 (00:47→23:33)
[2020-04-25] MEDS: CIPROFLOXACIN 400MG/200ML 200 ML IV SCH ×3 (04:22→20:22)
[2020-04-25 05:00] VITALS: BP 142/93
[2020-04-25] MEDS: HYDROmorphone HCL 2 MG TAB PO PRN (05:13)
[2020-04-25] MEDS: MEROPENEM 1GM IVPB 100 ML IV SCH ×3 (05:52→23:02)
[2020-04-25] MEDS: ACCU-CHEK COMFORT CURVE STRIP VI SCH ×4 (05:52→18:10)
[2020-04-25] MEDS: InsuLIN REG 1unit/0.01ml Soln (100units/ml) SC SCH ×4 (05:52→18:00)
[2020-04-25] MEDS: DOCUSATE ORAL LIQUID 100 MG/10 ML UD PO SCH ×3 (05:52→22:00)
[2020-04-25 08:00] LABS: Albumin 1.2 g/dL (3.4-5.0); Calcium 7.6 mg/dL (8.5-10.1); Potassium 4.3 mmol/L (3.5-5.1)
--- NOTE | 2020-04-25 08:00 | NUR ---
Patient is awake, oriented but lethargic. With O2 at 10lpm/oxymizer O2 sat at 95%. Patient on bedrest with generalized weakness. Bed alarm on and side rails up x2. With alf guards at bedside. Will continue to monitor.
[2020-04-25 08:06] LABS: BUN/Creatinine Ratio 59.5; Bilirubin, Total 1.4 mg/dL (0.2-1.0); Phosphorus 3.4 mg/dL (2.5-4.90); Total Protein 6.2 g/dL (6.4-8.2)
[2020-04-25 09:09] VITALS: BP 116/73
[2020-04-25] MEDS: LACTULOSE 20Gm/30ML SOLN PO SCH (10:00)
[2020-04-25] MEDS: MILK OF MAGNESIA 30ML SUSP PO SCH (10:00)
[2020-04-25] MEDS: SERTRALINE HCL 50 MG TAB PO SCH ×2 (10:27→22:00)
[2020-04-25] MEDS: APIXABAN 5 MG TAB PO SCH ×2 (10:28→22:00)
[2020-04-25] MEDS: PANTOPRAZOLE 40 MG/10 ML VIAL INJ IV SCH ×2 (10:28→23:02)
[2020-04-25] MEDS: SODIUM CHLOR 0.9% PF (SALINE LOCK) 10ML VIAL/SYR IV SCH ×2 (10:36→23:02)
--- NOTE | 2020-04-25 11:51 | NUR ---
Nutrition Followup Notes Wt: 98.0 kg Pt awake, weak RN attending pt with guards at bedside. Pt diet advanced to regular 04/08. Pt with poor PO intake aeb pt with 0% intake per RN doc. Pt is receiving nutrition through TPN @ 89 ml/hr providing 2100 kcals and 100 gm protein, with 1800 NPCs. Pt with adequate PN support as it meets 95-103% kcals of est energy needs PN support with adequate protein as it meets 108-135% of estimated protein needs. Noted pt is also receiving MVI in TPN order. Noted MD note that pt has metastatic cancer. Recommendation: Consider Prostat 1 pkt BID with 500mg VitC BID Est Energy needs: 7979-3561 kcals (23-25 kcal/kgBW), Est Protein needs: 74-93 gms/day (0.8-1.0 gm/kgBW). Will continue to monitor and reassess prn. LABS: BUN 22 H, CA 7.6 L, ALB 1.2 L GI: Pt with colostomy per RN doc BS: 12 high risk, incision at site of sx per RN doc. Please refer to wound assessment report for full details. PES: Partially resolved: Altered nutrition related lab values r/t current chronic medical condition aeb elev BUN severe hypoalb Comments Will continue to closely monitor pertinent labs, NPO status, PN tolerance, and skin status prn. Will followup in 2-3 days 1) Continue PN support to meet > 75% of needs 2) Continue current plan of care
[2020-04-25 12:35] VITALS: BP 123/80
[2020-04-25] MEDS: HYDROmorphone HCL 2 MG/ML VL IV PRN ×2 (14:47→18:39)
[2020-04-25 16:55] VITALS: BP 127/87
--- NOTE | 2020-04-25 19:15 | NUR ---
Opening Shift Note Assumed care of patient, awake, on 10L of oxygen via oxymizer, no S/S of distress/SOB or pain. Guards at bedside, bed in lowest locked position, side rails up x2, and call light within reach. Instructed on POC and to call for assist PRN, will continue to monitor for changes Q1hr and PRN.
[2020-04-25] MEDS ORDERED: TPN PER PHARMACY IV NR ×7 (20:00)
[2020-04-26] MEDS: ACCU-CHEK COMFORT CURVE STRIP VI SCH ×4 (00:37→17:58)
[2020-04-26] MEDS: HYDROmorphone HCL 2 MG/ML VL IV PRN ×4 (03:07→11:37)
[2020-04-26] MEDS: CIPROFLOXACIN 400MG/200ML 200 ML IV SCH ×3 (05:20→20:52)
[2020-04-26] MEDS: InsuLIN REG 1unit/0.01ml Soln (100units/ml) SC SCH ×4 (06:00→17:58)
[2020-04-26] MEDS: DOCUSATE ORAL LIQUID 100 MG/10 ML UD PO SCH ×3 (06:00→22:07)
[2020-04-26] MEDS: MEROPENEM 1GM IVPB 100 ML IV SCH ×3 (07:00→22:07)
[2020-04-26] MEDS: LEVALBUTEROL HCL 1.25 MG/3 ML NEB NEB SCH ×3 (07:17→18:54)
[2020-04-26 07:24] LABS: Calcium 7.9 mg/dL (8.5-10.1); Potassium 4.1 mmol/L (3.5-5.1)
[2020-04-26 07:30] LABS: Albumin 1.2 g/dL (3.4-5.0); BUN/Creatinine Ratio 64.1; Bilirubin, Total 1.8 mg/dL (0.2-1.0); Phosphorus 3.2 mg/dL (2.5-4.90); Total Protein 6.3 g/dL (6.4-8.2)
--- NOTE | 2020-04-26 07:30 | NUR ---
Opening Shift Note Assumed care of patient, awake and alert. No S/S of distress/SOB. Pain management options discussed with the patient. Instructed on POC and to call for assist PRN, will continue to monitor for changes Q1hr and PRN.
[2020-04-26 09:00] VITALS: BP 121/84
[2020-04-26] MEDS: SERTRALINE HCL 50 MG TAB PO SCH ×2 (09:18→22:07)
[2020-04-26] MEDS: APIXABAN 5 MG TAB PO SCH ×2 (09:18→22:08)
[2020-04-26] MEDS: PANTOPRAZOLE 40 MG/10 ML VIAL INJ IV SCH ×2 (09:18→22:07)
[2020-04-26] MEDS: MILK OF MAGNESIA 30ML SUSP PO SCH (09:18)
[2020-04-26] MEDS: SODIUM CHLOR 0.9% PF (SALINE LOCK) 10ML VIAL/SYR IV SCH ×2 (09:18→22:06)
[2020-04-26] MEDS: LACTULOSE 20Gm/30ML SOLN PO SCH (09:18)
[2020-04-26 13:00] VITALS: BP 118/81
[2020-04-26] MEDS: HYDROmorphone HCL 2 MG TAB PO PRN ×2 (14:00→22:08)
[2020-04-26] MEDS: LORazepam 2MG/ML-1ML VIAL IV PRN (14:11)
[2020-04-26 17:00] VITALS: BP 114/77
[2020-04-26 17:34] VITALS: BP 118/81
--- NOTE | 2020-04-26 18:54 | NUR ---
RT NOTE PT WAS SEEN BY RT FOR HHN TX. PT TOLERATES WELL VIA MASK. NO ADVERSE REACTION NOTED. CONT ORDERED Addendum: 04/26/20 at 1904 by Darlene Grant RT Amended: Links added.
--- NOTE | 2020-04-26 19:30 | NUR ---
Opening Shift Note Assumed care of patient,alert and oriented. Instructed on POC and to call for assist PRN, will continue to monitor for changes Q1hr and PRN.
[2020-04-26] MEDS ORDERED: TPN PER PHARMACY IV NR ×9 (20:00)
[2020-04-26 22:00] VITALS: BP 111/71
--- NOTE | 2020-04-26 23:00 | NUR ---
pt refused to be turned
[2020-04-27] MEDS: LEVALBUTEROL HCL 1.25 MG/3 ML NEB NEB SCH ×4 (00:10→19:16)
--- NOTE | 2020-04-27 00:10 | NUR ---
RT NOTE PT WAS SEEN BY RT FOR HHN TX. PT TOLERATES WELL VIA MASK. NO ADVERSE REACTION NOTED. CONT ORDERED Addendum: 04/27/20 at 0013 by Darlene Grant RT Amended: Links added.
[2020-04-27] MEDS: ACCU-CHEK COMFORT CURVE STRIP VI SCH ×4 (00:26→17:44)
[2020-04-27] MEDS: CIPROFLOXACIN 400MG/200ML 200 ML IV SCH ×3 (03:38→19:59)
[2020-04-27 04:46] VITALS: BP 153/92
[2020-04-27] MEDS: HYDROmorphone HCL 2 MG TAB PO PRN ×3 (04:53→22:30)
[2020-04-27] MEDS: InsuLIN REG 1unit/0.01ml Soln (100units/ml) SC SCH ×4 (06:00→17:44)
[2020-04-27] MEDS: DOCUSATE ORAL LIQUID 100 MG/10 ML UD PO SCH ×5 (06:00→22:03)
[2020-04-27] MEDS: MEROPENEM 1GM IVPB 100 ML IV SCH ×3 (06:12→22:03)
[2020-04-27 06:50] LABS: Calcium 7.6 mg/dL (8.5-10.1); Chloride 104 mmol/L (98-107); Potassium 3.8 mmol/L (3.5-5.1); Sodium 138 mmol/L (136-145)
[2020-04-27 06:56] LABS: Alanine Aminotransferase 112 U/L (16-61); Albumin 1.1 g/dL (3.4-5.0); Alkaline Phosphatase 597 U/L (45-117); Anion Gap 4 (5-15); Aspartate Aminotransferase 330 U/L (15-37); BUN/Creatinine Ratio 62.8; Bilirubin, Total 1.8 mg/dL (0.2-1.0); Blood Urea Nitrogen 27 mg/dL (7-18); Carbon Dioxide 30 mmol/L (21-32); GFR African American 267 mL/min; GFR Non-African American 221 mL/min; Glucose 112 mg/dL (74-106); Magnesium 2.2 mg/dL (1.6-2.6); Phosphorus 4.2 mg/dL (2.5-4.90); Pre Albumin < 3.0 mg/dL (20.0-40.0); Total Protein 6.1 g/dL (6.4-8.2); Triglycerides 150 mg/dL (< 150)
[2020-04-27 08:00] VITALS: BP 164/71
[2020-04-27 09:00] VITALS: BP 164/71
[2020-04-27] MEDS: APIXABAN 5 MG TAB PO SCH ×2 (10:00→22:04)
[2020-04-27] MEDS: SERTRALINE HCL 50 MG TAB PO SCH ×2 (10:00→22:03)
[2020-04-27] MEDS: LACTULOSE 20Gm/30ML SOLN PO SCH (10:00)
[2020-04-27] MEDS: MILK OF MAGNESIA 30ML SUSP PO SCH (10:00)
[2020-04-27] MEDS: PANTOPRAZOLE 40 MG/10 ML VIAL INJ IV SCH ×2 (10:24→22:03)
[2020-04-27] MEDS: SODIUM CHLOR 0.9% PF (SALINE LOCK) 10ML VIAL/SYR IV SCH ×2 (10:25→22:03)
--- NOTE | 2020-04-27 10:30 | NUR ---
patient is sleeping and unable to remain alert long enough to safely swallow medications. i will continue to monitor patient to see if he becomes more alert later. for now the oral medications will be held.
[2020-04-27 13:00] VITALS: BP 158/85
--- NOTE | 2020-04-27 14:29 | NUR ---
patient is still too lethargic to take medications by mouth.
[2020-04-27] MEDS: FUROSEMIDE 20 MG/2 ML VIAL IV SCH (16:13)
[2020-04-27 18:21] VITALS: BP 162/79
--- NOTE | 2020-04-27 19:30 | NUR ---
Opening Shift Note Assumed care of patient, alert and oriented. Instructed on POC and to call for assist PRN, will continue to monitor for changes Q1hr and PRN.
[2020-04-27] MEDS: TPN PER PHARMACY IV NR ×8 (20:04)
[2020-04-27 21:29] VITALS: BP 120/70
--- NOTE | 2020-04-27 22:00 | NUR ---
pt refused to be turned
[2020-04-28] MEDS: ACCU-CHEK COMFORT CURVE STRIP VI SCH ×4 (00:23→18:00)
[2020-04-28] MEDS: LEVALBUTEROL HCL 1.25 MG/3 ML NEB NEB SCH ×4 (00:37→18:00)
[2020-04-28] MEDS: CIPROFLOXACIN 400MG/200ML 200 ML IV SCH ×3 (03:48→20:32)
[2020-04-28] MEDS: HYDROmorphone HCL 2 MG TAB PO PRN ×2 (03:48→09:41)
--- NOTE | 2020-04-28 04:15 | NUR ---
pt was having SOB, desating to low 80's. advised to breath thru his nose and take a deep breath. O2 sat went up to 94-96%. secured oxymizer to his nose. BP is stable, HR 100-110. pain of 10 as stated by the pt.dilaudid given. Resp therapist came in and ask if the pt can have a breathing txt, stated he doesnt need one and his o2sat has been up and down. sched breathing txt at 6am. will continue to monitor
[2020-04-28 05:08] VITALS: BP 135/74
[2020-04-28] MEDS: InsuLIN REG 1unit/0.01ml Soln (100units/ml) SC SCH ×4 (06:00→18:00)
[2020-04-28] MEDS: DOCUSATE ORAL LIQUID 100 MG/10 ML UD PO SCH ×4 (06:00→21:57)
[2020-04-28] MEDS: MEROPENEM 1GM IVPB 100 ML IV SCH ×3 (06:04→21:58)
[2020-04-28 06:05] LABS: Potassium 4.3 mmol/L (3.5-5.1)
[2020-04-28 06:11] LABS: Albumin 1.2 g/dL (3.4-5.0); BUN/Creatinine Ratio 73.7; Bilirubin, Total 1.6 mg/dL (0.2-1.0); Calcium 7.8 mg/dL (8.5-10.1); Magnesium 2.1 mg/dL (1.6-2.6); Phosphorus 3.6 mg/dL (2.5-4.90); Total Protein 6.4 g/dL (6.4-8.2)
--- NOTE | 2020-04-28 06:42 | NUR ---
Respiratory note: GOMEZ RENTERIA TX REFUSED AT THIS TIME. HR 112, RR 16, SPO2 93% ON 10 OXYMIZER, BS DIMINISHED.NO SIGNS OR SYMPTOMS OF RESPIRATORY DISTRESS NOTED.PT INFORMED TO HIT CALL BUTTON IF FEELING SOB OR WHEEZING.GUARDS AT BEDSIDE. Addendum: 04/28/20 at 0702 by JESSE GUEVARA RT RN WILL BE INFORMED OF PT REFUSAL.
--- NOTE | 2020-04-28 07:30 | NUR ---
Opening Note Assumed patient care from NOC RN. Report given at bedside. Patient currently having agonal breathing, RR 19, HR 110, BP 132/79, 93%. Per RN, aware of patient's condition. Safety precautions in place, will continue to monitor.
[2020-04-28] MEDS: HYDROmorphone HCL 2 MG/ML VL IV PRN ×2 (08:33→22:13)
[2020-04-28 09:00] VITALS: BP 132/79
--- NOTE | 2020-04-28 09:30 | NUR ---
Patient Rounds Patient turned and repositioned. Bed bath given with aid, Azeb. Pemberton Catheter repositioned due to edema, marcie care completed.
[2020-04-28] MEDS: FUROSEMIDE 20 MG/2 ML VIAL IV SCH (09:40)
[2020-04-28] MEDS: SODIUM CHLOR 0.9% PF (SALINE LOCK) 10ML VIAL/SYR IV SCH ×2 (09:41→21:58)
[2020-04-28] MEDS: PANTOPRAZOLE 40 MG/10 ML VIAL INJ IV SCH ×2 (09:41→21:57)
[2020-04-28] MEDS: MILK OF MAGNESIA 30ML SUSP PO SCH (10:00)
[2020-04-28] MEDS: SERTRALINE HCL 50 MG TAB PO SCH ×2 (10:00→21:56)
[2020-04-28] MEDS: LACTULOSE 20Gm/30ML SOLN PO SCH (10:00)
[2020-04-28] MEDS: APIXABAN 5 MG TAB PO SCH ×2 (10:00→21:56)
--- NOTE | 2020-04-28 10:38 | NUR ---
Spoke with Dr. Wilson, updated on patient status. Per MD, continue to monitor patient.
--- NOTE | 2020-04-28 12:30 | NUR ---
MD at Station Spoke with Dr. Wilson regarding patient plan of care. MD aware of patient condition. Per MD, continue to monitor, no new orders at this time.
[2020-04-28 13:00] VITALS: BP 116/68
--- NOTE | 2020-04-28 14:24 | NUR ---
Nutrition Followup Notes Wt: 98.0 kg Pt awake, weak RN attending pt with guards at bedside. Pt diet advanced to regular 04/08. Pt with poor PO intake aeb pt with 0% intake per RN doc. Pt is receiving nutrition through TPN @ 89 ml/hr providing 2100 kcals and 100 gm protein, with 1800 NPCs. Pt with adequate PN support as it meets 95-103% kcals of est energy needs PN support with adequate protein as it meets 108-135% of estimated protein needs. Noted pt is also receiving MVI in TPN order. Noted MD note that pt has metastatic cancer. Recommendation: Consider Prostat 1 pkt BID with 500mg VitC BID Est Energy needs: 3379-9782 kcals (23-25 kcal/kgBW), Est Protein needs: 74-93 gms/day (0.8-1.0 gm/kgBW). Will continue to monitor and reassess prn. LABS: BUN 28H, Creat 0.38L, Alb 1.2L GI: Pt with colostomy per RN doc BS: 13 mod risk, incision at site of sx per RN doc. Please refer to wound assessment report for full details. PES: Partially resolved: Altered nutrition related lab values r/t current chronic medical condition aeb elev BUN severe hypoalb Comments Will continue to closely monitor pertinent labs, NPO status, PN tolerance, and skin status prn. Will followup in 2-3 days 1) Continue PN support to meet > 75% of needs 2) Continue current plan of care
[2020-04-28 17:00] VITALS: BP 150/78
--- NOTE | 2020-04-28 19:20 | NUR ---
Respiratory note: PT REFUSING MED NEB TX.
--- NOTE | 2020-04-28 19:40 | NUR ---
Closing Note Report given at bedside to NOC RN. Patient is AOx2-3, saturation at 93% on 10L Oxymizer. Safety precautions in place. Guards at bedside.
[2020-04-28] MEDS: TPN PER PHARMACY IV NR ×8 (19:59)
[2020-04-28] MEDS ORDERED: TPN PER PHARMACY IV NR ×9 (20:00)
[2020-04-28 22:00] VITALS: BP 153/67
[2020-04-29] MEDS: LEVALBUTEROL HCL 1.25 MG/3 ML NEB NEB SCH ×4 (00:17→19:01)
[2020-04-29] MEDS: ACCU-CHEK COMFORT CURVE STRIP VI SCH ×4 (00:29→17:19)
[2020-04-29] MEDS: HYDROmorphone HCL 2 MG TAB PO PRN (00:55)
[2020-04-29] MEDS: CIPROFLOXACIN 400MG/200ML 200 ML IV SCH ×3 (03:34→22:46)
[2020-04-29] MEDS: MEROPENEM 1GM IVPB 100 ML IV SCH ×2 (05:12→14:50)
[2020-04-29] MEDS: InsuLIN REG 1unit/0.01ml Soln (100units/ml) SC SCH ×4 (05:16→17:19)
[2020-04-29] MEDS: DOCUSATE ORAL LIQUID 100 MG/10 ML UD PO SCH ×3 (05:20→22:00)
[2020-04-29 05:52] VITALS: BP 151/76
[2020-04-29 06:46] LABS: BUN/Creatinine Ratio 64.8; Bilirubin, Total 2.1 mg/dL (0.2-1.0); Calcium 7.9 mg/dL (8.5-10.1); Magnesium 2.2 mg/dL (1.6-2.6); Phosphorus 3.1 mg/dL (2.5-4.90); Total Protein 5.8 g/dL (6.4-8.2)
--- NOTE | 2020-04-29 07:15 | NUR ---
Opening Note Assumed patient care from NOC RNHao. Report received at bedside. Patient currently AOx3, on 10L oxymizer. No signs of distress noted at this time. Will continue to monitor.
--- NOTE | 2020-04-29 08:30 | NUR ---
Patient Rounds Patient stated he has 8/10 pain. Patient offered pain medication, patient stated he wants pain medicine. During medication administration, patient refused and stated "I keep telling you guys I don't want it." Patient offered other pain medication but is refusing at this time. Safety precaution are in place, will continue to monitor.
[2020-04-29 09:00] VITALS: BP 147/96
[2020-04-29] MEDS: LACTULOSE 20Gm/30ML SOLN PO SCH (10:00)
[2020-04-29] MEDS: SERTRALINE HCL 50 MG TAB PO SCH ×2 (10:00→22:00)
[2020-04-29] MEDS: APIXABAN 5 MG TAB PO SCH ×2 (10:00→22:00)
[2020-04-29] MEDS: MILK OF MAGNESIA 30ML SUSP PO SCH (10:00)
--- NOTE | 2020-04-29 10:31 | NUR ---
Patient Refusing Meds Patient refusing oral medications at this time. Patient educated on risks and benefits of medication. Patient continues to refuse, states "later." Patient is AOx3. Safety precautions in place, will continue to monitor.
[2020-04-29] MEDS: PANTOPRAZOLE 40 MG/10 ML VIAL INJ IV SCH (10:32)
[2020-04-29] MEDS: FUROSEMIDE 20 MG/2 ML VIAL IV SCH (10:32)
--- NOTE | 2020-04-29 11:08 | NUR ---
Bed Bath Bed bath and partial linen change performed. Patient repositioned to right side, knees supported with pillows. Patient offered oral care but is denying at this time. environmental monitoring specialist reapplied. Safety precautions in place, will continue to monitor.
[2020-04-29] MEDS: SODIUM CHLOR 0.9% PF (SALINE LOCK) 10ML VIAL/SYR IV SCH (11:22)
[2020-04-29 12:29] VITALS: BP 124/76
--- NOTE | 2020-04-29 12:30 | NUR ---
Oral Care Oral care performed. Patient stated he felt as though something was in his mouth. Oral swab used to clean mouth, small amount of blood noted. Patient suctioned. No signs of distress noted, safety precautions in place, will continue to monitor.
[2020-04-29] MEDS: HYDROmorphone HCL 2 MG/ML VL IV PRN ×4 (12:36→19:06)
[2020-04-29 16:49] VITALS: BP 123/77
--- NOTE | 2020-04-29 18:26 | NUR ---
Patient Rounds Patient repositioned, partial linen change. Patient tolerated well, reminded to keep oxymizer and breathe through nose. Safety precautions at this time, no signs of distress, will continue to monitor.
[2020-04-29] MEDS ORDERED: TPN PER PHARMACY IV NR ×9 (20:00)
[2020-04-29 23:28] VITALS: BP 120/74
[2020-04-30] MEDS: LEVALBUTEROL HCL 1.25 MG/3 ML NEB NEB SCH ×4 (00:58→19:02)
[2020-04-30] MEDS: MEROPENEM 1GM IVPB 100 ML IV SCH ×2 (01:00→05:30)
[2020-04-30] MEDS: PANTOPRAZOLE 40 MG/10 ML VIAL INJ IV SCH ×3 (01:01→22:38)
[2020-04-30] MEDS: ACCU-CHEK COMFORT CURVE STRIP VI SCH ×4 (01:02→17:32)
[2020-04-30] MEDS: SODIUM CHLOR 0.9% PF (SALINE LOCK) 10ML VIAL/SYR IV SCH ×3 (01:04→22:38)
[2020-04-30 03:30] VITALS: BP 120/74
[2020-04-30] MEDS: CIPROFLOXACIN 400MG/200ML 200 ML IV SCH ×3 (04:05→20:56)
[2020-04-30] MEDS: InsuLIN REG 1unit/0.01ml Soln (100units/ml) SC SCH ×4 (05:31→17:32)
[2020-04-30] MEDS: HYDROmorphone HCL 2 MG/ML VL IV PRN ×5 (05:31→18:48)
[2020-04-30 05:56] VITALS: BP 115/70
[2020-04-30] MEDS: DOCUSATE ORAL LIQUID 100 MG/10 ML UD PO SCH ×3 (06:00→22:00)
[2020-04-30 06:51] LABS: Potassium 3.5 mmol/L (3.5-5.1)
[2020-04-30 07:01] LABS: Albumin 1.1 g/dL (3.4-5.0); BUN/Creatinine Ratio 66.7; Bilirubin, Total 2.3 mg/dL (0.2-1.0); Calcium 7.9 mg/dL (8.5-10.1); Phosphorus 3.9 mg/dL (2.5-4.90); Total Protein 6.5 g/dL (6.4-8.2)
--- NOTE | 2020-04-30 07:45 | NUR ---
Opening Note Assumed patient care. Patient currently AOx3, on 10L oxymizer. Bed in lowest/locked position, bed rails up x2, call light within reach. Guards at bedside. No signs of distress noted at this time. Patient c/o generalized pain 10/10 achy, will medicate per MD orders. Will continue to monitor.
[2020-04-30] MEDS: LACTULOSE 20Gm/30ML SOLN PO SCH (08:22)
[2020-04-30] MEDS: MILK OF MAGNESIA 30ML SUSP PO SCH (08:22)
[2020-04-30] MEDS: SERTRALINE HCL 50 MG TAB PO SCH ×2 (08:24→22:00)
[2020-04-30] MEDS: FUROSEMIDE 20 MG/2 ML VIAL IV SCH (08:24)
[2020-04-30] MEDS: APIXABAN 5 MG TAB PO SCH ×2 (08:24→22:00)
[2020-04-30 09:00] VITALS: BP 130/71
--- NOTE | 2020-04-30 12:36 | NUR ---
RT NOTE: PT ONLY TOLERATED TX FOR APPROX 4MIN. PT THEN RIPPED MASK OF AND REFUSED TO PUT IT BACK ON OR TO EVEN ALLOW BLOW BY. PT DOES HAVE SOME INCREASED WOB AND SOB. ABDOMEN IS HARD AND DISTENDED WITH PITTING EDEMA WHEN PALPITATED. WILL NOTIFY RN. GUARDS AT BEDSIDE. WILL CONTINUE TO MONITOR.
[2020-04-30 13:42] LABS: Basophils # (auto) 0.1 10 ^3/uL (0-0.2); Eosinophils # (auto) 0 10 ^3/uL (0-0.8); Hemoglobin 8.3 g/dL (13.5-17.5)
[2020-04-30 13:44] LABS: Basophils % (auto) 0.5 % (0.0-2.0); Eosinophils % (auto) 0.2 % (0.0-7.0); Hematocrit 27.7 % (41.0-53.0); Lymphocytes # (auto) 1.8 10 ^3/uL (0.4-5.4); Lymphocytes % (auto) 8.4 % (10.0-50.0); Mean Corpuscular Hemoglobin 25.1 pg (28.0-32.0); Mean Corpuscular Hgb Conc. 29.8 g/dL (32.0-36.0); Mean Corpuscular Volume 84.1 fL (80.0-100.0); Monocytes # (auto) 2.2 10 ^3/uL (0-1.3); Monocytes % (auto) 10.4 % (0.0-12.0); Neutrophils # (auto) 17.1 10 ^3/uL (1.6-8.6); Neutrophils % (auto) 80.5 % (37.0-80.0); Platelet Count (auto) 560 10^3/uL (140-450); Red Blood Cells 3.29 10^6/uL (4.5-5.90); White Blood Cell 21.1 10^3/uL (4.4-10.8)
[2020-04-30 13:50] LABS: Red Cell Distribution Width 22.9 % (11.8-14.3)
[2020-04-30 16:47] VITALS: BP 180/130
--- NOTE | 2020-04-30 19:10 | NUR ---
Opening Shift Note Assumed care of patient, pt awake and alert to self. pt tolerating oxymizer t/o shift, attempted to remove but reeducated to keep on. Instructed on POC and to call for assist PRN, will continue to monitor for changes Q1hr and PRN. bed in lowest and locked position with rails up x2. pt refused turns t/o shift. will continue to monitor t/o shift
[2020-04-30] MEDS ORDERED: TPN PER PHARMACY IV NR ×9 (20:00)
[2020-04-30 22:00] VITALS: BP 127/72
[2020-05-01] MEDS: LEVALBUTEROL HCL 1.25 MG/3 ML NEB NEB SCH ×4 (00:05→19:11)
[2020-05-01] MEDS: HYDROmorphone HCL 2 MG/ML VL IV PRN ×7 (00:21→18:32)
[2020-05-01] MEDS: ACCU-CHEK COMFORT CURVE STRIP VI SCH ×5 (00:22→22:59)
[2020-05-01] MEDS: CIPROFLOXACIN 400MG/200ML 200 ML IV SCH ×2 (03:34→12:25)
[2020-05-01 05:00] VITALS: BP 121/88
[2020-05-01] MEDS: DOCUSATE ORAL LIQUID 100 MG/10 ML UD PO SCH ×3 (06:00→22:00)
[2020-05-01] MEDS: InsuLIN REG 1unit/0.01ml Soln (100units/ml) SC SCH ×5 (06:00→22:59)
[2020-05-01 06:35] LABS: Potassium 3.9 mmol/L (3.5-5.1)
[2020-05-01 06:43] LABS: Albumin 1.1 g/dL (3.4-5.0); BUN/Creatinine Ratio 74.5; Bilirubin, Total 2.5 mg/dL (0.2-1.0); Calcium 7.8 mg/dL (8.5-10.1); Magnesium 2.2 mg/dL (1.6-2.6); Phosphorus 4.2 mg/dL (2.5-4.90); Total Protein 6.7 g/dL (6.4-8.2)
[2020-05-01 09:00] VITALS: BP 137/99
[2020-05-01] MEDS: SODIUM CHLOR 0.9% PF (SALINE LOCK) 10ML VIAL/SYR IV SCH ×2 (10:00→23:17)
[2020-05-01] MEDS: LACTULOSE 20Gm/30ML SOLN PO SCH (10:00)
[2020-05-01] MEDS: TOBRAMYCIN 300 MG/5 ML NEB SOLN NEB SCH (10:00)
[2020-05-01] MEDS: MILK OF MAGNESIA 30ML SUSP PO SCH (10:00)
[2020-05-01] MEDS: SERTRALINE HCL 50 MG TAB PO SCH ×2 (10:57→22:00)
[2020-05-01] MEDS: APIXABAN 5 MG TAB PO SCH ×2 (10:57→22:00)
[2020-05-01] MEDS: PANTOPRAZOLE 40 MG/10 ML VIAL INJ IV SCH ×2 (10:57→23:17)
[2020-05-01] MEDS: FUROSEMIDE 20 MG/2 ML VIAL IV SCH ×2 (10:58→18:32)
--- NOTE | 2020-05-01 11:56 | NUR ---
Respiratory note: PT REFUSED LEVALBUTEROL QQ6 MEDNEB TX. NO RESPIRATORY DISTRESS NOTED. SPO2 94%, HR 106, RR 22, BS CLEAR/DIMINISHED BILATERALLY. GUARDS AT BEDSIDE. WILL CONTINUE TO MONITOR PT.
--- NOTE | 2020-05-01 12:35 | NUR ---
Nutrition Followup Notes Wt: 98.0 kg Pt awake, weak RN attending pt with guards at bedside. Pt diet advanced to regular 04/08. Pt with poor PO intake aeb pt with multiple 0% intake per RN doc. Pt is receiving nutrition through TPN @ 84 ml/hr providing 2100 kcals and 100 gm protein, with 1800 NPCs. Pt with adequate PN support as it meets 95-103% kcals of est energy needs PN support with adequate protein as it meets 108-135% of estimated protein needs. Noted pt is also receiving MVI in TPN order. Noted MD note that pt has metastatic cancer. Recommendation: Consider Prostat 1 pkt BID with 500mg VitC BID Est Energy needs: 1021-1100 kcals (23-25 kcal/kgBW), Est Protein needs: 74-93 gms/day (0.8-1.0 gm/kgBW). Will continue to monitor and reassess prn. LABS: BUN 38H, Creat 0.51L, Ca 7.8L, Alb 1.1L GI: Pt with colostomy per RN doc BS: 9 high risk, incision at site of sx per RN doc. Please refer to wound assessment report for full details. PES: Partially resolved: Altered nutrition related lab values r/t current chronic medical condition aeb elev BUN severe hypoalb Comments Will continue to closely monitor pertinent labs, NPO status, PN tolerance, and skin status prn. Will followup in 2-3 days 1) Continue PN support to meet > 75% of needs 2) Continue current plan of care
[2020-05-01 12:55] VITALS: BP 163/98
[2020-05-01 16:58] VITALS: BP 149/108
[2020-05-01] MEDS: cloNIDine 0.2 mg/24hr 7DAY PATCH TD SCH (18:33)
[2020-05-01] MEDS: TPN PER PHARMACY IV NR ×7 (19:54)
[2020-05-01 20:00] VITALS: BP 155/107
--- NOTE | 2020-05-01 20:32 | NUR ---
PT LETHARGIC WITH AGONAL BREATHING. BS IS 94. RESPIRATORY HAS JUST COMPLETED A MED NEB TX BUT PT'S SAT IS 91 ON [address] FERNANDEZ PAGED BECAUSE THE PT HAS BEEN RECEIVING DILAUDID Q2 HOURS CONSISTENTLY ON DAYSHIFT. WITH PT'S COMPRIMISED LIVER FUNCTION THE DILAUDID COULD BUILD UP TO TOXIC LEVELS IN HIS SYSTEM.AWAITING CALL BACK. .
--- NOTE | 2020-05-01 21:00 | NUR ---
DR FERNANDEZ CALLED BACK AND STATED TO "JUST NOT GIVE THE PAIN MEDICATION" IF PT WAS LETHARGIC. MD DID NOT CHANGE THE Q2 TIME FRAME OR MAKE THE DILAUDID Q4 REQUESTED BY RN.PT SLEEPING WITH EYES CLOSED;RESP EVEN UNLAB.WILL CONTINUE TO MONITOR.
--- NOTE | 2020-05-01 21:00 | NUR ---
DR FERNANDEZ CALLED BACK AND STATED TO just not
[2020-05-01 22:00] VITALS: BP 90/62
--- NOTE | 2020-05-01 22:00 | NUR ---
PT REFUSING ALL PILLS;STATES HE ONLY WANTS IV MEDICATIONS.
[2020-05-01 22:34] LABS: BUN/Creatinine Ratio 80.4; Calcium 8.3 mg/dL (8.5-10.1); Potassium 3.8 mmol/L (3.5-5.1)
--- NOTE | 2020-05-01 23:05 | NUR ---
PT PULLED UP IN BED AND REPOSITIONED.
[2020-05-02] MEDS: TOBRAMYCIN 300 MG/5 ML NEB SOLN NEB SCH ×3 (00:33→19:41)
[2020-05-02] MEDS: LEVALBUTEROL HCL 1.25 MG/3 ML NEB NEB SCH ×4 (00:33→19:30)
[2020-05-02] MEDS: PROMETHAZINE HCL 25 MG/ML 1ML IV PRN ×2 (00:40→09:36)
[2020-05-02] MEDS: FUROSEMIDE 20 MG/2 ML VIAL IV SCH ×3 (04:57→17:31)
[2020-05-02] MEDS: DOCUSATE ORAL LIQUID 100 MG/10 ML UD PO SCH ×3 (04:57→23:15)
--- NOTE | 2020-05-02 04:58 | NUR ---
GINO BEING HELD THIS AM BECAUSE MANUAL B/P OF 85/60.
[2020-05-02 05:00] VITALS: BP 85/60
[2020-05-02] MEDS: ACCU-CHEK COMFORT CURVE STRIP VI SCH ×3 (06:00→17:31)
[2020-05-02] MEDS: InsuLIN REG 1unit/0.01ml Soln (100units/ml) SC SCH ×3 (06:00→17:31)
[2020-05-02 07:22] LABS: Calcium 7.9 mg/dL (8.5-10.1); Magnesium 1.9 mg/dL (1.6-2.6); Potassium 3.8 mmol/L (3.5-5.1)
[2020-05-02 07:26] LABS: BUN/Creatinine Ratio 74.5; Bilirubin, Total 2.4 mg/dL (0.2-1.0); Phosphorus 3.8 mg/dL (2.5-4.90); Total Protein 6.2 g/dL (6.4-8.2)
[2020-05-02 08:45] VITALS: BP 161/81
[2020-05-02] MEDS: MILK OF MAGNESIA 30ML SUSP PO SCH (09:35)
[2020-05-02] MEDS: SERTRALINE HCL 50 MG TAB PO SCH ×2 (09:35→23:07)
[2020-05-02] MEDS: APIXABAN 5 MG TAB PO SCH ×2 (09:35→23:06)
[2020-05-02] MEDS: PANTOPRAZOLE 40 MG/10 ML VIAL INJ IV SCH ×2 (09:36→23:05)
[2020-05-02] MEDS: HYDROmorphone HCL 2 MG/ML VL IV PRN ×4 (09:36→18:37)
[2020-05-02] MEDS: POTASSIUM CHL 20MEQ/100ML 100 ML IV SCH (09:37)
[2020-05-02] MEDS: SODIUM CHLOR 0.9% PF (SALINE LOCK) 10ML VIAL/SYR IV SCH ×2 (09:37→23:06)
--- NOTE | 2020-05-02 11:40 | NUR ---
WOUND CARE NOTE: Wound care in to see patient for skin integrity monitoring. Patient continue resting on air bed in Rm. [id number]. Patient is awake, alert, follow simple direction. He needs assistance in turning and repositioning and his Thierry score is 15. Skin assessment done with the assistance of patient's nurse, MARVIN Hinds. Patient has generalized edema and his scrotum is very swollen like a size of grapefruit. His abdominal incision is well healed with intact, dry scabs and pink scar tissue. L lower abdomen has intact colostomy bag. L sacral DTI is much improved. [place] dry peeling skin noted, however very light erythema noted. DTI (deep tissue injury) to proximal posterior thigh is no longer visible, however area display blanchable erythema. Margarita care given and applied Z Guard cream as ordered. New photograph of mentioned skin issue are taken for reference. Repositioned patient for comfort facing his Rt. side, redistributed pressure points with pillows. Patient tolerated well. Guards at bedside. RECOMMENDATION: Continuation of all wound care orders prescribed by MD, continue with skin/wound plan of care, continue monitoring by wound care while patient is hospitalized. Addendum: 05/02/20 at 1549 by Nella Ryan RN Amended: Links added.
[2020-05-02 13:00] VITALS: BP 187/84
[2020-05-02] MEDS ORDERED: LABETALOL HCL 5 MG/ML 4ML SYRINGE IV PRN (13:30)
[2020-05-02] MEDS: LABETALOL HCL 5 MG/ML 4ML SYRINGE IV PRN (13:44)
--- NOTE | 2020-05-02 16:40 | NUR ---
BS 63 , patient drinks half cup of orange juice with added sugar. Will recheck later.
[2020-05-02 17:00] VITALS: BP 159/91
--- NOTE | 2020-05-02 18:45 | NUR ---
PICC Line Dressing Changes PICC line dressing change done with a sterile technique. Cleansed with chloraprep scrub/betadine. Stat lock, and bio-patch as available. Occlusive dressing applied. Changed claves weekly and post lab draw. See e-MAR for medications given during this visit.
[2020-05-02] MEDS: TPN PER PHARMACY IV NR ×14 (19:49→20:59)
[2020-05-02 20:00] VITALS: BP 137/75
[2020-05-02 20:13] VITALS: BP 144/78
[2020-05-03] VITALS: BP 140/83
[2020-05-03] MEDS: ACCU-CHEK COMFORT CURVE STRIP VI SCH ×4 (01:08→18:32)
[2020-05-03] MEDS: InsuLIN REG 1unit/0.01ml Soln (100units/ml) SC SCH ×4 (01:08→18:00)
[2020-05-03] MEDS: LEVALBUTEROL HCL 1.25 MG/3 ML NEB NEB SCH ×4 (01:51→18:33)
[2020-05-03] MEDS: HYDROmorphone HCL 2 MG/ML VL IV PRN ×3 (02:20→21:20)
[2020-05-03 04:00] VITALS: BP 133/75
[2020-05-03] MEDS: DOCUSATE ORAL LIQUID 100 MG/10 ML UD PO SCH ×3 (06:00→21:42)
[2020-05-03 07:06] LABS: Albumin 1.1 g/dL (3.4-5.0); BUN/Creatinine Ratio 94.9; Magnesium 1.9 mg/dL (1.6-2.6); Potassium 3.9 mmol/L (3.5-5.1)
[2020-05-03 07:09] LABS: Bilirubin, Total 2.8 mg/dL (0.2-1.0); Total Protein 6.4 g/dL (6.4-8.2)
[2020-05-03 07:13] LABS: Phosphorus 4.5 mg/dL (2.5-4.90)
[2020-05-03] MEDS: FUROSEMIDE 20 MG/2 ML VIAL IV SCH ×2 (07:20→18:32)
--- NOTE | 2020-05-03 07:56 | NUR ---
OPENING SHIFT NOTE: PATIENT ASLEEP IN BED. AWOKEN TO MODERATE TOUCH. UPDATED ON PLAN OF CARE. A/OX3 UNABLE TO RECALL TIME. RESPIRATIONS EVEN AND SLIGHTLY LABORED AT 24 BREATHS PER MINUTE. PATIENT ON 10L OXYMIZER. PATIENT C/O ABDOMINAL PAIN 10/10 AT THIS TIME. INCISION SITE CDI, PINK. COLOSTOMY BAG EMPTY, LYNN HUNG BELOW BLADDER, FREE OF KINKS. ALL LINES, TUBES, DRAINS ASSESSED AWAY FROM SKIN. SKIN NOTED TO BE EDEMATOUS THROUGHOUT BODY +3. PATIENT ON Q2 TURN SCHEDULE. FALL PRECAUTIONS IN PLACE, CALL LIGHT WITHIN REACH, ROOM FREE OF CLUTTER AND CLEANED, WILL CONTINUE TO MONITOR.
[2020-05-03] MEDS: SERTRALINE HCL 50 MG TAB PO SCH ×2 (08:31→21:42)
[2020-05-03] MEDS: PANTOPRAZOLE 40 MG/10 ML VIAL INJ IV SCH ×2 (08:31→21:41)
[2020-05-03] MEDS: LABETALOL HCL 5 MG/ML 4ML SYRINGE IV PRN ×2 (08:32→13:00)
[2020-05-03] MEDS: HYDROmorphone HCL 2 MG TAB PO PRN (08:32)
[2020-05-03 09:00] VITALS: BP 172/89
[2020-05-03] MEDS: MILK OF MAGNESIA 30ML SUSP PO SCH (10:00)
[2020-05-03] MEDS: POTASSIUM CHL 20MEQ/100ML 100 ML IV SCH (10:10)
[2020-05-03] MEDS: SODIUM CHLOR 0.9% PF (SALINE LOCK) 10ML VIAL/SYR IV SCH ×2 (10:11→21:42)
[2020-05-03] MEDS: APIXABAN 5 MG TAB PO SCH ×2 (10:11→21:42)
--- NOTE | 2020-05-03 12:40 | NUR ---
PATIENT CARE: FULL LINEN CHANGE COMPLETED, PATIENT POSTERIOR CDI. COLOSTOMY EMPTIED 200 YELLOW LIQUID WITH SOLID BROWN PIECES.
[2020-05-03] MEDS: TOBRAMYCIN 300 MG/5 ML NEB SOLN NEB SCH ×2 (12:57→18:37)
[2020-05-03 13:00] VITALS: BP 151/93
[2020-05-03 17:00] VITALS: BP 116/71
--- NOTE | 2020-05-03 19:09 | NUR ---
CARE ENDORSED TO NOC RN.
[2020-05-03] MEDS: TPN PER PHARMACY IV NR ×7 (19:50)
[2020-05-03] MEDS ORDERED: TPN PER PHARMACY IV NR ×9 (20:00)
[2020-05-03 23:04] VITALS: BP 137/72
[2020-05-04] MEDS: LEVALBUTEROL HCL 1.25 MG/3 ML NEB NEB SCH ×4 (00:11→18:59)
[2020-05-04] MEDS: InsuLIN REG 1unit/0.01ml Soln (100units/ml) SC SCH ×4 (00:50→17:32)
[2020-05-04] MEDS: ACCU-CHEK COMFORT CURVE STRIP VI SCH ×4 (00:50→17:33)
[2020-05-04] MEDS: HYDROmorphone HCL 2 MG/ML VL IV PRN (04:39)
[2020-05-04 05:12] VITALS: BP 139/81
[2020-05-04] MEDS: FUROSEMIDE 20 MG/2 ML VIAL IV SCH ×4 (06:35→22:00)
[2020-05-04] MEDS: DOCUSATE ORAL LIQUID 100 MG/10 ML UD PO SCH ×3 (06:36→22:00)
[2020-05-04 07:25] LABS: Albumin 1.1 g/dL (3.4-5.0); Anion Gap 5 (5-15); Blood Urea Nitrogen 42 mg/dL (7-18); Calcium 8.1 mg/dL (8.5-10.1); Carbon Dioxide 29 mmol/L (21-32); Chloride 108 mmol/L (98-107); Glucose 79 mg/dL (74-106); Magnesium 2.1 mg/dL (1.6-2.6); Potassium 4.3 mmol/L (3.5-5.1); Sodium 142 mmol/L (136-145)
[2020-05-04 07:32] LABS: Alanine Aminotransferase 97 U/L (16-61); Alkaline Phosphatase 531 U/L (45-117); Aspartate Aminotransferase 358 U/L (15-37); BUN/Creatinine Ratio 89.4; Bilirubin, Total 2.7 mg/dL (0.2-1.0); GFR African American 241 mL/min; GFR Non-African American 199 mL/min; Phosphorus 4.6 mg/dL (2.5-4.90); Pre Albumin < 3.0 mg/dL (20.0-40.0); Total Protein 6.5 g/dL (6.4-8.2); Triglycerides 162 mg/dL (< 150)
[2020-05-04] MEDS: LABETALOL HCL 5 MG/ML 4ML SYRINGE IV PRN (07:59)
[2020-05-04] MEDS: HYDROmorphone HCL 2 MG TAB PO PRN ×2 (07:59→20:09)
[2020-05-04] MEDS: PANTOPRAZOLE 40 MG/10 ML VIAL INJ IV SCH ×2 (08:00→22:00)
[2020-05-04] MEDS: SERTRALINE HCL 50 MG TAB PO SCH ×2 (08:00→22:00)
[2020-05-04] MEDS: APIXABAN 5 MG TAB PO SCH ×2 (08:00→22:00)
[2020-05-04] MEDS: SODIUM CHLOR 0.9% PF (SALINE LOCK) 10ML VIAL/SYR IV SCH ×2 (08:00→22:00)
[2020-05-04] MEDS: MILK OF MAGNESIA 30ML SUSP PO SCH (08:00)
[2020-05-04] MEDS: PROMETHAZINE HCL 25 MG/ML 1ML IV PRN (08:42)
[2020-05-04 08:43] VITALS: BP 143/107
--- NOTE | 2020-05-04 08:46 | NUR ---
NAUSEA: PATIENT C/O NAUSEA. SPRITE DELIVERED TO BEDSIDE AND NAUSEA MEDICATION GIVEN ORDERED.
--- NOTE | 2020-05-04 08:48 | NUR ---
OPENING SHIFT NOTE: PATIENT AWAKE IN BED. UPDATED ON PLAN OF CARE. A/OX3 UNABLE TO RECALL TIME. RESPIRATIONS EVEN AND SLIGHTLY LABORED AT 22 BREATHS PER MINUTE. PATIENT ON 10L OXYMIZER. PATIENT C/O ABDOMINAL PAIN 10/10 AT THIS TIME. INCISION SITE CDI, PINK. COLOSTOMY BAG EMPTY, LYNN HUNG BELOW BLADDER, FREE OF KINKS. ALL LINES, TUBES, DRAINS ASSESSED AWAY FROM SKIN. SKIN NOTED TO BE EDEMATOUS THROUGHOUT BODY +3. PATIENT ON Q2 TURN SCHEDULE. FALL PRECAUTIONS IN PLACE, CALL LIGHT WITHIN REACH, ROOM FREE OF CLUTTER AND CLEANED, WILL CONTINUE TO MONITOR.
[2020-05-04] MEDS: TOBRAMYCIN 300 MG/5 ML NEB SOLN NEB SCH ×2 (10:49→19:03)
[2020-05-04] MEDS: POTASSIUM CHL 20MEQ/100ML 100 ML IV SCH (11:11)
[2020-05-04 12:37] VITALS: BP 125/67
--- NOTE | 2020-05-04 16:22 | NUR ---
Nutrition Followup Notes Wt: 117 kg Pt was sleeping with guards at bedside. Pt diet advanced to regular 04/08. Pt with fair PO intake aeb ave 58% x 3 meals per RN doc. Pt is receiving nutrition through TPN @ 95 ml/hr providing 1996 kcals and 130 gm protein, with 1476 NPCs. Pt with adequate PN support as it meets 86-94% kcals of est energy needs PN support with adequate protein as it meets 140-176% of estimated protein needs. Noted pt is also receiving MVI in TPN order. Pt is still with some nausea per RN doc. Noted MD note that pt has metastatic cancer. Recommendation: Consider Prostat 1 pkt BID with 500mg VitC BID Est Energy needs: 5765-0654 kcals (23-25 kcal/kgBW), Est Protein needs: 74-93 gms/day (0.8-1.0 gm/kgBW). Will continue to monitor and reassess prn. LABS: Ca 8.1L, Alb 1.1L, AST 358H, ALT 97H, ALK PHOS 531H GI: Pt with colostomy per RN doc BS: 12 high risk, incision at site of sx per RN doc. Please refer to wound assessment report for full details. PES: Partially resolved: Altered nutrition related lab values r/t current chronic medical condition aeb elev BUN severe hypoalb Comments Will continue to closely monitor pertinent labs, NPO status, PN tolerance, and skin status prn. Will followup in 2-3 days 1) Continue PN support to meet > 75% of needs 2) Continue current plan of care
[2020-05-04 16:57] VITALS: BP 123/70
--- NOTE | 2020-05-04 19:12 | NUR ---
CARE ENDORSED TO NOC RN.
--- NOTE | 2020-05-04 19:30 | NUR ---
Opening Shift Note Assumed care of patient, awake, AAOx3, reoriented to time. On room air and minimum assist to BSC. No S/S of distress/SOB or pain. Bed in lowest locked position, side rails up x2, call light within reach. Instructed on POC and to call for assist PRN, will continue to monitor for changes Q1hr and PRN. Addendum: 05/04/20 at 2119 by Marie Rodriguez RN RN DISREGARD ORIGINAL NOTE CORRECT NOTE BELOW Opening Shift Note Assumed care of patient, awake, AAOx3, reoriented to time. Guards at bedside. On 10L oxymizer. Patient on bedrest. No S/S of distress/SOB. Bed in lowest locked position, side rails up x2, call light within reach. Instructed on POC and to call for assist PRN, will continue to monitor for changes Q1hr and PRN.
[2020-05-04] MEDS: TPN PER PHARMACY IV NR ×7 (19:43)
[2020-05-04 22:00] VITALS: BP 103/65
[2020-05-05] MEDS: LEVALBUTEROL HCL 1.25 MG/3 ML NEB NEB SCH ×4 (00:17→19:23)
[2020-05-05 05:33] VITALS: BP 102/75
[2020-05-05] MEDS: DOCUSATE ORAL LIQUID 100 MG/10 ML UD PO SCH ×4 (06:00→22:19)
[2020-05-05] MEDS: InsuLIN REG 1unit/0.01ml Soln (100units/ml) SC SCH ×5 (06:00→23:58)
[2020-05-05] MEDS: ACCU-CHEK COMFORT CURVE STRIP VI SCH ×5 (06:06→23:59)
[2020-05-05] MEDS: FUROSEMIDE 20 MG/2 ML VIAL IV SCH ×3 (06:06→22:20)
[2020-05-05] MEDS: TOBRAMYCIN 300 MG/5 ML NEB SOLN NEB SCH (06:29)
[2020-05-05 06:50] LABS: BUN/Creatinine Ratio 80.9; Bilirubin, Total 2.4 mg/dL (0.2-1.0); Magnesium 2.5 mg/dL (1.6-2.6); Phosphorus 7.2 mg/dL (2.5-4.90); Total Protein 6.4 g/dL (6.4-8.2)
--- NOTE | 2020-05-05 07:50 | NUR ---
OPENING SHIFT NOTE: PATIENT RESTING IN BED. UPDATED ON PLAN OF CARE. A/OX3 UNABLE TO RECALL TIME. RESPIRATIONS EVEN AND SLIGHTLY LABORED AT 22 BREATHS PER MINUTE. PATIENT ON 10L OXYMIZER. INCISION SITE CDI, PINK. COLOSTOMY BAG EMPTY, LYNN HUNG BELOW BLADDER, FREE OF KINKS. ALL LINES, TUBES, DRAINS ASSESSED AWAY FROM SKIN. SKIN NOTED TO BE EDEMATOUS THROUGHOUT BODY +3. MINIMUM WEEPING NOTED TO RIGHT ARM PATIENT ON Q2 TURN SCHEDULE. FALL PRECAUTIONS IN PLACE, CALL LIGHT WITHIN REACH, ROOM FREE OF CLUTTER AND CLEANED, WILL CONTINUE TO MONITOR. GUARDS AT BEDSIDE FOR SAFETY.
[2020-05-05 08:19] VITALS: BP 133/70
--- NOTE | 2020-05-05 09:00 | NUR ---
Repositioned and turned patient slightly on his left side with the help of Samina RN, Marley WONG and Waldemar DUGAN. No s/s of distress/noted stated. Bed at lowest locked position and call light within reach. Guards at bedside for safety.
[2020-05-05] MEDS: MILK OF MAGNESIA 30ML SUSP PO SCH (10:00)
[2020-05-05] MEDS: SERTRALINE HCL 50 MG TAB PO SCH ×2 (10:00→22:20)
[2020-05-05] MEDS: PANTOPRAZOLE 40 MG/10 ML VIAL INJ IV SCH ×2 (10:05→22:19)
[2020-05-05] MEDS: POTASSIUM CHL 20MEQ/100ML 100 ML IV SCH (10:05)
[2020-05-05] MEDS: HYDROmorphone HCL 2 MG/ML VL IV PRN (10:05)
[2020-05-05] MEDS: APIXABAN 5 MG TAB PO SCH ×2 (10:06→22:20)
[2020-05-05] MEDS: SODIUM CHLOR 0.9% PF (SALINE LOCK) 10ML VIAL/SYR IV SCH ×2 (10:06→22:20)
[2020-05-05] MEDS: HYDROmorphone HCL 2 MG TAB PO PRN (12:59)
--- NOTE | 2020-05-05 19:30 | NUR ---
Opening Shift Note Assumed care of patient, awake and alert. Insructed on POC and to callfor assist PRN, will continue to monitor for changes Q1hr and PRN.
--- NOTE | 2020-05-05 19:33 | NUR ---
Respiratory note: CHANGED PT TO 10L OXYMIZER AT THIS TIME
--- NOTE | 2020-05-05 19:45 | NUR ---
care endorsed to NOC RN.
[2020-05-05] MEDS ORDERED: TPN PER PHARMACY IV NR ×5 (20:00)
[2020-05-05 20:51] VITALS: BP 113/70
--- NOTE | 2020-05-05 21:04 | NUR ---
paged Dr. Wilson regarding pt's CXR result
--- NOTE | 2020-05-05 21:25 | NUR ---
Spoke with Dr Wilson regarding pt's CXR result. No new order received.
[2020-05-05 22:00] VITALS: BP 99/50
[2020-05-06] VITALS (75 sets, daily range): BP systolic 48–131; BP diastolic 18–81
[2020-05-06] MEDS: LEVALBUTEROL HCL 1.25 MG/3 ML NEB NEB SCH ×5 (00:09→22:10)
[2020-05-06] MEDS: TOBRAMYCIN 300 MG/5 ML NEB SOLN NEB SCH ×3 (00:09→22:10)
[2020-05-06] MEDS ORDERED: ETOMIDATE (2MG/ML) 20ML VIAL IV ONE ×2 (04:43→06:00)
[2020-05-06] MEDS ORDERED: SUCCINYLCHOLINE CHLORIDE 20 MG/ML 10ML VIAL IV ONE ×2 (04:43→06:00)
--- NOTE | 2020-05-06 04:47 | NUR ---
Respiratory note: INTUBATED PT SUCCESSFULLY ON FIRST AT THIS TIME WITH SIZE 8.0 ETT SECURED WITH GAURANG AT 24CM AT THE LIP WITH Kerwin [place] CERTIFIED ORTHOTIST PRACTICE MANAGER AT BEDSIDE. GOOD COLOR CHANGE ON EZCAP NOTED, BILATERAL BS NOTED.
[2020-05-06] MEDS ORDERED: MIDAZOLAM DRIP 50 mg/50mL 50 ML IV ONE (05:05)
[2020-05-06] MEDS ORDERED: NOREPINEPHRINE 8 MG/250ML KIT 250 ML IV ONE (05:06)
[2020-05-06] MEDS: MIDAZOLAM DRIP 50 mg/50mL 50 ML IV SCH ×3 (05:27→15:47)
--- NOTE | 2020-05-06 05:27 | NUR ---
VERSED: Versed gtt started at 2mg/hr for sedation as pt beginning to mei vent and becoming restless.
[2020-05-06] MEDS: NOREPINEPHRINE 8 MG/250ML KIT 250 ML IV SCH (05:30)
--- NOTE | 2020-05-06 05:30 | NUR ---
LEVOPHED: Levophed gtt started at 5ug/min for BP support as pt's SBP running in 70s & 80s. To titrate to maintain SBP greater than 90.
--- NOTE | 2020-05-06 05:45 | NUR ---
LEVOPHED: Levophed gtt increased to 10ug/min as pt's BP 68/41. To continue to monitor pt.
[2020-05-06] MEDS: DOCUSATE ORAL LIQUID 100 MG/10 ML UD PO SCH ×3 (06:00→21:42)
[2020-05-06] MEDS: InsuLIN REG 1unit/0.01ml Soln (100units/ml) SC SCH ×3 (06:00→18:00)
[2020-05-06] MEDS: FUROSEMIDE 20 MG/2 ML VIAL IV SCH ×4 (06:00→21:42)
[2020-05-06 06:14] LABS: Eosinophils # (auto) 0 10 ^3/uL (0-0.8); Lymphocytes # (auto) 1.4 10 ^3/uL (0.4-5.4)
--- NOTE | 2020-05-06 06:15 | NUR ---
SEDATION: Versed gtt increased to 4mg/hr as pt still restless. To continue to monitor pt.
[2020-05-06 06:17] LABS: Basophils # (auto) 0.2 10 ^3/uL (0-0.2); Basophils % (auto) 0.8 % (0.0-2.0); Eosinophils % (auto) 0.1 % (0.0-7.0); Hematocrit 26.4 % (41.0-53.0); Hemoglobin 7.7 g/dL (13.5-17.5); Lymphocytes % (auto) 6.9 % (10.0-50.0); Mean Corpuscular Hemoglobin 25.5 pg (28.0-32.0); Mean Corpuscular Hgb Conc. 29.2 g/dL (32.0-36.0); Mean Corpuscular Volume 87.3 fL (80.0-100.0); Monocytes # (auto) 1.7 10 ^3/uL (0-1.3); Monocytes % (auto) 8.6 % (0.0-12.0); Neutrophils # (auto) 16.6 10 ^3/uL (1.6-8.6); Neutrophils % (auto) 83.6 % (37.0-80.0); Platelet Count (auto) 412 10^3/uL (140-450); Red Blood Cells 3.03 10^6/uL (4.5-5.90); White Blood Cell 19.9 10^3/uL (4.4-10.8)
[2020-05-06] MEDS: ACCU-CHEK COMFORT CURVE STRIP VI SCH ×3 (06:46→18:19)
--- NOTE | 2020-05-06 06:48 | NUR ---
NGT: 16 fr NGT inserted via right nare. Placement confirmed via auscultation and aspiration of gastric contents (green secretions). NGT secured at 65cm and placed to continuous suction for approx 5 minutes to decompress stomach before being clamped for transport.
[2020-05-06 07:00] LABS: BUN/Creatinine Ratio 58.9; Bilirubin, Total 3.5 mg/dL (0.2-1.0); Calcium 7.5 mg/dL (8.5-10.1); Magnesium 2.8 mg/dL (1.6-2.6); Total Protein 6.3 g/dL (6.4-8.2)
--- NOTE | 2020-05-06 07:04 | NUR ---
PT TRANSPORTED FROM [facility] TO [facility] VIA [facility] WITH NO INCIDENT REPORTED, PT CONNECTED TO FREEZER TUNNEL OPERATOR. RN AT BEDSIDE AND RT LAUREN. PT PLACED BACK ON PREVIOUS VENT SETTINGS. WILL CONTINUE TO MONITOR PT.
--- NOTE | 2020-05-06 07:09 | NUR ---
TRANSFER: Pt transferred to [facility] as an ICU pt at this time w/ ACLS protocols in place.
--- NOTE | 2020-05-06 07:10 | NUR ---
PATIENT ARRIVED ON UNIT DURING REPORT. REPORT GIVEN AND CARE ENDORSE TO DANELLE WONG.
[2020-05-06 07:12] LABS: Potassium 5.6 mmol/L (3.5-5.1)
--- NOTE | 2020-05-06 07:36 | NUR ---
pt code assisted at 0430. pt intubated and transferred to [facility] at 0700 waited for the room to be cleaned up.Dr. Wilson made aware.
--- NOTE | 2020-05-06 07:40 | NUR ---
OPENING Report received from Leona SALMON RN. Care initiated and initial assessment complete.
[2020-05-06] MEDS: TPN PER PHARMACY IV NR ×7 (07:55)
--- NOTE | 2020-05-06 09:45 | NUR ---
RECTAL PROBE PLACED Patient tolerated well.
[2020-05-06] MEDS: POTASSIUM CHL 20MEQ/100ML 100 ML IV SCH (10:00)
--- NOTE | 2020-05-06 10:02 | NUR ---
COMPLETE LINEN CHANGE Patient tolerated well.
[2020-05-06] MEDS: APIXABAN 5 MG TAB PO SCH ×2 (12:06→21:42)
[2020-05-06] MEDS: PANTOPRAZOLE 40 MG/10 ML VIAL INJ IV SCH ×2 (12:06→21:42)
[2020-05-06] MEDS: SODIUM CHLOR 0.9% PF (SALINE LOCK) 10ML VIAL/SYR IV SCH ×2 (12:06→21:42)
[2020-05-06] MEDS: SERTRALINE HCL 50 MG TAB PO SCH ×2 (12:07→21:43)
[2020-05-06] MEDS: MILK OF MAGNESIA 30ML SUSP PO SCH (12:07)
--- NOTE | 2020-05-06 13:20 | NUR ---
PHYSICIAN BEDSIDE Dr. Wilson bedside.
[2020-05-06 14:24] LABS: INR 1.85 (0.9-1.15)
--- NOTE | 2020-05-06 15:00 | NUR ---
COOLING MEASURES STARTED
[2020-05-06] MEDS: ACETAMINOPHEN 650 mg PER 20 mL UD GT PRN (15:58)
--- NOTE | 2020-05-06 17:30 | NUR ---
CALL OUT TO DR. FERNANDEZ FOR NEW ORDERS.
--- NOTE | 2020-05-06 17:45 | NUR ---
SPOKE TO Spoke to Dr. Wilson. New orders received, read back and verified. made aware of INR.
--- NOTE | 2020-05-06 18:20 | NUR ---
Admit to ICU from [facility] on vent GERMAN AVALOS admitted to ICU via gurney on cardiac exercise specialist, intubated and being bagged by Respiratory Therapist. Patient transferred to bed, connected to mechanical ventilator by therapist, ANTOINETTE at bedside. Patient connected to ICU monitoring, weighed by bed scale, oriented to CHALINO CASTILLO, MARVIN primary RN, unit, ventilator and sedation.
[2020-05-06] MEDS: fentaNYL Drip 2500mCg/250mlNS 250 ML IV SCH (18:25)
[2020-05-06] MEDS ORDERED: PHYTONADIONE (VIT K)10 MG/ML 1ML VIAL IV ONE (18:30)
--- NOTE | 2020-05-06 19:00 | NUR ---
Opening shift note: Patient report received: Patient intubated ETT 8/ 24cm @ LL, Vent settings: AC 14, TV 600, FIO2 60%, PEEP 8 and O2 saturation at 95%. Bilateral lungs coarse and diminished. Right upper arm Double lumen PICC line infusing Levo @ 6, Versed @ 15 and TPN @ 81. NGT to right nare clamped, placement checked. Pemberton catheter draining via gravity with yellow urine. Safety precautions in place. Will continue to monitor.
--- NOTE | 2020-05-06 19:47 | NUR ---
RT Transport Note: Patient transported to ICU with Heather MARTINI Patient transported to and from procedure on ventilator with previous ordered settings. Patient on software project manager with alarms set and audible, ambu-bag/mask connected to 02 tank. Patient back on vent with no adverse reaction noted. Transport completed without incident. Addendum: 05/06/20 at 1956 by Anthony Bey RT Time of occurrence was at 1810
[2020-05-06] MEDS ORDERED: phytonadione 10 MG in SODIUM CHL 0.9% 50 ML IV ONE (20:00)
[2020-05-06] MEDS ORDERED: TPN PER PHARMACY IV NR ×4 (20:00)
[2020-05-07] VITALS (101 sets, daily range): BP systolic 85–120; BP diastolic 38–75
[2020-05-07 05:13] LABS: Calcium 7.3 mg/dL (8.5-10.1); Magnesium 2.8 mg/dL (1.6-2.6)
[2020-05-07 05:17] LABS: BUN/Creatinine Ratio 55.9; Bilirubin, Total 4.4 mg/dL (0.2-1.0); Phosphorus 6.9 mg/dL (2.5-4.90); Total Protein 6.2 g/dL (6.4-8.2)
[2020-05-07] MEDS: NOREPINEPHRINE 8 MG/250ML KIT 250 ML IV SCH ×2 (05:37→15:21)
[2020-05-07 05:42] LABS: Albumin 0.9 g/dL (3.4-5.0)
[2020-05-07] MEDS: DOCUSATE ORAL LIQUID 100 MG/10 ML UD PO SCH ×3 (06:00→22:27)
[2020-05-07] MEDS: ACCU-CHEK COMFORT CURVE STRIP VI SCH ×5 (06:00→23:40)
[2020-05-07] MEDS: InsuLIN REG 1unit/0.01ml Soln (100units/ml) SC SCH ×5 (06:00→23:40)
[2020-05-07] MEDS: FUROSEMIDE 20 MG/2 ML VIAL IV SCH ×3 (06:00→22:26)
[2020-05-07] MEDS: LEVALBUTEROL HCL 1.25 MG/3 ML NEB NEB SCH ×3 (06:01→18:21)
--- NOTE | 2020-05-07 07:17 | NUR ---
REPORT RECEIVED FROM SURGICAL DEVICE SALES REPRESENTATIVE RN
--- NOTE | 2020-05-07 09:01 | NUR ---
SEDATION VACATION HELD AT THIS TIME PATIENT HEMODYNAMICALLY UNSTABLE Addendum: 05/07/20 at 0905 by Missael Broderick RN Amended: Links added.
[2020-05-07] MEDS: TOBRAMYCIN 300 MG/5 ML NEB SOLN NEB SCH (09:25)
[2020-05-07] MEDS: APIXABAN 5 MG TAB PO SCH (09:26)
[2020-05-07] MEDS: PANTOPRAZOLE 40 MG/10 ML VIAL INJ IV SCH ×2 (09:26→22:26)
[2020-05-07] MEDS: SODIUM CHLOR 0.9% PF (SALINE LOCK) 10ML VIAL/SYR IV SCH ×2 (09:26→22:26)
[2020-05-07] MEDS: SERTRALINE HCL 50 MG TAB PO SCH (09:27)
[2020-05-07] MEDS: MILK OF MAGNESIA 30ML SUSP PO SCH (09:27)
[2020-05-07] MEDS: POTASSIUM CHL 20MEQ/100ML 100 ML IV SCH (09:27)
[2020-05-07] MEDS: fentaNYL Drip 2500mCg/250mlNS 250 ML IV SCH ×2 (10:00→23:30)
[2020-05-07 10:30] LABS: INR 1.75 (0.9-1.15); Partial Thromboplastin Time 38.4 sec (23.64-32.05)
--- NOTE | 2020-05-07 11:27 | NUR ---
PATIENT HAD SMALL SMEAR OF BOWEL MOVEMENT
[2020-05-07] MEDS: ACETAMINOPHEN 650 mg PER 20 mL UD GT PRN (11:34)
--- NOTE | 2020-05-07 12:02 | NUR ---
Nutrition Followup Notes Wt: 131 kg Pt was sleeping with guards at bedside. Pt diet advanced to regular 04/08. Pt with inadequate PO of < 50% x 4 per RN doc. Pt is receiving nutrition through TPN @ 72 ml/hr providing 1720 kcals and 90 gm protein, with 1360 NPCs. Pt with adequate PN support as it meets 75-80% kcals of est energy needs PN support with adequate protein as it meets 96-121% of estimated protein needs. Est Energy needs: 4781-9971 kcals (23-25 kcal/kgBW), Est Protein needs: 74-93 gms/day (0.8-1.0 gm/kgBW). Will continue to monitor and reassess prn. LABS: BUN 85 H, CREAT 1.52 H, GLU 119 H CA 7.3 L CYNTHIA 4.4 H GI: Pt with colostomy per RN doc BS: 10 high risk, incision at site of sx per RN doc. Please refer to wound assessment report for full details. PES: Partially resolved: Altered nutrition related lab values r/t current chronic medical condition aeb elev BUN severe hypoalb Comments Will continue to closely monitor pertinent labs, PO intake, PN tolerance, and skin status prn. Will followup in 3-5 days 1) Continue PN support to meet > 75% of needs. 2) consider ensure enlive 1 carton bid if PO is low. 3) taper off PN as PO improves 2) Continue current plan of care
--- NOTE | 2020-05-07 12:23 | NUR ---
DR. ROSA AT BEDSIDE
[2020-05-07] MEDS: PROPOFOL 100 ML IV SCH (12:31)
[2020-05-07] MEDS: MIDAZOLAM DRIP 50 mg/50mL 50 ML IV SCH ×3 (12:42→21:00)
--- NOTE | 2020-05-07 14:57 | NUR ---
DR. GONZALEZ AT BEDSIDE
--- NOTE | 2020-05-07 19:10 | NUR ---
OPENING SHIFT RECEIVED REPORT FROM DAY SHIFT RN. ASSUMED CARE OF PATIENT. PATIENT INTUBATED AND SEDATED WITH NO SIGNS OR SYMPTOMS OF SOB, PAIN OR DISTRESS. RIGHT UPPER ARM PICC DOUBLE LUMEN - CLEAN/DRY/INTACT. LYNN HUNG TO GRAVITY. LEFT ABDOMINAL COLOSTOMY - PATENT / DRAINING. SEDATION: FENTANYL - 175MCG/HR VERSED - 15MG/HR VASOPRESSOR: LEVOPHED - 8MCG/MIN REPOSITIONED FOR COMFORT. BED IN LOWEST POSITION, SIDE RAILS UP X2. WILL CONTINUE TO MONITOR.
[2020-05-07] MEDS ORDERED: TPN PER PHARMACY IV NR ×4 (20:00)
[2020-05-07] MEDS: PIPERACILLIN-TAZO 4.5GM 100 ML IV SCH (22:30)
[2020-05-08] VITALS (107 sets, daily range): BP systolic 80–133; BP diastolic 33–63
[2020-05-08] MEDS: LEVALBUTEROL HCL 1.25 MG/3 ML NEB NEB SCH ×4 (00:09→18:31)
[2020-05-08] MEDS: NOREPINEPHRINE 8 MG/250ML KIT 250 ML IV SCH ×3 (01:45→18:52)
[2020-05-08] MEDS: MIDAZOLAM DRIP 50 mg/50mL 50 ML IV SCH ×5 (01:45→18:48)
[2020-05-08 05:14] LABS: Calcium 7.4 mg/dL (8.5-10.1); Magnesium 2.8 mg/dL (1.6-2.6); Potassium 5.5 mmol/L (3.5-5.1)
[2020-05-08 05:17] LABS: BUN/Creatinine Ratio 48.5; Bilirubin, Total 4.5 mg/dL (0.2-1.0); Phosphorus 8.7 mg/dL (2.5-4.90); Total Protein 6.3 g/dL (6.4-8.2)
[2020-05-08 05:23] LABS: Albumin 0.9 g/dL (3.4-5.0)
--- NOTE | 2020-05-08 05:30 | NUR ---
MORNING CARE PERFORMED MORNING CARE WITH CHG WIPES. PARTIAL LINEN CHANGE AND GOWN CHANGED. SKIN REASSESSED AT THIS TIME. LYNN AND ORAL CARE PERFORMED. REPOSITIONED FOR COMFORT. WILL CONTINUE TO MONITOR.
[2020-05-08] MEDS: InsuLIN REG 1unit/0.01ml Soln (100units/ml) SC SCH ×4 (06:00→23:48)
[2020-05-08] MEDS: DOCUSATE ORAL LIQUID 100 MG/10 ML UD PO SCH ×3 (06:00→22:41)
[2020-05-08] MEDS: ACCU-CHEK COMFORT CURVE STRIP VI SCH ×4 (06:00→23:48)
[2020-05-08] MEDS: PIPERACILLIN-TAZO 4.5GM 100 ML IV SCH ×3 (06:00→23:09)
[2020-05-08] MEDS: FUROSEMIDE 20 MG/2 ML VIAL IV SCH ×3 (06:30→22:42)
--- NOTE | 2020-05-08 06:49 | NUR ---
PAGED DR. GONZALEZ - AWAITING CALL BACK.
--- NOTE | 2020-05-08 07:25 | NUR ---
END OF SHIFT REPORT GIVEN TO DAY SHIFT RN. CARE ENDORSED.
--- NOTE | 2020-05-08 07:30 | NUR ---
DR. GONZALEZ CALLED BACK MADE AWARE OF POTASSIUM 5.5, RECEIVED ORDERS FOR LOKELMA 30GM PO ONCE. TORB. WILL CONTINUE TO MONITOR.
--- NOTE | 2020-05-08 07:30 | NUR ---
REPORT RECEIVED ROM NIGHT KARIN WONG. BEDSIDE CHECK DONE.
[2020-05-08] MEDS ORDERED: SODIUM ZIRCONIUM CYCL 10 GM PAK PO ONE (07:45)
--- NOTE | 2020-05-08 07:52 | NUR ---
Pt teaching Pt unable to benefit from pt teaching at this time as he is intubated and sedated. Addendum: 05/08/20 at 0819 by Margi Palma RN Amended: Links added.
--- NOTE | 2020-05-08 07:52 | NUR ---
ASSESSMENT PT RESTING IN BED WITH EYES CLOSED. PUPILS 5 AND SLUGGISH. SEDATED ON FENTANYL AND VERSED WHILE INTUBATED. VENTILATOR SETTINGS OF: 8 FR ETT/24 AT THE LIP, TV 500, AC 14, 60% AND PEEP OF 10. LUNGS CLEAR AND DIMINISHED THROUGHOUT. O2 SAT OF 94%. TELE ST 102. +4 PITTING EDEMA TO BLE AND BUE. ON LEVOPHED AT 16 MCG FOR BP SUPPORT. ABD LARGE AND ROUND, FIRM TO THE TOUCH WITH HYPOACTIVE BOWEL SOUNDS. RIGHT NARES NGT WITH + PLACEMENT AND 40ML RESIDUAL, DIRTY CLEAR. COLOSTOMY TO LEFT ABD, DRAINING SMALL AMOUNT OF WATERY BROWN BM. LYNN CATHETER DRAINING DARK BROWN URINE, SCANT AMOUNT WTIH SEDIMENT. PT REPOSITIONED FOR COMFORT. OPTIFOAM TO SKIN TEAR TO LEFT THIGH. OPTIFOAM TO SACRUM OVER SKIN TEAR TO THE LEFT OF THE INTRAGLUTEAL FOLD. CONTINUE TO MONITOR. CORRECTIONS OFFICERS AT THE BEDSIDE. PT WITH SHACKLES TO THE LEFT WRIST AND BOTH ANKLES, SKIN INTACT UNDER SHACKLES. . WEEPING NOTED FROM BOTH ARMS AND LEGS.
--- NOTE | 2020-05-08 09:22 | NUR ---
DR MARTINEZ READ BACK PT CRITICAL ABG VALUES, AND GAVE ORDER TO INCREASE RR FROM 14, TO 24. NO OTHER VENT CHANGES ORDERED. NO ABG ORDERED POST VENT CHANGE PER DR MARTINEZ. PT TOLERATING VENT CHANGE WELL. WILL CONTINUE TO MONITOR PT.
[2020-05-08] MEDS: POTASSIUM CHL 20MEQ/100ML 100 ML IV SCH (10:00)
[2020-05-08] MEDS: MILK OF MAGNESIA 30ML SUSP PO SCH (10:02)
[2020-05-08] MEDS: SODIUM CHLOR 0.9% PF (SALINE LOCK) 10ML VIAL/SYR IV SCH ×2 (10:02→22:43)
[2020-05-08] MEDS: PANTOPRAZOLE 40 MG/10 ML VIAL INJ IV SCH ×2 (10:02→22:41)
[2020-05-08 11:43] LABS: INR 1.89 (0.9-1.15)
--- NOTE | 2020-05-08 12:00 | NUR ---
RADIOLOGIST UNWILLING TO DO THORACENTESES TODAY DUE TO ELEVATED INR OF 1.89. WILL NOTIFY DR FERNANDEZ.
[2020-05-08] MEDS: PROPOFOL 100 ML IV SCH (12:31)
[2020-05-08] MEDS: fentaNYL Drip 2500mCg/250mlNS 250 ML IV SCH (12:34)
--- NOTE | 2020-05-08 15:40 | NUR ---
MD VISIT PT SEEN AND EXAMINED BY DR FERNANDEZ. I INFORMED HIM THAT RADIOLOGIST UNWILLING TO DO THORACENTESIS WITH INR OF 1.89. ORDERS RECEIVED FOR VITAMIN K DAILY X 3 DOSES AND PTPTT IN THE AM.
[2020-05-08] MEDS ORDERED: PHYTONADIONE (VIT K)10 MG/ML 1ML VIAL SUBCUT ONE (15:45)
[2020-05-08] MEDS: cloNIDine 0.2 mg/24hr 7DAY PATCH TD SCH (17:30)
--- NOTE | 2020-05-08 19:46 | NUR ---
REPORT REPORT GIVEN TO NADIYA RNZONIA. BEDSIDE CHECK DONE.
[2020-05-08] MEDS ORDERED: TPN PER PHARMACY IV NR ×5 (20:00)
[2020-05-08] MEDS ORDERED: PIPERACILLIN-TAZOB 3.375GM 0 ML IV ONE (23:05)
[2020-05-08] MEDS: DEXTROSE (50%) 50ML SYRG IV SCH (23:50)
[2020-05-09] VITALS (100 sets, daily range): BP systolic 75–127; BP diastolic 35–60
[2020-05-09] MEDS: LEVALBUTEROL HCL 1.25 MG/3 ML NEB NEB SCH ×4 (00:07→18:38)
[2020-05-09] MEDS: InsuLIN REG 1unit/0.01ml Soln (100units/ml) SC SCH ×4 (06:00→23:55)
[2020-05-09] MEDS: DOCUSATE ORAL LIQUID 100 MG/10 ML UD PO SCH ×3 (06:00→22:08)
[2020-05-09] MEDS: fentaNYL Drip 2500mCg/250mlNS 250 ML IV SCH (06:02)
[2020-05-09] MEDS: MIDAZOLAM DRIP 50 mg/50mL 50 ML IV SCH ×2 (06:03→21:59)
[2020-05-09] MEDS: ACCU-CHEK COMFORT CURVE STRIP VI SCH ×4 (06:13→23:55)
[2020-05-09] MEDS: PIPERACILLIN-TAZO 4.5GM 100 ML IV SCH ×3 (06:17→22:07)
[2020-05-09 06:33] LABS: INR 1.67 (0.9-1.15); Partial Thromboplastin Time 41.6 sec (23.64-32.05)
[2020-05-09 06:48] LABS: Calcium 7.3 mg/dL (8.5-10.1); Magnesium 2.8 mg/dL (1.6-2.6); Phosphorus 8.4 mg/dL (2.5-4.90)
[2020-05-09 06:54] LABS: Albumin 0.8 g/dL (3.4-5.0); Potassium 5.7 mmol/L (3.5-5.1)
--- NOTE | 2020-05-09 07:30 | NUR ---
REPORT REPORT RECEIVED FROM NIGHT RN.BEDSIDE CHECK DONE.
--- NOTE | 2020-05-09 07:40 | NUR ---
PT TEACHING PT UNABLE TO BENEFIT FROM PT TEACHING AT THIS TIME HE IS INTUBATED AND SEDATED. Addendum: 05/09/20 at 2023 by Margi Palma RN Amended: Links added.
--- NOTE | 2020-05-09 07:40 | NUR ---
ASSESSMENT PT RESTING IN BED WITH EYES CLOSED. INTUBATED AND SEDATED . NO SPONTANEOUS MOVEMENT NOTED. PUPILS 5 AND FIXED. VENTILATOR SETTINGS: 8 FR ETT / 22 AT THE LIP, AC 24, TV 500, 55% AND PEEP OF 10. LUNGS CLEAR AND DIMINISHED THROUGHOUT. TELE SR 98. + 4 PITTING EDEMA (PE) TO BLE, +3 PE TO LEFT HAND AND +3 PE TO RIGHT HAND. . NO SCDS LEGS TOO EDEMATOUS. WEAK PALPABLE PULSES. ABD LARGE AND DISTENDED WITH SURGICAL SCARS TO ABD HEALED AND PINK WITH A FEW SCABS. NO BOWEL SOUNDS HEARD. RIGHT NARES NGT , + PLACEMENT AND CLAMPED. 30 ML RESIDUAL NOTED. LEFT ABDOMINAL COLOSTOMY WITH SCANT AMOUNT OF ORANGE BROWN BM. STOMA PINK. LYNN CATHETER WITH SCANT AMOUNT OF DARK BROWN URINE WITH SEDIMENT. PT WITH 2 LUMEN PIC LINE TO THE RUE, SITE BENIGN, PT REPOSITIONED FOR COMFORT TO HIS LEFT SIDE. APPLIED OPTIFOAM DRESSING TO SACRUM OVER SKIN TEARS X2 AND SDTI TO THE SACRUM. RAILS UP X4 AND BED IN LOW POSITION.
[2020-05-09] MEDS: MILK OF MAGNESIA 30ML SUSP PO SCH (09:52)
[2020-05-09] MEDS: PANTOPRAZOLE 40 MG/10 ML VIAL INJ IV SCH ×2 (09:52→22:05)
[2020-05-09] MEDS: SODIUM CHLOR 0.9% PF (SALINE LOCK) 10ML VIAL/SYR IV SCH ×2 (09:52→21:20)
--- NOTE | 2020-05-09 09:52 | NUR ---
SPOKE WITH DR FERNANDEZ BY PHONE AND MADE AWARE OF K 5.7. ORDER RECEIVED FOR LOKELMA 10MG PER NGT. ASKED ABOUT RECHECKING K LEVEL TODAY AND HE SAID TO CHECK IN THE AM.
[2020-05-09] MEDS: PHYTONADIONE (VIT K)10 MG/ML 1ML VIAL SUBCUT SCH (09:53)
[2020-05-09] MEDS: FUROSEMIDE 20 MG/2 ML VIAL IV SCH ×3 (09:53→22:02)
[2020-05-09] MEDS: POTASSIUM CHL 20MEQ/100ML 100 ML IV SCH (09:54)
[2020-05-09] MEDS ORDERED: SODIUM ZIRCONIUM CYCL 10 GM PAK PO ONE (10:00)
--- NOTE | 2020-05-09 10:02 | NUR ---
SPOKE WITH DR MARTINEZ BY PHONE AND GAVE HIM THIS AM ABG. NO NEW ORDERS RECEIVED.
[2020-05-09] MEDS ORDERED: MIDAZOLAM DRIP 50 mg/50mL 50 ML IV ONE (12:03)
[2020-05-09] MEDS: PROPOFOL 100 ML IV SCH (12:31)
--- NOTE | 2020-05-09 14:00 | NUR ---
MD VISIT PT SEEN BY DR FERNANDEZ AND I UPDATED HIM ON THE PT'S CURRENT CONDITION.
--- NOTE | 2020-05-09 14:20 | NUR ---
Officer Sean stated that they are arranging family visitation due to terminal condition. Family coming from [place].
--- NOTE | 2020-05-09 18:00 | NUR ---
ACCUCHECK OF 117 WITH NO COVERAGE NEEDED. RECTAL TEMP OF 99.5 AND REMOVED BLANKET.CONTINUE TO MONITOR,
--- NOTE | 2020-05-09 19:40 | NUR ---
REPORT REPORT GIVEN TO NIGHT RNBRITT AND BEDSIDE CHECK DONE.
[2020-05-09] MEDS ORDERED: TPN PER PHARMACY IV NR ×4 (20:00)
--- NOTE | 2020-05-09 20:10 | NUR ---
OPEN NOTES RECEIVED PATIENT SEDATED WITH IV VERSED AND FENTANYL. PUPILS SLUGGISHLY REACTIVE TO LIGHT.NO COUGH AND GAG NOTED - WILL DECREASE SEDATION. INTUBATED AND VENTILATED ON AC MODE,FIO2 55%. SUCTIONED, ORAL CARE DONE. ECG SINUS TACHYCARDIA, BP 90-100 MMHG ON IV LEVOPHED AT 21 MCG/MIN. RECTAL TEMP 99.5F UNABLE TO HEAR BOWEL SOUNDS, ABDOMEN SWOLLEN RIGHT NARES NGT - CLAMPED, COLOSTOMY AT LEFT SIDE ABDOMEN WITH BROWNISH WATERY OUTPUT LYNN CATHETER - DARK DIEGO COLORED URINE MINIMAL WHOLE BODY NOTED TO HAVE PITTING EDEMA FULL ASSESSMENT DONE -REFER INTERVENTIONS REPOSITIONED, ON SPECIALTY AIR BED MATTRESS
[2020-05-10] VITALS (58 sets, daily range): BP systolic 82–137; BP diastolic 37–75
[2020-05-10] MEDS: LEVALBUTEROL HCL 1.25 MG/3 ML NEB NEB SCH ×3 (00:10→12:00)
[2020-05-10] MEDS: NOREPINEPHRINE 8 MG/250ML KIT 250 ML IV SCH ×2 (01:01→07:56)
[2020-05-10] MEDS: fentaNYL Drip 2500mCg/250mlNS 250 ML IV SCH (02:13)
[2020-05-10 04:55] LABS: Calcium 6.9 mg/dL (8.5-10.1); Magnesium 3.1 mg/dL (1.6-2.6)
[2020-05-10 04:57] LABS: Potassium 5.9 mmol/L (3.5-5.1)
--- NOTE | 2020-05-10 05:00 | NUR ---
CRITICAL LAB RESULT CRITICAL LAB RESULT OF POTASSIUM AND BUN RELAYED BY LAB STAFF WILL WAIT FOR THE FULL BMP RESULTS BEFORE PAGING MD
[2020-05-10 05:07] LABS: Bilirubin, Total 5.3 mg/dL (0.2-1.0)
--- NOTE | 2020-05-10 05:10 | NUR ---
HYGIENE PATIENT CLEANED WITH CHG WIPES. LINENS CHANGED. ALL LIMBS OFFLOADED WITH CHUX AND PILLOWS ALL LIMBS STILL WEEPING REPOSITIONED. ORAL CARE DONE.
[2020-05-10 05:27] LABS: Phosphorus 8.7 mg/dL (2.5-4.90)
[2020-05-10 05:28] LABS: Albumin 0.7 g/dL (3.4-5.0)
[2020-05-10] MEDS: InsuLIN REG 1unit/0.01ml Soln (100units/ml) SC SCH ×2 (06:00→12:00)
[2020-05-10] MEDS: FUROSEMIDE 20 MG/2 ML VIAL IV SCH (06:05)
[2020-05-10] MEDS: PIPERACILLIN-TAZO 4.5GM 100 ML IV SCH ×2 (06:08→14:00)
[2020-05-10] MEDS: ACCU-CHEK COMFORT CURVE STRIP VI SCH ×2 (06:13→12:00)
--- NOTE | 2020-05-10 06:18 | NUR ---
PAGED DR. HAWA FERNANDEZ FOR CRITICAL LAB RESULT AWAITING CALL BACK
[2020-05-10 06:53] LABS: Eosinophils # (auto) 0.1 10 ^3/uL (0-0.8); Eosinophils % (auto) 0.4 % (0.0-7.0); Neutrophils # (auto) 24.6 10 ^3/uL (1.6-8.6)
[2020-05-10 06:55] LABS: Basophils # (auto) 0.3 10 ^3/uL (0-0.2); Hematocrit 25.8 % (41.0-53.0); Hemoglobin 7.8 g/dL (13.5-17.5); Lymphocytes # (auto) 1.3 10 ^3/uL (0.4-5.4); Lymphocytes % (auto) 4.6 % (10.0-50.0); Mean Corpuscular Hemoglobin 25.3 pg (28.0-32.0); Mean Corpuscular Hgb Conc. 30.1 g/dL (32.0-36.0); Mean Corpuscular Volume 83.9 fL (80.0-100.0); Monocytes # (auto) 2.2 10 ^3/uL (0-1.3); Monocytes % (auto) 7.8 % (0.0-12.0); Neutrophils % (auto) 86.2 % (37.0-80.0); Nucleated Red Blood Cells % 0.1 %; Platelet Count (auto) 395 10^3/uL (140-450); Red Blood Cells 3.08 10^6/uL (4.5-5.90); White Blood Cell 28.5 10^3/uL (4.4-10.8)
[2020-05-10 06:57] LABS: Red Cell Distribution Width 24.3 % (11.8-14.3)
--- NOTE | 2020-05-10 06:58 | NUR ---
CALLED BACK TALKED TO DR. FERNANDEZ AND INFORMED HIM OF CRITICAL LAB RESULTS - POTASSIUM, BUN AND ALBUMIN ALSO INFORMED HIM THAT PATIENT HAS LOW URINE OUTPUT ONLY 20MLS FOR 12HOURS AND SO SWOLLEN. TELEPHONE ORDER RECEIVED : ZANA 10GM NOW THEN 10GM AFTER 1 HOUR ( TO CONFIRM WITH PHARMACIST)
[2020-05-10] MEDS ORDERED: SODIUM ZIRCONIUM CYCL 10 GM PAK PO ONE ×2 (07:00→08:00)
--- NOTE | 2020-05-10 07:00 | NUR ---
Received report from Latrice WONG. Patient is intubated Vent setting TV 500 PEEP 10 FIO2 50% AC 24. SPO2 93%, RR 28. NS-Tach HR 102 BP 85/49. Edema present upper/lower extremities bilateral, 4+ pitting and skin is weeping. Temp is 98.1 rectally. Sedated on Versed 2mg, Fentanyl 100 mcg. Pemberton catheter to gravity, dark beckie/coffee colored urine with p.m. output of 20 ml, primary physician aware. Colostomy bag patent, with 50 ml output p.m. shift. Patient has NG tube right nare, clamped. Left arm DVT 03/18/20. Will continue to monitor.
--- NOTE | 2020-05-10 07:00 | NUR ---
LOKELMA DOSAGE CALLED PHARMACIST AND ASKED IF THE DOSAGE FOR LOKELMA IS CORRECT FOR PATIENT HE SAID ORDER CAN BE GIVEN THE MAX DOSE FOR LOKELMA IS 30GM/DAY
[2020-05-10 07:10] LABS: INR 1.52 (0.9-1.15); Partial Thromboplastin Time 42.5 sec (23.64-32.05)
--- NOTE | 2020-05-10 07:20 | NUR ---
REPORT REPORT GIVEN TO MARVIN DIAZ INFORMED THAT COLACE AND LOKELMA NOT GIVEN YET - SHE WILL GIVE IT
--- NOTE | 2020-05-10 08:00 | NUR ---
A.M. care Pemberton catheter flushed with 100 mL sterile water to assure patency. ETT inline secretions white/foamy. Oral secretions clear, small. Patient does not respond NEURO, with pupils 4 mm and unresponsive. Patient has no cough and gag and is negative for withdrawl to pain. Will continue to monitor.
[2020-05-10] MEDS: DOCUSATE ORAL LIQUID 100 MG/10 ML UD PO SCH ×2 (09:09→15:15)
--- NOTE | 2020-05-10 09:31 | NUR ---
Paged Dr. Madera regarding patients current status. Patient is oliguric with urine output totalling 70 ml last 24 hours. Pemberton catheter was flushed to assure patency. Patient has +4 pitting edema, upper extremities, scrotum and lower extremities from feet to upper thigh. Patient skin is weeping clear yellow fluid. No Nephrology consulted at this time. RN has had to increase Norepinephrine rate since beginning of shift from 20 mcg to 27 mcg. New order for Vasopressor as medically indicated. Patient remains full code. No additional orders.
[2020-05-10] MEDS ORDERED: PHENYLEPHRINE IV 250 ML IV PRN (09:45)
[2020-05-10] MEDS: POTASSIUM CHL 20MEQ/100ML 100 ML IV SCH (10:00)
[2020-05-10] MEDS: SODIUM CHLOR 0.9% PF (SALINE LOCK) 10ML VIAL/SYR IV SCH (10:00)
--- NOTE | 2020-05-10 10:00 | NUR ---
Patient arms and leg weeping, hygiene care completed and change of absorbent pads.
[2020-05-10] MEDS: PANTOPRAZOLE 40 MG/10 ML VIAL INJ IV SCH (10:24)
[2020-05-10] MEDS: MILK OF MAGNESIA 30ML SUSP PO SCH (10:24)
[2020-05-10] MEDS: PHYTONADIONE (VIT K)10 MG/ML 1ML VIAL SUBCUT SCH (10:25)
--- NOTE | 2020-05-10 12:00 | NUR ---
Patient bedding changed d/t skin weeping yellow/clear fluid from skin.
[2020-05-10] MEDS: PROPOFOL 100 ML IV SCH (12:31)
--- NOTE | 2020-05-10 13:30 | NUR ---
Patient has yellow fluid from right arm saturating absorbant pad, while PICC line is patent and intact, the fluid is leaking from patient skin. Hygiene for skin integrity performed. Patient at this time neurologically unreponsive to pain, cough/gag or pupillary reactions whether on or off sedation.
--- NOTE | 2020-05-10 14:45 | NUR ---
Dr. Wilson bedside for exam and update on status. Patinent remains oliguric with urine totally 30 ml during this shift and 100ml for last 32 hours.
--- NOTE | 2020-05-10 16:08 | NUR ---
As of 1607, CODE STATUS change to DNR. New order Dr. Wilson and Dr. Pelaez for terminal wean order. All medications will be D/C and comfort measures instituted.
--- NOTE | 2020-05-10 16:27 | NUR ---
Patient extubated at 1627. HR 79 SPO2 88% BP 94/41 Temp 98.4 F. Patient given Morphone 2mg IV push for comfort. Long Term guards bedside. Patient in no signs of obvious distress.
--- NOTE | 2020-05-10 16:27 | NUR ---
All medications D/C and RT bedside. Code status changed. Assisted guards notified of orders per physicians. Patient given Morphone 2mg IV for comfor. t
[2020-05-10] MEDS ORDERED: MORPHINE SULF INJ 2 MG/ML SYRINGE 1ML IV PRN (16:30)
--- NOTE | 2020-05-10 16:40 | NUR ---
Patient extubated HR 42 RR 0 SPO2 15% BP 65/26 Temp 98.4 F
--- NOTE | 2020-05-10 16:43 | NUR ---
Patient extubated at 1627 HR 53 SPO2 20% RR 5 BP 57/26. Patient in no signs of distress.
--- NOTE | 2020-05-10 16:47 | NUR ---
Patients HR 0 RR 0 SPO2 0% BP 0 Temp 98. F.
--- NOTE | 2020-05-10 16:52 | NUR ---
Retirement Administrator paged to prounounce patients .
--- NOTE | 2020-05-10 17:00 | NUR ---
Dr. Ho bedside to pronounce ![id number].
--- NOTE | 2020-05-10 17:43 | NUR ---
[facility]ALLED TO NOTIFY [facility] , THEY WILL CALL BACK.
--- NOTE | 2020-05-10 19:40 | NUR ---
called [facility], case number recorded.
[2020-05-10] MEDS ORDERED: TPN PER PHARMACY IV NR ×4 (20:00)
--- NOTE | 2020-05-10 20:00 | NUR ---
[facility] DIETARY CLERK CONTACT INFO [phone] EXT [phone]
--- NOTE | 2020-05-10 20:35 | NUR ---
[facility] PRESS OPERATOR HEAVY DUTY DEPMICHAEL ARRIAZA CALLED. NOT A PRESS OPERATOR HEAVY DUTY'S CASE CASE #[id number] HE ALSO SPOKE TO THE STEEL ROD BUSTER AT BEDSIDE
--- NOTE | 2020-05-10 20:45 | NUR ---
BRAIDED RUG MAKER JUSTIN TOOK PATIENT'S BELONGINGS IN THE BAG WITH HIM AND LEFT ALREADY HE ALSO ASKED FOR THE CASE NUMBER
--- NOTE | 2020-05-10 21:00 | NUR ---
BELONGINGS UPON CLEANING PATIENT'S ROOM DRAWERS, THIS RN SAW EYEGLASSES,BOOKS AND LETTERS PLACED ALL OF THESE IN A BELONGING BAG. WILL KEEP IT WITH PATIENT'S BODY THERE IS A BELONGING BAG WITH ALF CLOTHES INSIDE - ACCORDING TO THE COMPLIANCE LEAD TO THROW IT
--- NOTE | 2020-05-10 21:04 | NUR ---
CALLED [facility] TO TALK TO THE SUPERVISOR FEED HOUSE REGARDING MORTUARY AND NEXT OF KIN SEVERAL TIMES AT THIS NUMBER [phone] EXT [phone] - NO ANSWER TRIED CONNECTING TO THE TYPEWRITER TESTER. HE SAID THAT THE SUPERVISOR FEED HOUSE IS OUT OF THE OFFICE AND ASKED FOR THIS RN'S CONTACT INFO SO THAT THE SUPERVISOR FEED HOUSE CAN CALL BACK
--- NOTE | 2020-05-10 21:39 | NUR ---
LT BRAMBILA CALLED FROM [facility] HE SAID HE WILL CONTACT THE STACK YIELD ENGINEER ([employer]) TO INFORM NOK THEN HE WILL CALL ME BACK FOR MORE INFO
[2020-05-10] MEDS ORDERED: BUMETANIDE 2.5mg/10ml (0.25 mg/ml) INJ IV SCH (22:00)
--- NOTE | 2020-05-10 22:58 | NUR ---
POST MORTEM CARE DONE CLEANED PATIENT. PICC LINE AND LYNN CATHETER REMOVED BODY PLACED IN BODY BAG AWAITING ELECTRICAL CAD DESIGNER FROM THE [facility] TO CALL BACK FOR MORTUARY/BODY HOLD
--- NOTE | 2020-05-10 23:20 | NUR ---
TALKED TO [facility] STAFF TOXICOLOGIST. HE SAID THAT THE TRANSFER OD CUSTODY WAS DONE ALREADY IN THE AFTERNOON. AND BODY SHOULD HAVE BEEN PICKED UP BY [facility] INFORMED HIM THAT THE [facility] EARLIER ON WHEN HE TALKED TO ME DID NOT MENTION ANYTHING ABOUT PICKING THE BODY UP.INFORMED HIM THAT WE CANNOT HOLD THE BODY IN ICU LONGER AND OUT [place] IS FULL. ALL WE CAN DO IS CALL [employer] FOR COURT[facility]Y BODY HOLD FOR TONIGHT. HE SAID WE NEED TO CALL [facility] BUT HE DOES NOT KNOW THE CONTACT INFO. WILL SEARCH FOR IT
--- NOTE | 2020-05-10 23:40 | NUR ---
[facility] MANAGER STERILE DEPUTY ARRIAZA CALLED BACK. INFORMED ABOUT WHAT THE [facility] ROLL INSPECTOR HAD TOLD ME. HE SAID THEY ARE NOT GETTING THE BODY AND THE PATIENT IS STILL UNDER THE [employer]. INFORMED HIM THAT HE SAID THAT THERE IS A TRANSFER OF CUSTODY SIGNED ALREADY. HE SAID TRANSFER TO WHO? THEY ARE STILL NOT GETTING THE BODY. WILL INFORM PROJECT DESIGNER
--- NOTE | 2020-05-10 23:45 | NUR ---
CALLED PROFESSOR OF MUSIC TALKED TO WILMER AND INFORMED OF THE SITUATION: [facility]P SALT WASHER SAID THERE IS A TRANSFER OF CUSTODY DONE AND THAT [facility] NEEDS TO GET THE BODY BUT WHEN THIS RN CALLED THE COR[facility], THE DEPUTY SAID THEY ARE NOT RESPONSIBLE FOR THE BODY. THE BODY IS STILL THE BUREAU'S RESPONSIBILITY. WILMER SAID CALL [employer] FOR COURTESY HOLD. PUT IN THE [employer] NUMBER THE CONTACT INFO AND LET THEM KNOW THAT PATIENT IS AN INMATE.
--- NOTE | 2020-05-11 00:05 | NUR ---
CALLED [facility] [employer] TALKED TO TEDDY INFORMED THAT THE BODY WAS AN INMATE SHE SAID SHE WILL CALL BACK IF THEY CAN TAKE THE BODY
--- NOTE | 2020-05-11 00:12 | NUR ---
[facility] TEDDY CALLED BACK. SHE SAID ACCORDING TO HER MANAGER FITNESS, [facility] HAVE A AFFILIATED MORTUARY TO DO BODY HOLD. AND THEY DO NOT HOLD THEM. SHE SAID WE NEED TO CALL THE HALF-WAY BECAUSE SHE DOES NOT KNOW THE INFO
--- NOTE | 2020-05-11 00:19 | NUR ---
TRIED CALLING [facility] AT [phone] EXT [phone] FOR ACCOUNTING SUPERVISOR - NO ANSWER TRIED WHEEL FITTER - NO ANSWER
--- NOTE | 2020-05-11 00:20 | NUR ---
LEAD TECHNOLOGIST IN CYTOGENETICS PAGED
== END 2020-05-10 16:47 | disposition expired | DRG 329 ==
LOC: EEVIPCON 15:23 → ER 15:23 → OVERFLOW 15:24 → EAST 15:24 → UNDOADMIN 15:24 → WEST WING 02-08 16:56 → TELE-WESTW 02-22 19:01 → DOU IN ICU 05-06 07:36 → ICU WEST 05-06 17:58
PROVIDERS: ADMIT Internal Medicine; ATTEND Internal Medicine
PROC: 3E0336Z Introduction of Nutritional Substance into Peripheral Vein, Percutaneous Approach (ICD-10-PCS; 2020-02-12)
PROC: 0D5K8ZZ Destruction of Ascending Colon, Via Natural or Artificial Opening Endoscopic (ICD-10-PCS; 2020-02-12)
PROC: 0DBP8ZX Excision of Rectum, Via Natural or Artificial Opening Endoscopic, Diagnostic (ICD-10-PCS; 2020-02-12)
PROC: 0D5L8ZZ Destruction of Transverse Colon, Via Natural or Artificial Opening Endoscopic (ICD-10-PCS; 2020-02-12)
PROC: 0FB03ZX Excision of Liver, Percutaneous Approach, Diagnostic (ICD-10-PCS; 2020-02-13)
PROC: 0DTJ0ZZ Resection of Appendix, Open Approach (ICD-10-PCS; 2020-02-15)
PROC: 0WJG4ZZ Inspection of Peritoneal Cavity, Percutaneous Endoscopic Approach (ICD-10-PCS; 2020-02-15)
PROC: 3E0T3BZ Introduction of Anesthetic Agent into Peripheral Nerves and Plexi, Percutaneous Approach (ICD-10-PCS; 2020-02-15)
PROC: 0WQF0ZZ Repair Abdominal Wall, Open Approach (ICD-10-PCS; 2020-02-15)
PROC: 0D1N0Z4 Bypass Sigmoid Colon to Cutaneous, Open Approach (ICD-10-PCS; principal; 2020-02-15 09:50)
PROC: 0DQN0ZZ Repair Sigmoid Colon, Open Approach (ICD-10-PCS; 2020-02-22)
PROC: 0WQFXZ2 Repair Abdominal Wall, Stoma, External Approach (ICD-10-PCS; 2020-02-22)
PROC: 02HV33Z Insertion of Infusion Device into Superior Vena Cava, Percutaneous Approach (ICD-10-PCS; 2020-02-29)
PROC: 0D9670Z Drainage of Stomach with Drainage Device, Via Natural or Artificial Opening (ICD-10-PCS; 2020-03-07)
PROC: 02HV33Z Insertion of Infusion Device into Superior Vena Cava, Percutaneous Approach (ICD-10-PCS; 2020-04-01)
PROC: 0BH17EZ Insertion of Endotracheal Airway into Trachea, Via Natural or Artificial Opening (ICD-10-PCS; 2020-05-06)
PROC: 5A1955Z Respiratory Ventilation, Greater than 96 Consecutive Hours (ICD-10-PCS; 2020-05-06)
DX: C19 Malignant neoplasm of rectosigmoid junction (principal); J96.01 Acute respiratory failure with hypoxia; J96.02 Acute respiratory failure with hypercapnia; C78.7 Secondary malignant neoplasm of liver and intrahepatic bile duct; T81.32XA Disruption of internal operation (surgical) wound, not elsewhere classified, initial encounter; E87.1 Hypo-osmolality and hyponatremia; I47.1 Supraventricular tachycardia; J90 Pleural effusion, not elsewhere classified; R18.8 Other ascites; Z99.11 Dependence on respirator [ventilator] status; C77.9 Secondary and unspecified malignant neoplasm of lymph node, unspecified; K91.89 Other postprocedural complications and disorders of digestive system; K56.7 Ileus, unspecified; K75.9 Inflammatory liver disease, unspecified; J44.9 Chronic obstructive pulmonary disease, unspecified; R16.0 Hepatomegaly, not elsewhere classified; K64.8 Other hemorrhoids; K63.5 Polyp of colon; E88.09 Other disorders of plasma-protein metabolism, not elsewhere classified; Z51.5 Encounter for palliative care; Z66 Do not resuscitate; K74.60 Unspecified cirrhosis of liver; E11.9 Type 2 diabetes mellitus without complications; Z53.20 Procedure and treatment not carried out because of patient's decision for unspecified reasons; Z53.31 Laparoscopic surgical procedure converted to open procedure; Z87.891 Personal history of nicotine dependence; Z03.818 Encounter for observation for suspected exposure to other biological agents ruled out; Z82.0 Family history of epilepsy and other diseases of the nervous system; Z85.048 Personal history of other malignant neoplasm of rectum, rectosigmoid junction, and anus; Z86.718 Personal history of other venous thrombosis and embolism; Z74.01 Bed confinement status; Y92.238 Other place in hospital as the place of occurrence of the external cause; K42.9 Umbilical hernia without obstruction or gangrene; I11.0 Hypertensive heart disease with heart failure; I50.9 Heart failure, unspecified; K72.90 Hepatic failure, unspecified without coma; N19 Unspecified kidney failure
CPT/HCPCS: 10022; 36415; 36569; 36600; 45384; 70470; 71045; 71275; 74018; 74021; 74022; 74150; 74176; 74177; 74178; 74250; 76604; 76705; 77012; 80048; 80053; 80074; 80162; 80202; 80307; 81001; 82040; 82140; 82270; 82378; 82805; 82962; 83690; 83735; 83880; 84100; 84154; 84450; 84460; 84478; 85007; 85025; 85027; 85610; 85730; 86704; 86706; 86708; 86803; 86850; 86900; 86901; 87040; 87070; 87077; 87081; 87086; 87186; 87205; 87340; 87804; 87880; 88302; 92610; 93970; 93971; 94002; 94003; 94640; 96361; 96374; 96375; 97110; 97116; 97163; 97530; C9113; G0378; J0330; J0694; J0696; J1450; J1815; J1885; J1956; J2001; J2185; J2248; J2250; J2405; J2543; J2704; J3430; J3480; J3490; J7060; J7131